=== PATIENT | female | born 1990 | race Caucasian/White ===

== ENCOUNTER 2019-12-06 00:14 | Emergency (ER) | payer OTHER, SELFPAY ==
[2019-12-06 00:20] VITALS: BP 119/71; PULSE 124; RESP 17; TEMP 36.6; O2SAT 98; BMI 22.6
--- NOTE | 2019-12-06 02:54 | PC.NURSE ---
This RN at bedside, chaperoning exam with MD. Large abscess noted to left side of upper buttocks. Pt aware of plan of care to obtain urine sample, medicate and drain abscess. Awaiting UA.
--- NOTE | 2019-12-06 03:08 | PC.NURSE ---
Urine sample obtained and sent.
[2019-12-06 03:32] LABS: UPreg QC Valid YES; Urine Pregnancy NEGATIVE (NEGATIVE)
[2019-12-06] MEDS: Lidocaine HCl 2 % MPF 5 ML VIAL INFILTRATI (04:20)
[2019-12-06] MEDS: oxyCODONE HCl Immed Release 5 MG TABLET PO (04:20)
[2019-12-06] MEDS: LORazepam 2 MG/ML VIAL IM (04:40)
[2019-12-06 04:42] VITALS: BP 110/78; PULSE 113; RESP 24; O2SAT 96
--- NOTE | 2019-12-06 04:43 | PC.NURSE ---
Pt medicated with Ativan preprocedure of I&D to left buttocks. VSS at this time. Awaiting MD.
--- NOTE | 2019-12-06 05:02 | ED.GENADULT ---
HPI - General Adult General Chief complaint: General Medical Stated complaint: ABSCESS Time Seen by Provider: 12/06/19 02:48 Source: patient History of Present Illness HPI narrative: patient states of left buttock abscess for the past several days increased pain tonight could not wait for and came in for evaluation denies fevers or chills Onset (ago): day(s) ( to) Severity scale (1-10): 6 Pain Consistency: constant Related Data Allergies Allergy/AdvReac Type Severity Reaction Status Date / Time Latex, Natural Rubber Allergy Unknown HIVES Unverified 11/13/19 16:43 [LATEX, NATURAL RUBBER] Review of Systems Review of Systems: Constitutional : No Weight loss, No Fever, No Chills, No Night Sweats, No Fatigue, No Malaise ENT/Mouth : No Hearing loss, No Ear Pain, No Nasal Congestion, No Sinus Pain, No Hoarseness, No sore throat, No Rhinorrhea, No Swallowing Difficulty Eyes: No Eye Pain, No Swelling, No Redness, No Foreign Body, No Discharge, No Vision Changes Cardiovascular : No Chest Pain, No SOB, No Dyspnea on Exertion, No Orthopnea, No Edema, No Palpitations Respiratory : No Cough, No Sputum, No Wheezing, No Smoke Exposure, No Dyspnea Gastrointestinal : No Nausea, No Vomiting, No Diarrhea, No Constipation, No abdominal Pain, No Hematochezia, No Melena Genitourinary : no irregular bleeding, No Dysuria, No Urinary Frequency, No Hematuria, No Urinary Incontinence, No Urgency, No Flank Pain, No Urinary Flow Changes, No Hesitancy Musculoskeletal : No joint pain, No Myalgias, No Joint Swelling Skin : left buttock lump with redness No rash Neuro : No Weakness, No Numbness, No Paresthesias, No Loss of Consciousness, No Dizziness, No Headache Psych : No Anxiety/Panic, No Depression, No SI/HI/AH/VH, No Social Issues, Heme/Lymph: No Bruising, No Bleeding,No Lymphadenopathy Endocrine : No Polyuria, No Polydipsia, No Temperature Intolerance FOR[facility]LY [facility], [facility] Past Medical History Medical History Diabetes mellitus type 1 Family History Family History (Updated 12/06/19 @ 05:03 by Jerod Armenta DO) Other Family history non-contributory Social History Social History Alcohol intake: never Smoking Status: Current every day smoker Use of substances other than those prescribed or required for medical reasons: Yes Substance Use Type: Marijuana Advance Directives: No Advance Directives Information Provided: No Physical Exam Vital Signs and I&O and Narrative: Vital Signs and I&O: Vital Signs Temp 97.9 F 12/06/19 00:20 Pulse 113 H 12/06/19 04:42 Resp 24 H 12/06/19 04:42 BP 110/78 12/06/19 04:42 Pulse Ox 96 12/06/19 04:42 Intake & Output 12/05/19 12/05/19 12/06/19 06:59 18:59 06:59 Weight 58.147 kg Body Mass Index 22.6 vital signs reviewed Appearance: Alert. Oriented X3. No acute distress. Eyes: Pupils equal, round and reactive to light. ENT: Pharynx normal. Neck: Normal inspection. Neck supple. No lymph nodes noted. No crepitus CVS: Normal heart rate and rhythm. Pulses normal. Normal S1 and S2 Respiratory: No respiratory distress. Breath sounds normal. No Wheezing. No rales Abdomen: Soft and nontender. No rigidity. No distention. good BS x4 Skin: Skin warm and dry. Normal skin color. Normal skin turgor. left buttock abscess. Positive induration. Mild erythema. Extremities: No lower extremity edema. Neurovascular intact to all extremities. No Lacerations. No Rash Neuro: Oriented X 3. No motor deficit. No sensory deficit. Moving all extermities. No slurred speech. Procedures Abscess I/D Site: other ( Left buttock) Side (if applicable): left Sedation/analgesia: other ( 2 mg Ativan) Local Anesthetic: lidocaine 2% Amount of anesthesia used (mL): 3 Technique: incised with blade Amount of fluid expressed (mL): 4 Sent for culture/gram staining?: Yes Irrigation: No Packing used?: iodoform Medical Decision Making Lab Data Labs: Lab Results 12/06/19 Range/Units 03:07 Urine Test NEGATIVE (NEGATIVE) Discharge Plan Discharge Clinical Impression: Abscess Patient Disposition: Home, Self-Care Instructions: Abscess (ED) Additional Instructions: Thank you for visiting the emergency department today. If your symptoms worsen or do not resolve completely please return to the emergency department immediately or call 911. if he have any questions please call your primary care physician Referrals: Kay Modi MD [Primary Care Provider] - 2 days
--- NOTE | 2019-12-06 05:04 | PC.NURSE ---
MD at bedside for I&D, this RN assisting. Pt tolerating the procedure poorly, reports no relief of pain. Culture obtained, wound packed, bandage applied. Continue to monitor.
[2019-12-06 05:46] VITALS: BP 91/58; PULSE 103; RESP 16
== END 2019-12-06 05:50 | disposition home or self-care (01) ==
PROVIDERS: Emergency Provider Emergency Medicine; PCP Internal Medicine
DX: L02.31 Cutaneous abscess of buttock (principal)
CPT/HCPCS: 10060; 81025; 87071; 87077; 87147; 87186; 87205; 96372; 99284; J2060

== ENCOUNTER 2020-04-19 18:34 | Emergency (ER) | payer OTHER, SELFPAY ==
[2020-04-19 20:16] VITALS: BP 118/78; PULSE 72; RESP 18; TEMP 36.8; O2SAT 98; BMI 22.4
--- NOTE | 2020-04-19 23:41 | ED.SKABFB ---
HPI - Skin/Abscess/Foreign Bdy General Chief complaint: Skin/Abscess/Foreign Body Stated complaint: abscess Time Seen by Provider: 04/19/20 22:06 Source: patient Mode of arrival: ambulatory Limitations: no limitations History of Present Illness HPI narrative: 29-year-old female with diabetes type 1, recurrent abscess presents with 3 days of left buttock pain, swelling, and recurrent abscess. She is unable to sit down, states the pain is 10/10, is crying and anxious. She does not report fevers, chills, abdominal pain, abdominal distention, dysuria, hematuria, rectal pain, abnormal vaginal discharge, pelvic pain or any other concerning symptoms. MD complaint: abscess/boil Onset (ago): day(s) (3) Tetanus up to date: yes Location: buttocks Severity: severe Severity scale (1-10): 10 Quality: burning and aching Pain Consistency: constant Relieving factors: none Exacerbating factors: palpation and movement Associated symptoms: denies other symptoms Treatments prior to arrival: attempted to drain pus at home Related Data Previous Rx's Medication Instructions Recorded tramadol 50 mg PO BID PRN #14 tab 12/06/19 cephalexin 500 mg PO Q8H 7 Days #21 cap 04/20/20 doxycycline monohydrate 100 mg PO BID 10 Days #20 cap 04/20/20 oxycodone 5 mg PO Q8H PRN #4 tab 04/20/20 Allergies Allergy/AdvReac Type Severity Reaction Status Date / Time Latex, Natural Rubber Allergy Unknown HIVES Verified 04/19/20 20:21 [LATEX, NATURAL RUBBER] Review of Systems Review of Systems: Constitutional: No Fever, No Chills ENT/Mouth: No Ear Pain, No Hoarseness, No sore throat Eyes: No Eye Pain, No Swelling, No Redness, No Foreign Body Cardiovascular: No Chest Pain, No SOB Respiratory: No Cough, No Dyspnea Gastrointestinal: No Nausea, No Vomiting, No Diarrhea, No abdominal Pain Genitourinary: No Dysuria, No Hematuria Musculoskeletal: positive left buttock pain, No Myalgias, No Joint Swelling Skin: Large abscess to left buttock, No Skin lacerations, No rash Neuro: No Weakness, No Numbness, No Paresthesias, No Loss of Consciousness, No Dizziness, No Headache Psych: No Anxiety/Panic, No Depression Heme/Lymph: no easy bruising, no Lymphadenopathy Endocrine: No Polyuria, No Polydipsia Yes all other systems are reviewed and are negative FORMERLY [facility], [facility] Past Medical History Attestation statement: The following information was validated with the patient. Source: old records reviewed Medical History Diabetes mellitus type 1 Family History Family History Other Family history non-contributory Social History Social History Alcohol intake: never Smoking Status: Current every day smoker Substance Use Type: Marijuana Advance Directives: No Physical Exam Vital Signs: Vital Signs: Last Vital Signs Temp 98.3 F 04/19/20 20:16 Pulse 72 04/19/20 20:16 Resp 18 04/19/20 20:16 BP 118/78 04/19/20 20:16 Pulse Ox 98 04/19/20 20:16 Body Mass Index 22.4 Appearance: Alert. Oriented X3. No acute distress. Eyes: Pupils equal, round and reactive to light. ENT: Pharynx normal. Neck: Normal inspection. Neck supple. CVS: Normal heart rate and rhythm. Pulses normal. Respiratory: No respiratory distress. Breath sounds normal. Abdomen: Soft and 5 cm in diameter fluctuating indurated nondraining abscess to the left buttock Skin: Skin warm and dry. Normal skin color. Normal skin turgor. Extremities: No lower extremity edema. Neuro: No motor deficit. No sensory deficit. Course Course Course Narrative: 29-year-old female with past medical history of diabetes type 1 and recurrent abscess presents with abscess to the left buttock. Patient is very anxious, will give 2 mg of p.o. Ativan. Patient agrees to I&D, prepped and draped in sterile fashion, please refer to procedure note for full details. Patient tolerated procedure well. Will give patient pain medication as well as p.o. antibiotics as she is a type 1 diabetic and has high risk of infection. Patient verbalized understanding of and agrees to plan of care discharge home. Procedures Abscess I/D Site: other (Left buttock) Side (if applicable): left Sedation/analgesia: other (Ativan 2 mg p.o.) Local Anesthetic: lidocaine 2% Amount of anesthesia used (mL): 4 Technique: incised with blade Amount of fluid expressed (mL): 60 Sent for culture/gram staining?: Yes Irrigation: No Packing used?: iodoform Complications: bleeding MDM - Skin/Abscess/Foreign Bdy Differential Diagnosis Differential diagnosis: Likely abscess of skin or subcutaneous tissue and cellulitis Medical Records Attestation: I reviewed the patient's medical records. Discharge Plan Discharge Clinical Impression: Abscess, Encounter for incision and drainage procedure Cellulitis Qualifiers: Site of cellulitis: buttock Qualified Code(s): L03.317 - Cellulitis of buttock Patient Disposition: Home, Self-Care Instructions: Cellulitis (ED), Abscess (ED), Abscess Follow-up (ED), Abscess Incision and Drainage (DC) Additional Instructions: Your evaluated for abscess and cellulitis to the left buttock. We drained the abscess, and packed it with iodoform dressing. Please return in 3 days to have packing removed. Take doxycycline and Keflex as directed. These medications are antibiotics. Use oxycodone for pain management. This medication is narcotic and has high risk for addiction and abuse. Do not drive or operate machinery while taking these medications. Thank you for choosing this emergency department for evaluation. Please follow-up with primary care physician as needed. Return to the emergency department for any new, concerning, or worsening symptoms. Prescriptions: New oxycodone 5 mg tablet 5 mg PO Q8H PRN (Reason: pain) Qty: 4 RF: 0 doxycycline monohydrate 100 mg capsule 100 mg PO BID 10 Days Qty: 20 RF: 0 cephalexin 500 mg capsule 500 mg PO Q8H 7 Days Qty: 21 RF: 0 No Action tramadol 50 mg tablet 50 mg PO BID PRN (Reason: pain) Qty: 14 RF: 0 Referrals: Akhil Mcbride MD [Physician] - 2 days (Recurrent abscess to the buttock)
[2020-04-19] MEDS: LORazepam 1 MG TABLET 2 MG PO (23:53)
[2020-04-19] MEDS: Lidocaine HCl 2 % MPF 5 ML VIAL SUBCUT (23:53)
[2020-04-20] MEDS: oxyCODONE HCl Immed Release 5 MG TABLET PO ×2 (01:10)
[2020-04-20] MEDS: cephALEXin 500 MG CAPSULE PO (01:10)
== END 2020-04-20 01:19 | disposition home or self-care (01) ==
PROVIDERS: Emergency Provider Internal Medicine; PCP Internal Medicine
DX: L02.31 Cutaneous abscess of buttock (principal); L03.317 Cellulitis of buttock; F41.9 Anxiety disorder, unspecified; E10.9 Type 1 diabetes mellitus without complications; F12.90 Cannabis use, unspecified, uncomplicated
CPT/HCPCS: 10060; 87071; 87205; 99283; 99284

== ENCOUNTER 2020-05-19 09:36 | Outpatient (REF) | payer OTHER, SELFPAY | END 2020-05-19 09:37 | disposition home or self-care (01) | LOC: HO.LAB 09:36 | PROVIDERS: Visit Provider Internal Medicine | DX: Z20.822 Contact with and (suspected) exposure to COVID-19 (principal) | CPT/HCPCS: 36415; C9803; U0003; U0005 ==

== ENCOUNTER 2020-12-01 11:12 | Emergency (ER) | payer OTHER, SELFPAY ==
--- NOTE | ~2020-12-01 | CT_ITS ---
EXAMINATION: CT ABDOMEN AND PELVIS WITHOUT CONTRAST CLINICAL INFORMATION: Diffuse abdominal pain. Vomiting. COMPARISON: Abdominal ultrasound dated 09/24/2017. TECHNIQUE: Multidetector volumetric imaging was performed from the superior aspect of the liver through the pubic symphysis. Sagittal and coronal reformatted images were obtained on the technologist's workstation. This CT examination was performed using dose optimization techniques as appropriate, variously including the following: *Automated exposure control *Adjustment of mA and/or kV according to patient size (this includes techniques or standardized protocols for targeted exams where dose is matched to indication/reason for exam; i.e. extremities or head) *Use of iterative reconstruction technique DLP: 408 mGy-cm FINDINGS: LUNG BASES: The visualized lung bases are unremarkable. LIVER, GALLBLADDER, AND BILIARY TREE: The liver is normal in size and shape. Parenchymal hypoattenuation, consistent with steatosis. No focal hepatic lesion or biliary ductal dilatation is present. The gallbladder is unremarkable with no evidence of radiopaque gallstones, gallbladder wall thickening, or obvious pericholecystic inflammatory changes. PANCREAS: Unremarkable. SPLEEN: Unremarkable. ADRENAL GLANDS: Unremarkable. KIDNEYS AND URETERS: The kidneys are normal in size, shape, and attenuation. No hydronephrosis, hydroureter, or calculi seen. No perinephric stranding. BLADDER: Unremarkable. GASTROINTESTINAL TRACT: No bowel wall thickening or associated inflammatory change. No small or large bowel obstruction. Unremarkable appendix. PERITONEAL CAVITY: No intra-abdominal free air or free fluid. No intra-abdominal mass or organized fluid collection/abscess formation. ABDOMINAL WALL: No significant hernia is appreciated. LYMPH NODES: Normal. VASCULAR: Unremarkable. PELVIC VISCERA: Right adnexal simple-appearing cyst measuring 2.7 cm. This likely represents a dominant ovarian follicle and no follow-up imaging is recommended. The uterus and left adnexa are unremarkable. OSSEOUS STRUCTURES: Unremarkable. CT/CT abdomen pelvis wo con IMPRESSION: 1. No acute intra-abdominal findings to explain the patient's pain. 2. Hepatic steatosis. No hepatic parenchymal lesion or biliary ductal dilatation.
[2020-12-01 11:19] VITALS: BP 140/71; PULSE 88
[2020-12-01 13:37] VITALS: BP 151/90; PULSE 100; RESP 20; TEMP 36.1; O2SAT 97; BMI 22.6
[2020-12-01] MEDS: Ondansetron ODT 4 MG TAB.RAPDIS SUBLINGUAL (13:44)
[2020-12-01 14:15] LABS: Basophils Percent Auto 0.2 % (0-2); Hematocrit 44.3 % (37-47); Hemoglobin 15.6 g/dl (12.0-16.0); Imm Gran Pct Auto 0.5 % (0.0-0.4); Lymphocytes Absolute Auto 0.7 X10*3/uL (1.2-4.9); Lymphocytes Percent Auto 3.5 % (20-40); MANUAL DIFF FLAG SCAN; Mean Corpuscular HGB Conc 35.2 g/dl (31.0-35.0); Mean Corpuscular Hemoglobin 30.5 pg (27.0-33.0); Mean Corpuscular Volume 86.5 fL (80-98); Mean Platelet Volume 11.6 fL (9.4-12.3); Monocytes Absolute Auto 0.4 X10*3/uL (0.1-1.2); Monocytes Percent Auto 2.3 % (2-11); Neutrophils Absolute Auto 17.4 X10*3/uL (2.0-8.3); Neutrophils Percent Auto 93.5 % (45-73); Platelet Count 263 X10*3/uL (160-400); Red Blood Count 5.12 X10*6/uL (4.20-5.50); Red Cell Distribution Width 11.8 % (11.0-16.0); SCAN SMEAR FLAG 1; White Blood Count 18.6 X10*3/uL (4.8-10.8)
[2020-12-01 14:33] LABS: Alanine Aminotransferase 23 U/L (0-31); Albumin Level 5.1 g/dL (3.5-5.0); Alkaline Phosphatase 98 U/L (39-117); Anion Gap 18 (12-20); Aspartate Amino Transferase 17 U/L (5-31); Bilirubin Total 0.8 mg/dL (0.0-1.0); Blood Urea Nitrogen 11 mg/dL (9-16); Calcium 10.6 mg/dL (8.4-10.2); Carbon Dioxide 25 mmol/L (22-29); Chloride 106 mmol/L (96-108); Creatinine Clr Calc Pharmacy 94.9; Estimated Glomerular Filt Rate > 60; Glucose Random 295 mg/dL (60-115); Potassium 4.3 mmol/L (3.3-5.1); Sodium 145 mmol/L (135-145); Total Protein 8.5 g/dL (6.5-8.0)
[2020-12-01 14:34] LABS: SLIDE REVIEW VERIFIED
--- NOTE | 2020-12-01 15:21 | ED.GENADULT ---
HPI - General Adult General Chief complaint: General Medical Stated complaint: DIZZY,FREQ FALLS Time Seen by Provider: 12/01/20 15:19 Source: patient and family (Spouse) Mode of arrival: ambulatory Limitations: no limitations History of Present Illness HPI narrative: A 30-year-old female came in with a complaint of sore throat and having chills for 1 day, patient is known diabetic type 1, came in with intractable vomiting patient vomited several times complaining of upper abdominal pain which is localized to the epigastric area with no radiation, pain is worsening with food, no relieving factor, patient feels very anxious requesting anxiety medication, feels dehydrated requesting IV hydration. Related Data Previous Rx's Medication Instructions Recorded tramadol 50 mg tablet 50 mg PO BID PRN #14 tab 12/06/19 cephalexin 500 mg capsule 500 mg PO Q8H 7 Days #21 cap 04/20/20 doxycycline monohydrate 100 mg 100 mg PO BID 10 Days #20 cap 04/20/20 capsule oxycodone 5 mg tablet 5 mg PO Q8H PRN #4 tab 04/20/20 amoxicillin 500 mg tablet 500 mg PO Q8H #20 tab 12/01/20 Allergies Allergy/AdvReac Type Severity Reaction Status Date / Time Latex, Natural Rubber Allergy Unknown HIVES Verified 04/19/20 20:21 [LATEX, NATURAL RUBBER] Review of Systems Review of Systems: All other systems are reviewed and are negative Constitutional: Reports as per HPI and Reports no additional constitutional complaints Eyes: Reports as per HPI and Reports no additional eye complaints Reports system reviewed and no additional complaints, except as documented Cardiovascular: Reports as per HPI and Reports no additional cardiovascular complaints Respiratory: Reports as per HPI and Reports no additional respiratory complaints Gastrointestinal: Reports as per HPI and Reports no additional gastrointestinal complaints Genitourinary: Reports no additional female genitourinary complaints Musculoskeletal: Reports no additional musculoskeletal complaints Skin/Breast: Reports system reviewed and no additional complaints, except as docu Psychiatric: Reports no additional psychiatric complaints Endocrine: Reports no additional endocrine complaints Hematologic/Lymphatic: Reports no additional hematologic/lymphatic complaints Allergic/Immunologic: Reports no additional allergic/immunologic complaints Reports system reviewed and no additional complaints, except as documented and Reports Abnormal speech present [facility] Past Medical History Medical History Diabetes mellitus type 1 Family History Family History Other Family history non-contributory Social History Social History Alcohol intake: never Use of substances other than those prescribed or required for medical reasons: Yes Substance Use Type: Marijuana Advance Directives: No Advance Directives Information Provided: No Patient : No Physical Exam Vital Signs: Vital Signs: Last Vital Signs Temp 98.8 F 12/01/20 18:00 Pulse 110 H 12/01/20 18:00 Resp 20 12/01/20 18:00 BP 122/78 12/01/20 18:00 Pulse Ox 98 12/01/20 18:00 Body Mass Index 22.6 Vital signs have been reviewed as appeared to be correct. Blood pressure normal. Heart rate normal. Respiration rate normal. Temperature normal. Oxygen saturation normal. Appearance: Alert. Oriented X3. Appear anxious. Head: Normal external exam. Normocephalic. Atraumatic. No Littlejohn signs noted. No raccoon eyes noted Eyes: PERRLA. EOMI. Conjunctiva and sclera normal. Eyelids normal. ENT: TM's Normal. Pharyngeal erythema, tonsillar enlargement with white exudate. Uvula midline. Moist mucous membranes. No trismus noted. No drooling noted. No muffled voice noted. Neck: Normal inspection. Neck supple. FROM. No adenopathy. Thyroid Normal. No meningeal signs. No neck mass noted. CVS: Normal heart rate and rhythm. Heart sound normal. No murmurs noted. Pulses normal throughout. Respiratory: No respiratory distress. Painless inspiration. Breath sounds normal. No wheezes/rales/rhonchi noted. Chest nontender. No accessory muscle usage noted or decreased air movement noted. Abdomen: Soft, epigastric tenderness, no rebound, no guarding. Bowel sounds normal in all 4 quadrants. No distention noted. No organomegaly noted. No visible injury noted. Back: No CVA tenderness. Full range of motion noted. Skin: Skin warm and dry. Normal skin color. Normal skin turgor. No rashes/lesions/lacerations noted. Extremities: No lower extremity edema. Extremities exhibit normal range of motion. Extremities nontender. Neuro: Oriented X 3. Cranial nerve exam: II-XII are grossly intact No motor deficit. No sensory deficit. Reflexes normal. Course Course Course Narrative: Assessment and plan. 30-year-old female has a history of anxiety came in with anxiety, patient tested positive for strep infection to the throat, patient initially was vomiting and complaining of abdominal pain, patient received IV fluid hydration, patient also was given multiple doses of Ativan to calm her anxiety, patient now was able to tolerate p.o. intake, able to swallow Augmentin in the emergency department. Patient is requesting to take another dose of Ativan before she goes home to help her sleep. Medical Decision Making Lab Data Lab results reviewed: Yes I reviewed the patient's lab results. Result diagrams: 12/01/20 13:52 12/01/20 13:52 Labs: Lab Results 12/01/20 12/01/20 12/01/20 Range/Units 13:52 13:52 16:39 WBC 18.6 H (4.8-10.8) X10*3/uL RBC 5.12 (4.20-5.50) X10*6/uL Hgb 15.6 (12.0-16.0) g/dl Hct 44.3 (37-47) % MCV 86.5 (80-98) fL MCH 30.5 (27.0-33.0) pg MCHC 35.2 H (31.0-35.0) g/dl RDW 11.8 (11.0-16.0) % Plt Count 263 (160-400) X10*3/uL MPV 11.6 (9.4-12.3) fL Immature Gran % (Auto) 0.5 H (0.0-0.4) % Neut % (Auto) 93.5 H (45-73) % Lymph % (Auto) 3.5 L (20-40) % Stone % (Auto) 2.3 (2-11) % Eos % (Auto) 0.0 (0-4) % Baso % (Auto) 0.2 (0-2) % Lymph # (Auto) 0.7 L (1.2-4.9) X10*3/uL Stone # (Auto) 0.4 (0.1-1.2) X10*3/uL Eos # (Auto) 0.0 (0.0-0.4) X10*3/uL Baso # (Auto) 0.0 (0.0-0.2) X10*3/uL Abs Immat Gran (auto) 0.10 H (0.00-0.03) X10*3/uL Absolute Neuts (auto) 17.4 H (2.0-8.3) X10*3/uL Absolute Nucleated RBC 0.000 (0.0-0.012) X10*3/uL Nucleated RBC % (auto) 0.0 (0.0-0.2) /100WBC Smear Tech's Comments VERIFIED Sodium 145 (135-145) mmol/L Potassium 4.3 (3.3-5.1) mmol/L Chloride 106 (96-108) mmol/L Carbon Dioxide 25 (22-29) mmol/L Anion Gap 18 (12-20) BUN 11 (9-16) mg/dL Creatinine 0.73 (0.5-1.4) mg/dL Estim Creat Clear Calc 94.9 Estimated GFR > 60 Random Glucose 295 H (60-115) mg/dL Calcium 10.6 H (8.4-10.2) mg/dL Total Bilirubin 0.8 (0.0-1.0) mg/dL AST 17 (5-31) U/L ALT 23 (0-31) U/L Alkaline Phosphatase 98 (39-117) U/L Total Protein 8.5 H (6.5-8.0) g/dL Albumin 5.1 H (3.5-5.0) g/dL COVID-19 (GOPAL) (Negative) COVID-19 Clin Com S. pyogenes GrpA KELLY Positive A (Negative) 12/01/20 Range/Units Unknown WBC (4.8-10.8) X10*3/uL RBC (4.20-5.50) X10*6/uL Hgb (12.0-16.0) g/dl Hct (37-47) % MCV (80-98) fL MCH (27.0-33.0) pg MCHC (31.0-35.0) g/dl RDW (11.0-16.0) % Plt Count (160-400) X10*3/uL MPV (9.4-12.3) fL Immature Gran % (Auto) (0.0-0.4) % Neut % (Auto) (45-73) % Lymph % (Auto) (20-40) % Stone % (Auto) (2-11) % Eos % (Auto) (0-4) % Baso % (Auto) (0-2) % Lymph # (Auto) (1.2-4.9) X10*3/uL Stone # (Auto) (0.1-1.2) X10*3/uL Eos # (Auto) (0.0-0.4) X10*3/uL Baso # (Auto) (0.0-0.2) X10*3/uL Abs Immat Gran (auto) (0.00-0.03) X10*3/uL Absolute Neuts (auto) (2.0-8.3) X10*3/uL Absolute Nucleated RBC (0.0-0.012) X10*3/uL Nucleated RBC % (auto) (0.0-0.2) /100WBC Smear Tech's Comments Sodium (135-145) mmol/L Potassium (3.3-5.1) mmol/L Chloride (96-108) mmol/L Carbon Dioxide (22-29) mmol/L Anion Gap (12-20) BUN (9-16) mg/dL Creatinine (0.5-1.4) mg/dL Estim Creat Clear Calc Estimated GFR Random Glucose (60-115) mg/dL Calcium (8.4-10.2) mg/dL Total Bilirubin (0.0-1.0) mg/dL AST (5-31) U/L ALT (0-31) U/L Alkaline Phosphatase (39-117) U/L Total Protein (6.5-8.0) g/dL Albumin (3.5-5.0) g/dL COVID-19 (GOPAL) Negative (Negative) COVID-19 Clin Com See Note S. pyogenes GrpA KELLY (Negative) Imaging Data CT scan - abdomen: Radiologist's impression: 1. No acute intra-abdominal findings to explain the patient's pain. ?2. Hepatic steatosis. No hepatic parenchymal lesion or biliary ductal dilatation.? Discharge Plan Discharge Clinical Impression: Acute streptococcal pharyngitis, Anxiety Patient Disposition: Home, Self-Care Prescriptions: New amoxicillin 500 mg tablet 500 mg PO Q8H Qty: 20 RF: 0 No Action tramadol 50 mg tablet 50 mg PO BID PRN (Reason: pain) Qty: 14 RF: 0 oxycodone 5 mg tablet 5 mg PO Q8H PRN (Reason: pain) Qty: 4 RF: 0 doxycycline monohydrate 100 mg capsule 100 mg PO BID 10 Days Qty: 20 RF: 0 cephalexin 500 mg capsule 500 mg PO Q8H 7 Days Qty: 21 RF: 0 Referrals: Kay Modi MD [Primary Care Provider] - 2 days
[2020-12-01] MEDS: LORazepam 2 MG/ML VIAL 1 MG IVPUSH (15:28)
[2020-12-01] MEDS: 0.9 % Sodium Chloride 1,000 ML 999 ML IVCONT (15:28)
[2020-12-01] MEDS: Famotidine/PF 20 MG/2 ML VIAL IVPUSH (15:29)
[2020-12-01] MEDS: Magnesium Hydrox/Alum Hydrox 30 ML ORAL.SUSP PO (15:29)
[2020-12-01] MEDS: ondansetron HCL 4 MG/2 ML VIAL IVPUSH (15:43)
[2020-12-01 16:40] VITALS: BP 170/91; PULSE 108; RESP 18; TEMP 37.2; O2SAT 98
[2020-12-01 17:05] LABS: IDNOW Serial# 08D9AD1C; Strep A Nucleic Acid Positive (Negative)
[2020-12-01 17:25] LABS: COVID-19 Test Negative (Negative)
[2020-12-01] MEDS: Amoxicillin/Potassium Clav 875 MG TABLET PO (17:31)
[2020-12-01 18:00] VITALS: BP 122/78; PULSE 110; RESP 20; TEMP 37.1; O2SAT 98
[2020-12-01 19:49] VITALS: BP 137/87; PULSE 110; RESP 20; O2SAT 98
== END 2020-12-01 20:20 | disposition home or self-care (01) ==
PROVIDERS: Emergency Provider Emergency Medicine; PCP Internal Medicine
DX: J02.0 Streptococcal pharyngitis (principal); F41.9 Anxiety disorder, unspecified; R11.10 Vomiting, unspecified; E10.9 Type 1 diabetes mellitus without complications; Z20.822 Contact with and (suspected) exposure to COVID-19
CPT/HCPCS: 0241U; 36415; 74176; 80053; 85025; 87635; 87651; 96361; 96374; 96375; 99284; J2060; J2405

== ENCOUNTER 2021-01-21 13:34 | Emergency (ER) | payer OTHER, SELFPAY ==
--- NOTE | ~2021-01-21 | CT_ITS ---
EXAMINATION: CT ABDOMEN AND PELVIS WITH CONTRAST CLINICAL INFORMATION: Upper quadrant abdominal pain. Cholecystectomy last month. Age 30. COMPARISON: CT abdomen 12/01/2020, ultrasound abdomen 08/28/2017 TECHNIQUE: Multidetector volumetric images were obtained from the superior aspect of the liver through the pubic symphysis following administration 85 mL of Omnipaque 350 intravenous contrast. Sagittal and coronal reformatted images were obtained on the technologist's workstation. Oral contrast: No This CT examination was performed using dose optimization techniques as appropriate, variously including the following: *Automated exposure control *Adjustment of mA and/or kV according to patient size (this includes techniques or standardized protocols for targeted exams where dose is matched to indication/reason for exam; i.e. extremities or head) *Use of iterative reconstruction technique DLP: 402 mGy-cm FINDINGS: LUNG BASES: The visualized lung bases are unremarkable. LIVER, GALLBLADDER, AND BILIARY TREE: The liver is normal in size and smooth in contour. There is decreased hepatic parenchymal echogenicity consistent with hepatic steatosis. There is some minor focal sparing subcapsular left lobe adjacent to ayra hepatis. No focal hepatic parenchymal lesion. Prior cholecystectomy. Common duct unremarkable. PANCREAS: Unremarkable. SPLEEN: Unremarkable. ADRENAL GLANDS: Unremarkable. KIDNEYS AND URETERS: The kidneys are normal in size, shape, and attenuation. No hydronephrosis, hydroureter, or calculi seen. No perinephric stranding. BLADDER: Unremarkable. GASTROINTESTINAL TRACT: There is no bowel obstruction or focal inflammatory changes in bowel or mesentery. The appendix is normal. There is no fluid collection. Trace ascites is present at the lower right paracolic gutter. ABDOMINAL WALL: No significant hernia is appreciated. LYMPH NODES: No lymphadenopathy. VASCULAR: Unremarkable. PELVIC VISCERA: Right adnexal cyst 3.5 cm with thin wall. Trace pelvic ascites. Prior measurement 2.[address] 12/01/2020. OSSEOUS STRUCTURES: Unremarkable. CT/CT abdomen pelvis w con IMPRESSION: 1. Prior cholecystectomy. No biliary ductal dilatation. Common duct unremarkable. No upper abdominal ascites or inflammatory changes. 2. No bowel obstruction. Normal appendix. 3. Small pelvic ascites. Right adnexal cyst 3.5 cm, likely incidental benign follicular.
[2021-01-21 13:42] VITALS: BP 140/90; PULSE 110
[2021-01-21 13:44] VITALS: BP 156/97; PULSE 79; RESP 18; TEMP 36.6; O2SAT 99; BMI 23.6
--- NOTE | 2021-01-21 13:48 | ECG_ITS ---
Test Reason : ABD PAIN Blood Pressure : / mmHG Vent. Rate : 087 BPM Atrial Rate : 087 BPM P-R Int : 146 ms QRS Dur : 084 ms QT Int : 374 ms P-R-T Axes : 064 021 043 degrees QTc Int : 450 ms Normal sinus rhythm with sinus arrhythmia Normal ECG No previous ECGs available Referred By: Jackson Avendano Electronically Signed By:MAKAYLA PARKS MD
[2021-01-21] MEDS: 0.9 % Sodium Chloride 1,000 ML 999 ML IV ×2 (14:00→15:19)
[2021-01-21] MEDS: ondansetron HCL 4 MG/2 ML VIAL IVPUSH (14:01)
[2021-01-21] MEDS: diphenhydrAMINE HCL 50 MG/ML VIAL IVPUSH (14:02)
[2021-01-21] MEDS: Morphine Sulfate 4 MG/ML CARTRIDGE IVPUSH ×2 (14:02→16:55)
[2021-01-21] MEDS: Famotidine/PF 20 MG/2 ML VIAL IVPUSH (14:04)
[2021-01-21 14:17] LABS: Basophils Percent Auto 0.3 % (0-2); Eosinophils Percent Auto 0.1 % (0-4); Hematocrit 41.8 % (37.0-47.0); Hemoglobin 14.7 g/dl (12.0-16.0); Imm Gran Abs Auto 0.05 X10*3/uL (0.00-0.03); Imm Gran Pct Auto 0.4 % (0.0-0.4); Lymphocytes Absolute Auto 1.1 X10*3/uL (1.2-4.9); Lymphocytes Percent Auto 9.2 % (20-40); MANUAL DIFF FLAG NO; Mean Corpuscular HGB Conc 35.2 g/dl (31.0-35.0); Mean Corpuscular Hemoglobin 30.6 pg (27.0-33.0); Mean Corpuscular Volume 87.1 fL (80.0-98.0); Mean Platelet Volume 11.6 fL (9.4-12.3); Monocytes Absolute Auto 0.3 X10*3/uL (0.1-1.2); Monocytes Percent Auto 2.3 % (2-11); Neutrophils Absolute Auto 10.6 x10*3/uL (2.0-8.3); Neutrophils Percent Auto 87.7 % (45-73); Platelet Count 162 X10*3/uL (160-400); Red Cell Distribution Width 11.6 % (11.0-16.0); White Blood Count 12.1 X10*3/uL (4.8-10.8)
[2021-01-21 14:39] LABS: Troponin-I High Sensitivity < 3.5 ng/L (<3.5-17.0)
--- NOTE | 2021-01-21 14:39 | ED_ITS ---
HPI - Nausea/Vomiting/Diarrhea General Chief complaint: Nausea/Vomiting/Diarrhea Stated complaint: VOMITING Time Seen by Provider: 01/21/21 13:46 Source: patient Mode of arrival: ambulatory Limitations: no limitations History of Present Illness HPI Narrative: Patient presents to ED for severe upper abdominal pain with nausea vomiting for several days. Patient states status post gall bladder removal last month at [facility]. Patient states no fever chills. Patient has not been compliant with her insulin. Patient denies any lower abdominal pain, complaints, flank pain, chest pain, shortness of breath, fever, or chills. Associated nausea: Yes Related Data Previous Rx's Medication Instructions Recorded tramadol 50 mg tablet 50 mg PO BID PRN #14 tab 12/06/19 cephalexin 500 mg capsule 500 mg PO Q8H 7 Days #21 cap 04/20/20 doxycycline monohydrate 100 mg 100 mg PO BID 10 Days #20 cap 04/20/20 capsule oxycodone 5 mg tablet 5 mg PO Q8H PRN #4 tab 04/20/20 amoxicillin 500 mg tablet 500 mg PO Q8H #20 tab 12/01/20 Allergies Allergy/AdvReac Type Severity Reaction Status Date / Time Latex, Natural Rubber Allergy Unknown HIVES Verified 04/19/20 20:21 [LATEX, NATURAL RUBBER] Review of Systems Review of Systems: Yes all other systems are reviewed and are negative Constitutional: Constitutional: Reports as per HPI and Reports no additional constitutional complaints Eyes: Eyes: Reports as per HPI and Reports no additional eye complaints ENT: Reports system reviewed and no additional complaints, except as documented and Reports as per HPI Cardiovascular: Cardiovascular: Reports as per HPI and Reports no additional cardiovascular complaints Respiratory: Respiratory: Reports as per HPI and Reports no additional respiratory complaints Gastrointestinal: Gastrointestinal: Reports as per HPI, Reports no additional gastrointestinal complaints, Reports abdominal pain (Upper abdominal pain), Reports nausea and Reports vomiting Musculoskeletal: Musculoskeletal: Reports no additional musculoskeletal complaints and Reports as per HPI Neurologic: Reports system reviewed and no additional complaints, except as documented and Reports as per HPI Psychiatric: Psychiatric: Reports no additional psychiatric complaints and Reports as per HPI PMF Past Medical History Medical History Diabetes mellitus type 1 Family History Family History Other Family history non-contributory Social History Social History Alcohol intake: never Substance Use Type: Marijuana Advance Directives: No Advance Directives Information Provided: Yes Physical Exam Vital Signs: Vital Signs: Last Vital Signs Temp 98 F 01/21/21 13:44 Pulse 79 01/21/21 13:44 Resp 18 01/21/21 13:44 BP 156/97 H 01/21/21 13:44 Pulse Ox 99 01/21/21 13:44 Body Mass Index 23.6 Const: General: cooperative, healthy appearing, comfortable, no acute distress, well developed, alert, awake and Physically active Orientation/consciousness: patient oriented x3 HENMT: Head: Yes normal to inspection, Yes No palpable skull fracture present, Yes normocephalic, Yes atraumatic, No abrasion, No Acrocyanosis present, No Littlejohn's sign, No contusion, No cranial bruits, No hematoma, No laceration, No occipital foramen tenderness, No palpable skull fracture, No raccoon eyes, No scalp lesion, No scalp tenderness, No Temporal artery tenderness present and No periorbital ecchymosis Eyes: General: appearance normal, both eyes and all related structures Neck: Neck: Yes normal visual inspection, Yes full ROM, Yes no lymphadenopathy, Yes no meningeal signs, Yes trachea midline, Yes supple, No anterior neck swelling and No tender Chest: Chest palpation & inspection: normal inspection of the chest and normal palpation of entire chest wall Resp: Effort & Inspection: normal respiratory effort and able to speak in complete sentences Auscultation: clear to auscultation bilaterally Cardio: Jugular venous distension: no JVD Heart sounds: S1 normal heart sound present and S2 normal heart sound present GI: Inspection: Yes normal to inspection and No abdominal wall ecchymosis Palpation (GI): Tenderness to palpation present (GI) in the epigastrum, in the LUQ and in the RUQ; Negative for not in the LLQ, not in the RLQ, not at McBurney's point, not periumbilically, not suprapubicly, Choudhury's sign negative, obturator sign negative, psoas sign negative, with no rebound tenderness and Rovsing's sign negative, no guarding and not rigid : General: No CVA tenderness and Yes no CVA tenderness Back/Spine/Pelvis: Back: no CVA tenderness, No CVA tenderness and No back tenderness Skin: General skin exam: no rashes or lesions noted and elasticity normal Neuro: General: patient oriented x3, gait normal, no meningeal signs and CN's II-XI intact bilaterally Cranial nerves: Yes CN's II-XII intact bilaterally Extrem: General: Yes normal to inspection and Yes full ROM Psych: Appearance: grossly normal, well kempt and not disheveled Course Course Course Narrative: EKG, labs, pain medication ordered. Reevaluation(s) Reevaluation #1: Patient given multiple rounds of narcotic still having pain. EKG negative STEMI. Labs are normal. Troponin negative. Liver and lipase normal. Patient will be sent for CT scan. Time: 14:11 Reevaluation #2: CT scan normal. Want to speak to patient and patient admitted that she smokes marijuana every day. This seem like cyclic vomiting. Patient still having pain nausea. Ativan and Haldol ordered patient now sleeping. SIgned out to PA. Randle Time: 18:33 MDM - Nausea/Vomiting/Diarrhea MDM Narrative Medical decision making narrative: Cyclic vomiting Lab Data Result diagrams: 01/21/21 14:11 01/21/21 14:11 Labs: Lab Results 01/21/21 01/21/21 01/21/21 Range/Units 14:11 14:11 14:11 WBC 12.1 H (4.8-10.8) X10*3/uL RBC 4.80 (4.20-5.50) X10*6/uL Hgb 14.7 (12.0-16.0) g/dl Hct 41.8 (37.0-47.0) % MCV 87.1 (80.0-98.0) fL MCH 30.6 (27.0-33.0) pg MCHC 35.2 H (31.0-35.0) g/dl RDW 11.6 (11.0-16.0) % Plt Count 162 (160-400) X10*3/uL MPV 11.6 (9.4-12.3) fL Immature Gran % (Auto) 0.4 (0.0-0.4) % Neut % (Auto) 87.7 H (45-73) % Lymph % (Auto) 9.2 L (20-40) % [place] % (Auto) 2.3 (2-11) % Eos % (Auto) 0.1 (0-4) % Baso % (Auto) 0.3 (0-2) % Lymph # (Auto) 1.1 L (1.2-4.9) X10*3/uL [place] # (Auto) 0.3 (0.1-1.2) X10*3/uL Eos # (Auto) 0.0 (0.0-0.4) X10*3/uL Baso # (Auto) 0.0 (0.0-0.2) X10*3/uL Abs Immat Gran (auto) 0.05 H (0.00-0.03) X10*3/uL Absolute Neuts (auto) 10.6 H (2.0-8.3) x10*3/uL Absolute Nucleated RBC 0.000 (0.0-0.012) X10*3/uL Nucleated RBC % (auto) 0.0 (0.0-0.2) /100WBC Sodium 138 (135-145) mmol/L Potassium 3.4 D (3.3-5.1) mmol/L Chloride 103 (96-108) mmol/L Carbon Dioxide 23 (22-29) mmol/L Anion Gap 15 (12-20) BUN 12 (9-16) mg/dL Creatinine 0.73 (0.5-1.4) mg/dL Estim Creat Clear Calc 94.9 Estimated GFR > 60 Random Glucose 357 H* (60-115) mg/dL Calcium 9.1 D (8.4-10.2) mg/dL Total Bilirubin 0.6 (0.0-1.0) mg/dL Direct Bilirubin 0.3 (0.0-0.5) mg/dL AST 13 (5-31) U/L ALT 22 (0-31) U/L Alkaline Phosphatase 87 (39-117) U/L Troponin I High Sens < 3.5 (<3.5-17.0) ng/L Total Protein 7.4 (6.5-8.0) g/dL Albumin 4.4 (3.5-5.0) g/dL Lipase 10 (8-78) U/L Beta HCG, Quant < 2 mIU/mL Acetone, Qual Negative (Negative) ECG Data Interpretation: Normal sinus rhythm. Ventricular rate 87. Pr interval 146. QRS 86. QTC negative STEMI Discharge Plan Discharge Clinical Impression: Cyclic vomiting syndrome Prescriptions: No Action tramadol 50 mg tablet 50 mg PO BID PRN (Reason: pain) Qty: 14 RF: 0 oxycodone 5 mg tablet 5 mg PO Q8H PRN (Reason: pain) Qty: 4 RF: 0 doxycycline monohydrate 100 mg capsule 100 mg PO BID 10 Days Qty: 20 RF: 0 cephalexin 500 mg capsule 500 mg PO Q8H 7 Days Qty: 21 RF: 0 amoxicillin 500 mg tablet 500 mg PO Q8H Qty: 20 RF: 0
[2021-01-21 14:40] LABS: Alanine Aminotransferase 22 U/L (0-31); Albumin Level 4.4 g/dL (3.5-5.0); Alkaline Phosphatase 87 U/L (39-117); Anion Gap 15 (12-20); Aspartate Amino Transferase 13 U/L (5-31); Bilirubin Direct 0.3 mg/dL (0.0-0.5); Bilirubin Total 0.6 mg/dL (0.0-1.0); Blood Urea Nitrogen 12 mg/dL (9-16); Calcium 9.1 mg/dL (8.4-10.2); Carbon Dioxide 23 mmol/L (22-29); Chloride 103 mmol/L (96-108); Creatinine Clr Calc Pharmacy 94.9; Estimated Glomerular Filt Rate > 60; Glucose Random 357 mg/dL (60-115); Lipase 10 U/L (8-78); Potassium 3.4 mmol/L (3.3-5.1); Sodium 138 mmol/L (135-145); Total Protein 7.4 g/dL (6.5-8.0)
[2021-01-21 14:44] LABS: HCG Quantitative < 2 mIU/mL
[2021-01-21 15:39] LABS: Acetone, serum QL Negative (Negative)
[2021-01-21] MEDS: iohexoL 350 MG/ML 100 ML INFUS..BTL IV (15:58)
[2021-01-21] MEDS: LORazepam 2 MG/ML VIAL IVPUSH (16:56)
[2021-01-21] MEDS: Haloperidol Lactate 5 MG/ML VIAL IM (16:56)
== END 2021-01-21 23:02 | disposition home or self-care (01) ==
PROVIDERS: Physician Assistant; Emergency Provider Emergency Medicine; PCP Internal Medicine
DX: R11.15 Cyclical vomiting syndrome unrelated to migraine (principal); F12.90 Cannabis use, unspecified, uncomplicated; R10.10 Upper abdominal pain, unspecified; E10.9 Type 1 diabetes mellitus without complications; Z79.4 Long term (current) use of insulin; Z91.14 Patient's other noncompliance with medication regimen
CPT/HCPCS: 36415; 74177; 80053; 82009; 82248; 83690; 84484; 84702; 85025; 93005; 96361; 96372; 96374; 96375; 96376; 99283; 99284; J1200; J2060; J2270; J2405; Q9967

== ENCOUNTER 2021-03-10 07:59 | Outpatient (REF) | payer OTHER, SELFPAY ==
[2021-03-10 08:42] LABS: Binax Internal Control QC Valid; Binax Now Covid-19 Ag Negative (Negative)
== END 2021-03-10 08:00 | disposition home or self-care (01) ==
LOC: HO.LAB 07:59
PROVIDERS: Visit Provider Internal Medicine
DX: Z20.822 Contact with and (suspected) exposure to COVID-19 (principal)
CPT/HCPCS: C9803

== ENCOUNTER 2021-04-18 12:01 | Emergency (ER) | payer OTHER, SELFPAY ==
[2021-04-18 12:05] VITALS: BP 142/87; BP 164/96; PULSE 124; PULSE 130; RESP 18; TEMP 36.8; O2SAT 98; O2SAT 99; BMI 24.7
--- NOTE | 2021-04-18 12:11 | ED.GENADULT ---
HPI - General Adult General Chief complaint: Abdominal Pain Stated complaint: VOMITING, AMS Time Seen by Provider: 04/18/21 12:04 Source: patient and EMS Mode of arrival: EMS Limitations: altered mental status History of Present Illness HPI narrative: Patient comes to the emergency room via EMS. Chief complain is vomiting. However, EMS reports that the patient is also altered. Patient has been vomiting for couple of days. Patient is known to have history of cyclical vomiting. Patient states that she does not remember when was the last time that she smoked marijuana. Patient states that she has not been using her insulin, also known to be type 1 diabetic. Patient complaining of severe anxiety. Patient is crying and screaming, requesting IM Ativan. Patient admits that yesterday she drank a significant amount of alcohol. Related Data Previous Rx's Medication Instructions Recorded tramadol 50 mg tablet 50 mg PO BID PRN #14 tab 12/06/19 cephalexin 500 mg capsule 500 mg PO Q8H 7 Days #21 cap 04/20/20 doxycycline monohydrate 100 mg 100 mg PO BID 10 Days #20 cap 04/20/20 capsule oxycodone 5 mg tablet 5 mg PO Q8H PRN #4 tab 04/20/20 amoxicillin 500 mg tablet 500 mg PO Q8H #20 tab 12/01/20 ondansetron 4 mg disintegrating 4 mg PO Q8H PRN #7 tab 01/21/21 tablet Allergies Allergy/AdvReac Type Severity Reaction Status Date / Time Latex, Natural Rubber Allergy Unknown HIVES Verified 04/19/20 20:21 [LATEX, NATURAL RUBBER] Review of Systems Review of Systems: Constitutional : Complaining of generalized malaise ENT/Mouth : No Hearing loss, No Ear Pain, No Nasal Congestion, No Sinus Pain, No Hoarseness, No sore throat, No Rhinorrhea, No Swallowing Difficulty Eyes: No Eye Pain, No Swelling, No Redness, No Foreign Body, No Discharge, No Vision Changes Cardiovascular : No Chest Pain, No SOB, No Dyspnea on Exertion, No Orthopnea, No Edema, No Palpitations Respiratory : No Cough, No Sputum, No Wheezing, No Smoke Exposure, No Dyspnea Gastrointestinal : Complaining of nausea, vomiting, no diarrhea, complaining of epigastric pain/burning sensation Genitourinary : no irregular bleeding, No Dysuria, No Urinary Frequency, No Hematuria, No Urinary Incontinence, No Urgency, No Flank Pain, No Urinary Flow Changes, No Hesitancy Musculoskeletal : No joint pain, No Myalgias, No Joint Swelling Skin : No Skin Lesions, No rash Neuro : No Weakness, No Numbness, No Paresthesias, No Loss of Consciousness, No Dizziness, No Headache Psych : Complaining of severe anxiety, denies SI or HI Heme/Lymph: No Bruising, No Bleeding,No Lymphadenopathy Endocrine : No Polyuria, No Polydipsia, No Temperature Intolerance [facility] Past Medical History Medical History Diabetes mellitus type 1 Family History Family History Other Family history non-contributory Social History Social History Alcohol intake: never Patient Tobacco Use Status: Current everyday Tobacco user Use of substances other than those prescribed or required for medical reasons: No Substance Use Type: Marijuana Advance Directives: No Advance Directives Information Provided: No Physical Exam ED Vital Signs: Vital Signs - 24 hr 04/18/21 12:05 04/18/21 12:12 04/18/21 14:09 Temperature 98.2 F 98.0 F 99.0 F Pulse Rate 130 H 130 H 132 H Respiratory Rate 18 25 H 20 Blood Pressure 142/87 H 142/78 H 132/98 H Pulse Oximetry 99 99 99 BMI result Body Mass Index 24.7 Const Other: Appearance: Alert. Oriented X3. Very anxious, screaming and crying, trying to be cooperative Eyes: Pupils equal, round and reactive to light. ENT: Pharynx normal. Neck: Normal inspection. Neck supple. No lymph nodes noted. No crepitus CVS: Normal heart rate and rhythm. Pulses normal. Normal S1 and S2 Respiratory: No respiratory distress. Breath sounds normal. No Wheezing. No rales Abdomen: Soft, pain on palpation over epigastric area Skin: Skin warm and dry. Normal skin color. Normal skin turgor. Extremities: No lower extremity edema. No Lacerations. No Rash Neuro: No motor deficit. No sensory deficit. Moving all extermities. No slurred speech. Course Course Course Narrative: Patient is very anxious. At this time, patient does not have access, patient screaming, crying, hyperventilating. IM Ativan offered, patient is agreeable. All of the labs pending. Patient's lactic acid is 5.0. Is likely secondary from vomiting. At this time, sepsis not suspected Patient's lactic acid improved. Patient is complaining of pain all over her body. Patient states that Tylenol and ibuprofen does not work. Patient states that at the very least she wants a tramadol. I discussed with the patient at this time there are no indications for tramadol. Patient's urine tested positive for cannabis Medical Decision Making Lab Data Result diagrams: 04/18/21 13:03 04/18/21 13:03 Labs: Lab Results 04/18/21 04/18/21 04/18/21 Range/Units 12:14 13:03 13:03 WBC 13.7 H (4.8-10.8) X10*3/uL RBC 5.09 (4.20-5.50) X10*6/uL Hgb 15.4 (12.0-16.0) g/dl Hct 43.4 (37.0-47.0) % MCV 85.3 (80.0-98.0) fL MCH 30.3 (27.0-33.0) pg MCHC 35.5 H (31.0-35.0) g/dl RDW 11.7 (11.0-16.0) % Plt Count 247 D (160-400) X10*3/uL MPV 11.2 (9.4-12.3) fL Immature Gran % (Auto) 0.4 (0.0-0.4) % Neut % (Auto) 92.7 H (45-73) % Lymph % (Auto) 4.3 L (20-40) % [place] % (Auto) 2.3 (2-11) % Eos % (Auto) 0.0 (0-4) % Baso % (Auto) 0.3 (0-2) % Lymph # (Auto) 0.6 L (1.2-4.9) X10*3/uL [place] # (Auto) 0.3 (0.1-1.2) X10*3/uL Eos # (Auto) 0.0 (0.0-0.4) X10*3/uL Baso # (Auto) 0.0 (0.0-0.2) X10*3/uL Abs Immat Gran (auto) 0.05 H (0.00-0.03) X10*3/uL Absolute Neuts (auto) 12.7 H (2.0-8.3) x10*3/uL Absolute Nucleated RBC 0.000 (0.0-0.012) X10*3/uL Nucleated RBC % (auto) 0.0 (0.0-0.2) /100WBC Smear Tech's Comments VERIFIED Sodium 146 H (135-145) mmol/L Potassium 4.0 (3.3-5.1) mmol/L Chloride 104 (96-108) mmol/L Carbon Dioxide 25 (22-29) mmol/L Anion Gap 21 H (12-20) BUN 11 (9-16) mg/dL Creatinine 0.79 (0.5-1.4) mg/dL Estim Creat Clear Calc 95.1 Estimated GFR > 60 POC Glucose 321 H (60-115) mg/dL Random Glucose 318 H (60-115) mg/dL Lactic Acid (0.5-2.0) mmol/L Lactic Acid F/U @ 2Hr (0.5-2.0) mmol/L Calcium 10.2 D (8.4-10.2) mg/dL Total Bilirubin 1.1 H (0.0-1.0) mg/dL Direct Bilirubin 0.4 (0.0-0.5) mg/dL AST 20 D (5-31) U/L ALT 27 (0-31) U/L Alkaline Phosphatase 83 (39-117) U/L Total Protein 8.5 H (6.5-8.0) g/dL Albumin 4.8 (3.5-5.0) g/dL Lipase 7 L (8-78) U/L Beta HCG, Quant < 2 mIU/mL Urine Color Urine Appearance Urine pH (5.0-8.0) Ur Specific [place] (1.005-1.025) Urine Protein (NEG-TRACE) MG/DL Urine Glucose (UA) (NEG) MG/DL Urine Ketones (NEG) MG/DL Urine Blood (NEG) Urine Nitrite (NEG) Ur Leukocyte Esterase (NEG) Urine RBC (0) /HPF Urine WBC (0-4) /HPF Ur Squamous Epith Cells /LPF Urine Bacteria /LPF Urine Opiates Screen (Not Detect) Urine Fentanyl Screen (Not Detect) Ur Barbiturates Screen (Not Detect) Ur Phencyclidine Scrn (Not Detect) Ur Amphetamines Screen (Not Detect) U Benzodiazepines Scrn (Not Detect) Urine Cocaine Screen (Not Detect) U Marijuana (THC) Screen (Not Detect) Ethyl Alcohol mg/dL Acetone, Qual (Negative) COVID-19 (GOPAL) (Negative) COVID-19 Clin Com 04/18/21 04/18/21 04/18/21 Range/Units 13:03 13:03 13:03 WBC (4.8-10.8) X10*3/uL RBC (4.20-5.50) X10*6/uL Hgb (12.0-16.0) g/dl Hct (37.0-47.0) % MCV (80.0-98.0) fL MCH (27.0-33.0) pg MCHC (31.0-35.0) g/dl RDW (11.0-16.0) % Plt Count (160-400) X10*3/uL MPV (9.4-12.3) fL Immature Gran % (Auto) (0.0-0.4) % Neut % (Auto) (45-73) % Lymph % (Auto) (20-40) % [place] % (Auto) (2-11) % Eos % (Auto) (0-4) % Baso % (Auto) (0-2) % Lymph # (Auto) (1.2-4.9) X10*3/uL [place] # (Auto) (0.1-1.2) X10*3/uL Eos # (Auto) (0.0-0.4) X10*3/uL Baso # (Auto) (0.0-0.2) X10*3/uL Abs Immat Gran (auto) (0.00-0.03) X10*3/uL Absolute Neuts (auto) (2.0-8.3) x10*3/uL Absolute Nucleated RBC (0.0-0.012) X10*3/uL Nucleated RBC % (auto) (0.0-0.2) /100WBC Smear Tech's Comments Sodium (135-145) mmol/L Potassium (3.3-5.1) mmol/L Chloride (96-108) mmol/L Carbon Dioxide (22-29) mmol/L Anion Gap (12-20) BUN (9-16) mg/dL Creatinine (0.5-1.4) mg/dL Estim Creat Clear Calc Estimated GFR POC Glucose (60-115) mg/dL Random Glucose (60-115) mg/dL Lactic Acid 5.0 H* (0.5-2.0) mmol/L Lactic Acid F/U @ 2Hr (0.5-2.0) mmol/L Calcium (8.4-10.2) mg/dL Total Bilirubin (0.0-1.0) mg/dL Direct Bilirubin (0.0-0.5) mg/dL AST (5-31) U/L ALT (0-31) U/L Alkaline Phosphatase (39-117) U/L Total Protein (6.5-8.0) g/dL Albumin (3.5-5.0) g/dL Lipase (8-78) U/L Beta HCG, Quant mIU/mL Urine Color Urine Appearance Urine pH (5.0-8.0) Ur Specific [place] (1.005-1.025) Urine Protein (NEG-TRACE) MG/DL Urine Glucose (UA) (NEG) MG/DL Urine Ketones (NEG) MG/DL Urine Blood (NEG) Urine Nitrite (NEG) Ur Leukocyte Esterase (NEG) Urine RBC (0) /HPF Urine WBC (0-4) /HPF Ur Squamous Epith Cells /LPF Urine Bacteria /LPF Urine Opiates Screen (Not Detect) Urine Fentanyl Screen (Not Detect) Ur Barbiturates Screen (Not Detect) Ur Phencyclidine Scrn (Not Detect) Ur Amphetamines Screen (Not Detect) U Benzodiazepines Scrn (Not Detect) Urine Cocaine Screen (Not Detect) U Marijuana (THC) Screen (Not Detect) Ethyl Alcohol mg/dL Acetone, Qual Negative (Negative) COVID-19 (GOPAL) Negative (Negative) COVID-19 Clin Com See Note 04/18/21 04/18/21 04/18/21 Range/Units 13:03 14:55 15:59 WBC (4.8-10.8) X10*3/uL RBC (4.20-5.50) X10*6/uL Hgb (12.0-16.0) g/dl Hct (37.0-47.0) % MCV (80.0-98.0) fL MCH (27.0-33.0) pg MCHC (31.0-35.0) g/dl RDW (11.0-16.0) % Plt Count (160-400) X10*3/uL MPV (9.4-12.3) fL Immature Gran % (Auto) (0.0-0.4) % Neut % (Auto) (45-73) % Lymph % (Auto) (20-40) % [place] % (Auto) (2-11) % Eos % (Auto) (0-4) % Baso % (Auto) (0-2) % Lymph # (Auto) (1.2-4.9) X10*3/uL [place] # (Auto) (0.1-1.2) X10*3/uL Eos # (Auto) (0.0-0.4) X10*3/uL Baso # (Auto) (0.0-0.2) X10*3/uL Abs Immat Gran (auto) (0.00-0.03) X10*3/uL Absolute Neuts (auto) (2.0-8.3) x10*3/uL Absolute Nucleated RBC (0.0-0.012) X10*3/uL Nucleated RBC % (auto) (0.0-0.2) /100WBC Smear Tech's Comments Sodium (135-145) mmol/L Potassium (3.3-5.1) mmol/L Chloride (96-108) mmol/L Carbon Dioxide (22-29) mmol/L Anion Gap (12-20) BUN (9-16) mg/dL Creatinine (0.5-1.4) mg/dL Estim Creat Clear Calc Estimated GFR POC Glucose 195 H (60-115) mg/dL Random Glucose (60-115) mg/dL Lactic Acid (0.5-2.0) mmol/L Lactic Acid F/U @ 2Hr 2.0 (0.5-2.0) mmol/L Calcium (8.4-10.2) mg/dL Total Bilirubin (0.0-1.0) mg/dL Direct Bilirubin (0.0-0.5) mg/dL AST (5-31) U/L ALT (0-31) U/L Alkaline Phosphatase (39-117) U/L Total Protein (6.5-8.0) g/dL Albumin (3.5-5.0) g/dL Lipase (8-78) U/L Beta HCG, Quant mIU/mL Urine Color Urine Appearance Urine pH (5.0-8.0) Ur Specific [place] (1.005-1.025) Urine Protein (NEG-TRACE) MG/DL Urine Glucose (UA) (NEG) MG/DL Urine Ketones (NEG) MG/DL Urine Blood (NEG) Urine Nitrite (NEG) Ur Leukocyte Esterase (NEG) Urine RBC (0) /HPF Urine WBC (0-4) /HPF Ur Squamous Epith Cells /LPF Urine Bacteria /LPF Urine Opiates Screen (Not Detect) Urine Fentanyl Screen (Not Detect) Ur Barbiturates Screen (Not Detect) Ur Phencyclidine Scrn (Not Detect) Ur Amphetamines Screen (Not Detect) U Benzodiazepines Scrn (Not Detect) Urine Cocaine Screen (Not Detect) U Marijuana (THC) Screen (Not Detect) Ethyl Alcohol < 10 mg/dL Acetone, Qual (Negative) COVID-19 (GOPAL) (Negative) COVID-19 Clin Com 04/18/21 04/18/21 04/18/21 Range/Units 17:48 17:52 17:52 WBC (4.8-10.8) X10*3/uL RBC (4.20-5.50) X10*6/uL Hgb (12.0-16.0) g/dl Hct (37.0-47.0) % MCV (80.0-98.0) fL MCH (27.0-33.0) pg MCHC (31.0-35.0) g/dl RDW (11.0-16.0) % Plt Count (160-400) X10*3/uL MPV (9.4-12.3) fL Immature Gran % (Auto) (0.0-0.4) % Neut % (Auto) (45-73) % Lymph % (Auto) (20-40) % [place] % (Auto) (2-11) % Eos % (Auto) (0-4) % Baso % (Auto) (0-2) % Lymph # (Auto) (1.2-4.9) X10*3/uL [place] # (Auto) (0.1-1.2) X10*3/uL Eos # (Auto) (0.0-0.4) X10*3/uL Baso # (Auto) (0.0-0.2) X10*3/uL Abs Immat Gran (auto) (0.00-0.03) X10*3/uL Absolute Neuts (auto) (2.0-8.3) x10*3/uL Absolute Nucleated RBC (0.0-0.012) X10*3/uL Nucleated RBC % (auto) (0.0-0.2) /100WBC Smear Tech's Comments Sodium (135-145) mmol/L Potassium (3.3-5.1) mmol/L Chloride (96-108) mmol/L Carbon Dioxide (22-29) mmol/L Anion Gap (12-20) BUN (9-16) mg/dL Creatinine (0.5-1.4) mg/dL Estim Creat Clear Calc Estimated GFR POC Glucose 211 H (60-115) mg/dL Random Glucose (60-115) mg/dL Lactic Acid (0.5-2.0) mmol/L Lactic Acid F/U @ 2Hr (0.5-2.0) mmol/L Calcium (8.4-10.2) mg/dL Total Bilirubin (0.0-1.0) mg/dL Direct Bilirubin (0.0-0.5) mg/dL AST (5-31) U/L ALT (0-31) U/L Alkaline Phosphatase (39-117) U/L Total Protein (6.5-8.0) g/dL Albumin (3.5-5.0) g/dL Lipase (8-78) U/L Beta HCG, Quant mIU/mL Urine Color YELLOW Urine Appearance CLEAR Urine pH 6.0 (5.0-8.0) Ur Specific [place] 1.020 (1.005-1.025) Urine Protein TRACE (NEG-TRACE) MG/DL Urine Glucose (UA) 500 H (NEG) MG/DL Urine Ketones >=80 (NEG) MG/DL Urine Blood 3+ H (NEG) Urine Nitrite NEG (NEG) Ur Leukocyte Esterase NEG (NEG) Urine RBC 10-14 H (0) /HPF Urine WBC 0-2 (0-4) /HPF Ur Squamous Epith Cells 2+ /LPF Urine Bacteria NONE /LPF Urine Opiates Screen Not Detected (Not Detect) Urine Fentanyl Screen Not Detected (Not Detect) Ur Barbiturates Screen Not Detected (Not Detect) Ur Phencyclidine Scrn Not Detected (Not Detect) Ur Amphetamines Screen Not Detected (Not Detect) U Benzodiazepines Scrn Not Detected (Not Detect) Urine Cocaine Screen Not Detected (Not Detect) U Marijuana (THC) Screen POSITIVE H (Not Detect) Ethyl Alcohol mg/dL Acetone, Qual (Negative) COVID-19 (GOPAL) (Negative) COVID-19 Clin Com Discharge Plan Discharge Clinical Impression: Hyperglycemia, Anxiety, Cannabis abuse Patient Disposition: Home, Self-Care Instructions: Diabetic Hyperglycemia (ED), Panic Attack (ED) Additional Instructions: Please follow-up with your primary care physician tomorrow. If you have any worsening or new symptoms, please return to the emergency room or call 911 Prescriptions: No Action tramadol 50 mg tablet 50 mg PO BID PRN (Reason: pain) Qty: 14 0RF oxycodone 5 mg tablet 5 mg PO Q8H PRN (Reason: pain) Qty: 4 0RF doxycycline monohydrate 100 mg capsule 100 mg PO BID 10 Days Qty: 20 0RF cephalexin 500 mg capsule 500 mg PO Q8H 7 Days Qty: 21 0RF amoxicillin 500 mg tablet 500 mg PO Q8H Qty: 20 0RF ondansetron 4 mg tablet,disintegrating 4 mg PO Q8H PRN (Reason: nausea and vomiting) Qty: 7 0RF
[2021-04-18 12:12] VITALS: BP 142/78; PULSE 130; RESP 25; TEMP 36.7; O2SAT 99
[2021-04-18] MEDS: LORazepam 2 MG/ML VIAL IM (12:13)
[2021-04-18 12:17] LABS: Glucose, Whole Blood 321 mg/dL (60-115)
[2021-04-18 13:09] LABS: Basophils Percent Auto 0.3 % (0-2); Hematocrit 43.4 % (37.0-47.0); Hemoglobin 15.4 g/dl (12.0-16.0); Imm Gran Abs Auto 0.05 X10*3/uL (0.00-0.03); Imm Gran Pct Auto 0.4 % (0.0-0.4); Lymphocytes Absolute Auto 0.6 X10*3/uL (1.2-4.9); Lymphocytes Percent Auto 4.3 % (20-40); MANUAL DIFF FLAG SCAN; Mean Corpuscular HGB Conc 35.5 g/dl (31.0-35.0); Mean Corpuscular Hemoglobin 30.3 pg (27.0-33.0); Mean Corpuscular Volume 85.3 fL (80.0-98.0); Mean Platelet Volume 11.2 fL (9.4-12.3); Monocytes Absolute Auto 0.3 X10*3/uL (0.1-1.2); Monocytes Percent Auto 2.3 % (2-11); Neutrophils Absolute Auto 12.7 x10*3/uL (2.0-8.3); Neutrophils Percent Auto 92.7 % (45-73); Platelet Count 247 X10*3/uL (160-400); Red Blood Count 5.09 X10*6/uL (4.20-5.50); Red Cell Distribution Width 11.7 % (11.0-16.0); SCAN SMEAR FLAG 1; White Blood Count 13.7 X10*3/uL (4.8-10.8)
[2021-04-18] MEDS: 0.9 % Sodium Chloride 1,000 ML 999 ML IVCONT ×2 (13:16→15:56)
[2021-04-18] MEDS: Acetaminophen 325 MG TABLET 650 MG PO (13:16)
[2021-04-18 13:22] LABS: Acetone, serum QL Negative (Negative)
[2021-04-18 13:24] LABS: Ethanol < 10 mg/dL
[2021-04-18] MEDS: Insulin Regular, Human 100 UNIT/ML 3 ML VIAL 10 UNIT IVPUSH (13:25)
[2021-04-18 13:28] LABS: SLIDE REVIEW VERIFIED
[2021-04-18 13:33] LABS: Alanine Aminotransferase 27 U/L (0-31); Albumin Level 4.8 g/dL (3.5-5.0); Alkaline Phosphatase 83 U/L (39-117); Anion Gap 21 (12-20); Aspartate Amino Transferase 20 U/L (5-31); Bilirubin Direct 0.4 mg/dL (0.0-0.5); Bilirubin Total 1.1 mg/dL (0.0-1.0); Blood Urea Nitrogen 11 mg/dL (9-16); Calcium 10.2 mg/dL (8.4-10.2); Carbon Dioxide 25 mmol/L (22-29); Chloride 104 mmol/L (96-108); Creatinine Clr Calc Pharmacy 95.1; Estimated Glomerular Filt Rate > 60; Glucose Random 318 mg/dL (60-115); Lipase 7 U/L (8-78); Sodium 146 mmol/L (135-145); Total Protein 8.5 g/dL (6.5-8.0)
[2021-04-18 13:34] LABS: HCG Quantitative < 2 mIU/mL
[2021-04-18 13:46] LABS: COVID-19 Test Negative (Negative)
[2021-04-18 14:09] VITALS: BP 132/98; PULSE 132; RESP 20; TEMP 37.2; O2SAT 99
[2021-04-18 15:00] LABS: Glucose, Whole Blood 195 mg/dL (60-115)
[2021-04-18 15:07] LABS: Reflex Lactate? Lactic Acid Added
[2021-04-18] MEDS: ondansetron HCL 4 MG/2 ML VIAL IVPUSH (15:56)
[2021-04-18 17:58] LABS: Appearance Urine CLEAR; Color Urine YELLOW; Glucose Urine UA 500 MG/DL (NEG); Leukocyte Esterase Urine NEG (NEG); Nitrite Urine NEG (NEG); UACC Culture Trigger NO; Urine Blood 3+ (NEG); Urine Ketones >=80 MG/DL (NEG); Urine Protein TRACE MG/DL (NEG-TRACE)
--- NOTE | 2021-04-18 17:59 | PC.NURSE ---
poc 211
[2021-04-18 18:01] LABS: WBC Urine 0-2 /HPF (0-4)
[2021-04-18 18:02] LABS: Squamous Epithelial Cell Urine 2+ /LPF
[2021-04-18 18:10] LABS: Glucose, Whole Blood 211 mg/dL (60-115)
[2021-04-18 18:11] LABS: Amphetamine Screen Urine Not Detected (Not Detect); Barbiturates, Urine Not Detected (Not Detect); Benzodiazepines Screen Urine Not Detected (Not Detect); Cannabinoid Screen Urine POSITIVE (Not Detect); Cocaine Screen Urine Not Detected (Not Detect); Fentanyl, urine Not Detected (Not Detect); Opiate Screen Urine Not Detected (Not Detect); Phencyclidine Screen Urine Not Detected (Not Detect)
== END 2021-04-18 18:26 | disposition home or self-care (01) ==
PROVIDERS: Emergency Provider Emergency Medicine; PCP Internal Medicine
DX: E11.65 Type 2 diabetes mellitus with hyperglycemia (principal); F41.9 Anxiety disorder, unspecified; F43.0 Acute stress reaction; F12.10 Cannabis abuse, uncomplicated; Z20.822 Contact with and (suspected) exposure to COVID-19; Z79.899 Other long term (current) drug therapy
CPT/HCPCS: 36415; 80048; 80076; 80307; 81001; 82009; 82077; 82947; 83605; 83690; 84702; 85025; 87040; 87635; 96361; 96372; 96374; 96375; 99284; 99285; J2060; J2405

== ENCOUNTER 2021-04-19 23:37 | Emergency (ER) | payer OTHER, SELFPAY ==
[2021-04-19 23:44] VITALS: BP 124/91; PULSE 104; RESP 16; TEMP 36.6; O2SAT 96; BMI 22.0
--- NOTE | 2021-04-19 23:51 | ED_ITS ---
HPI - Abdominal Pain General Chief Complaint: Abdominal Pain Stated Complaint: Abd pain Time Seen by Provider: 04/19/21 23:49 Source: patient Mode of arrival: EMS History of Present Illness HPI narrative: 30-year-old female is brought in by EMS with a history depression, anxiety, cyclical vomiting and states that she has been nauseous and vomiting for 4 days without associated fever, chills and states that she last used marijuana on Sun day when her nausea and vomiting started. She has had subsequent development lightheadedness. Patient states that she is currently menstruating. Related Data Previous Rx's Medication Instructions Recorded tramadol 50 mg tablet 50 mg PO BID PRN #14 tab 12/06/19 cephalexin 500 mg capsule 500 mg PO Q8H 7 Days #21 cap 04/20/20 doxycycline monohydrate 100 mg 100 mg PO BID 10 Days #20 cap 04/20/20 capsule oxycodone 5 mg tablet 5 mg PO Q8H PRN #4 tab 04/20/20 amoxicillin 500 mg tablet 500 mg PO Q8H #20 tab 12/01/20 ondansetron 4 mg disintegrating 4 mg PO Q8H PRN #7 tab 01/21/21 tablet ondansetron 4 mg disintegrating 4 mg PO Q6H PRN #7 tab 04/20/21 tablet sucralfate 100 mg/mL oral 10 ml PO BID #420 ml 04/20/21 suspension (Carafate) Allergies Allergy/AdvReac Type Severity Reaction Status Date / Time Latex, Natural Rubber Allergy Unknown HIVES Verified 04/19/20 20:21 [LATEX, NATURAL RUBBER] Review of Systems Review of Systems Pertinent positives and negatives as stated in HPI 10 point review of systems is otherwise negative. [facility] Past Medical History Source: nursing notes reviewed Medical History Diabetes mellitus type 1 Family History Family History Other Family history non-contributory Social History Social History Alcohol intake: never Patient Tobacco Use Status: Current everyday Tobacco user Substance Use Type: Marijuana Advance Directives: No Advance Directives Information Provided: No Physical Exam ED Vital Signs: Vital Signs - 24 hr 04/19/21 23:44 04/20/21 02:00 04/20/21 03:46 Temperature 98 F Pulse Rate 104 H 102 H 95 Respiratory Rate 16 16 16 Blood Pressure 124/91 H 124/88 156/100 H Pulse Oximetry 96 97 100 BMI result Body Mass Index 22.0 VITAL SIGNS: Reviewed. GENERAL: Well developed, well nourished, in moderate distress. HEAD: Normocephalic/atraumatic, EYES: PERRLA, EOMI OROPHARYNX: no oral lesions noted, posterior pharynx clear LUNGS: Normal breath sounds. No adventitious sounds or accessory muscle use. SpO2<96> CARDIOVASCULAR: Regular rate and rhythm without noted murmurs ABDOMEN: Soft, non-tender, non-distended with bowel sounds. SKIN: Inspection of the skin reveals no rashes NEUROLOGIC: Alert and oriented x 4. Strength and sensation to light touch were grossly intact x 4. Course Course Course Narrative: 30-year-old female with history and clinical presentation consistent with cyclical vomiting, urinary is negative. On review of all investigations there is a mild leukocytosis which is likely stress response with concomitant hypokalemia and elevated bili which are attributable to patient's multiple episodes of nausea and vomiting. Although there is noted hematuria without infection this is felt to be secondary to menstrual blood. After IV fluid hydration, antacids, and antiemetics patient has become calm and is resting comfortably. Repleted patient's potassium. Patient will receive additional Compazine as well as Carafate for suspected nausea/vomiting induced g astritis. She is otherwise stable for discharge to home. MDM - Abdominal Pain Lab Data Result diagrams: 04/19/21 23:59 04/19/21 23:59 Labs: Lab Results 04/19/21 04/19/21 04/20/21 Range/Units 23:59 23:59 03:44 WBC 12.4 H (4.8-10.8) X10*3/uL RBC 4.66 (4.20-5.50) X10*6/uL Hgb 14.1 (12.0-16.0) g/dl Hct 39.7 (37.0-47.0) % MCV 85.2 (80.0-98.0) fL MCH 30.3 (27.0-33.0) pg MCHC 35.5 H (31.0-35.0) g/dl RDW 11.5 (11.0-16.0) % Plt Count 225 (160-400) X10*3/uL MPV 11.3 (9.4-12.3) fL Immature Gran % (Auto) 0.2 (0.0-0.4) % Neut % (Auto) 74.6 H (45-73) % Lymph % (Auto) 19.5 L (20-40) % [place] % (Auto) 4.9 (2-11) % Eos % (Auto) 0.4 (0-4) % Baso % (Auto) 0.4 (0-2) % Lymph # (Auto) 2.4 (1.2-4.9) X10*3/uL [place] # (Auto) 0.6 (0.1-1.2) X10*3/uL Eos # (Auto) 0.1 (0.0-0.4) X10*3/uL Baso # (Auto) 0.1 (0.0-0.2) X10*3/uL Abs Immat Gran (auto) 0.03 (0.00-0.03) X10*3/uL Absolute Neuts (auto) 9.2 H (2.0-8.3) x10*3/uL Absolute Nucleated RBC 0.000 (0.0-0.012) X10*3/uL Nucleated RBC % (auto) 0.0 (0.0-0.2) /100WBC Sodium 141 (135-145) mmol/L Potassium 2.7 L D (3.3-5.1) mmol/L Chloride 102 (96-108) mmol/L Carbon Dioxide 27 (22-29) mmol/L Anion Gap 15 (12-20) BUN 16 (9-16) mg/dL Creatinine 0.63 (0.5-1.4) mg/dL Estim Creat Clear Calc 119.6 Estimated GFR > 60 Random Glucose 233 H (60-115) mg/dL Calcium 9.4 D (8.4-10.2) mg/dL Magnesium 1.8 (1.6-2.6) mg/dL Total Bilirubin 1.8 H (0.0-1.0) mg/dL AST 19 (5-31) U/L ALT 21 (0-31) U/L Alkaline Phosphatase 67 (39-117) U/L Total Protein 7.1 (6.5-8.0) g/dL Albumin 4.2 (3.5-5.0) g/dL Lipase 8 (8-78) U/L Beta HCG, Quant < 2 mIU/mL Urine Color YELLOW Urine Appearance CLEAR Urine pH 6.0 (5.0-8.0) Ur Specific [place] 1.020 (1.005-1.025) Urine Protein NEG (NEG-TRACE) MG/DL Urine Glucose (UA) 500 H (NEG) MG/DL Urine Ketones >=80 (NEG) MG/DL Urine Blood 1+ H (NEG) Urine Nitrite NEG (NEG) Ur Leukocyte Esterase NEG (NEG) Urine RBC 1-4 (0) /HPF Urine WBC 1-4 (0-4) /HPF Ur Squamous Epith Cells 1+ /LPF Urine Bacteria 1+ /LPF Discharge Plan Discharge Clinical Impression: Cyclical vomiting, Dehydration, Hypokalemia, Gastritis Patient Disposition: Home, Self-Care Instructions: Gastritis (ED), Dehydration (ED), Diet for Stomach Ulcers and Gastritis (ED), Hypokalemia (ED), Acute Nausea and Vomiting (ED) Additional Instructions: 1. You need to consistently take the prescribed medication for the inflammation within your stomach. 2. You have also been provided with antinausea medication. 3. Follow-up with your primary care provider for re-evaluation and further o utpatient management. Return to the ER for worsening symptoms. Prescriptions: New sucralfate [Carafate] 100 mg/mL suspension 10 ml PO BID Qty: 420 0RF ondansetron 4 mg tablet,disintegrating 4 mg PO Q6H PRN (Reason: nausea and vomiting) Qty: 7 0RF No Action tramadol 50 mg tablet 50 mg PO BID PRN (Reason: pain) Qty: 14 0RF oxycodone 5 mg tablet 5 mg PO Q8H PRN (Reason: pain) Qty: 4 0RF doxycycline monohydrate 100 mg capsule 100 mg PO BID 10 Days Qty: 20 0RF cephalexin 500 mg capsule 500 mg PO Q8H 7 Days Qty: 21 0RF amoxicillin 500 mg tablet 500 mg PO Q8H Qty: 20 0RF ondansetron 4 mg tablet,disintegrating 4 mg PO Q8H PRN (Reason: nausea and vomiting) Qty: 7 0RF Referrals: Guilherme Miller MD [Primary Care Provider] - 2 days
--- NOTE | 2021-04-19 23:54 | PC.NURSE ---
PT TO ROOM VIA EMS WITH C/O ABD PAIN RATING PAIN 10/10. PT CHG INTO GOWN. PT CRYING AT BEDSIDE D/T PAIN. PT VOMITING X 1. 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 PT ARRIVES ALERT, RESPIRATIONS EASY, N/L. SKIN W/D.
[2021-04-20] MEDS: Metoclopramide HCl 10 MG/2 ML VIAL IVPUSH (00:06)
[2021-04-20] MEDS: diphenhydrAMINE HCL 50 MG/ML VIAL 25 MG IVPUSH (00:06)
[2021-04-20] MEDS: 0.9 % Sodium Chloride 2,000 ML 999 ML IV (00:07)
[2021-04-20 00:08] LABS: MANUAL DIFF FLAG NO
--- NOTE | 2021-04-20 00:11 | PC.NURSE ---
PT MEDICATED PER EMAR FOR NAUSEA.
[2021-04-20 00:14] LABS: Basophils Absolute Auto 0.1 X10*3/uL (0.0-0.2); Basophils Percent Auto 0.4 % (0-2); Eosinophils Absolute Auto 0.1 X10*3/uL (0.0-0.4); Eosinophils Percent Auto 0.4 % (0-4); Hematocrit 39.7 % (37.0-47.0); Hemoglobin 14.1 g/dl (12.0-16.0); Imm Gran Abs Auto 0.03 X10*3/uL (0.00-0.03); Imm Gran Pct Auto 0.2 % (0.0-0.4); Lymphocytes Absolute Auto 2.4 X10*3/uL (1.2-4.9); Lymphocytes Percent Auto 19.5 % (20-40); Mean Corpuscular HGB Conc 35.5 g/dl (31.0-35.0); Mean Corpuscular Hemoglobin 30.3 pg (27.0-33.0); Mean Corpuscular Volume 85.2 fL (80.0-98.0); Mean Platelet Volume 11.3 fL (9.4-12.3); Monocytes Absolute Auto 0.6 X10*3/uL (0.1-1.2); Monocytes Percent Auto 4.9 % (2-11); Neutrophils Absolute Auto 9.2 x10*3/uL (2.0-8.3); Neutrophils Percent Auto 74.6 % (45-73); Platelet Count 225 X10*3/uL (160-400); Red Blood Count 4.66 X10*6/uL (4.20-5.50); Red Cell Distribution Width 11.5 % (11.0-16.0); White Blood Count 12.4 X10*3/uL (4.8-10.8)
[2021-04-20 00:52] LABS: Alanine Aminotransferase 21 U/L (0-31); Albumin Level 4.2 g/dL (3.5-5.0); Alkaline Phosphatase 67 U/L (39-117); Anion Gap 15 (12-20); Aspartate Amino Transferase 19 U/L (5-31); Bilirubin Total 1.8 mg/dL (0.0-1.0); Blood Urea Nitrogen 16 mg/dL (9-16); Calcium 9.4 mg/dL (8.4-10.2); Carbon Dioxide 27 mmol/L (22-29); Chloride 102 mmol/L (96-108); Creatinine Clr Calc Pharmacy 119.6; Estimated Glomerular Filt Rate > 60; Glucose Random 233 mg/dL (60-115); Lipase 8 U/L (8-78); Potassium 2.7 mmol/L (3.3-5.1); Sodium 141 mmol/L (135-145); Total Protein 7.1 g/dL (6.5-8.0)
[2021-04-20 00:56] LABS: HCG Quantitative < 2 mIU/mL
[2021-04-20] MEDS: Potassium Chloride/H20 10 MEQ/100 ML PIGGYBACK 100 MEQ IV ×2 (01:10→02:56)
[2021-04-20 01:20] LABS: Magnesium 1.8 mg/dL (1.6-2.6)
[2021-04-20] MEDS: Famotidine/PF 20 MG/2 ML VIAL IVPUSH (01:42)
[2021-04-20 02:00] VITALS: BP 124/88; PULSE 102; RESP 16; O2SAT 97
--- NOTE | 2021-04-20 02:01 | PC.NURSE ---
pt refusing po meds d/t vomiting. aware. pt on monitor with HR 102. K+ up and running on pump. pt is tolerating well.
[2021-04-20 03:46] VITALS: BP 156/100; PULSE 95; RESP 16; O2SAT 100
[2021-04-20 03:49] LABS: Appearance Urine CLEAR; Color Urine YELLOW; Glucose Urine UA 500 MG/DL (NEG); Leukocyte Esterase Urine NEG (NEG); Nitrite Urine NEG (NEG); UACC Culture Trigger NO; Urine Blood 1+ (NEG); Urine Ketones >=80 MG/DL (NEG); Urine Protein NEG (NEG-TRACE)
[2021-04-20 04:01] LABS: Bacteria Urine 1+ /LPF; Squamous Epithelial Cell Urine 1+ /LPF
--- NOTE | 2021-04-20 04:21 | PC.NURSE ---
PT SLEEPING, WAKES TO VOICE, RESPIRATIONS EASY, N/L.
[2021-04-20] MEDS: Prochlorperazine Edisylate 10 MG/2 ML VIAL IVPUSH (06:05)
[2021-04-20] MEDS: Potassium Chloride ER 20 MEQ TAB.ER.PRT 60 MEQ PO (06:05)
[2021-04-20] MEDS: Sucralfate Oral Suspension 1 GM/10 ML ORAL.SUSP PO (06:05)
[2021-04-20 06:14] LABS: Glucose, Whole Blood 188 mg/dL (60-115)
== END 2021-04-20 06:39 | disposition home or self-care (01) ==
PROVIDERS: Emergency Provider Student in an Organized Health Care Education/Training Program; PCP Internal Medicine
DX: K29.70 Gastritis, unspecified, without bleeding (principal); R11.15 Cyclical vomiting syndrome unrelated to migraine; E86.0 Dehydration; E87.6 Hypokalemia; F12.90 Cannabis use, unspecified, uncomplicated; E10.8 Type 1 diabetes mellitus with unspecified complications; F17.200 Nicotine dependence, unspecified, uncomplicated
CPT/HCPCS: 36415; 80053; 81001; 82947; 83690; 83735; 84702; 85025; 96361; 96365; 96375; 99284; J1200; J2765

== ENCOUNTER 2021-10-16 13:30 | Inpatient (IN) | payer OTHER, SELFPAY ==
[2021-10-16] VITALS (7 sets, daily range): BP systolic 160–170; BP diastolic 84–104; PULSE 67–110; RESP 16–20; TEMP 36.2–37.1; O2SAT 93–100; BMI 21.6
--- NOTE | ~2021-10-16 | CT_ITS ---
EXAMINATION: CT ABDOMEN AND PELVIS WITH CONTRAST CLINICAL INFORMATION: Abdominal pain COMPARISON: Previous CT December 2020 TECHNIQUE: Multidetector volumetric images were obtained from the superior aspect of the liver through the pubic symphysis following administration 85 mL of Omnipaque 350 intravenous contrast. Sagittal and coronal reformatted images were obtained on the technologist's workstation. Oral contrast: Yes This CT examination was performed using dose optimization techniques as appropriate, variously including the following: *Automated exposure control *Adjustment of mA and/or kV according to patient size (this includes techniques or standardized protocols for targeted exams where dose is matched to indication/reason for exam; i.e. extremities or head) *Use of iterative reconstruction technique DLP: 406 mGy-cm FINDINGS: LUNG BASES: The visualized lung bases are unremarkable. LIVER, GALLBLADDER, AND BILIARY TREE: The liver is slightly low in attenuation suggestive of fatty infiltration. The gallbladder has been removed. No focal liver lesion or biliary duct dilatation. PANCREAS: Unremarkable. SPLEEN: Unremarkable. ADRENAL GLANDS: Unremarkable. KIDNEYS AND URETERS: The kidneys are normal in size, shape, and attenuation. No hydronephrosis, hydroureter, or calculi seen. No perinephric stranding. BLADDER: Unremarkable. GASTROINTESTINAL TRACT: There is mild wall thickening of the distal transverse colon and left colon and sigmoid colon suggestive of mild colitis. There is an abnormal loop of small bowel in the left upper quadrant, proximal jejunum is slightly dilated and demonstrates thickened wall for example axial image 25 series 3. Small and large bowel is otherwise unremarkable. The appendix is normal. No ascites. ABDOMINAL WALL: No significant hernia is appreciated. LYMPH NODES: Normal. VASCULAR: Unremarkable. PELVIC VISCERA: Both ovaries are prominent and there are small bilateral ovarian cysts. The uterus is unremarkable. OSSEOUS STRUCTURES: Unremarkable. CT/CT abdomen pelvis w con IMPRESSION: Long segment mild wall thickening of the distal transverse, left and sigmoid colon suggestive of mild colitis. There is also a short segment wall thickening and dilatation of the proximal jejunum. Fleischner guidelines were followed.
--- NOTE | 2021-10-16 13:36 | ED.NAVMDI ---
HPI - Nausea/Vomiting/Diarrhea General Chief complaint: Nausea/Vomiting/Diarrhea Stated complaint: NAUSEA, VOMITING Time Seen by Provider: 10/16/21 13:33 Source: patient and EMS Mode of arrival: EMS Limitations: no limitations History of Present Illness HPI Narrative: This is a 31 years old the female arrives by ambulance with a chief complain of nause and vomiting she states that she was drinking last night,and she has been vomiting this morning.She is been seen in this ED multiple times for vomiting,she carries a dx of cyclic vomiting.She is requesting anxiety meds MD elicited complaint: nausea and vomiting Onset (ago): hour(s) (4) Description of vomiting: watery Description of diarrhea: watery Associated nausea: Yes Associated abdominal pain: No Quality: aching Related Data Previous Rx's Medication Instructions Recorded tramadol 50 mg tablet 50 mg PO BID PRN pain #14 tabs 12/06/19 cephalexin 500 mg capsule 500 mg PO Q8H 7 days #21 caps 04/20/20 doxycycline monohydrate 100 mg 100 mg PO BID 10 days #20 caps 04/20/20 capsule oxycodone 5 mg tablet 5 mg PO Q8H PRN pain #4 tabs 04/20/20 amoxicillin 500 mg tablet 500 mg PO Q8H #20 tabs 12/01/20 ondansetron 4 mg disintegrating 4 mg PO Q8H PRN nausea and 01/21/21 tablet vomiting #7 tabs ondansetron 4 mg disintegrating 4 mg PO Q6H PRN nausea and 04/20/21 tablet vomiting #7 tabs sucralfate 100 mg/mL oral 10 ml PO BID #420 mL 04/20/21 suspension (Carafate) Allergies Allergy/AdvReac Type Severity Reaction Status Date / Time Latex, Natural Rubber Allergy Unknown HIVES Verified 04/19/20 20:21 [LATEX, NATURAL RUBBER] Review of Systems Constitutional: Constitutional: Reports no additional constitutional complaints ENT: Reports system reviewed and no additional complaints, except as documented Cardiovascular: Cardiovascular: Reports no additional cardiovascular complaints Respiratory: Respiratory: Reports no additional respiratory complaints Gastrointestinal: Gastrointestinal: Reports no additional gastrointestinal complaints and Reports nausea Musculoskeletal: Musculoskeletal: Reports no additional musculoskeletal complaints PMFSH Past Medical History PMFSH Narrative: Anxiety Medical History Diabetes mellitus type 1 Family History Family History Other Family history non-contributory Social History Social History Alcohol intake: never Patient Tobacco Use Status: Current everyday Tobacco user Substance Use Type: Marijuana Advance Directives: No Advance Directives Information Provided: Yes Physical Exam Vital Signs: Vital Signs: Last Vital Signs Temp 98.0 F 10/16/21 15:48 Pulse 93 10/16/21 15:48 Resp 20 10/16/21 15:48 BP 169/86 H 10/16/21 15:48 Pulse Ox 100 10/16/21 15:55 O2 Del Method 10/16/21 15:55 BMI result Body Mass Index 21.6 Const: General: cooperative and anxious Nutritional Appearance: average body habitus Orientation/consciousness: patient oriented x3 HEENT: Head: Yes normal to inspection General nose exam: Normal external nose present Face and sinus: Yes normal facial exam Mouth: Normal oral and palatal mucosa present Neck: Neck: Yes normal visual inspection Resp: Effort & Inspection: normal respiratory effort Auscultation: clear to auscultation bilaterally Cardio: Jugular venous distension: no JVD Rate: regular rate Rhythm: regular rhythm GI: Inspection: Yes normal to inspection Palpation (GI): Soft to palpation, not firm and nontender Neuro: General: patient oriented x3 Course Reevaluation(s) Reevaluation #1: WBC noted but patient usually a chronic elevated white count as high as 18.6 in the past Reevaluation #2: Off shift now signed off To Dr Jackson at this time Time: 16:16 MDM - Nausea/Vomiting/Diarrhea MDM Narrative Medical decision making narrative: Patient presented with nausea vomiting after drinking alcohol last night she has been seen in the pastfor the same, will start the patient on IV fluids, will give antiemetic, will give anti anxiety medication, the hospital does not of IV lorazepam nor IV Valium we will give IV Versed. We will reassess after the medication Medical Records Attestation: I reviewed the patient's medical records. Lab Data Attestation: I reviewed the patient's lab results. Result diagrams: 10/16/21 14:01 10/16/21 14:01 Labs: Lab Results 10/16/21 10/16/2110/16/22 Range/Units 14:01 14:01 14:01 WBC 16.4 H (4.8-10.8) X10*3/uL RBC 5.25 (4.20-5.50) X10*6/uL Hgb 16.0 (12.0-16.0) g/dl Hct 45.3 (37.0-47.0) % MCV 86.3 (80.0-98.0) fL MCH 30.5 (27.0-33.0) pg MCHC 35.3 H (31.0-35.0) g/dl RDW 12.4 (11.0-16.0) % Plt Count 236 (160-400) X10*3/uL MPV 11.3 (9.4-12.3) fL Immature Gran % (Auto) 0.5 H (0.0-0.4) % Neut % (Auto) 91.2 H (45-73) % Lymph % (Auto) 5.7 L (20-40) % [place] % (Auto) 2.4 (2-11) % Eos % (Auto) 0.0 (0-4) % Baso % (Auto) 0.2 (0-2) % Lymph # (Auto) 0.9 L (1.2-4.9) X10*3/uL [place] # (Auto) 0.4 (0.1-1.2) X10*3/uL Eos # (Auto) 0.0 (0.0-0.4) X10*3/uL Baso # (Auto) 0.0 (0.0-0.2) X10*3/uL Abs Immat Gran (auto) 0.08 H (0.00-0.03) X10*3/uL Absolute Neuts (auto) 15.0 H (2.0-8.3) x10*3/uL Absolute Nucleated RBC 0.000 (0.0-0.012) X10*3/uL Nucleated RBC % (auto) 0.0 (0.0-0.2) /100WBC Smear Tech's Comments VERIFIED Sodium 145 (135-145) mmol/L Potassium 3.9 D (3.3-5.1) mmol/L Chloride 101 (96-108) mmol/L Carbon Dioxide 23 (22-29) mmol/L Anion Gap 25 H (12-20) BUN 9 (9-16) mg/dL Creatinine 0.81 (0.5-1.4) mg/dL Estim Creat Clear Calc 92.1 Estimated GFR > 60 Random Glucose 336 H (60-115) mg/dL Calcium 10.4 H D (8.4-10.2) mg/dL Total Bilirubin 1.0 (0.0-1.0) mg/dL AST 21 (5-31) U/L ALT 28 (0-31) U/L Alkaline Phosphatase 88 D (39-117) U/L Total Protein 8.8 H D (6.5-8.0) g/dL Albumin 5.2 H D (3.5-5.0) g/dL Beta HCG, Quant < 2 mIU/mL Ethyl Alcohol < 10 mg/dL Discharge Plan Discharge Clinical Impression: Vomiting Patient Disposition: Home, Self-Care Prescriptions: No Action tramadol 50 mg tablet 50 mg PO BID PRN (Reason: pain) Qty: 14 0RF oxycodone 5 mg tablet 5 mg PO Q8H PRN (Reason: pain) Qty: 4 0RF doxycycline monohydrate 100 mg capsule 100 mg PO BID 10 Days Qty: 20 0RF cephalexin 500 mg capsule 500 mg PO Q8H 7 Days Qty: 21 0RF amoxicillin 500 mg tablet 500 mg PO Q8H Qty: 20 0RF ondansetron 4 mg tablet,disintegrating 4 mg PO Q8H PRN (Reason: nausea and vomiting) Qty: 7 0RF sucralfate [Carafate] 100 mg/mL suspension 10 ml PO BID Qty: 420 0RF ondansetron 4 mg tablet,disintegrating 4 mg PO Q6H PRN (Reason: nausea and vomiting) Qty: 7 0RF
[2021-10-16 14:08] LABS: Basophils Percent Auto 0.2 % (0-2); Hematocrit 45.3 % (37.0-47.0); Imm Gran Abs Auto 0.08 X10*3/uL (0.00-0.03); Imm Gran Pct Auto 0.5 % (0.0-0.4); Lymphocytes Absolute Auto 0.9 X10*3/uL (1.2-4.9); Lymphocytes Percent Auto 5.7 % (20-40); Mean Corpuscular HGB Conc 35.3 g/dl (31.0-35.0); Mean Corpuscular Hemoglobin 30.5 pg (27.0-33.0); Mean Corpuscular Volume 86.3 fL (80.0-98.0); Mean Platelet Volume 11.3 fL (9.4-12.3); Monocytes Absolute Auto 0.4 X10*3/uL (0.1-1.2); Monocytes Percent Auto 2.4 % (2-11); Neutrophils Percent Auto 91.2 % (45-73); Platelet Count 236 X10*3/uL (160-400); Red Blood Count 5.25 X10*6/uL (4.20-5.50); Red Cell Distribution Width 12.4 % (11.0-16.0); SCAN SMEAR FLAG 1; White Blood Count 16.4 X10*3/uL (4.8-10.8)
[2021-10-16] MEDS: ondansetron HCL 4 MG/2 ML VIAL IVPUSH (14:15)
[2021-10-16] MEDS: LORazepam 1 MG TABLET PO (14:15)
[2021-10-16] MEDS: 0.9 % Sodium Chloride 1,000 ML 999 ML IVCONT ×2 (14:15→15:55)
[2021-10-16 14:25] LABS: MANUAL DIFF FLAG SCAN; SLIDE REVIEW VERIFIED
[2021-10-16 14:27] LABS: Alanine Aminotransferase 28 U/L (0-31); Albumin Level 5.2 g/dL (3.5-5.0); Alkaline Phosphatase 88 U/L (39-117); Anion Gap 25 (12-20); Aspartate Amino Transferase 21 U/L (5-31); Blood Urea Nitrogen 9 mg/dL (9-16); Calcium 10.4 mg/dL (8.4-10.2); Carbon Dioxide 23 mmol/L (22-29); Chloride 101 mmol/L (96-108); Creatinine Clr Calc Pharmacy 92.1; Estimated Glomerular Filt Rate > 60; Ethanol < 10 mg/dL; Glucose Random 336 mg/dL (60-115); Potassium 3.9 mmol/L (3.3-5.1); Sodium 145 mmol/L (135-145); Total Protein 8.8 g/dL (6.5-8.0)
[2021-10-16 14:32] LABS: HCG Quantitative < 2 mIU/mL
--- NOTE | 2021-10-16 15:50 | PC.NURSE ---
Dr. Davidson aware of patients blood pressure.
[2021-10-16] MEDS: Midazolam HCl/PF 2 MG/2 ML VIAL 1 MG IVPUSH (15:55)
[2021-10-16] MEDS: Famotidine/PF 20 MG/2 ML VIAL IVPUSH (15:56)
[2021-10-16] MEDS: Morphine Sulfate 2 MG/ML CARTRIDGE 1 MG IVPUSH (17:11)
[2021-10-16] MEDS: Ketorolac Tromethamine 15 MG/ML VIAL IVPUSH (17:11)
[2021-10-16] MEDS: Magnesium Hydrox/Alum Hydrox 30 ML ORAL.SUSP PO (17:11)
[2021-10-16] MEDS: Metoclopramide HCl 10 MG/2 ML VIAL IVPUSH (19:31)
[2021-10-16] MEDS: Capsaicin 0.025% Cream 60 GM TUBE 1 APPL TOPICAL (19:53)
[2021-10-16 20:03] LABS: Appearance Urine Clear; Color Urine Yellow; Glucose Urine UA >=1000 mg/dL (Negative); Leukocyte Esterase Urine Negative (Negative); Nitrite Urine Negative (Negative); PH 6.5 (5.0-8.0); Specific Gravity - Urine >= 1.030 (1.005-1.025); Urine Blood Negative (Negative); Urine Ketones 40 mg/dL (Negative); Urine Protein Negative (Neg-Trace)
[2021-10-16 20:07] LABS: UPreg QC Valid YES; Urine Pregnancy NEGATIVE (NEGATIVE)
[2021-10-16 20:08] LABS: Bacteria Urine None Seen (None Seen); Hyaline Casts Urine 0-2 /LPF (0-2); RBC Urine 0-2 /HPF (0-2); Squamous Epithelial Cell Urine 0-2 /HPF (0-2); WBC Urine 0-5 /HPF (0-5)
[2021-10-16 20:18] LABS: Amphetamine Screen Urine Not Detected (Not Detect); Barbiturates, Urine Not Detected (Not Detect); Benzodiazepines Screen Urine POSITIVE (Not Detect); Cannabinoid Screen Urine POSITIVE (Not Detect); Cocaine Screen Urine Not Detected (Not Detect); Fentanyl, urine Not Detected (Not Detect); Opiate Screen Urine POSITIVE (Not Detect); Phencyclidine Screen Urine Not Detected (Not Detect)
--- NOTE | 2021-10-16 21:04 | PC.NURSE ---
MD aware of patients BP and HR
[2021-10-16] MEDS: Dextrose 5 % and 0.45 % NaCl 1,000 ML 100 ML IVCONT (21:08)
--- NOTE | 2021-10-16 21:15 | P.HPHOSP_ITS ---
History of Present Illness Date of Service: 10/16/21 Chief Complaint: Nausea/vomiting 31-year-old female with a past medical history anxiety, depression, history of cyclic vomiting syndrome, type 1 diabetes presented to the hospital today with a chief complaint nausea/ vomiting. Patient is a poor historian, spoke to the RN-mentions patient has not been given any history. patient mentioned that she has been having nausea and vomiting since yesterday. Denies any abdominal pain. Mentions she uses cannabis. Denies alcohol use. Patient denies any chest pain or palpitations. Denies any fever chills cough or sputum production. Review of all other systems is negative except mentioned above ER course: Per ER team patient was having nausea/vomiting. Did not improve with supportive care. Failed p.o. challenge. Admitted to the hospital for further management PMFSH Medical History Diabetes mellitus type 1 Family History Other Family history non-contributory Social History Alcohol intake: never Patient Tobacco Use Status: Current everyday Tobacco user Substance Use Type: Marijuana Advance Directives: No Advance Directives Information Provided: Yes Meds Allergies Allergy/AdvReac Type Severity Reaction Status Date / Time Latex, Natural Rubber Allergy Unknown HIVES Verified 04/19/20 20:21 [LATEX, NATURAL RUBBER] Active Medications: Current Medications Acetaminophen (Acetaminophen 325 Mg Tablet) 650 mg PO Q6H PRN PRN Reason: Pain, Mild (Pain Scale 1-3) Dextrose/Sodium Chloride (D51/2ns) 1,000 mls @ 100 mls/hr IVCONT .Q10H [facility] Last Admin: 10/16/21 21:08 Dose: 100 mls/hr Melatonin (Melatonin 3 Mg Tablet) 6 mg PO BEDTIME PRN PRN Reason: Insomnia Ondansetron HCl (Ondansetron Hcl 4 Mg/2 Ml Vial) 4 mg IVPUSH Q8H PRN PRN Reason: Nausea and Vomiting Sodium Chloride (0.9 % Sodium Chloride Flush 3 Ml Syringe) 3 ml IVFLUSH QSHIFT [facility] Physical Exam Vital Signs and Narrative: Vital Signs: Last Vital Signs Temp 98.6 F 10/16/21 19:53 Pulse 107 H 10/16/21 19:53 Resp 20 10/16/21 19:53 BP 160/97 H 10/16/21 19:53 Pulse Ox 100 10/16/21 19:53 O2 Del Method 10/16/21 19:53 BMI result Body Mass Index 21.6 Gen: Appears be in no acute distress HEENT: NCAT, Moist mucosa. Pulmonary: Vesicular breath sounds, fair air entry CVS: Normal S1-S2 Abdomen: BS+, Soft, Nontender Extremities: Warm well perfused Neuro: Alert and awake. Results Labs CBC and Chem 7: 10/16/21 14:01 10/16/21 14:01 Labs: Laboratory Results - last 24 hr 10/16/21 10/16/21 10/16/21 14:01 14:01 14:01 MCV 86.3 MCH 30.5 MCHC 35.3 H RDW 12.4 Plt Count 236 MPV 11.3 Immature Gran % (Auto) 0.5 H Neut % (Auto) 91.2 H Lymph % (Auto) 5.7 L [place] % (Auto) 2.4 Eos % (Auto) 0.0 Baso % (Auto) 0.2 Lymph # (Auto) 0.9 L [place] # (Auto) 0.4 Eos # (Auto) 0.0 Baso # (Auto) 0.0 Abs Immat Gran (auto) 0.08 H Absolute Neuts (auto) 15.0 H Absolute Nucleated RBC 0.000 Nucleated RBC % (auto) 0.0 Smear Tech's Comments VERIFIED Anion Gap 25 H Estim Creat Clear Calc 92.1 Estimated GFR > 60 Random Glucose 336 H Calcium 10.4 H D Total Bilirubin 1.0 AST 21 ALT 28 Alkaline Phosphatase 88 D Total Protein 8.8 H D Albumin 5.2 H D Beta HCG, Quant < 2 Urine Color Urine Appearance Urine pH Ur Specific [place] Urine Protein Urine Glucose (UA) Urine Ketones Urine Blood Urine Nitrite Ur Leukocyte Esterase Urine RBC Urine WBC Ur Squamous Epith Cells Urine Bacteria Hyaline Casts Urine Test Urine Opiates Screen Urine Fentanyl Screen Ur Barbiturates Screen Ur Phencyclidine Scrn Ur Amphetamines Screen U Benzodiazepines Scrn Urine Cocaine Screen U Marijuana (THC) Screen Ethyl Alcohol < 10 10/16/21 10/16/21 10/16/21 19:49 19:49 19:49 MCV MCH MCHC RDW Plt Count MPV Immature Gran % (Auto) Neut % (Auto) Lymph % (Auto) [place] % (Auto) Eos % (Auto) Baso % (Auto) Lymph # (Auto) [place] # (Auto) Eos # (Auto) Baso # (Auto) Abs Immat Gran (auto) Absolute Neuts (auto) Absolute Nucleated RBC Nucleated RBC % (auto) Smear Tech's Comments Anion Gap Estim Creat Clear Calc Estimated GFR Random Glucose Calcium Total Bilirubin AST ALT Alkaline Phosphatase Total Protein Albumin Beta HCG, Quant Urine Color Yellow Urine Appearance Clear Urine pH 6.5 Ur Specific [place] >= 1.030 H Urine Protein Negative Urine Glucose (UA) >=1000 H Urine Ketones 40 Urine Blood Negative Urine Nitrite Negative Ur Leukocyte Esterase Negative Urine RBC 0-2 Urine WBC 0-5 Ur Squamous Epith Cells 0-2 Urine Bacteria None Seen Hyaline Casts 0-2 Urine Test NEGATIVE Urine Opiates Screen POSITIVE H Urine Fentanyl Screen Not Detected Ur Barbiturates Screen Not Detected Ur Phencyclidine Scrn Not Detected Ur Amphetamines Screen Not Detected U Benzodiazepines Scrn POSITIVE H Urine Cocaine Screen Not Detected U Marijuana (THC) Screen POSITIVE H Ethyl Alcohol Assessment and Plan (1) Cyclic vomiting syndrome: Status: Acute Plan 31-year-old female with a past medical history anxiety, depression, history of cyclic vomiting syndrome, type 1 diabetes presented to the hospital today with a chief complaint nausea/ vomiting. Cyclic vomiting syndrome: IV fluids Zofran p.r.n. Advanced diet as tolerated urine test negative Type 1 diabetes: Patient reports he has diabetes. Will keep her on insulin sliding scale plus Lantus. Hemoglobin A1c. Will defer to day team to confirm with the patient's PCP. patient noted to have elevated anion gap of 25, random glucose of 336, serum bicarb of 23. Does not appear to be in DKA. Likely starvation ketosis. Will repeat basic metabolic panel. Hypercalcemia: Likely in setting of dehydration. Gentle IV fluids. DVT prophylaxis: Subcu heparin Code status: Full code Quality Stroke Does the patient have a stroke diagnosis?: No VTE Prior VTE?: No VTE Risk Level:: Medical - moderate - high VTE Device Contraindication: Treatment Not Indicated VTE Drug Contraindication: N/A - Med Ordered
[2021-10-16 22:09] LABS: Glucose, Whole Blood 213 mg/dL (60-115)
[2021-10-16] MEDS: 0.9 % Sodium Chloride 1,000 ML 100 ML IVCONT (22:14)
[2021-10-16] MEDS: Insulin Glargine,Hum.rec.anlog 100 UNIT/ML 10 ML VIAL 10 UNIT SUBCUT (22:14)
[2021-10-16 23:00] LABS: COVID-19 Test Negative (Negative)
[2021-10-16 23:02] LABS: Anion Gap 17 (12-20); Blood Urea Nitrogen 11 mg/dL (9-16); Calcium 8.9 mg/dL (8.4-10.2); Carbon Dioxide 24 mmol/L (22-29); Chloride 106 mmol/L (96-108); Creatinine Clr Calc Pharmacy 113.1; Estimated Glomerular Filt Rate > 60; Glucose Random 235 mg/dL (60-115); Potassium 3.8 mmol/L (3.3-5.1); Sodium 143 mmol/L (135-145)
[2021-10-17 07:00] LABS: Estimated Average Glucose 183 mg/dL
[2021-10-17 07:35] LABS: MANUAL DIFF FLAG NO
[2021-10-17 07:37] LABS: Basophils Percent Auto 0.3 % (0-2); Eosinophils Percent Auto 0.1 % (0-4); Hematocrit 37.2 % (37.0-47.0); Hemoglobin 12.9 g/dl (12.0-16.0); Imm Gran Abs Auto 0.03 X10*3/uL (0.00-0.03); Imm Gran Pct Auto 0.3 % (0.0-0.4); Lymphocytes Absolute Auto 1.8 X10*3/uL (1.2-4.9); Mean Corpuscular HGB Conc 34.7 g/dl (31.0-35.0); Mean Corpuscular Hemoglobin 30.4 pg (27.0-33.0); Mean Corpuscular Volume 87.7 fL (80.0-98.0); Mean Platelet Volume 11.3 fL (9.4-12.3); Monocytes Absolute Auto 0.7 X10*3/uL (0.1-1.2); Monocytes Percent Auto 6.9 % (2-11); Neutrophils Absolute Auto 8.1 x10*3/uL (2.0-8.3); Neutrophils Percent Auto 75.4 % (45-73); Platelet Count 205 X10*3/uL (160-400); Red Blood Count 4.24 X10*6/uL (4.20-5.50); Red Cell Distribution Width 12.6 % (11.0-16.0); White Blood Count 10.8 X10*3/uL (4.8-10.8)
[2021-10-17 07:42] LABS: Glucose, Whole Blood 162 mg/dL (60-115)
[2021-10-17 08:02] LABS: Anion Gap 12 (12-20); Blood Urea Nitrogen 14 mg/dL (9-16); Calcium 8.7 mg/dL (8.4-10.2); Carbon Dioxide 26 mmol/L (22-29); Chloride 109 mmol/L (96-108); Creatinine Clr Calc Pharmacy 126.6; Estimated Glomerular Filt Rate > 60; Glucose Random 174 mg/dL (60-115); Potassium 3.4 mmol/L (3.3-5.1); Sodium 144 mmol/L (135-145)
[2021-10-17] MEDS: 0.9 % Sodium Chloride 1,000 ML 100 ML IVCONT (08:14)
[2021-10-17] MEDS: Insulin Lispro 100 UNIT/ML 3 ML VIAL SUBCUT ×3 (08:15→20:55)
[2021-10-17] MEDS: Famotidine/PF 20 MG/2 ML VIAL IVPUSH ×2 (08:15→20:32)
[2021-10-17 08:38] VITALS: BP 127/85; PULSE 90; RESP 18; TEMP 36.6; O2SAT 99
--- NOTE | 2021-10-17 11:16 | HO.PM.IMPN ---
Subjective Subjective Date of Service: 10/18/21 Interval History: Cyclic vomiting. Review of Systems Patient still has epigastric pain and also having nausea and vomiting No fever or chills or cough or phlegm. Physical Exam Vital Signs: Vital Signs: Last Vital Signs Temp 97.9 F 10/17/21 08:38 Pulse 90 10/17/21 08:38 Resp 18 10/17/21 08:38 BP 127/85 10/17/21 08:38 Pulse Ox 99 10/17/21 08:38 O2 Del Method 10/17/21 08:38 BMI result Body Mass Index 21.6 Appearance: Alert.? Oriented X3.? not in distress. cvs: rrr, [id number] , no murmur res: clear to auscultation ,no rhonchii or wheezing abd: no rebound or guarding ,epigastric pain, bs present. ext pulses present , no cyanosis . neuro: axo3 , nonfocal. Objective Data Active Medications Acetaminophen (Acetaminophen 325 Mg Tablet) 650 mg PO Q6H PRN PRN Reason: Pain, Mild (Pain Scale 1-3) Dextrose (Dextrose 50 % 25 Gm/50 Ml Syringe) 25 gm IVPUSH Q15M PRN; Protocol PRN Reason: per Hypoglycemia Standing Ord. Famotidine (Famotidine/Pf 20 Mg/2 Ml Vial) 20 mg IVPUSH BID [facility] Last Admin: 10/17/21 08:15 Dose: 20 mg Documented By: ROHANEMA Glucose (Glucose Gel 15 Gm Gel..Gram.) 15 gm PO Q15M PRN; Protocol PRN Reason: per Hypoglycemia Standing Ord. Sodium Chloride (Ns) 1,000 mls @ 100 mls/hr IVCONT .Q10H [facility] Last Admin: 10/17/21 08:14 Dose: 100 mls/hr Documented By: BERNABE Insulin Glargine (Insulin Glargine,Hum.Rec.Anlog 100 Unit/Ml 10 Ml Vial) 10 unit SUBCUT BEDTIME [facility] Last Admin: 10/16/21 22:14 Dose: 10 unit Documented By: CIEBOM Insulin Human Lispro (Insulin Lispro 100 Unit/Ml 3 Ml Vial) 0 unit SUBCUT QIDACHS [facility]; Protocol Last Admin: 10/17/21 08:15 Dose: 2 unit Documented By: ROHANEMA Melatonin (Melatonin 3 Mg Tablet) 6 mg PO BEDTIME PRN PRN Reason: Insomnia Ondansetron HCl (Ondansetron Hcl 4 Mg/2 Ml Vial) 4 mg IVPUSH Q8H PRN PRN Reason: Nausea and Vomiting Sodium Chloride (0.9 % Sodium Chloride Flush 3 Ml Syringe) 3 ml IVFLUSH QSHIFT [facility] Last Admin: 10/17/21 07:32 Dose: Not Given Documented By: BERNABE Non-Admin Reason: IV Running Labs CBC & Chem 7: 10/17/21 07:27 10/17/21 07:27 Labs: Laboratory Results - last 24 hr 10/16/21 10/16/21 10/16/21 14:01 14:01 14:01 MCV 86.3 MCH 30.5 MCHC 35.3 H RDW 12.4 Plt Count 236 MPV 11.3 Immature Gran % (Auto) 0.5 H Neut % (Auto) 91.2 H Lymph % (Auto) 5.7 L [place] % (Auto) 2.4 Eos % (Auto) 0.0 Baso % (Auto) 0.2 Lymph # (Auto) 0.9 L [place] # (Auto) 0.4 Eos # (Auto) 0.0 Baso # (Auto) 0.0 Abs Immat Gran (auto) 0.08 H Absolute Neuts (auto) 15.0 H Absolute Nucleated RBC 0.000 Nucleated RBC % (auto) 0.0 Smear Tech's Comments VERIFIED Anion Gap 25 H Estim Creat Clear Calc 92.1 Estimated GFR > 60 POC Glucose Random Glucose 336 H Estimat Average Glucose Hemoglobin A1c % Calcium 10.4 H D Total Bilirubin 1.0 AST 21 ALT 28 Alkaline Phosphatase 88 D Total Protein 8.8 H D Albumin 5.2 H D Beta HCG, Quant < 2 Urine Color Urine Appearance Urine pH Ur Specific [place] Urine Protein Urine Glucose (UA) Urine Ketones Urine Blood Urine Nitrite Ur Leukocyte Esterase Urine RBC Urine WBC Ur Squamous Epith Cells Urine Bacteria Hyaline Casts Urine Test Urine Opiates Screen Urine Fentanyl Screen Ur Barbiturates Screen Ur Phencyclidine Scrn Ur Amphetamines Screen U Benzodiazepines Scrn Urine Cocaine Screen U Marijuana (THC) Screen Ethyl Alcohol < 10 COVID-19 ([facility]OP[facility]) COVID-19 Clin Com 10/16/21 10/16/21 10/16/21 19:49 19:49 19:49 MCV MCH MCHC RDW Plt Count MPV Immature Gran % (Auto) Neut % (Auto) Lymph % (Auto) [place] % (Auto) Eos % (Auto) Baso % (Auto) Lymph # (Auto) [place] # (Auto) Eos # (Auto) Baso # (Auto) Abs Immat Gran (auto) Absolute Neuts (auto) Absolute Nucleated RBC Nucleated RBC % (auto) Smear Tech's Comments Anion Gap Estim Creat Clear Calc Estimated GFR POC Glucose Random Glucose Estimat Average Glucose Hemoglobin A1c % Calcium Total Bilirubin AST ALT Alkaline Phosphatase Total Protein Albumin Beta HCG, Quant Urine Color Yellow Urine Appearance Clear Urine pH 6.5 Ur Specific [place] >= 1.030 H Urine Protein Negative Urine Glucose (UA) >=1000 H Urine Ketones 40 Urine Blood Negative Urine Nitrite Negative Ur Leukocyte Esterase Negative Urine RBC 0-2 Urine WBC 0-5 Ur Squamous Epith Cells 0-2 Urine Bacteria None Seen Hyaline Casts 0-2 Urine Test NEGATIVE Urine Opiates Screen POSITIVE H Urine Fentanyl Screen Not Detected Ur Barbiturates Screen Not Detected Ur Phencyclidine Scrn Not Detected Ur Amphetamines Screen Not Detected U Benzodiazepines Scrn POSITIVE H Urine Cocaine Screen Not Detected U Marijuana (THC) Screen POSITIVE H Ethyl Alcohol COVID-19 ([facility]OPAL) COVID-19 Clin Com 10/16/21 10/16/21 10/16/21 22:03 22:15 22:15 MCV MCH MCHC RDW Plt Count MPV Immature Gran % (Auto) Neut % (Auto) Lymph % (Auto) [place] % (Auto) Eos % (Auto) Baso % (Auto) Lymph # (Auto) [place] # (Auto) Eos # (Auto) Baso # (Auto) Abs Immat Gran (auto) Absolute Neuts (auto) Absolute Nucleated RBC Nucleated RBC % (auto) Smear Tech's Comments Anion Gap 17 Estim Creat Clear Calc 113.1 Estimated GFR > 60 POC Glucose 213 H Random Glucose 235 H Estimat Average Glucose Hemoglobin A1c % Calcium 8.9 D Total Bilirubin AST ALT Alkaline Phosphatase Total Protein Albumin Beta HCG, Quant Urine Color Urine Appearance Urine pH Ur Specific [place] Urine Protein Urine Glucose (UA) Urine Ketones Urine Blood Urine Nitrite Ur Leukocyte Esterase Urine RBC Urine WBC Ur Squamous Epith Cells Urine Bacteria Hyaline Casts Urine Test Urine Opiates Screen Urine Fentanyl Screen Ur Barbiturates Screen Ur Phencyclidine Scrn Ur Amphetamines Screen U Benzodiazepines Scrn Urine Cocaine Screen U Marijuana (THC) Screen Ethyl Alcohol COVID-19 ([facility]OPAL) Negative COVID-19 Clin Com See Note 10/16/21 10/17/21 10/17/21 22:15 07:27 07:27 MCV 87.7 MCH 30.4 MCHC 34.7 RDW 12.6 Plt Count 205 MPV 11.3 Immature Gran % (Auto) 0.3 Neut % (Auto) 75.4 H Lymph % (Auto) 17.0 L [place] % (Auto) 6.9 Eos % (Auto) 0.1 Baso % (Auto) 0.3 Lymph # (Auto) 1.8 [place] # (Auto) 0.7 Eos # (Auto) 0.0 Baso # (Auto) 0.0 Abs Immat Gran (auto) 0.03 Absolute Neuts (auto) 8.1 Absolute Nucleated RBC 0.000 Nucleated RBC % (auto) 0.0 Smear Tech's Comments Anion Gap 12 Estim Creat Clear Calc 126.6 Estimated GFR > 60 POC Glucose Random Glucose 174 H Estimat Average Glucose 183 Hemoglobin A1c % 8.0 Calcium 8.7 Total Bilirubin AST ALT Alkaline Phosphatase Total Protein Albumin Beta HCG, Quant Urine Color Urine Appearance Urine pH Ur Specific [place] Urine Protein Urine Glucose (UA) Urine Ketones Urine Blood Urine Nitrite Ur Leukocyte Esterase Urine RBC Urine WBC Ur Squamous Epith Cells Urine Bacteria Hyaline Casts Urine Test Urine Opiates Screen Urine Fentanyl Screen Ur Barbiturates Screen Ur Phencyclidine Scrn Ur Amphetamines Screen U Benzodiazepines Scrn Urine Cocaine Screen U Marijuana (THC) Screen Ethyl Alcohol COVID-19 ([facility]OPAL) COVID-19 Clin Com 10/17/21 07:34 MCV MCH MCHC RDW Plt Count MPV Immature Gran % (Auto) Neut % (Auto) Lymph % (Auto) [place] % (Auto) Eos % (Auto) Baso % (Auto) Lymph # (Auto) [place] # (Auto) Eos # (Auto) Baso # (Auto) Abs Immat Gran (auto) Absolute Neuts (auto) Absolute Nucleated RBC Nucleated RBC % (auto) Smear Tech's Comments Anion Gap Estim Creat Clear Calc Estimated GFR POC Glucose 162 H Random Glucose Estimat Average Glucose Hemoglobin A1c % Calcium Total Bilirubin AST ALT Alkaline Phosphatase Total Protein Albumin Beta HCG, Quant Urine Color Urine Appearance Urine pH Ur Specific [place] Urine Protein Urine Glucose (UA) Urine Ketones Urine Blood Urine Nitrite Ur Leukocyte Esterase Urine RBC Urine WBC Ur Squamous Epith Cells Urine Bacteria Hyaline Casts Urine Test Urine Opiates Screen Urine Fentanyl Screen Ur Barbiturates Screen Ur Phencyclidine Scrn Ur Amphetamines Screen U Benzodiazepines Scrn Urine Cocaine Screen U Marijuana (THC) Screen Ethyl Alcohol COVID-19 (GOPAL) COVID-19 Clin Com Assessment and Plan (1) Cyclic vomiting syndrome: Status: Acute Plan 31-year-old female with a past medical history anxiety, depression, history of cyclic vomiting syndrome, type 1 diabetes presented to the hospital today with a chief complaint nausea/ vomiting.? Cyclic vomiting syndrome: IV fluids,Zofran p.r.n. Advanced diet as tolerated ?urine test negative Type 1 diabetes:? Patient reports he has diabetes.? fs with current regimen fs 160-220 Hypercalcemia:thought to be Likely in setting of dehydration.resolved? IV fluids. DVT prophylaxis:? low risk ,ambulate. Code status:? Full code Quality Stroke Does the patient have a stroke diagnosis?: No VTE Prior VTE?: No VTE Risk Level:: Medical - moderate - high VTE Device Contraindication: Treatment Not Indicated VTE Drug Contraindication: N/A - Med Ordered
[2021-10-17 11:18] VITALS: BP 112/70; PULSE 94; RESP 18; TEMP 36.3; O2SAT 100
[2021-10-17 11:53] LABS: Glucose, Whole Blood 173 mg/dL (60-115)
[2021-10-17] MEDS: Morphine Sulfate 2 MG/ML CARTRIDGE 1 MG IVPUSH ×3 (11:57→18:21)
--- NOTE | 2021-10-17 12:33 | MHC.CM.PN ---
Addendum entered by Linda Mccallum 10/17/21 12:36: CORRECTION HCP IS ON FILE AND VERIFIED. PATIENT IS AWARE AND NO CHANGES NEED TO BE MADE Addendum entered by Linda Mccallum 10/17/21 12:34: CURRENT PLAN IS HOME TOMORROW 10/18/21 Original Note: PATIENT IS FULLY INDEPENDENT NO DME OR [facility] SERVICES NO HCP ON FILE BUT CASE MANAGEMENT CAN ASSIST WITH COMPLETION IF SHE CHOOSES AN AGENT PLAN IS CURRENTLY HOME AT DISCHARGE TIME - NO SERVICES
[2021-10-17 16:00] VITALS: BP 112/71; PULSE 93; RESP 18; TEMP 37.1; O2SAT 99
[2021-10-17 16:49] LABS: Glucose, Whole Blood 144 mg/dL (60-115)
[2021-10-17] MEDS: ondansetron HCL 4 MG/2 ML VIAL IVPUSH (19:02)
[2021-10-17] MEDS: HYDROmorphone HCl 0.5 MG/0.5 ML SYRINGE IVPUSH (20:32)
[2021-10-17] MEDS: Prochlorperazine Edisylate 10 MG/2 ML VIAL 5 MG IVPUSH (20:32)
[2021-10-17] MEDS: 0.9 % Sodium Chloride Flush 3 ML SYRINGE IVFLUSH (20:35)
[2021-10-17 20:47] VITALS: BP 153/83; PULSE 95; RESP 20; TEMP 37; O2SAT 100
[2021-10-17 20:52] LABS: Glucose, Whole Blood 174 mg/dL (60-115)
[2021-10-17] MEDS: Insulin Glargine,Hum.rec.anlog 100 UNIT/ML 10 ML VIAL 10 UNIT SUBCUT (20:55)
[2021-10-17] MEDS: iohexoL 350 MG/ML 100 ML INFUS..BTL IV (21:32)
[2021-10-18] VITALS (7 sets, daily range): BP systolic 118–166; BP diastolic 75–92; PULSE 85–100; RESP 17–20; TEMP 36.3–36.9; O2SAT 95–100
[2021-10-18] MEDS: ondansetron HCL 4 MG/2 ML VIAL IVPUSH (02:43)
[2021-10-18] MEDS: 0.9 % Sodium Chloride 1,000 ML 100 ML IVCONT ×3 (02:44→23:11)
[2021-10-18] MEDS: Morphine Sulfate 2 MG/ML CARTRIDGE 1 MG IVPUSH ×2 (04:30→08:38)
[2021-10-18 07:21] LABS: Glucose, Whole Blood 128 mg/dL (60-115)
[2021-10-18] MEDS: Famotidine/PF 20 MG/2 ML VIAL IVPUSH ×2 (08:39→20:13)
[2021-10-18] MEDS: HYDROmorphone HCl 0.5 MG/0.5 ML SYRINGE IVPUSH ×3 (11:10→22:57)
[2021-10-18] MEDS: levoFLOXacin/D5W 500 MG/100 ML PIGGYBACK 100 MG IV (11:11)
[2021-10-18 11:37] LABS: Glucose, Whole Blood 143 mg/dL (60-115)
[2021-10-18] MEDS: metroNIDAZOLE/NS 500 MG/100 ML PIGGYBACK 100 MG IV ×2 (12:05→20:13)
[2021-10-18] MEDS: Lidocaine 4 % Patch ADH..PATCH 1 PATCH TRANSDERMA (12:05)
--- NOTE | 2021-10-18 12:49 | HO.PM.IMPN ---
Subjective Subjective Date of Service: 10/18/21 Interval History: persistent nausea /vomiting ,? possible colitis Review of Systems still has abd pain , persistent vomiting she also has diarrhae when she eats as per patient. Physical Exam Vital Signs: Vital Signs: Last Vital Signs Temp 97.6 F 10/18/21 12:00 Pulse 92 10/18/21 12:00 Resp 18 10/18/21 12:00 BP 142/90 H 10/18/21 12:00 Pulse Ox 100 10/18/21 12:00 O2 Del Method 10/18/21 12:00 BMI result Body Mass Index 21.6 Appearance: Alert.? Oriented X3.? not in distress. cvs: rrr, [id number] , no murmur res: clear to auscultation ,no rhonchii or wheezing abd: no rebound or guarding, diffuse pain, bs present. ext pulses present , no cyanosis . neuro: axo3 , nonfocal. Objective Data Active Medications Acetaminophen (Acetaminophen 325 Mg Tablet) 650 mg PO Q6H PRN PRN Reason: Pain, Mild (Pain Scale 1-3) Capsaicin (Capsaicin 0.025% Cream 60 Gm Tube) 1 appl TOPICAL QID PRN; Protocol PRN Reason: abd pain Dextrose (Dextrose 50 % 25 Gm/50 Ml Syringe) 25 gm IVPUSH Q15M PRN; Protocol PRN Reason: per Hypoglycemia Standing Ord. Famotidine (Famotidine/Pf 20 Mg/2 Ml Vial) 20 mg IVPUSH BID [facility] Last Admin: 10/18/21 08:39 Dose: 20 mg Documented By: ASHA Glucose (Glucose Gel 15 Gm Gel..Gram.) 15 gm PO Q15M PRN; Protocol PRN Reason: per Hypoglycemia Standing Ord. Hydromorphone HCl (Hydromorphone Hcl 0.5 Mg/0.5 Ml Syringe) 0.5 mg IVPUSH Q4H PRN; Protocol PRN Reason: abd pain Last Admin: 10/18/21 11:10 Dose: 0.5 mg Documented By: ASHA Hydroxyzine HCl (Hydroxyzine Hcl 10 Mg Tablet) 10 mg PO Q6H PRN PRN Reason: Anxiety Sodium Chloride (Ns) 1,000 mls @ 100 mls/hr IVCONT .Q10H [facility] Last Admin: 10/18/21 12:09 Dose: 100 mls/hr Documented By: ASHA Levofloxacin (Levaquin) 500 mg in 100 mls @ 100 mls/hr IV Q24H [facility] Last Admin: 10/18/21 11:11 Dose: 100 mls/hr Documented By: ASHA Metronidazole (Flagyl) 500 mg in 100 mls @ 100 mls/hr IV Q8H [facility] Last Admin: 10/18/21 12:05 Dose: 100 mls/hr Documented By: ASHA Insulin Glargine (Insulin Glargine,Hum.Rec.Anlog 100 Unit/Ml 10 Ml Vial) 10 unit SUBCUT BEDTIME [facility] Last Admin: 10/17/21 20:55 Dose: 10 unit Documented By: LAITH Insulin Human Lispro (Insulin Lispro 100 Unit/Ml 3 Ml Vial) 0 unit SUBCUT QIDACHS [facility]; Protocol Last Admin: 10/18/21 11:46 Dose: Not Given Documented By: ASHA Non-Admin Reason: No Insulin Coverage Lidocaine (Lidocaine 4 % Patch Adh..Patch) 1 patch TRANSDERMA DAILY [facility]; Protocol Last Admin: 10/18/21 12:05 Dose: 1 patch Documented By: ASHA Melatonin (Melatonin 3 Mg Tablet) 6 mg PO BEDTIME PRN PRN Reason: Insomnia Metoclopramide HCl (Metoclopramide Hcl 5 Mg Tablet) 5 mg PO Q4H PRN PRN Reason: nausea Ondansetron HCl (Ondansetron Hcl 4 Mg/2 Ml Vial) 4 mg IVPUSH Q8H PRN PRN Reason: Nausea and Vomiting Last Admin: 10/18/21 02:43 Dose: 4 mg Documented By: LAITH Sodium Chloride (0.9 % Sodium Chloride Flush 3 Ml Syringe) 3 ml IVFLUSH QSHIFT [facility] Last Admin: 10/18/21 07:26 Dose: Not Given Documented By: ASHA Non-Admin Reason: IV Running Labs CBC & Chem 7: 10/17/21 07:27 10/17/21 07:27 Labs: Laboratory Results - last 24 hr 10/17/21 10/17/21 10/18/21 16:46 20:47 07:16 POC Glucose 144 H 174 H 128 H 10/18/21 11:33 POC Glucose 143 H Assessment and Plan (1) Vomiting: Status: Acute (2) Cyclic vomiting syndrome: Status: Acute (3) Colitis: Status: Acute Plan 31-year-old female with a past medical history anxiety, depression, history of cyclic vomiting syndrome, type 1 diabetes presented to the hospital today with a chief complaint nausea/ vomiting.? Cyclic vomiting syndrome: abd pain /nausea -seems similar to yesterday ct abd :? colitis IV fluids,Zofran p.r.n., reglan prn ,lidocaine patch ,capsician cream added antibiotics and stool studies: stool for wbc, Gi panel and cdiff. Gi eval Type 1 diabetes:? Patient reports he has diabetes.? fs with current regimen fs 140-160 Hypercalcemia:thought to be? Likely in setting of dehydration.resolved? IV fluids. DVT prophylaxis:? low risk ,ambulate. Code status:? Full code inpatient need : Cyclic vomiting syndrome,colitis: need iv antibiotics and iv pain meds Quality Stroke Does the patient have a stroke diagnosis?: No VTE Prior VTE?: No VTE Risk Level:: Medical - moderate - high VTE Device Contraindication: Treatment Not Indicated VTE Drug Contraindication: N/A - Med Ordered
--- NOTE | 2021-10-18 13:21 | MHC.CM.PN ---
PATIENT STILL NOT TOLERATING DIET CT SCAN SUGGESTIVE OF COLITIS. CASE MANAGEMENT FOLLOWING.
--- NOTE | 2021-10-18 13:49 | PM.GICN ---
History of Present Illness Data of Consult Service Date: 10/18/21 Requesting physician: Thom Britton Primary Care Provider: Guilherme Miller MD HPI Reason for consult: nausea, vomiting 31-year-old female with a past medical history of cholecystectomy, anxiety, depression, type 1 diabetes since age 10 who I am seeing for assessment for epigastric pain and nausea with non bloody emesis. Patient had sudden onset nausea and vomiting with 10/10 epigastric pain without radiation few nights ago. She did eat take away food from restaurant along with an alcohol beverage (fireball) that same evening. Partner has no sx, and no sick contacts. sx can be helped by heat and showers but worse with food. Denies diarrhea, constipation, no rectal bleeding or melena. Denies having this pain before. Does use canabis daily by smoking for last few years. Denies alcohol use.? she has been commenced on levoflox, flagyl, zofran and prochlorperazine, no evidence of DKA Imaging: possible colitis and small bowel inflammation Review of Systems Review of Systems: Constitutional : No Weight loss, No Fever, No Chills ENT/Mouth : No sore throat, No Rhinorrhea Eyes: No Swelling, No Redness Cardiovascular : No Chest Pain, No SOB, No Edema Respiratory : No Cough, No Sputum, No Wheezing Gastrointestinal : see HPI Genitourinary : NO Dysuria, No Urinary Frequency, No Hematuria, No Urgency Musculoskeletal : No joint pain, No Myalgias, No Joint Swelling Skin : No Skin Lesions, No rash Neuro : No Weakness, No Numbness, No Dizziness, No Headache Psych : No Anxiety/Panic, No Depression Heme/Lymph: No Bruising, No Lymphadenopathy Endocrine : No Polyuria, No Polydipsia All other systems reviewed and are negative. [facility] Past Medical History Medical History Diabetes mellitus type 1 Family History Family History Other Family history non-contributory Pertinent family history: No FH of IBD, colitis Social History Social History Household Members: Family Housing: House Do you presently have visiting nurse or other home services: No Alcohol intake: never Patient Tobacco Use Status: Current someday Tobacco user Tobacco use type: Cigarette Cigarettes Per Day: 1 Smoked in Last 30 Days: Yes Use of substances other than those prescribed or required for medical reasons: Yes Substance Use Type: Marijuana Substance Use Frequency: Daily Last Used Substance: Just Prior to Admission Currently Displaying Signs/Symptoms of Drug Intoxication Withdrawal: No Have you been hit, kicked, punched, or otherwise hurt by someone within the past year? If so, by whom?: No Do you feel safe in your current relationship?: Yes Is there a partner from a previous relationship who is making you feel unsafe now?: No Are you made to feel afraid or neglected: No Advance Directives: No Advance Directives Information Provided: Yes Recently lost weight without trying: Yes How much weight loss: 14-23 pounds Eating poorly because of decreased appetite: No Nutrition screen score: 4 Nutrition Risks: No Nutritional Risk Patient : No : No Poor oral hygiene: No service: No Current occupational status: employed Meds Allergies Allergy/AdvReac Type Severity Reaction Status Date / Time Latex, Natural Rubber Allergy Unknown HIVES Verified 04/19/20 20:21 [LATEX, NATURAL RUBBER] Active Medications: Current Medications Acetaminophen (Acetaminophen 325 Mg Tablet) 650 mg PO Q6H PRN PRN Reason: Pain, Mild (Pain Scale 1-3) Capsaicin (Capsaicin 0.025% Cream 60 Gm Tube) 1 appl TOPICAL QID PRN; Protocol PRN Reason: abd pain Dextrose (Dextrose 50 % 25 Gm/50 Ml Syringe) 25 gm IVPUSH Q15M PRN; Protocol PRN Reason: per Hypoglycemia Standing Ord. Famotidine (Famotidine/Pf 20 Mg/2 Ml Vial) 20 mg IVPUSH BID [facility] Last Admin: 10/18/21 08:39 Dose: 20 mg Glucose (Glucose Gel 15 Gm Gel..Gram.) 15 gm PO Q15M PRN; Protocol PRN Reason: per Hypoglycemia Standing Ord. Hydromorphone HCl (Hydromorphone Hcl 0.5 Mg/0.5 Ml Syringe) 0.5 mg IVPUSH Q4H PRN; Protocol PRN Reason: abd pain Last Admin: 10/18/21 11:10 Dose: 0.5 mg Hydroxyzine HCl (Hydroxyzine Hcl 10 Mg Tablet) 10 mg PO Q6H PRN PRN Reason: Anxiety Sodium Chloride (Ns) 1,000 mls @ 100 mls/hr IVCONT .Q10H [facility] Last Admin: 10/18/21 12:09 Dose: 100 mls/hr Levofloxacin (Levaquin) 500 mg in 100 mls @ 100 mls/hr IV Q24H [facility] Last Infusion: 10/18/21 12:51 Dose: Infused Metronidazole (Flagyl) 500 mg in 100 mls @ 100 mls/hr IV Q8H [facility] Last Infusion: 10/18/21 13:19 Dose: Infused Insulin Glargine (Insulin Glargine,Hum.Rec.Anlog 100 Unit/Ml 10 Ml Vial) 10 unit SUBCUT BEDTIME [facility] Last Admin: 10/17/21 20:55 Dose: 10 unit Insulin Human Lispro (Insulin Lispro 100 Unit/Ml 3 Ml Vial) 0 unit SUBCUT QIDACHS [facility]; Protocol Last Admin: 10/18/21 11:46 Dose: Not Given Lidocaine (Lidocaine 4 % Patch Adh..Patch) 1 patch TRANSDERMA DAILY [facility]; Protocol Last Admin: 10/18/21 12:05 Dose: 1 patch Melatonin (Melatonin 3 Mg Tablet) 6 mg PO BEDTIME PRN PRN Reason: Insomnia Metoclopramide HCl (Metoclopramide Hcl 5 Mg Tablet) 5 mg PO Q4H PRN PRN Reason: nausea Ondansetron HCl (Ondansetron Hcl 4 Mg/2 Ml Vial) 4 mg IVPUSH Q8H PRN PRN Reason: Nausea and Vomiting Last Admin: 10/18/21 02:43 Dose: 4 mg Sodium Chloride (0.9 % Sodium Chloride Flush 3 Ml Syringe) 3 ml IVFLUSH QSHIFT [facility] Last Admin: 10/18/21 07:26 Dose: Not Given Home Medications Medication Instructions Recorded Confirmed Last Taken Type No Known Home Meds 10/17/21 10/17/21 Unknown History Physical Exam Vital Signs: Vital Signs: Last Vital Signs Temp 97.6 F 10/18/21 12:00 Pulse 92 10/18/21 12:00 Resp 18 10/18/21 12:00 BP 142/90 H 10/18/21 12:00 Pulse Ox 100 10/18/21 12:00 O2 Del Method 10/18/21 12:00 BMI result Body Mass Index 21.6 EXAM: GENERAL: The patient is uncomfortable, good color VITAL SIGNS:see workflow HEENT: Nonicteric sclerae, PERRLA, EOMI. Oropharynx clear. Moist mucous membranes. Conjunctivae appear well perfused. No thyroid mass. CHEST: Chest wall is nontender. HEART: Regular rate and rhythm without murmurs. LUNGS: Clear to auscultation bilaterally. ABDOMEN: Soft, positive bowel sounds, tender epigastrium, no organomegaly.no flank tenderness SKIN: No rash, no excessive bruising, petechiae, or purpura. NEUROLOGIC: Cranial nerves II-XII intact without motor/sensory deficit. Pscyh--nml affect Skin: General skin exam: no rashes or lesions noted Extrem: General: Yes normal to inspection Results Labs CBC & Chem 7: 10/17/21 07:27 10/17/21 07:[address] scan - abdomen: Attestation: I personally reviewed and interpreted this imaging study as follows: My impression: colonic thickening and small bowel patchy hyperattenuation, prominent ovaries Assessment and Plan (1) Colitis: Status: Acute (2) Vomiting: Status: Acute Plan 1/ Nausea, vomiting, colitis, maybe infectious given her history of eating out, ddx: cyclical vomiting syndrome, cannabis hyperemesis syndrome, gastroparesis given long standign hx of DM, PUD, esophagitis, no evidence to suggest DKA as cause of sx, no UTI PLAN: 1/ Cont wth AB< maybe helping given drop in WCC 2/ if any diarrhea send stool for GI panel 3/ can use PPI, scheduled anti emetic 4/ If sx persist then EGD and sigmoidoscopy tomorrow 5/ can also use capsaicin cream and rub into epigastrium, may help attenuate sx if coming from cannabis use Procedures Date of Service Date of Service: 10/18/21
[2021-10-18 16:21] LABS: Glucose, Whole Blood 114 mg/dL (60-115)
[2021-10-18 19:51] LABS: Glucose, Whole Blood 98 mg/dL (60-115)
[2021-10-19] VITALS (8 sets, daily range): BP systolic 122–152; BP diastolic 78–99; PULSE 78–105; RESP 15–20; TEMP 35.9–36.6; O2SAT 97–100
[2021-10-19] MEDS: metroNIDAZOLE/NS 500 MG/100 ML PIGGYBACK 100 MG IV (03:33)
[2021-10-19] MEDS: HYDROmorphone HCl 0.5 MG/0.5 ML SYRINGE IVPUSH ×2 (03:33→10:09)
[2021-10-19 07:08] LABS: Hematocrit 37.2 % (37.0-47.0); Hemoglobin 13.3 g/dl (12.0-16.0); Mean Corpuscular HGB Conc 35.8 g/dl (31.0-35.0); Mean Corpuscular Hemoglobin 30.6 pg (27.0-33.0); Mean Corpuscular Volume 85.5 fL (80.0-98.0); Mean Platelet Volume 12.1 fL (9.4-12.3); Platelet Count 171 X10*3/uL (160-400); Red Blood Count 4.35 X10*6/uL (4.20-5.50); Red Cell Distribution Width 11.8 % (11.0-16.0); White Blood Count 9.2 X10*3/uL (4.8-10.8)
[2021-10-19 07:22] LABS: Anion Gap 13 (12-20); Blood Urea Nitrogen 13 mg/dL (9-16); Calcium 8.3 mg/dL (8.4-10.2); Carbon Dioxide 25 mmol/L (22-29); Chloride 104 mmol/L (96-108); Creatinine Clr Calc Pharmacy 146.5; Estimated Glomerular Filt Rate > 60; Glucose Random 84 mg/dL (60-115); Sodium 139 mmol/L (135-145)
[2021-10-19 07:25] LABS: Glucose, Whole Blood 88 mg/dL (60-115)
[2021-10-19] MEDS: ondansetron HCL 4 MG/2 ML VIAL IVPUSH (10:09)
[2021-10-19] MEDS: Famotidine/PF 20 MG/2 ML VIAL IVPUSH (10:09)
[2021-10-19] MEDS: 0.9 % Sodium Chloride 1,000 ML 100 ML IVCONT (10:10)
[2021-10-19] MEDS: Lidocaine 4 % Patch ADH..PATCH 1 PATCH TRANSDERMA (10:10)
[2021-10-19 11:18] LABS: Glucose, Whole Blood 95 mg/dL (60-115)
--- NOTE | 2021-10-19 12:59 | P.CONAN_ITS ---
[facility] Active Problems Active Problems: All Active Problems (Updated 10/18/21 @ 12:57 by Ivet Britton MD) Vomiting (Acute) Cyclic vomiting syndrome (Acute) Marijuana abuse (Acute) Colitis (Acute) Past Medical History Medical History Diabetes mellitus type 1 Family History Family History Other Family history non-contributory Family history of problems with anesthesia: No Surgical History Surgical History (Updated 10/19/21 @ 12:27 by Hafsa Echevarria RN) Hx of cholecystectomy History of Problems with Anesthesia: No Social History Social History Household Members: Family Housing: House Do you presently have visiting nurse or other home services: No Alcohol intake: never Patient Tobacco Use Status: Current everyday Tobacco user Tobacco use type: Cigarette Cigarettes Per Day: 2 Smoked in Last 30 Days: Yes Use of substances other than those prescribed or required for medical reasons: Yes Substance Use Type: Marijuana Substance Use Frequency: Occasionally Last Used Substance: Just Prior to Admission Currently Displaying Signs/Symptoms of Drug Intoxication Withdrawal: No Have you been hit, kicked, punched, or otherwise hurt by someone within the past year? If so, by whom?: No Do you feel safe in your current relationship?: Yes Is there a partner from a previous relationship who is making you feel unsafe now?: No Are you made to feel afraid or neglected: No Are you DNR?: No Advance Directives: No Advance Directives Information Provided: Yes Recently lost weight without trying: Yes How much weight loss: 14-23 pounds Eating poorly because of decreased appetite: No Nutrition screen score: 4 Nutrition Risks: No Nutritional Risk Patient : No : No Poor oral hygiene: No service: No Current occupational status: employed Meds Allergies Allergy/AdvReac Type Severity Reaction Status Date / Time Latex, Natural Rubber Allergy Unknown HIVES Verified 04/19/20 20:21 [LATEX, NATURAL RUBBER] Active Medications: Current Medications Acetaminophen (Acetaminophen 325 Mg Tablet) 650 mg PO Q6H PRN PRN Reason: Pain, Mild (Pain Scale 1-3) Capsaicin (Capsaicin 0.025% Cream 60 Gm Tube) 1 appl TOPICAL QID PRN; Protocol PRN Reason: abd pain Dextrose (Dextrose 50 % 25 Gm/50 Ml Syringe) 25 gm IVPUSH Q15M PRN; Protocol PRN Reason: per Hypoglycemia Standing Ord. Famotidine (Famotidine/Pf 20 Mg/2 Ml Vial) 20 mg IVPUSH BID [facility] Last Admin: 10/19/21 10:09 Dose: 20 mg Glucose (Glucose Gel 15 Gm Gel..Gram.) 15 gm PO Q15M PRN; Protocol PRN Reason: per Hypoglycemia Standing Ord. Hydromorphone HCl (Hydromorphone Hcl 0.5 Mg/0.5 Ml Syringe) 0.5 mg IVPUSH Q4H PRN; Protocol PRN Reason: abd pain Last Admin: 10/19/21 10:09 Dose: 0.5 mg Hydroxyzine HCl (Hydroxyzine Hcl 10 Mg Tablet) 10 mg PO Q6H PRN PRN Reason: Anxiety Sodium Chloride (Ns) 1,000 mls @ 100 mls/hr IVCONT .Q10H [facility] Last Admin: 10/19/21 10:10 Dose: 100 mls/hr Levofloxacin (Levaquin) 500 mg in 100 mls @ 100 mls/hr IV Q24H [facility] Last Infusion: 10/18/21 12:51 Dose: Infused Metronidazole (Flagyl) 500 mg in 100 mls @ 100 mls/hr IV Q8H [facility] Last Infusion: 10/19/21 05:16 Dose: Infused Lactated Ringer's (Lr) 1,000 mls @ 50 mls/hr IVCONT .Q20H [facility] Insulin Glargine (Insulin Glargine,Hum.Rec.Anlog 100 Unit/Ml 10 Ml Vial) 10 unit SUBCUT BEDTIME [facility] Last Admin: 10/18/21 20:13 Dose: Not Given Insulin Human Lispro (Insulin Lispro 100 Unit/Ml 3 Ml Vial) 0 unit SUBCUT QIDACHS [facility]; Protocol Last Admin: 10/19/21 11:35 Dose: Not Given Lidocaine (Lidocaine 4 % Patch Adh..Patch) 1 patch TRANSDERMA DAILY [facility]; Protocol Last Admin: 10/19/21 10:10 Dose: 1 patch Melatonin (Melatonin 3 Mg Tablet) 6 mg PO BEDTIME PRN PRN Reason: Insomnia Metoclopramide HCl (Metoclopramide Hcl 5 Mg Tablet) 5 mg PO Q4H PRN PRN Reason: nausea Ondansetron HCl (Ondansetron Hcl 4 Mg/2 Ml Vial) 4 mg IVPUSH Q8H PRN PRN Reason: Nausea and Vomiting Last Admin: 10/19/21 10:09 Dose: 4 mg Sodium Chloride (0.9 % Sodium Chloride Flush 3 Ml Syringe) 3 ml IVFLUSH QSHIFT [facility] Last Admin: 10/19/21 10:10 Dose: Not Given Home Medications Medication Instructions Recorded Confirmed Last Taken Type No Known Home Meds 10/17/21 10/17/21 Unknown History Exam Exam Date and Time: October 19, 2021 1259 Height,Weight and Vital Signs: Height 5 ft 5 in Weight 58.967 kg Last Vital Signs Temp 97.4 F 10/19/21 12:12 Pulse 81 10/19/21 12:12 Resp 15 10/19/21 12:12 BP 152/99 H 10/19/21 12:12 Pulse Ox 100 10/19/21 12:12 O2 Del Method 10/19/21 12:12 Pertinent Lab Results Pertinent Lab Results: Laboratory Tests 10/16/21 10/16/21 10/16/21 14:01 14:01 14:01 WBC 16.4 H RBC 5.25 Hgb 16.0 Hct 45.3 MCV 86.3 MCH 30.5 MCHC 35.3 H RDW 12.4 Plt Count 236 MPV 11.3 Immature Gran % (Auto) 0.5 H Neut % (Auto) 91.2 H Lymph % (Auto) 5.7 L [place] % (Auto) 2.4 Eos % (Auto) 0.0 Baso % (Auto) 0.2 Lymph # (Auto) 0.9 L [place] # (Auto) 0.4 Eos # (Auto) 0.0 Baso # (Auto) 0.0 Abs Immat Gran (auto) 0.08 H Absolute Neuts (auto) 15.0 H Absolute Nucleated RBC 0.000 Nucleated RBC % (auto) 0.0 Smear Tech's Comments VERIFIED Sodium 145 Potassium 3.9 D Chloride 101 Carbon Dioxide 23 Anion Gap 25 H BUN 9 Creatinine 0.81 Estim Creat Clear Calc 92.1 Estimated GFR > 60 POC Glucose Random Glucose 336 H Estimat Average Glucose Hemoglobin A1c % Calcium 10.4 H D Total Bilirubin 1.0 AST 21 ALT 28 Alkaline Phosphatase 88 D Total Protein 8.8 H D Albumin 5.2 H D Beta HCG, Quant < 2 Urine Color Urine Appearance Urine pH Ur Specific [place] Urine Protein Urine Glucose (UA) Urine Ketones Urine Blood Urine Nitrite Ur Leukocyte Esterase Urine RBC Urine WBC Ur Squamous Epith Cells Urine Bacteria Hyaline Casts Urine Test Urine Opiates Screen Urine Fentanyl Screen Ur Barbiturates Screen Ur Phencyclidine Scrn Ur Amphetamines Screen U Benzodiazepines Scrn Urine Cocaine Screen U Marijuana (THC) Screen Ethyl Alcohol < 10 COVID-19 (GPOAL) COVID-19 [facility] EV Conversions 10/16/21 10/16/21 10/16/21 19:49 19:49 19:49 WBC RBC Hgb Hct MCV MCH MCHC RDW Plt Count MPV Immature Gran % (Auto) Neut % (Auto) Lymph % (Auto) [place] % (Auto) Eos % (Auto) Baso % (Auto) Lymph # (Auto) [place] # (Auto) Eos # (Auto) Baso # (Auto) Abs Immat Gran (auto) Absolute Neuts (auto) Absolute Nucleated RBC Nucleated RBC % (auto) Smear Tech's Comments Sodium Potassium Chloride Carbon Dioxide Anion Gap BUN Creatinine Estim Creat Clear Calc Estimated GFR POC Glucose Random Glucose Estimat Average Glucose Hemoglobin A1c % Calcium Total Bilirubin AST ALT Alkaline Phosphatase Total Protein Albumin Beta HCG, Quant Urine Color Yellow Urine Appearance Clear Urine pH 6.5 Ur Specific [place] >= 1.030 H Urine Protein Negative Urine Glucose (UA) >=1000 H Urine Ketones 40 Urine Blood Negative Urine Nitrite Negative Ur Leukocyte Esterase Negative Urine RBC 0-2 Urine WBC 0-5 Ur Squamous Epith Cells 0-2 Urine Bacteria None Seen Hyaline Casts 0-2 Urine Test NEGATIVE Urine Opiates Screen POSITIVE H Urine Fentanyl Screen Not Detected Ur Barbiturates Screen Not Detected Ur Phencyclidine Scrn Not Detected Ur Amphetamines Screen Not Detected U Benzodiazepines Scrn POSITIVE H Urine Cocaine Screen Not Detected U Marijuana (THC) Screen POSITIVE H Ethyl Alcohol COVID-19 (GOPAL) COVID-19 [facility] Conversions 10/16/21 10/16/21 10/16/21 22:03 22:15 22:15 WBC RBC Hgb Hct MCV MCH MCHC RDW Plt Count MPV Immature Gran % (Auto) Neut % (Auto) Lymph % (Auto) [place] % (Auto) Eos % (Auto) Baso % (Auto) Lymph # (Auto) [place] # (Auto) Eos # (Auto) Baso # (Auto) Abs Immat Gran (auto) Absolute Neuts (auto) Absolute Nucleated RBC Nucleated RBC % (auto) Smear Tech's Comments Sodium 143 Potassium 3.8 Chloride 106 Carbon Dioxide 24 Anion Gap 17 BUN 11 Creatinine 0.66 Estim Creat Clear Calc 113.1 Estimated GFR > 60 POC Glucose 213 H Random Glucose 235 H Estimat Average Glucose Hemoglobin A1c % Calcium 8.9 D Total Bilirubin AST ALT Alkaline Phosphatase Total Protein Albumin Beta HCG, Quant Urine Color Urine Appearance Urine pH Ur Specific [place] Urine Protein Urine Glucose (UA) Urine Ketones Urine Blood Urine Nitrite Ur Leukocyte Esterase Urine RBC Urine WBC Ur Squamous Epith Cells Urine Bacteria Hyaline Casts Urine Test Urine Opiates Screen Urine Fentanyl Screen Ur Barbiturates Screen Ur Phencyclidine Scrn Ur Amphetamines Screen U Benzodiazepines Scrn Urine Cocaine Screen U Marijuana (THC) Screen Ethyl Alcohol COVID-19 (GOPAL) Negative COVID-19 Clin Com See Note 10/16/21 10/17/21 10/17/21 22:15 07:27 07:27 WBC 10.8 RBC 4.24 Hgb 12.9 Hct 37.2 MCV 87.7 MCH 30.4 MCHC 34.7 RDW 12.6 Plt Count 205 MPV 11.3 Immature Gran % (Auto) 0.3 Neut % (Auto) 75.4 H Lymph % (Auto) 17.0 L [place] % (Auto) 6.9 Eos % (Auto) 0.1 Baso % (Auto) 0.3 Lymph # (Auto) 1.8 [place] # (Auto) 0.7 Eos # (Auto) 0.0 Baso # (Auto) 0.0 Abs Immat Gran (auto) 0.03 Absolute Neuts (auto) 8.1 Absolute Nucleated RBC 0.000 Nucleated RBC % (auto) 0.0 Smear Tech's Comments Sodium 144 Potassium 3.4 Chloride 109 H Carbon Dioxide 26 Anion Gap 12 BUN 14 Creatinine 0.59 Estim Creat Clear Calc 126.6 Estimated GFR > 60 POC Glucose Random Glucose 174 H Estimat Average Glucose 183 Hemoglobin A1c % 8.0 Calcium 8.7 Total Bilirubin AST ALT Alkaline Phosphatase Total Protein Albumin Beta HCG, Quant Urine Color Urine Appearance Urine pH Ur Specific [place] Urine Protein Urine Glucose (UA) Urine Ketones Urine Blood Urine Nitrite Ur Leukocyte Esterase Urine RBC Urine WBC Ur Squamous Epith Cells Urine Bacteria Hyaline Casts Urine Test Urine Opiates Screen Urine Fentanyl Screen Ur Barbiturates Screen Ur Phencyclidine Scrn Ur Amphetamines Screen U Benzodiazepines Scrn Urine Cocaine Screen U Marijuana (THC) Screen Ethyl Alcohol COVID-19 (GOPAL) COVID-19 [facility] EV Conversions 10/17/21 10/17/21 10/17/21 07:34 11:23 16:46 WBC RBC Hgb Hct MCV MCH MCHC RDW Plt Count MPV Immature Gran % (Auto) Neut % (Auto) Lymph % (Auto) [place] % (Auto) Eos % (Auto) Baso % (Auto) Lymph # (Auto) [place] # (Auto) Eos # (Auto) Baso # (Auto) Abs Immat Gran (auto) Absolute Neuts (auto) Absolute Nucleated RBC Nucleated RBC % (auto) Smear Tech's Comments Sodium Potassium Chloride Carbon Dioxide Anion Gap BUN Creatinine Estim Creat Clear Calc Estimated GFR POC Glucose 162 H 173 H 144 H Random Glucose Estimat Average Glucose Hemoglobin A1c % Calcium Total Bilirubin AST ALT Alkaline Phosphatase Total Protein Albumin Beta HCG, Quant Urine Color Urine Appearance Urine pH Ur Specific [place] Urine Protein Urine Glucose (UA) Urine Ketones Urine Blood Urine Nitrite Ur Leukocyte Esterase Urine RBC Urine WBC Ur Squamous Epith Cells Urine Bacteria Hyaline Casts Urine Test Urine Opiates Screen Urine Fentanyl Screen Ur Barbiturates Screen Ur Phencyclidine Scrn Ur Amphetamines Screen U Benzodiazepines Scrn Urine Cocaine Screen U Marijuana (THC) Screen Ethyl Alcohol COVID-19 (GOPAL) COVID-19 [facility] EV Conversions 10/17/21 10/18/21 10/18/21 20:47 07:16 11:33 WBC RBC Hgb Hct MCV MCH MCHC RDW Plt Count MPV Immature Gran % (Auto) Neut % (Auto) Lymph % (Auto) [place] % (Auto) Eos % (Auto) Baso % (Auto) Lymph # (Auto) [place] # (Auto) Eos # (Auto) Baso # (Auto) Abs Immat Gran (auto) Absolute Neuts (auto) Absolute Nucleated RBC Nucleated RBC % (auto) Smear Tech's Comments Sodium Potassium Chloride Carbon Dioxide Anion Gap BUN Creatinine Estim Creat Clear Calc Estimated GFR POC Glucose 174 H 128 H 143 H Random Glucose Estimat Average Glucose Hemoglobin A1c % Calcium Total Bilirubin AST ALT Alkaline Phosphatase Total Protein Albumin Beta HCG, Quant Urine Color Urine Appearance Urine pH Ur Specific [place] Urine Protein Urine Glucose (UA) Urine Ketones Urine Blood Urine Nitrite Ur Leukocyte Esterase Urine RBC Urine WBC Ur Squamous Epith Cells Urine Bacteria Hyaline Casts Urine Test Urine Opiates Screen Urine Fentanyl Screen Ur Barbiturates Screen Ur Phencyclidine Scrn Ur Amphetamines Screen U Benzodiazepines Scrn Urine Cocaine Screen U Marijuana (THC) Screen Ethyl Alcohol COVID-19 (GOPAL) COVID-19 [employer] Com 10/18/21 10/18/21 10/19/21 16:17 19:42 05:40 WBC 9.2 RBC 4.35 Hgb 13.3 Hct 37.2 MCV 85.5 MCH 30.6 MCHC 35.8 H RDW 11.8 Plt Count 171 MPV 12.1 Immature Gran % (Auto) Neut % (Auto) Lymph % (Auto) [place] % (Auto) Eos % (Auto) Baso % (Auto) Lymph # (Auto) [place] # (Auto) Eos # (Auto) Baso # (Auto) Abs Immat Gran (auto) Absolute Neuts (auto) Absolute Nucleated RBC 0.000 Nucleated RBC % (auto) 0.0 Smear Tech's Comments Sodium Potassium Chloride Carbon Dioxide Anion Gap BUN Creatinine Estim Creat Clear Calc Estimated GFR POC Glucose 114 98 Random Glucose Estimat Average Glucose Hemoglobin A1c % Calcium Total Bilirubin AST ALT Alkaline Phosphatase Total Protein Albumin Beta HCG, Quant Urine Color Urine Appearance Urine pH Ur Specific [place] Urine Protein Urine Glucose (UA) Urine Ketones Urine Blood Urine Nitrite Ur Leukocyte Esterase Urine RBC Urine WBC Ur Squamous Epith Cells Urine Bacteria Hyaline Casts Urine Test Urine Opiates Screen Urine Fentanyl Screen Ur Barbiturates Screen Ur Phencyclidine Scrn Ur Amphetamines Screen U Benzodiazepines Scrn Urine Cocaine Screen U Marijuana (THC) Screen Ethyl Alcohol COVID-19 (GOPAL) COVID-19 Clin Com 10/19/21 10/19/21 10/19/21 05:40 07:19 11:09 WBC RBC Hgb Hct MCV MCH MCHC RDW Plt Count MPV Immature Gran % (Auto) Neut % (Auto) Lymph % (Auto) [place] % (Auto) Eos % (Auto) Baso % (Auto) Lymph # (Auto) [place] # (Auto) Eos # (Auto) Baso # (Auto) Abs Immat Gran (auto) Absolute Neuts (auto) Absolute Nucleated RBC Nucleated RBC % (auto) Smear Tech's Comments Sodium 139 Potassium 3.0 L Chloride 104 Carbon Dioxide 25 Anion Gap 13 BUN 13 Creatinine 0.51 Estim Creat Clear Calc 146.5 Estimated GFR > 60 POC Glucose 88 95 Random Glucose 84 Estimat Average Glucose Hemoglobin A1c % Calcium 8.3 L Total Bilirubin AST ALT Alkaline Phosphatase Total Protein Albumin Beta HCG, Quant Urine Color Urine Appearance Urine pH Ur Specific [place] Urine Protein Urine Glucose (UA) Urine Ketones Urine Blood Urine Nitrite Ur Leukocyte Esterase Urine RBC Urine WBC Ur Squamous Epith Cells Urine Bacteria Hyaline Casts Urine Test Urine Opiates Screen Urine Fentanyl Screen Ur Barbiturates Screen Ur Phencyclidine Scrn Ur Amphetamines Screen U Benzodiazepines Scrn Urine Cocaine Screen U Marijuana (THC) Screen Ethyl Alcohol COVID-19 (GOPAL) COVID-19 Clin Com Airway Mallampati Class: II TM Dist: >3cm (Missing teeth nothing loose) Neck ROM: Full Heart: rrr Lungs: cta Assessment and Plan Assessment Anesthesia Assessment: Anesthesia Plan Discussed and Chart Reviewed Final Anesthetic Review Family History of Problems with Anesthesia: No History of Problems with Anesthesia: No NPO: Yes ASA Class: II Final Preanesthetic Review: No Changes in Pt Med Stat, Meds/Allgs Chart Reviewed and Consent Obtained/Reviewed Patient Risk: Intermediate Procedure Risk: Intermediate Anesthetic Plan Anesthetic Plan: MAC: Disposition: Standard PACU
[2021-10-19] MEDS: Sodium Phosphate,Mono-Dibasic 133 ML ENEMA PR (13:08)
--- NOTE | 2021-10-19 13:15 | PC.NURSE ---
fleets enema x1 given at 1308 per md with moderate amount clear liquid with small brown residueresults at 1312.
--- NOTE | 2021-10-19 13:24 | MHC.SHP ---
Pre-Procedural Eval Section A Date of Service: 10/19/21 The patient is an INPATIENT: Yes The History & Physical has been completed within 30 days and I have reviewed it.: Yes Section B Chief Complaint: Cyclic vomiting syndrome Allergies: Allergies Allergy/AdvReac Type Severity Reaction Status Date / Time Latex, Natural Rubber Allergy Unknown HIVES Verified 04/19/20 20:21 [LATEX, NATURAL RUBBER] Plan I have reviewed the history and physical and performed a pertinent physical examination on my patient. No changes have occurred unless specified.
--- NOTE | 2021-10-19 13:26 | W.PM.OPN ---
Operative Note Operative Note Date of Service: 10/19/21 Narrative: Operative Information Procedure Description: EGD, Colonoscopy Indication: nausea, vomiting, abdominal pain Anesthesia: MAC FLEXIBLE TRANSORAL UPPER GASTROINTESTINAL ENDOSCOPY AND COLONOSCOPY PROCEDURE NOTE UPPER ENDOSCOPY Consent: Indications for the procedure and potential complications of bleeding, perforation, reaction to medications and missed diagnosis were discussed with the patient and informed consent was obtained. Instrument: Olympus GIF H 190 J mid size upper endoscope Monitoring: Vital signs and clinical assessment, continuous EKG monitoring, Pulse oximetry, Carbon Dioxide monitoring and blood pressure monitoring were done throughout the procedure. Procedure: The patient was placed in the left lateral decubitis position and pre-procedure medications were administered and a bite block was placed. The endoscope was inserted into the mouth and advanced under direct vision to the third part of duodenum. A careful inspection was made as the upper endoscope was withdrawn including a retroflexed examination of the proximal stomach; Findings and interventions are described below. Findings: Larynx:normal Esophagus: GE junction at 38 cm, diaphragm hiatus at 38 cm, severe erosive esophagitis noted extending for 5-6 cm, bx taken to r/o infection Stomach: PAtchy erythema melody in the fundus. Biopsies were obtained. Grade 2 flap valve on retroflexed examination of the cardia. Duodenum: Normal bulb and descending duodenum, bx taken Intervention: Biopsies as noted above Sigmoidoscopy Instrument: As above Procedure: The patient was placed in the left lateral decubitis position and pre-procedure medications were administered. After a digital rectal examination of the ano-rectum, the video colonoscope was inserted into the rectum and advanced through the colon to the transverse colon Findings and interventions are described below. Procedure Difficulty:easy Findings: Erythema and boggy mucosa consistent with mild colitis up to the distal sigmoid, bx taken Rectum: Retroflexion with small internal hemorrhoids, grade I Anorectum - normal Stool samples also collected and sent for c.diff and GI panel Impression and Post Procedure Diagnosis: Endoscopy Findings: erosive esophagitis, LA grade D gastritis sigmoidoscopy Findings: colitis internal hemorrhoids Plan: Await Pathology results and stool results high dose PPI e.g pantoprazole 40 mg BID carafate 1 gm BID scheduled anti emetic for 1-2 weeks, e.g zofran 4 mg TID repeat EGD in 3-4 months if stool samples neg and having ongoing colitis symptoms then trial of mesalamine avoid nsaid Above findings were reviewed with the patient and relevant handouts were provided if indicated.
--- NOTE | 2021-10-19 13:54 | P.PNIM_ITS ---
Subjective Subjective Date of Service: 10/19/21 Interval History: results of endoscopies noted. Still nauseous but wishes to eat Review of Systems denies chest pain Denies shortness of breath Admits to nausea vomiting no diarrhea Denies fever chills Physical Exam Vital Signs: Vital Signs: Last Vital Signs Temp 97.4 F 10/19/21 12:12 Pulse 81 10/19/21 12:12 Resp 15 10/19/21 12:12 BP 152/99 H 10/19/21 12:12 Pulse Ox 100 10/19/21 12:12 O2 Del Method 10/19/21 12:12 BMI result Body Mass Index 21.6 Const: Other: no acute distress Resp: Other: clear to auscultation bilaterally no rales rhonchi or wheezes Cardio: Other: no S4; positive S1-S2; no S3 murmurs rubs gallops GI: Other: soft nontender nondistended normoact Extrem: Other: no edema bilaterally Objective Data Active Medications Acetaminophen (Acetaminophen 325 Mg Tablet) 650 mg PO Q6H PRN PRN Reason: Pain, Mild (Pain Scale 1-3) Capsaicin (Capsaicin 0.025% Cream 60 Gm Tube) 1 appl TOPICAL QID PRN; Protocol PRN Reason: abd pain Dextrose (Dextrose 50 % 25 Gm/50 Ml Syringe) 25 gm IVPUSH Q15M PRN; Protocol PRN Reason: per Hypoglycemia Standing Ord. Famotidine (Famotidine/Pf 20 Mg/2 Ml Vial) 20 mg IVPUSH BID [facility] Last Admin: 10/19/21 10:09 Dose: 20 mg Documented By: MARIA E Glucose (Glucose Gel 15 Gm Gel..Gram.) 15 gm PO Q15M PRN; Protocol PRN Reason: per Hypoglycemia Standing Ord. Hydromorphone HCl (Hydromorphone Hcl 0.5 Mg/0.5 Ml Syringe) 0.5 mg IVPUSH Q4H PRN; Protocol PRN Reason: abd pain Last Admin: 10/19/21 10:09 Dose: 0.5 mg Documented By: MARIA E Hydroxyzine HCl (Hydroxyzine Hcl 10 Mg Tablet) 10 mg PO Q6H PRN PRN Reason: Anxiety Sodium Chloride (Ns) 1,000 mls @ 100 mls/hr IVCONT .Q10H [facility] Last Admin: 10/19/21 10:10 Dose: 100 mls/hr Documented By: MARIA E Levofloxacin (Levaquin) 500 mg in 100 mls @ 100 mls/hr IV Q24H [facility] Last Infusion: 10/18/21 12:51 Dose: 0 mls/hr Documented By: ASHA Metronidazole (Flagyl) 500 mg in 100 mls @ 100 mls/hr IV Q8H [facility] Last Infusion: 10/19/21 05:16 Dose: 0 mls/hr Documented By: LAITH Lactated Ringer's (Lr) 1,000 mls @ 50 mls/hr IVCONT .Q20H [facility] Insulin Glargine (Insulin Glargine,Hum.Rec.Anlog 100 Unit/Ml 10 Ml Vial) 10 unit SUBCUT BEDTIME [facility] Last Admin: 10/18/21 20:13 Dose: Not Given Documented By: LAITH Non-Admin Reason: Patient Condition Contraindication Comments: pt is not eating, cant tolerate Insulin Human Lispro (Insulin Lispro 100 Unit/Ml 3 Ml Vial) 0 unit SUBCUT QIDACHS [facility]; Protocol Last Admin: 10/19/21 11:35 Dose: Not Given Documented By: MARIA E Non-Admin Reason: No Insulin Coverage Lidocaine (Lidocaine 4 % Patch Adh..Patch) 1 patch TRANSDERMA DAILY [facility]; Protocol Last Admin: 10/19/21 10:10 Dose: 1 patch Documented By: MARIA E Melatonin (Melatonin 3 Mg Tablet) 6 mg PO BEDTIME PRN PRN Reason: Insomnia Metoclopramide HCl (Metoclopramide Hcl 5 Mg Tablet) 5 mg PO Q4H PRN PRN Reason: nausea Ondansetron HCl (Ondansetron Hcl 4 Mg/2 Ml Vial) 4 mg IVPUSH Q8H PRN PRN Reason: Nausea and Vomiting Last Admin: 10/19/21 10:09 Dose: 4 mg Documented By: MARIA E Sodium Biphosphate/Sodium Phosphate (Sodium Phosphate,Brazos-Dibasic 133 Ml Enema) 133 ml DE ONCE PRN PRN Reason: Consult order Last Admin: 10/19/21 13:08 Dose: 133 ml Documented By: KIERRA Sodium Chloride (0.9 % Sodium Chloride Flush 3 Ml Syringe) 3 ml IVFLUSH QSHIFT [facility] Last Admin: 10/19/21 10:10 Dose: Not Given Documented By: MARIA E Non-Admin Reason: IV Running Labs CBC & Chem 7: 10/19/21 05:40 10/19/21 05:40 Labs: Laboratory Results - last 24 hr 10/18/21 10/18/21 10/19/21 16:17 19:42 05:40 MCV 85.5 MCH 30.6 MCHC 35.8 H RDW 11.8 Plt Count 171 MPV 12.1 Absolute Nucleated RBC 0.000 Nucleated RBC % (auto) 0.0 Anion Gap Estim Creat Clear Calc Estimated GFR POC Glucose 114 98 Random Glucose Calcium 10/19/21 10/19/21 10/19/21 05:40 07:19 11:09 MCV MCH MCHC RDW Plt Count MPV Absolute Nucleated RBC Nucleated RBC % (auto) Anion Gap 13 Estim Creat Clear Calc 146.5 Estimated GFR > 60 POC Glucose 88 95 Random Glucose 84 Calcium 8.3 L Assessment and Plan (1) Cyclic vomiting syndrome: Status: Acute (2) Colitis: Status: Acute (3) Diabetes mellitus type 1: Status: Acute Plan 31-year-old female with a past medical history anxiety, depression, history of cyclic vomiting syndrome, type 1 diabetes presented to the hospital today with a chief complaint nausea/ vomiting.? 1.Cyclic vomiting syndrome( likely secondary to chronic cannabis use) - EGD/ colon unremarkable per GI note - capsaicin p.r.n. 2,Type 1 DM - acceptable control on current therapies - continue home dosing/lispro sliding scale DVT prophylaxis:? low risk ,ambulate. Code status:? Full code requires ongoing hospitalization for volume repletion IV secondary to cyclic vomiting Quality Stroke Does the patient have a stroke diagnosis?: No VTE Prior VTE?: No VTE Risk Level:: Medical - moderate - high VTE Device Contraindication: Treatment Not Indicated VTE Drug Contraindication: N/A - Med Ordered
[2021-10-19 14:16] LABS: Glucose, Whole Blood 97 mg/dL (60-115)
[2021-10-19 16:00] LABS: Glucose, Whole Blood 106 mg/dL (60-115)
--- NOTE | 2021-10-19 16:28 | P.DS_ITS ---
DS: Providers Provider Date of Service: 10/19/21 Date of admission: 10/16/21 20:23 Date of discharge: 10/19/21 Primary care physician: Guilherme Miller MD Consults: 10/18/21 10:12 Consult to Gastroenterology Routine Consulting Provider: [facility] [place] G[facility]ology [facility] Reason for consultation: cyclic vomiting syndome Has provider been notified: No 10/18/21 10:17 Consult to Care Team Routine Comment: Reason for consultation: anxiety DS: Diagnosis Discharge Diagnosis (1) Cyclic vomiting syndrome: Status: Acute (2) Colitis: Status: Acute (3) Diabetes mellitus type 1: Status: Acute DS: Summary Hospital Course Hospital Course: 31-year-old female with a past medical history anxiety, depression, history of cyclic vomiting syndrome, type 1 diabetes presented to the hospital today with a chief complaint nausea/ vomiting.? Patient is a poor historian, spoke to the RN-mentions patient has not been given any history. ?patient mentioned that she has been having nausea and vomiting since yesterday.? Denies any abdominal pain.? Mentions she uses cannabis.? Denies alcohol use.? Patient denies any chest pain or palpitations.? Denies any fever chills cough or sputum production.? Hospital Course admitted to general medical floor. Started on Levaquin and Flagyl for mild colitis by CT. Seen in consultation by GI; on 10/19/2021 underwent EGD in colon. Findings consistent with erosive esophagitis and mild colitis. Patient is now feeling markedly improved and is medically stable to be discharged to complete course of oral Levaquin and Flagyl. She can follow-up with GI in 4-6 weeks Time Spent with Patient Time attestation: Total time spent providing and/or coordinating discharge services: Discharge coordination time: Greater than 30 minutes Quality: Safe Use of Opioids Does Pt have an Active Cancer Diagnosis on the Problem List?: No Quality: Stroke Does the patient have a stroke diagnosis?: No Physical Exam Vital Signs: Vital Signs: Last Vital Signs Temp 96.7 F L 10/19/21 15:41 Pulse 105 H 10/19/21 15:41 Resp 18 10/19/21 15:41 BP 122/84 10/19/21 15:41 Pulse Ox 100 10/19/21 15:41 O2 Del Method 10/19/21 15:41 BMI result Body Mass Index 21.6 Const: Other: awake alert oriented x3 n Resp: Other: clear to auscultation bilaterally no rales rhonchi or wheezes Cardio: Other: no S4; positive S1-S2; no S3 murmurs rubs or gallop GI: Other: soft nontender nondistended norm Extrem: Other: no edema bilaterally DS: Data Data Completed and Pending Pending studies at discharge: Pending at discharge 10/19/21 13:55 Surgical [PTH] Routine Labs on day of discharge: Laboratory Results - last 24 hr 10/18/21 10/19/21 10/19/21 19:42 05:40 05:40 WBC 9.2 RBC 4.35 Hgb 13.3 Hct 37.2 MCV 85.5 MCH 30.6 MCHC 35.8 H RDW 11.8 Plt Count 171 MPV 12.1 Absolute Nucleated RBC 0.000 Nucleated RBC % (auto) 0.0 Sodium 139 Potassium 3.0 L Chloride 104 Carbon Dioxide 25 Anion Gap 13 BUN 13 Creatinine 0.51 Estim Creat Clear Calc 146.5 Estimated GFR > 60 POC Glucose 98 Random Glucose 84 Calcium 8.3 L 10/19/21 10/19/21 10/19/21 07:19 11:09 14:12 WBC RBC Hgb Hct MCV MCH MCHC RDW Plt Count MPV Absolute Nucleated RBC Nucleated RBC % (auto) Sodium Potassium Chloride Carbon Dioxide Anion Gap BUN Creatinine Estim Creat Clear Calc Estimated GFR POC Glucose 88 95 97 Random Glucose Calcium 10/19/21 15:42 WBC RBC Hgb Hct MCV MCH MCHC RDW Plt Count MPV Absolute Nucleated RBC Nucleated RBC % (auto) Sodium Potassium Chloride Carbon Dioxide Anion Gap BUN Creatinine Estim Creat Clear Calc Estimated GFR POC Glucose 106 Random Glucose Calcium Discharge Plan Discharge Patient Disposition: Home, Self-Care Discharge Diagnosis: Colitis Referrals: Guilherme Miller MD [Primary Care Provider] - 1 Week Discharge Medications: New levofloxacin 500 mg tablet 500 mg PO DAILY Qty: 7 0RF pantoprazole [Protonix] 40 mg tablet,delayed release (DR/EC) 40 mg PO BID Qty: 60 0RF sucralfate [Carafate] 1 gram tablet 1 g PO BID Qty: 60 0RF metronidazole 500 mg tablet 500 mg PO BID 7 Days Qty: 14 0RF Discharge Orders: Discharge Order (Routine); Ordered 10/19/21 Ordered By: Chato Odonnell Diet: Advance to usual diet Activity on Discharge: As tolerated Stand Alone Forms: Patient Portal Discharge page Care Plan Goals: take Protonix twice a day along with Carafate twice a day until seen again by GI Health Concerns: Yuly and Flagyl for 1 week. No alcohol with antibiotics Plan of Treatment: follow-up with PCP 2 weeks Assessment: see discharge summary
[2021-10-19 17:07] LABS: CDiff Gene PCR POSITIVE (Negative)
[2021-10-19 19:36] LABS: CDIFF Internal ctrl Dots and bkg OK (V); CDiff Toxin Negative (Negative)
[2021-10-20 11:02] LABS: Campylobacter Not Detected (Not Detect.); Cryptosporidium Not Detected (Not Detect.); E. coli EAEC Not Detected (Not Detect.); E. coli EPEC Not Detected (Not Detect.); E. coli ETEC Not Detected (Not Detect.); E. coli STEC Not Detected (Not Detect.); Plesiomonas shigelloides Not Detected (Not Detect.); Salmonella Not Detected (Not Detect.); Shigella sp./EIEC Not Detected (Not Detect.); Vibrio Not Detected (Not Detect.); Vibrio Cholerae Not Detected (Not Detect.); Yersinia enterocolitica Not Detected (Not Detect.)
[2021-10-20 11:03] LABS: Adenovirus F 40/41 Not Detected (Not Detect.); Astrovirus Not Detected (Not Detect.); Cyclospora cayetanensis Not Detected (Not Detect.); Entamoeba histolytica Not Detected (Not Detect.); Giardia lamblia Not Detected (Not Detect.); Rotavirus A Not Detected (Not Detect.); Sapovirus Not Detected (Not Detect.)
[2021-10-20 11:22] LABS: Norovirus GI/GII Detected (Not Detect.)
== END 2021-10-19 17:27 | disposition home or self-care (01) | DRG 249 ==
LOC: HO.ED 20:36 → HO.EDOVER 20:41 → HO.S3 10-17 07:28
PROVIDERS: Emergency Medicine; Internal Medicine; Internal Medicine Gastroenterology; Admitting Provider Hospitalist; Emergency Provider Emergency Medicine; PCP Internal Medicine; Visit Provider Hospitalist
PROC: 0DJD8ZZ Inspection of Lower Intestinal Tract, Via Natural or Artificial Opening Endoscopic (ICD-10-PCS; CPT 45330; principal; 2021-10-19 13:40)
DX: R11.2 Nausea with vomiting, unspecified (principal); K22.10 Ulcer of esophagus without bleeding; E10.9 Type 1 diabetes mellitus without complications; F17.210 Nicotine dependence, cigarettes, uncomplicated; F41.9 Anxiety disorder, unspecified; K29.70 Gastritis, unspecified, without bleeding; K64.8 Other hemorrhoids; F12.988 Cannabis use, unspecified with other cannabis-induced disorder; F32.A Depression, unspecified; E86.0 Dehydration; E83.52 Hypercalcemia; Z20.822 Contact with and (suspected) exposure to COVID-19; Z71.6 Tobacco abuse counseling; Z91.040 Latex allergy status; Z79.899 Other long term (current) drug therapy
CPT/HCPCS: 43239; 45331; 36415; 74177; 80048; 80053; 80307; 81001; 81025; 82077; 82947; 83036; 84702; 85025; 85027; 87324; 87493; 87507; 87635; 88305; 88342; 96374; 96375; 99218; 99285; J1170; J1885; J1956; J2250; J2270; J2405; J2765; Q9967

== ENCOUNTER 2022-05-18 08:24 | Emergency (ER) | payer MEDICAID, SELFPAY ==
[2022-05-18 08:25] VITALS: BP 154/91; PULSE 110; RESP 20; TEMP 36.4; O2SAT 98; BMI 23.0
--- NOTE | 2022-05-18 08:41 | ED_ITS ---
HPI - Abdominal Pain General Chief Complaint: Abdominal Pain Stated Complaint: Abd pain Time Seen by Provider: 05/18/22 08:38 Source: patient, family and old records reviewed Mode of arrival: ambulatory Limitations: no limitations History of Present Illness HPI narrative: 31 yo female with history of cyclical vomiting syndrome due to marijuana use, DM1, hx colitis who presents to the ER for evaluation of severe upper abdominal pain, vomiting and diarrhea that started this morning after a night of drinking alcohol last night. Patient arrives to the ER crying and curled up in a ball in the stretcher. History is obtained from her partner. He states that she woke up at 06:00 with abdominal pain, vomiting and couple episodes of diarrhea. She points to the upper abdominal area as where the pain is the worst. She has been resting and has had blood-streaked emesis the last few episodes. She reports a history of similar symptoms in the past for she needed to be admitted. She continues to smoke marijuana. MD elicited complaint: abdominal pain Pertinent past history: other (ETOH abuse, cyclival vomiting) Onset (ago): hour(s) Pain Consistency: constant Location: diffuse Severity: severe Quality: stabbing Radiation: none Migration to: no migration Exacerbating factors: nothing Relieving factors: nothing Context: history of similar episodes Associated symptoms: nausea, vomiting and diarrhea Related Data Previous Rx's Medication Instructions Recorded levofloxacin 500 mg tablet 500 mg PO DAILY #7 tabs 10/19/21 metronidazole 500 mg tablet 500 mg PO BID 7 days #14 tabs 10/19/21 pantoprazole 40 mg tablet,delayed 40 mg PO BID #60 tabs 10/19/21 release (Protonix) sucralfate 1 gram tablet (Carafate) 1 g PO BID #60 tabs 10/19/21 vancomycin 125 mg capsule 125 mg PO QID 10 days #40 caps 10/21/21 ondansetron 4 mg disintegrating 4 mg PO Q8H PRN nausea and 05/18/22 tablet vomiting #6 tabs Allergies Allergy/AdvReac Type Severity Reaction Status Date / Time Latex, Natural Rubber Allergy Unknown HIVES Verified 05/18/22 08:30 [LATEX, NATURAL RUBBER] Review of Systems Review of Systems Yes all other systems are reviewed and are negative [facility] Past Medical History Medical History (Updated 05/18/22 @ 13:55 by GLENDA Avilez) Diabetes mellitus type 1 Surgical History (Updated 10/19/21 @ 12:27 by aHfsa Echevarria RN) Hx of cholecystectomy Family History Family History Other Family history non-contributory Social History Social History Household Members: Family Housing: House Do you presently have visiting nurse or other home services: No Alcohol intake: current Patient Tobacco Use Status: Current everyday Tobacco user Tobacco use type: Cigarette Cigarettes Per Day: 2 Smoked in Last 30 Days: Yes Use of substances other than those prescribed or required for medical reasons: Yes Substance Use Type: Marijuana Advance Directives: No Advance Directives Information Provided: No service: No Current occupational status: employed Physical Exam ED Vital Signs: Vital Signs - 24 hr 05/18/22 08:25 05/18/22 11:31 Temperature 97.5 F 98.0 F Pulse Rate 110 H 80 Respiratory Rate 20 12 Blood Pressure 154/91 H 159/99 H Pulse Oximetry 98 Oxygen Delivery Method Room Air Room Air BMI result Body Mass Index 23.0 Appearance: Alert. Oriented X3. Crying in tearful in the stretcher, rocking back and forth Eyes: Pupils equal, round and reactive to light. ENT: Pharynx normal. Neck: Normal inspection. Neck supple. CVS: Normal heart rate and rhythm. Pulses normal. Respiratory: No respiratory distress. Breath sounds normal. Abdomen: Soft with epigastric tenderness +BS x4 Skin: Skin warm and dry. Normal skin color. Normal skin turgor. No rashes. Extremities: No lower extremity edema. Neuro: Oriented X 3. Grossly normal, Course Reevaluation(s) Reevaluation #1: Patient is sleeping comfortably. Pain and vomiting resolved. Will plan for discharge when she wakes up. Refusing to give urine toxicology test. Reevaluation #2: Patient tolerating PO and is feeling better. Stable for discharge. Time: 15:20 Medical Decision Making Medical Decision Making MDM Narrative: 31 yo female with history of cyclical vomiting 2/2 marijuana, hx mild colitis, hx DM1 who presents to the ER for evaluation of nausea, vomiting, abdominal pain that started this morning after a night of drinking. No Kussmaul breathing, hypoventilation on arrival. Doubt DKA. Glucose 330 on arrival. IV established, IV fluids, antiemetics and pain control provided. Her lab workup today shows hyperglycemia without any evidence of DKA. Her LFTs and lipase were normal. She is refusing to provide a urine sample. She does have a history of marijuana use and cyclical vomiting. She has been admitted for this in the past. After medications she was sleeping comfortably. Able to tolerate PO. Plan to discharge home with oral antiemetics p.r.n.. Differential Diagnosis Differential Diagnoses: The differential diagnosis associated with the presentation includes Cyclical vomiting, DKA, gastroenteritis, polysubstance abuse, colitis, appendicitis, cholecystitis, pancreatitis, alcohol abuse/hangover Admission/Observation Consideration of admission/observation: Escalation of care including admission/observation considered Patient has been admitted for similar presentation the past, fortunately she responded well to medications and was able to be discharged home. Lab Data MDM Lab Attestation statement: I reviewed the patient's lab results. Mild leukocytosis, likely reactive due to vomiting. No anion gap metabolic acidosis, hyperglycemia 373 without evidence of DKA. LFTs and lipase are normal 05/18/22 08:49 05/18/22 08:49 Labs: Lab Results 05/18/22 05/18/22 05/18/22 Range/Units 08:44 08:49 08:49 WBC 12.1 H (4.8-10.8) X10*3/uL RBC 4.98 (4.20-5.50) X10*6/uL Hgb 14.9 (12.0-16.0) g/dl Hct 43.1 (37.0-47.0) % MCV 86.5 (80.0-98.0) fL MCH 29.9 (27.0-33.0) pg MCHC 34.6 (31.0-35.0) g/dl RDW 12.0 (11.0-16.0) % Plt Count 229 D (160-400) X10*3/uL MPV 10.8 (9.4-12.3) fL Immature Gran % (Auto) 0.5 H (0.0-0.4) % Neut % (Auto) 72.9 (45-73) % Lymph % (Auto) 20.1 (20-40) % [place] % (Auto) 4.5 (2-11) % Eos % (Auto) 1.5 (0-4) % Baso % (Auto) 0.5 (0-2) % Lymph # (Auto) 2.4 (1.2-4.9) X10*3/uL [place] # (Auto) 0.6 (0.1-1.2) X10*3/uL Eos # (Auto) 0.2 (0.0-0.4) X10*3/uL Baso # (Auto) 0.1 (0.0-0.2) X10*3/uL Abs Immat Gran (auto) 0.06 H (0.00-0.03) X10*3/uL Absolute Neuts (auto) 8.8 H (2.0-8.3) x10*3/uL Absolute Nucleated RBC 0.000 (0.0-0.012) X10*3/uL Nucleated RBC % (auto) 0.0 (0.0-0.2) /100WBC Sodium 141 (135-145) mmol/L Potassium 3.9 D (3.3-5.1) mmol/L Chloride 106 (96-108) mmol/L Carbon Dioxide 20 L (22-29) mmol/L Anion Gap 19 (12-20) BUN 11 (9-16) mg/dL Creatinine 0.73 (0.5-1.4) mg/dL Estim Creat Clear Calc 94.0 Estimated GFR > 60 POC Glucose 330 H (60-115) mg/dL Random Glucose 373 H* (60-115) mg/dL Calcium 9.5 D (8.4-10.2) mg/dL Magnesium 2.0 (1.6-2.6) mg/dL Total Bilirubin 0.9 (0.0-1.0) mg/dL Direct Bilirubin 0.3 (0.0-0.5) mg/dL AST 20 (5-31) U/L ALT 23 (0-31) U/L Alkaline Phosphatase 86 (39-117) U/L Total Protein 7.1 (6.5-8.0) g/dL Albumin 4.4 (3.5-5.0) g/dL Lipase 15 (8-78) U/L Ethyl Alcohol mg/dL 05/18/22 05/18/22 Range/Units 09:35 11:49 WBC (4.8-10.8) X10*3/uL RBC (4.20-5.50) X10*6/uL Hgb (12.0-16.0) g/dl Hct (37.0-47.0) % MCV (80.0-98.0) fL MCH (27.0-33.0) pg MCHC (31.0-35.0) g/dl RDW (11.0-16.0) % Plt Count (160-400) X10*3/uL MPV (9.4-12.3) fL Immature Gran % (Auto) (0.0-0.4) % Neut % (Auto) (45-73) % Lymph % (Auto) (20-40) % [place] % (Auto) (2-11) % Eos % (Auto) (0-4) % Baso % (Auto) (0-2) % Lymph # (Auto) (1.2-4.9) X10*3/uL [place] # (Auto) (0.1-1.2) X10*3/uL Eos # (Auto) (0.0-0.4) X10*3/uL Baso # (Auto) (0.0-0.2) X10*3/uL Abs Immat Gran (auto) (0.00-0.03) X10*3/uL Absolute Neuts (auto) (2.0-8.3) x10*3/uL Absolute Nucleated RBC (0.0-0.012) X10*3/uL Nucleated RBC % (auto) (0.0-0.2) /100WBC Sodium (135-145) mmol/L Potassium (3.3-5.1) mmol/L Chloride (96-108) mmol/L Carbon Dioxide (22-29) mmol/L Anion Gap (12-20) BUN (9-16) mg/dL Creatinine (0.5-1.4) mg/dL Estim Creat Clear Calc Estimated GFR POC Glucose 198 H (60-115) mg/dL Random Glucose (60-115) mg/dL Calcium (8.4-10.2) mg/dL Magnesium (1.6-2.6) mg/dL Total Bilirubin (0.0-1.0) mg/dL Direct Bilirubin (0.0-0.5) mg/dL AST (5-31) U/L ALT (0-31) U/L Alkaline Phosphatase (39-117) U/L Total Protein (6.5-8.0) g/dL Albumin (3.5-5.0) g/dL Lipase (8-78) U/L Ethyl Alcohol < 10 mg/dL Independent Historian Clinical information obtained from an independent historian. History obtained from or confirmed by: Friend External Record Review External record reviewed: Inpatient record, Outpatient record and Prior outp atient labs Tests considered The following testing was considered but not selected: CT scan of the abdomen considered, however given her improvement with medications and benign lab workup this was deferred. Prescription Management I considered prescription management with: Other (Antiemetics) Chronic Conditions Patient?s care impacted by: Diabetes and Other (Marijuana use) Medications Administered Discontinued Medications Generic Name Dose Route Start Last Admin Trade Name Freq PRN Reason Stop Dose Admin Diphenhydramine HCl 50 mg 05/18/22 08:39 05/18/22 08:54 Diphenhydramine Hcl 50 Mg/Ml Vial IVPUSH 05/18/22 08:40 50 mg ONCE ONE Administration Sodium Chloride 1,000 mls @ 999 mls/hr 05/18/22 08:45 05/18/22 11:42 Ns IVCONT 05/18/22 09:45 Infused .Q1H1M SHEILA Infusion Sodium Chloride 1,000 mls @ 999 mls/hr 05/18/22 09:30 05/18/22 11:48 Ns IVCONT 05/18/22 10:30 Infused .Q1H1M SHEILA Infusion Insulin Human Lispro 10 unit 05/18/22 09:21 05/18/22 09:37 Insulin Lispro 100 Unit/Ml 3 Ml Vial SUBCUT 05/18/22 09:22 10 unit ONCE ONE Administration Metoclopramide HCl 10 mg 05/18/22 08:39 05/18/22 08:54 Metoclopramide Hcl 10 Mg/2 Ml Vial IVPUSH 05/18/22 08:40 10 mg ONCE ONE Administration Morphine Sulfate 4 mg 05/18/22 09:40 05/18/22 11:41 Morphine Sulfate 4 Mg/Ml Cartridge IVPUSH 05/18/22 09:41 4 mg ONCE ONE Administration Protocol Critical Care Time Critical Care Time Critical Care Time: No Discharge Plan Discharge Clinical Impression: Cyclical vomiting Patient Disposition: Home, Self-Care Instructions: Cyclic Vomiting Syndrome (ED) Additional Instructions: Your lab workup today was unremarkable. Your glucose was 373. This improved with fluids and insulin. DO NOT SMOKE MARIJUANA OR DRINK ALCOHOL. THEY CAN CAUSE SEVERE VOMITING AND ABDOMINAL PAINS. Take all of your medications as prescribed, monitor your glucose everyday. Follow up with your doctor. If you develop new or worsening symptoms call 911 or come back to the ER for further evaluation. Prescriptions: New ondansetron 4 mg tablet,disintegrating 4 mg PO Q8H PRN (Reason: nausea and vomiting) Qty: 6 0RF No Action vancomycin 125 mg capsule 125 mg PO QID 10 Days Qty: 40 0RF levofloxacin 500 mg tablet 500 mg PO DAILY Qty: 7 0RF pantoprazole [Protonix] 40 mg tablet,delayed release (DR/EC) 40 mg PO BID Qty: 60 0RF sucralfate [Carafate] 1 gram tablet 1 g PO BID Qty: 60 0RF metronidazole 500 mg tablet 500 mg PO BID 7 Days Qty: 14 0RF Referrals: Guilherme Miller MD [Primary Care Provider] - (cyclical vomiting, poorly controlled DM1) Stand Alone Forms: Work/School Release
[2022-05-18] MEDS: 0.9 % Sodium Chloride 1,000 ML 999 ML IVCONT ×2 (08:50→09:37)
[2022-05-18 08:53] LABS: MANUAL DIFF FLAG NO
[2022-05-18 08:53] LABS: Glucose, Whole Blood 330 mg/dL (60-115)
[2022-05-18 08:54] LABS: Basophils Absolute Auto 0.1 X10*3/uL (0.0-0.2); Basophils Percent Auto 0.5 % (0-2); Eosinophils Absolute Auto 0.2 X10*3/uL (0.0-0.4); Eosinophils Percent Auto 1.5 % (0-4); Hematocrit 43.1 % (37.0-47.0); Hemoglobin 14.9 g/dl (12.0-16.0); Imm Gran Abs Auto 0.06 X10*3/uL (0.00-0.03); Imm Gran Pct Auto 0.5 % (0.0-0.4); Lymphocytes Absolute Auto 2.4 X10*3/uL (1.2-4.9); Lymphocytes Percent Auto 20.1 % (20-40); Mean Corpuscular HGB Conc 34.6 g/dl (31.0-35.0); Mean Corpuscular Hemoglobin 29.9 pg (27.0-33.0); Mean Corpuscular Volume 86.5 fL (80.0-98.0); Mean Platelet Volume 10.8 fL (9.4-12.3); Monocytes Absolute Auto 0.6 X10*3/uL (0.1-1.2); Monocytes Percent Auto 4.5 % (2-11); Neutrophils Absolute Auto 8.8 x10*3/uL (2.0-8.3); Neutrophils Percent Auto 72.9 % (45-73); Platelet Count 229 X10*3/uL (160-400); Red Blood Count 4.98 X10*6/uL (4.20-5.50); White Blood Count 12.1 X10*3/uL (4.8-10.8)
[2022-05-18] MEDS: diphenhydrAMINE HCL 50 MG/ML VIAL IVPUSH (08:54)
[2022-05-18] MEDS: Metoclopramide HCl 10 MG/2 ML VIAL IVPUSH (08:54)
[2022-05-18 09:21] LABS: Alanine Aminotransferase 23 U/L (0-31); Albumin Level 4.4 g/dL (3.5-5.0); Alkaline Phosphatase 86 U/L (39-117); Anion Gap 19 (12-20); Aspartate Amino Transferase 20 U/L (5-31); Bilirubin Direct 0.3 mg/dL (0.0-0.5); Bilirubin Total 0.9 mg/dL (0.0-1.0); Blood Urea Nitrogen 11 mg/dL (9-16); Calcium 9.5 mg/dL (8.4-10.2); Carbon Dioxide 20 mmol/L (22-29); Chloride 106 mmol/L (96-108); Estimated Glomerular Filt Rate > 60; Glucose Random 373 mg/dL (60-115); Lipase 15 U/L (8-78); Potassium 3.9 mmol/L (3.3-5.1); Sodium 141 mmol/L (135-145); Total Protein 7.1 g/dL (6.5-8.0)
[2022-05-18] MEDS: Insulin Lispro 100 UNIT/ML 3 ML VIAL 10 UNIT SUBCUT (09:37)
[2022-05-18 10:12] LABS: Ethanol < 10 mg/dL
--- NOTE | 2022-05-18 10:28 | PC.NURSE ---
pt vomited on the floor. now appears to be sleeping. informed Razia DOSHI that this RN will hold morphine at this time
[2022-05-18 11:31] VITALS: BP 159/99; PULSE 80; RESP 12; TEMP 36.7
--- NOTE | 2022-05-18 11:35 | PC.NURSE ---
pt refusing to give a urine
[2022-05-18] MEDS: Morphine Sulfate 4 MG/ML CARTRIDGE IVPUSH (11:41)
[2022-05-18 11:53] LABS: Glucose, Whole Blood 198 mg/dL (60-115)
== END 2022-05-18 15:49 | disposition home or self-care (01) ==
PROVIDERS: Physician Assistant; Emergency Provider Student in an Organized Health Care Education/Training Program; PCP Internal Medicine
DX: R11.15 Cyclical vomiting syndrome unrelated to migraine (principal); F12.10 Cannabis abuse, uncomplicated; E10.9 Type 1 diabetes mellitus without complications; F17.210 Nicotine dependence, cigarettes, uncomplicated
CPT/HCPCS: 36415; 80048; 80076; 82077; 82947; 83690; 83735; 85025; 96361; 96374; 96375; 99284; J1200; J2270; J2765

== ENCOUNTER 2022-06-07 22:09 | Emergency (ER) | payer MEDICAID, SELFPAY ==
[2022-06-07 22:19] VITALS: BP 124/83; PULSE 105; RESP 18; TEMP 36; O2SAT 98; BMI 21.7
[2022-06-07] MEDS: Lidocaine HCl 1 % MPF 30 ML VIAL SUBCUT (22:43)
[2022-06-07] MEDS: Ketorolac Tromethamine 15 MG/ML VIAL 30 MG IM (22:57)
--- NOTE | 2022-06-07 23:01 | PC.NURSE ---
pt medicated per APR- analgesia to affected area admin by provider, toradol 30mg given IM for 10 pionidial cyst pain
--- NOTE | 2022-06-07 23:02 | ED_ITS ---
HPI - Skin/Abscess/Foreign Bdy General Chief complaint: Skin/Abscess/Foreign Body Stated complaint: tailbone inj Time Seen by Provider: 06/07/22 22:31 Source: patient Mode of arrival: ambulatory Limitations: no limitations History of Present Illness HPI narrative: This is a 31-year-old female presenting today with pain to right buttocks that has been going on for the past 2 days. Patient tells me she has a history of recurrent abscesses to her bottom, she reports the pain is severe, has caused her to not be able to sleep over the past few days. Patient tells me she feels feverish and has had chills however has not taken her temperature. She tells me this pain is causing her anxiety because last time she had 1 of these drained it was very painful. She tells me the area feels hard and warm. Denies numbness and tingling. Has not yet seen General surgery for this Related Data Previous Rx's Medication Instructions Recorded levofloxacin 500 mg tablet 500 mg PO DAILY #7 tabs 10/19/21 metronidazole 500 mg tablet 500 mg PO BID 7 days #14 tabs 10/19/21 pantoprazole 40 mg tablet,delayed 40 mg PO BID #60 tabs 10/19/21 release (Protonix) sucralfate 1 gram tablet (Carafate) 1 g PO BID #60 tabs 10/19/21 vancomycin 125 mg capsule 125 mg PO QID 10 days #40 caps 10/21/21 ondansetron 4 mg disintegrating 4 mg PO Q8H PRN nausea and 05/18/22 tablet vomiting #6 tabs cephalexin 500 mg tablet 500 mg PO Q6H 10 days #40 tabs 06/07/22 ketorolac 10 mg tablet 10 mg PO TID PRN pain 5 days #15 06/07/22 tabs Allergies Allergy/AdvReac Type Severity Reaction Status Date / Time Latex, Natural Rubber Allergy Unknown HIVES Verified 06/07/22 22:18 [LATEX, NATURAL RUBBER] Review of Systems Review of Systems: Constitutional : No Fever, No Chills, Cardiovascular : No Chest Pain, No SOB Respiratory : No Dyspnea Gastrointestinal : No abdominal pain Musculoskeletal : No Joint Swelling Skin : No rash, positive skin abscess Neuro : No Weakness, No Numbness Psych : No SI/HI Yes all other systems are reviewed and are negative PMFSH Past Medical History Attestation statement: The following information was validated with the patient. Source: old records reviewed and nursing notes reviewed Medical History Diabetes mellitus type 1 Surgical History Hx of cholecystectomy Family History Family History Other Family history non-contributory Social History Social History Household Members: Family Housing: House Do you presently have visiting nurse or other home services: No Alcohol intake: current Patient Tobacco Use Status: Current everyday Tobacco user Tobacco use type: Cigarette Cigarettes Per Day: 2 Substance Use Type: Marijuana Advance Directives: No Advance Directives Information Provided: Yes service: No Current occupational status: employed Physical Exam Vital Signs: Vital Signs: Last Vital Signs Temp 96.8 F 06/07/22 22:19 Pulse 105 H 06/07/22 22:19 Resp 18 06/07/22 22:19 BP 124/83 06/07/22 22:19 Pulse Ox 98 06/07/22 22:19 O2 Del Method Room Air 06/07/22 22:19 BMI result Body Mass Index 21.7 Vital signs stable Appearance: Alert.? Oriented X3.? No acute distress.? Patient appears extremely anxious. Head: Normocephalic, atraumatic, no step-offs or deformities Eyes: Pupils equal, round and reactive to light.? CVS: Normal heart rate and rhythm.? Pulses normal.? Respiratory: No respiratory distress.? Breath sounds normal.? Abdomen: Soft and nontender.? Skin: Skin warm and dry.? Normal skin color.? Normal skin turgor.?+ small indurated area to right buttocks measuring approximately 2 cm x 2 cm with overlying erythema, warmth. Unable to appreciate fluctuance. Extremities: No lower extremity edema.? No calf ttp. 5/5 strength to bilateral upper and lower extremities Back: No midline tenderness, no C-spine tenderness, full range of motion, no CVA tenderness bilaterally Neuro: Oriented X 3.? No motor deficit.? No sensory deficit. CN 2-12 intact Course Reevaluation(s) Reevaluation #1: Patient doing well given Toradol for pain will be discharged home on Toradol. Explained to her that since this appears to be recurrent she should follow up with General surgery. Patient is diabetic will discharge home with Keflex. Educated patient on diagnosis and treatment plan, answered all question, patient verbalizes understanding. At this time patient will be discharged home, advised to return with new or worsening symptoms. Educated on worrisome signs and sym ptoms and when to return. At this time I feel comfortable discharge home. Time: 23:08 Medications Administered Discontinued Medications Generic Name Dose Route Start Last Admin Trade Name Patrickq PRN Reason Stop Dose Admin Ketorolac Tromethamine 30 mg 06/07/22 22:36 06/07/22 22:57 Ketorolac Tromethamine 15 Mg/Ml Vial IM 06/07/22 22:37 30 mg ONCE ONE Administration Lidocaine HCl 30 ml 06/07/22 22:34 06/07/22 22:43 Lidocaine Hcl 1 % Mpf 30 Ml Vial SUBCUT 06/07/22 22:35 30 ml ONCE ONE Administration Protocol Medical Decision Making Medical Decision Making [facility] Narrative: 2300 31-year-old female presents with pain to right buttocks. Physical exam significant for small indurated area to right buttocks measuring approximately 2 cm x 2 cm with overlying erythema, warmth. Unable to appreciate fluctuance. This is likely a forming abscess with overlying cellulitis. No signs of Mansoor gangrene, fluctuance, necrotizing infection Patient is insistent on getting this drained I explained to her at still very indurated and can likely be treated with warm soaks and antibiotics however she insisted on incision and drainage I explained to her we may get a small amount of purulence out however not a lot. Went over risks and benefits, patient would like it done. I did do a fine-needle aspiration at the bedside and got 5 cc of serosanguineous fluid as well as some purulence. Patient tolerated procedure well. Reports some relief afterwards. Differential Diagnosis Differential Diagnoses: The differential diagnosis associated with the presentation includes This is likely a forming abscess with overlying cellulitis. No signs of Mansoor gangrene, fluctuance, necrotizing infection Admission/Observation Consideration of admission/observation: Escalation of care including admission/observation considered Unlikely Chronic Conditions Patient?s care impacted by: Diabetes Core Measures AMI core measures followed: Yes Measure exclusions: not indicated Critical Care Time Critical Care Time Critical Care Time: No Discharge Plan Discharge Clinical Impression: Abscess of skin or subcutaneous tissue, Cellulitis Patient Disposition: Home, Self-Care Instructions: Abscess (ED), Abscess Follow-up (ED), Abscess Incision and Drainage (DC), Warm Compress or Soak (ED) Additional Instructions: Take your medications as prescribed. If you were prescribed antibiotics today, it is important that you take your medication to their entirety, do not skip any doses, do not finish them early. Follow-up with your primary care provider this week. Return to the emergency department with new or worsening symptoms. Such as fevers, chills, chest pain, shortness of breath, nausea, vomiting, dizziness, headache, vision changes, lethargy In case of emergency call 911 Call general surgery as soon as possible Toradol has been sent to your pharmacy, you tolerated this well in the department. Please take this as prescribed do not take this with ibuprofen, or other NSAIDs, do not mix this with alcohol. Side effects of this medication including increased risk for bleeding and possible kidney injury. Prescriptions: New cephalexin 500 mg tablet 500 mg PO Q6H 10 Days Qty: 40 0RF ketorolac 10 mg tablet 10 mg PO TID PRN (Reason: pain) 5 Days Qty: 15 0RF No Action vancomycin 125 mg capsule 125 mg PO QID 10 Days Qty: 40 0RF ondansetron 4 mg tablet,disintegrating 4 mg PO Q8H PRN (Reason: nausea and vomiting) Qty: 6 0RF levofloxacin 500 mg tablet 500 mg PO DAILY Qty: 7 0RF pantoprazole [Protonix] 40 mg tablet,delayed release (DR/EC) 40 mg PO BID Qty: 60 0RF sucralfate [Carafate] 1 gram tablet 1 g PO BID Qty: 60 0RF metronidazole 500 mg tablet 500 mg PO BID 7 Days Qty: 14 0RF Referrals: [facility] [place] General Surgeons [Provider Group] - 2 days Physician,None [Physician] - 2 days Stand Alone Forms: Work/School Release
== END 2022-06-07 23:34 | disposition home or self-care (01) ==
PROVIDERS: Emergency Provider Internal Medicine
DX: L02.31 Cutaneous abscess of buttock (principal); L03.317 Cellulitis of buttock; E11.9 Type 2 diabetes mellitus without complications
CPT/HCPCS: 41800; 99283; 99284; J1885

== ENCOUNTER 2022-11-06 09:34 | Emergency (ER) | payer MEDICAID, SELFPAY ==
--- NOTE | ~2022-11-06 | CT_ITS ---
EXAMINATION: CT ABDOMEN AND PELVIS WITH CONTRAST CLINICAL INFORMATION: Abdominal pain. Vomiting. COMPARISON: 10/17/2021 TECHNIQUE: Multidetector volumetric images were obtained from the superior aspect of the liver through the pubic symphysis following administration 85 mL of Omnipaque 350 intravenous contrast. Sagittal and coronal reformatted images were obtained on the technologist's workstation. Oral contrast: No This CT examination was performed using dose optimization techniques as appropriate, variously including the following: *Automated exposure control *Adjustment of mA and/or kV according to patient size (this includes techniques or standardized protocols for targeted exams where dose is matched to indication/reason for exam; i.e. extremities or head) *Use of iterative reconstruction technique DLP: 439 mGy-cm FINDINGS: LUNG BASES: The visualized lung bases are unremarkable. LIVER, GALLBLADDER, AND BILIARY TREE: The liver is normal in size and contour. No focal hepatic lesion or biliary ductal dilatation is present. The gallbladder is surgically absent. PANCREAS: No ductal dilatation. SPLEEN: Not enlarged. ADRENAL GLANDS: No adrenal mass. KIDNEYS AND URETERS: The kidneys are symmetric in size and enhancement. No hydronephrosis or perinephric stranding. BLADDER: Mild circumferential wall thickening. GASTROINTESTINAL TRACT: Diffuse wall thickening of the colon with prominence of the vasa recta and mild pericolonic inflammatory change. No small bowel obstruction. Appendix is within normal limits. ABDOMINAL WALL: No significant hernia is appreciated. LYMPH NODES: No bulky abdominal or pelvic lymphadenopathy. VASCULAR: Normal caliber abdominal aorta PELVIC VISCERA: Fullness of the right adnexa. The right ovary is enlarged. Possible right paraovarian cyst. OSSEOUS STRUCTURES: No destructive bone lesions. CT/CT abdomen pelvis w IV con IMPRESSION: Diffuse wall thickening of the colon with prominence of the vasa recta and mild pericolonic inflammatory change. This most likely represents colitis. Infectious and inflammatory etiologies should be considered. Fullness of the right adnexa. The right ovary is enlarged. Possible right paraovarian cyst. Consider further characterization with pelvic ultrasound.
[2022-11-06 09:42] VITALS: BP 150/107; PULSE 110; RESP 16; TEMP 37; O2SAT 99; BMI 23.0
[2022-11-06 10:28] LABS: MANUAL DIFF FLAG NO
[2022-11-06 10:29] LABS: Basophils Absolute Auto 0.1 X10*3/uL (0.0-0.2); Basophils Percent Auto 0.5 % (0-2); Eosinophils Absolute Auto 0.2 X10*3/uL (0.0-0.4); Eosinophils Percent Auto 1.2 % (0-4); Hematocrit 42.7 % (37.0-47.0); Imm Gran Abs Auto 0.06 X10*3/uL (0.00-0.03); Imm Gran Pct Auto 0.5 % (0.0-0.4); Lymphocytes Absolute Auto 1.6 X10*3/uL (1.2-4.9); Lymphocytes Percent Auto 12.3 % (20-40); Mean Corpuscular HGB Conc 35.1 g/dl (31.0-35.0); Mean Corpuscular Hemoglobin 30.7 pg (27.0-33.0); Mean Corpuscular Volume 87.5 fL (80.0-98.0); Mean Platelet Volume 10.8 fL (9.4-12.3); Monocytes Absolute Auto 0.5 X10*3/uL (0.1-1.2); Monocytes Percent Auto 3.8 % (2-11); Neutrophils Absolute Auto 10.8 x10*3/uL (2.0-8.3); Neutrophils Percent Auto 81.7 % (45-73); Platelet Count 215 X10*3/uL (160-400); Red Blood Count 4.88 X10*6/uL (4.20-5.50); Red Cell Distribution Width 11.9 % (11.0-16.0); White Blood Count 13.2 X10*3/uL (4.8-10.8)
[2022-11-06 10:42] LABS: Alanine Aminotransferase 24 U/L (0-31); Albumin Level 4.6 g/dL (3.5-5.0); Alkaline Phosphatase 92 U/L (39-117); Anion Gap 13 (12-20); Aspartate Amino Transferase 20 U/L (5-31); Bilirubin Total 0.9 mg/dL (0.0-1.0); Blood Urea Nitrogen 13 mg/dL (9-16); Calcium 9.5 mg/dL (8.4-10.2); Carbon Dioxide 27 mmol/L (22-29); Chloride 105 mmol/L (96-108); Estimated Glomerular Filt Rate > 60; Glucose Random 315 mg/dL (60-115); Potassium 3.8 mmol/L (3.3-5.1); Sodium 141 mmol/L (135-145); Total Protein 7.8 g/dL (6.5-8.0)
[2022-11-06 12:21] VITALS: BP 156/89; PULSE 104; RESP 18; TEMP 36.8; O2SAT 100
--- NOTE | 2022-11-06 12:29 | PC.NURSE ---
pt a&ox3, vss aside from tinus tachy on the residential monitor,. pt verbalizing 10/10 abdominal pain that does not radiate anywhere else. pt currently agitated and tearful d/t the pain. pt currently also vomiting in emesis bag. pt verbalizes pain, n/v/d started this morning but is unaware of the cause. hyperactive bs noted upon auscultation. call box placed within reach.
--- NOTE | 2022-11-06 13:38 | ED.ABDPAIN ---
HPI - Abdominal Pain General Chief Complaint: Abdominal Pain Stated Complaint: Acid Reflux Time Seen by Provider: 11/06/22 12:59 Source: patient Mode of arrival: ambulatory Limitations: no limitations History of Present Illness HPI narrative: 32-year-old female with known cannabis hyperemesis with recurrent marijuana use diabetes colitis presents emergency department complaining of upper abdominal pain. Patient is a very poor historian moaning loudly and screaming crying on the stretcher. Patient denies any falls or injuries she denies chest pain shortness of breath she states she knows this is related to marijuana but can not smoke. Related Data Previous Rx's Medication Instructions Recorded levofloxacin 500 mg tablet 500 mg PO DAILY #7 tabs 10/19/21 metronidazole 500 mg tablet 500 mg PO BID 7 days #14 tabs 10/19/21 pantoprazole 40 mg tablet,delayed 40 mg PO BID #60 tabs 10/19/21 release (Protonix) sucralfate 1 gram tablet (Carafate) 1 g PO BID #60 tabs 10/19/21 vancomycin 125 mg capsule 125 mg PO QID 10 days #40 caps 10/21/21 ondansetron 4 mg disintegrating 4 mg PO Q8H PRN nausea and 05/18/22 tablet vomiting #6 tabs cephalexin 500 mg tablet 500 mg PO Q6H 10 days #40 tabs 06/07/22 ketorolac 10 mg tablet 10 mg PO TID PRN pain 5 days #15 06/07/22 tabs Allergies Allergy/AdvReac Type Severity Reaction Status Date / Time Latex, Natural Rubber Allergy Unknown HIVES Verified 06/07/22 22:18 [LATEX, NATURAL RUBBER] Review of Systems Review of Systems Review of systems: General: Patient denies any fever chills recent illness or falls Musculoskeletal: Denies back pain or body aches or other injuries HEENT: denies headache, runny nose, ear pain Respiratory: denies shortness of breath, cough Cardiovascular: no chest pain or palpitations : denies dysuria, frequency Abdomen: no nausea vomiting abdominal pain Extremities: no swelling, no pain Skin: no diaphoresis Yes all other systems are reviewed and are negative PMFSH Past Medical History Medical History Diabetes mellitus type 1 Surgical History Hx of cholecystectomy Family History Family History Other Family history non-contributory Social History Social History Household Members: Family Housing: House Do you presently have visiting nurse or other home services: No Alcohol intake: never Patient Tobacco Use Status: Current everyday Tobacco user Tobacco use type: Cigarette Cigarettes Per Day: 2 Smoked in Last 30 Days: Yes Use of substances other than those prescribed or required for medical reasons: Yes Substance Use Type: Marijuana Advance Directives: No Advance Directives Information Provided: Yes Patient : Yes service: No Current occupational status: employed Physical Exam ED Vital Signs: Vital Signs - 24 hr 11/06/22 09:42 11/06/22 12:21 Temperature 98.6 F 98.3 F Pulse Rate 110 H 104 H Respiratory Rate 16 18 Blood Pressure 150/107 H 156/89 H Pulse Oximetry 99 100 Oxygen Delivery Method Room Air Room Air BMI result Body Mass Index 23.0 General: Anxious Well-appearing well-nourished in no signs of distress HEENT: Normocephalic atraumatic? Neck: No signs of JVD, no masses no tenderness or lymphadenopathy Cardiovascular: Regular rate and rhythm Respiratory: Clear to auscultation bilaterally Abdomen: Soft nontender hypervigilant about her pain out of proportion to exam and vitals Extremities: Normal pedal pulses no signs of edema Skin: Dry warm no rashes Back: No tenderness full ROM Medical Decision Making Medical Decision Making [facility] Narrative: Belly pain on exam likely related to her recurrent marijuana use of the patient Ativan haloperidol Benadryl fluids and sent patient over for CT labs are unremarkable. Differential Diagnosis Differential Diagnoses: The differential diagnosis associated with the presentation includes Hyperemesis sickle vomiting dehydration acute abdomen Admission/Observation Consideration of admission/observation: Escalation of care including admission/observation considered Lab Data [facility] Lab Attestation statement: I reviewed the patient's lab results. 11/06/22 10:22 11/06/22 10:22 Labs: Lab Results 11/06/22 Range/Units 10:22 WBC 13.2 H (4.8-10.8) X10*3/uL RBC 4.88 (4.20-5.50) X10*6/uL Hgb 15.0 (12.0-16.0) g/dl Hct 42.7 (37.0-47.0) % MCV 87.5 (80.0-98.0) fL MCH 30.7 (27.0-33.0) pg MCHC 35.1 H (31.0-35.0) g/dl RDW 11.9 (11.0-16.0) % Plt Count 215 (160-400) X10*3/uL MPV 10.8 (9.4-12.3) fL Immature Gran % (Auto) 0.5 H (0.0-0.4) % Neut % (Auto) 81.7 H (45-73) % Lymph % (Auto) 12.3 L (20-40) % Smyth % (Auto) 3.8 (2-11) % Eos % (Auto) 1.2 (0-4) % Baso % (Auto) 0.5 (0-2) % Lymph # (Auto) 1.6 (1.2-4.9) X10*3/uL Smyth # (Auto) 0.5 (0.1-1.2) X10*3/uL Eos # (Auto) 0.2 (0.0-0.4) X10*3/uL Baso # (Auto) 0.1 (0.0-0.2) X10*3/uL Abs Immat Gran (auto) 0.06 H (0.00-0.03) X10*3/uL Absolute Neuts (auto) 10.8 H (2.0-8.3) x10*3/uL Absolute Nucleated RBC 0.000 (0.0-0.012) X10*3/uL Nucleated RBC % (auto) 0.0 (0.0-0.2) /100WBC Sodium 141 (135-145) mmol/L Potassium 3.8 (3.3-5.1) mmol/L Chloride 105 (96-108) mmol/L Carbon Dioxide 27 (22-29) mmol/L Anion Gap 13 (12-20) BUN 13 (9-16) mg/dL Creatinine 0.66 (0.5-1.4) mg/dL Estim Creat Clear Calc 103.0 Estimated GFR > 60 Random Glucose 315 H (60-115) mg/dL Calcium 9.5 (8.4-10.2) mg/dL Total Bilirubin 0.9 (0.0-1.0) mg/dL AST 20 (5-31) U/L ALT 24 (0-31) U/L Alkaline Phosphatase 92 (39-117) U/L Total Protein 7.8 (6.5-8.0) g/dL Albumin 4.6 (3.5-5.0) g/dL Radiology Impression Discussion of test interpretation with radiology: I have reviewed the radiologist's reading. Discharge Plan Discharge Clinical Impression: Marijuana abuse Patient Disposition: Home, Self-Care Instructions: Cannabis Abuse (ED) Additional Instructions: Seen today for for recurrent vomiting and abdominal pain. This is all related to your concurrent marijuana use. He stop smoking marijuana this is becoming debilitating for you you had multiple visits multiple CT scans for this in the past. There is no health benefits to smoking marijuana and some people are affected adversely I did talk to at length about this. You need to quit. You had CT and labs which were all normal If you have worsening pain vomiting or any other concerns please return to the ED. Prescriptions: No Action vancomycin 125 mg capsule 125 mg PO QID 10 Days Qty: 40 0RF ondansetron 4 mg tablet,disintegrating 4 mg PO Q8H PRN (Reason: nausea and vomiting) Qty: 6 0RF levofloxacin 500 mg tablet 500 mg PO DAILY Qty: 7 0RF pantoprazole [Protonix] 40 mg tablet,delayed release (DR/EC) 40 mg PO BID Qty: 60 0RF sucralfate [Carafate] 1 gram tablet 1 g PO BID Qty: 60 0RF metronidazole 500 mg tablet 500 mg PO BID 7 Days Qty: 14 0RF cephalexin 500 mg tablet 500 mg PO Q6H 10 Days Qty: 40 0RF ketorolac 10 mg tablet 10 mg PO TID PRN (Reason: pain) 5 Days Qty: 15 0RF
[2022-11-06] MEDS: Haloperidol Lactate 5 MG/ML VIAL IVPUSH (14:26)
[2022-11-06] MEDS: diphenhydrAMINE HCL 50 MG/ML VIAL IVPUSH (14:26)
[2022-11-06] MEDS: LORazepam 2 MG/ML VIAL 1 MG IVPUSH (14:26)
[2022-11-06] MEDS: 0.9 % Sodium Chloride 1,000 ML 999 ML IV (14:32)
[2022-11-06 14:57] LABS: HCG Quantitative < 2 mIU/mL
[2022-11-06] MEDS: iohexoL 350 MG/ML 100 ML INFUS..BTL IV (15:17)
[2022-11-06] MEDS: Ketorolac Tromethamine 15 MG/ML VIAL IVPUSH (16:15)
[2022-11-06 16:17] VITALS: BP 135/85; PULSE 93; RESP 16; O2SAT 98
== END 2022-11-06 16:28 | disposition home or self-care (01) ==
PROVIDERS: Emergency Provider Student in an Organized Health Care Education/Training Program
DX: F12.10 Cannabis abuse, uncomplicated (principal); K21.9 Gastro-esophageal reflux disease without esophagitis; R11.2 Nausea with vomiting, unspecified; F17.210 Nicotine dependence, cigarettes, uncomplicated; Z79.899 Other long term (current) drug therapy; Z71.6 Tobacco abuse counseling
CPT/HCPCS: 36415; 74177; 80053; 84702; 85025; 96361; 96374; 96375; 99284; 99285; J1200; J1885; J2060; Q9967

== ENCOUNTER 2023-02-15 16:21 | Emergency (ER) | payer MEDICAID, SELFPAY ==
--- NOTE | ~2023-02-15 | XR_ITS ---
EXAMINATION: XR CHEST CLINICAL INFORMATION: Chest pain COMPARISON: None available. TECHNIQUE: 2 views of the chest were obtained. FINDINGS: No significant abnormality is noted involving the heart, lungs, mediastinum, bony thorax or soft tissues. XR/XR chest 2V IMPRESSION: Unremarkable chest examination.
[2023-02-15 17:33] VITALS: BP 102/58; PULSE 113; RESP 18; TEMP 37.4; O2SAT 99; BMI 22.8
[2023-02-15 18:11] LABS: MANUAL DIFF FLAG NO
[2023-02-15 18:14] LABS: Basophils Percent Auto 0.1 % (0-2); Eosinophils Absolute Auto 0.1 X10*3/uL (0.0-0.4); Eosinophils Percent Auto 1.3 % (0-4); Hematocrit 40.3 % (37.0-47.0); Imm Gran Abs Auto 0.03 X10*3/uL (0.00-0.03); Imm Gran Pct Auto 0.3 % (0.0-0.4); Lymphocytes Absolute Auto 0.5 X10*3/uL (1.2-4.9); Lymphocytes Percent Auto 5.6 % (20-40); Mean Corpuscular HGB Conc 34.7 g/dl (31.0-35.0); Mean Corpuscular Hemoglobin 30.5 pg (27.0-33.0); Mean Corpuscular Volume 87.8 fL (80.0-98.0); Mean Platelet Volume 11.3 fL (9.4-12.3); Monocytes Absolute Auto 0.4 X10*3/uL (0.1-1.2); Monocytes Percent Auto 4.4 % (2-11); Neutrophils Absolute Auto 8.5 x10*3/uL (2.0-8.3); Neutrophils Percent Auto 88.3 % (45-73); Platelet Count 172 X10*3/uL (160-400); Red Blood Count 4.59 X10*6/uL (4.20-5.50); White Blood Count 9.6 X10*3/uL (4.8-10.8)
[2023-02-15 18:29] LABS: Alanine Aminotransferase 18 U/L (0-31); Albumin Level 3.9 g/dL (3.5-5.0); Alkaline Phosphatase 79 U/L (39-117); Anion Gap 12 (12-20); Aspartate Amino Transferase 15 U/L (5-31); Bilirubin Total 1.1 mg/dL (0.0-1.0); Blood Urea Nitrogen 13 mg/dL (9-16); Calcium 8.4 mg/dL (8.4-10.2); Carbon Dioxide 20 mmol/L (22-29); Chloride 106 mmol/L (96-108); Creatinine Clr Calc Pharmacy 94.4; Estimated Glomerular Filt Rate > 60; Glucose Random 299 mg/dL (60-115); Potassium 3.8 mmol/L (3.3-5.1); Sodium 134 mmol/L (135-145); Total Protein 6.8 g/dL (6.5-8.0)
[2023-02-15 18:53] LABS: Influenza A PCR NEGATIVE (Negative); Influenza B PCR NEGATIVE (Negative); Resp Syncy Virus RNA Qual PCR NEGATIVE (Negative); SARS COV2 PCR INHOUSE NEGATIVE (Negative)
--- NOTE | 2023-02-15 19:55 | ED.GENADULT ---
HPI - General Adult General Chief complaint: Nausea/Vomiting/Diarrhea Stated complaint: Headache, chills,vomiting, stomach pain Time Seen by Provider: 02/15/23 19:27 Source: patient, RN notes reviewed and old records reviewed Mode of arrival: ambulatory Limitations: no limitations History of Present Illness HPI narrative: 32-year-old female with past medical history significant for type 1 diabetes presents for evaluation of multiple complaints. She reports the last night she started was headache, body aches, weakness, cough, vomiting, diarrhea She states that she was unable to sleep last night due to her discomfort Denies any sick contact Denies any chest pain. Patient reports that she is ?too weak to even walk. ? Reports that she is status post cholecystectomy about a year ago Denies any other abdominal surgery Related Data Previous Rx's Medication Instructions Recorded levofloxacin 500 mg tablet 500 mg PO DAILY #7 tabs 10/19/21 metronidazole 500 mg tablet 500 mg PO BID 7 days #14 tabs 10/19/21 pantoprazole 40 mg tablet,delayed 40 mg PO BID #60 tabs 10/19/21 release (Protonix) sucralfate 1 gram tablet (Carafate) 1 g PO BID #60 tabs 10/19/21 vancomycin 125 mg capsule 125 mg PO QID 10 days #40 caps 10/21/21 ondansetron 4 mg disintegrating 4 mg PO Q8H PRN nausea and 05/18/22 tablet vomiting #6 tabs cephalexin 500 mg tablet 500 mg PO Q6H 10 days #40 tabs 06/07/22 ketorolac 10 mg tablet 10 mg PO TID PRN pain 5 days #15 06/07/22 tabs ondansetron 4 mg disintegrating 4 mg PO Q6H #14 tabs 11/06/22 tablet ondansetron 4 mg disintegrating 4 mg PO Q8H PRN nausea and 02/15/23 tablet vomiting #20 tabs Allergies Allergy/AdvReac Type Severity Reaction Status Date / Time Latex, Natural Rubber Allergy Unknown HIVES Verified 02/15/23 17:33 [LATEX, NATURAL RUBBER] Review of Systems Constitutional: Constitutional: Reports body ache(s), Reports chills and Reports fever(s) Eyes: Eyes: Denies blurry vision ENT: Denies sore throat Cardiovascular: Cardiovascular: Denies chest pain and Reports dyspnea Respiratory: Respiratory: Reports cough and Reports dyspnea Gastrointestinal: Gastrointestinal: Reports abdominal pain, Denies hematochezia, Reports diarrhea, Reports nausea and Reports vomiting Genitourinary: Genitourinary: Denies dysuria Musculoskeletal: Musculoskeletal: Reports back pain Integumentary/Breasts: Skin/Breast: Denies rash Psychiatric: Psychiatric: Denies panic attacks [facility] Past Medical History Medical History Diabetes mellitus type 1 Surgical History Hx of cholecystectomy Family History Family History Other Family history non-contributory Social History Social History Household Members: Family Housing: House Do you presently have visiting nurse or other home services: No Alcohol intake: never Patient Tobacco Use Status: Current everyday Tobacco user Tobacco use type: Cigarette Cigarettes Per Day: 2 Substance Use Type: Marijuana Advance Directives: No Advance Directives Information Provided: No service: No Current occupational status: employed Physical Exam ED Vital Signs: Vital Signs - 24 hr 02/15/23 17:33 02/15/23 22:15 Temperature 99.4 F 98.2 F Pulse Rate 113 H 94 Respiratory Rate 18 17 Blood Pressure 102/58 L 92/47 L Pulse Oximetry 99 97 Oxygen Delivery Method Room Air Room Air BMI result Body Mass Index 22.8 Const General: healthy appearing, comfortable, no acute distress, alert and awake Nutritional Appearance: well nourished Orientation/consciousness: patient oriented x3 HENMT Head: Yes normocephalic and Yes atraumatic Throat: Yes posterior oropharynx normal Eyes Eyelids: Yes eyelids normal Conjunctivae: conjunctivae normal Sclerae: sclerae normal Corneas: corneas normal Pupils: Equal, round and reactive pupils present EOM: EOMs intact bilaterally Neck Neck: Yes full ROM, No positive Brudzinski's sign and No positive Kernig's sign Resp Effort & Inspection: normal respiratory effort, able to speak in complete sentences, no audible wheezes and not labored Auscultation: clear to auscultation bilaterally Cardio Rate: regular rate Rhythm: regular rhythm GI Inspection: No distended Palpation (GI): Soft to palpation, not firm, nontender, no guarding and not rigid Auscultation: normoactive bowel sounds Skin General skin exam: no rashes or lesions noted and elasticity normal Neuro General: patient oriented x3 Cranial nerves: Yes Equal, round and reactive pupils present and Yes Bilaterally intact EOM present Cognition (Neuro): normal cognition Extrem Other: Moving all extremities well without any obvious deformities Course Reevaluation(s) Reevaluation #1: Patient's workup largely unremarkable, her symptoms likely viral in origin. The patient is stable for discharge. We will repeat vital signs prior to discharge Time: 21:12 Reevaluation #2: Patient was complaining of increased pain, she was given dose of morphine which likely caused a slight drop in her blood pressure. Her heart rate improved to within the 90s. Time: 22:34 Medications Administered Discontinued Medications Generic Name Dose Route Start Last Admin Trade Name Freq PRN Reason Stop Dose Admin Al Hydroxide/Mg Hydroxide 30 ml 02/15/23 22:02 02/15/23 22:24 Magnesium Hydrox/Alum Hydrox 30 Ml Oral.Susp PO 02/15/23 22:03 30 ml ONCE ONE Administration Sodium Chloride 1,000 mls @ 999 mls/hr 02/15/23 20:00 02/15/23 21:28 Ns IV 02/15/23 21:00 Infused .Q1H1M SHEILA Infusion Ketorolac Tromethamine 30 mg 02/15/23 19:47 02/15/23 20:11 Ketorolac Tromethamine 30 Mg/Ml Vial IVPUSH 02/15/23 19:48 30 mg ONCE ONE Administration Lidocaine HCl 15 ml 02/15/23 22:02 02/15/23 22:24 Lidocaine Hcl Viscous 2 % 15 Ml Solution MUCOUS MEM 02/15/23 22:03 15 ml ONCE ONE Administration Morphine Sulfate 4 mg 02/15/23 21:19 02/15/23 21:29 Morphine Sulfate 4 Mg/Ml Cartridge IVPUSH 02/15/23 21:20 4 mg ONCE ONE Administration Protocol Ondansetron HCl 4 mg 02/15/23 19:47 02/15/23 20:11 Ondansetron Hcl 4 Mg/2 Ml Vial IVPUSH 02/15/23 19:48 4 mg ONCE ONE Administration Medical Decision Making Medical Decision Making MDM Narrative: Is a 32-year-old healthy female presents for evaluation of flu-like symptoms. She endorses cough vomiting, diarrhea, body aches, headache that started last night. She was swabbed for influenza, COVID, RSV which was negative. She is on we tachycardic, she has a temperature of 99.4?. Will get chest x-ray to rule out pneumonia as most her symptoms are upper respiratory. Her symptoms are likely still if not related to pneumonia. Will treat her symptoms with IV fluids, Toradol, Zofran. She is already status post cholecystectomy, she has no right lower quadrant tenderness. GI cause for symptoms is favored to be less likely at this time Differential Diagnosis Differential Diagnoses: The differential diagnosis associated with the presentation includes Influenza Viral syndrome Pneumonia COVID-19 RSV Acute headache Lab Data MDM Lab Attestation statement: I reviewed the patient's lab results. No leukocytosis or significant anemia. Patient's sodium is just below normal at 134. Potassium chloride are within normal limits. The patient's CO2 is slightly low at 20. This may be related to hyperventilation rather than DKA as the patient has no anion gap. However we will geta VBG. Renal function within normal limits. She is a diabetic and her glucose is 299. 02/15/23 18:05 02/15/23 18:05 Labs: Lab Results 02/15/23 02/15/23 Range/Units 18:05 20:08 WBC 9.6 (4.8-10.8) X10*3/uL RBC 4.59 (4.20-5.50) X10*6/uL Hgb 14.0 (12.0-16.0) g/dl Hct 40.3 (37.0-47.0) % MCV 87.8 (80.0-98.0) fL MCH 30.5 (27.0-33.0) pg MCHC 34.7 (31.0-35.0) g/dl RDW 12.0 (11.0-16.0) % Plt Count 172 (160-400) X10*3/uL MPV 11.3 (9.4-12.3) fL Immature Gran % (Auto) 0.3 (0.0-0.4) % Neut % (Auto) 88.3 H (45-73) % Lymph % (Auto) 5.6 L (20-40) % [place] % (Auto) 4.4 (2-11) % Eos % (Auto) 1.3 (0-4) % Baso % (Auto) 0.1 (0-2) % Lymph # (Auto) 0.5 L (1.2-4.9) X10*3/uL [place] # (Auto) 0.4 (0.1-1.2) X10*3/uL Eos # (Auto) 0.1 (0.0-0.4) X10*3/uL Baso # (Auto) 0.0 (0.0-0.2) X10*3/uL Abs Immat Gran (auto) 0.03 (0.00-0.03) X10*3/uL Absolute Neuts (auto) 8.5 H (2.0-8.3) x10*3/uL Absolute Nucleated RBC 0.000 (0.0-0.012) X10*3/uL Nucleated RBC % (auto) 0.0 (0.0-0.2) /100WBC VBG pH 7.37 (7.32-7.43) VBG pCO2 32 mmHg VBG pO2 74 mmHg VBG HCO3 19 L (22-26) mmol/L VBG O2 Saturation 97.0 % VBG Base Excess -5.0 mmol/L Sodium 134 L (135-145) mmol/L Potassium 3.8 (3.3-5.1) mmol/L Chloride 106 (96-108) mmol/L Carbon Dioxide 20 L (22-29) mmol/L Anion Gap 12 (12-20) BUN 13 (9-16) mg/dL Creatinine 0.72 (0.5-1.4) mg/dL Estim Creat Clear Calc 94.4 Estimated GFR > 60 Random Glucose 299 H (60-115) mg/dL Calcium 8.4 D (8.4-10.2) mg/dL Total Bilirubin 1.1 H (0.0-1.0) mg/dL AST 15 (5-31) U/L ALT 18 (0-31) U/L Alkaline Phosphatase 79 (39-117) U/L Total Protein 6.8 (6.5-8.0) g/dL Albumin 3.9 (3.5-5.0) g/dL Influenza Type A (PCR) NEGATIVE (Negative) Influenza Type B (PCR) NEGATIVE (Negative) RSV RNA Qual (PCR) NEGATIVE (Negative) SARS-CoV-2 RNA (RT-PCR) NEGATIVE (Negative) Tests considered The following testing was considered but not selected: Consider CT abdomen pelvis, however the patient has no right lower quadrant tenderness in is already status post cholecystectomy. Discharge Plan Discharge Clinical Impression: Acute viral syndrome, Abdominal pain, Acute headache Patient Disposition: Home, Self-Care Instructions: Viral Syndrome (ED) Additional Instructions: Your workup in the emergency department today was reassuring. Use ibuprofen/Tylenol for discomfort. You may use Zofran for nausea/vomiting Drink lots of fluids, small sips at a time Your symptoms are most likely related to a viral Prescriptions: New ondansetron 4 mg tablet,disintegrating 4 mg PO Q8H PRN (Reason: nausea and vomiting) Qty: 20 0RF No Action vancomycin 125 mg capsule 125 mg PO QID 10 Days Qty: 40 0RF ondansetron 4 mg tablet,disintegrating 4 mg PO Q8H PRN (Reason: nausea and vomiting) Qty: 6 0RF levofloxacin 500 mg tablet 500 mg PO DAILY Qty: 7 0RF pantoprazole [Protonix] 40 mg tablet,delayed release (DR/EC) 40 mg PO BID Qty: 60 0RF sucralfate [Carafate] 1 gram tablet 1 g PO BID Qty: 60 0RF metronidazole 500 mg tablet 500 mg PO BID 7 Days Qty: 14 0RF cephalexin 500 mg tablet 500 mg PO Q6H 10 Days Qty: 40 0RF ketorolac 10 mg tablet 10 mg PO TID PRN (Reason: pain) 5 Days Qty: 15 0RF ondansetron 4 mg tablet,disintegrating 4 mg PO Q6H Qty: 14 0RF
[2023-02-15] MEDS: Ketorolac Tromethamine 30 MG/ML VIAL IVPUSH (20:11)
[2023-02-15] MEDS: ondansetron HCL 4 MG/2 ML VIAL IVPUSH (20:11)
[2023-02-15] MEDS: 0.9 % Sodium Chloride 1,000 ML 999 ML IV (20:12)
[2023-02-15 20:16] LABS: VBG HCO3 19 mmol/L (22-26); VBG pCO2 32 mmHg; VBG pH 7.37 (7.32-7.43); VBG pO2 74 mmHg
[2023-02-15 20:17] LABS: Venous Blood Gas Refer to POC result
[2023-02-15] MEDS: Morphine Sulfate 4 MG/ML CARTRIDGE IVPUSH (21:29)
[2023-02-15 22:15] VITALS: BP 92/47; PULSE 94; RESP 17; TEMP 36.8; O2SAT 97
[2023-02-15] MEDS: Lidocaine HCl Viscous 2 % 15 ML SOLUTION MUCOUS MEM (22:24)
[2023-02-15] MEDS: Magnesium Hydrox/Alum Hydrox 30 ML ORAL.SUSP PO (22:24)
== END 2023-02-15 22:48 | disposition home or self-care (01) ==
PROVIDERS: Physician Assistant; Emergency Provider Internal Medicine
DX: B34.9 Viral infection, unspecified (principal); R11.2 Nausea with vomiting, unspecified; E10.9 Type 1 diabetes mellitus without complications; R51.9 Headache, unspecified; R07.89 Other chest pain; M79.10 Myalgia, unspecified site; R05.9 Cough, unspecified; Z20.822 Contact with and (suspected) exposure to COVID-19; Z20.828 Contact with and (suspected) exposure to other viral communicable diseases; Z79.899 Other long term (current) drug therapy
CPT/HCPCS: 0241U; 36415; 71046; 80053; 82803; 85025; 96361; 96374; 96375; 99284; J1885; J2270; J2405

== ENCOUNTER 2023-05-15 15:07 | Inpatient (IN) | payer MEDICAID, SELFPAY ==
--- NOTE | ~2023-05-15 | CT_ITS ---
EXAMINATION: CT PELVIS WITH CONTRAST CLINICAL INFORMATION: Large abscess left buttocks COMPARISON: CT abdomen pelvis 11/06/2022 TECHNIQUE: Helical scanning was performed with submillimeter collimation through the pelvis with the use of oral contrast and during bolus intravenous injection of 85 mL of Omnipaque 350 intravenous contrast. Sagittal and coronal multiplanar 2-D reconstructions were obtained. This CT examination was performed using dose optimization techniques as appropriate, variously including the following: *Automated exposure control *Adjustment of mA and/or kV according to patient size (this includes techniques or standardized protocols for targeted exams where dose is matched to indication/reason for exam; i.e. extremities or head) *Use of iterative reconstruction technique DLP: 215 mGy-cm FINDINGS: In the left upper thigh/inferior buttock, there is a enhancing masslike area containing some air bubbles consistent with an abscess. There is marked soft tissue swelling and edema in the surrounding fat. The collection measures 3.7 x 2.4 x 5.0 cm. No other abdominal wall abnormalities are seen. No hernias are present. The visualized bowel appears normal. An anteverted uterus is seen. An abnormal adnexal mass is not seen. No free intraperitoneal fluid is present. Osseous structures appear unremarkable. CT/CT pelvis w IV con IMPRESSION: Left upper thigh/inferior buttock abscess.
[2023-05-15 15:45] VITALS: BP 114/78; PULSE 126; RESP 20; TEMP 37; O2SAT 100; BMI 25.7
--- NOTE | 2023-05-15 16:07 | ED.GENADULT ---
HPI - General Adult General Chief complaint: Wound/Laceration Stated complaint: boil on butt cheek/painful Time Seen by Provider: 05/15/23 16:43 Source: patient Mode of arrival: ambulatory Limitations: no limitations History of Present Illness HPI narrative: Patient is a 32-year-old female with history of T1 dm, prior abscesses presenting to the emergency department with complaint of painful abscess to left buttock. Patient reports she noted the area 3 days ago and it has increased in size since. Reports history of same in the past. She denies any treatment at home prior to arrival. Denies any spontaneous drainage. Reports subjective fever last night. States area is extremely painful. MD complaint: abscess of buttock Onset (ago): day(s) Location: buttocks and left Severity: severe Severity scale (1-10): >10 Quality: aching Pain Consistency: constant Relieving factors: none Exacerbating factors: movement Associated symptoms: fever/chills Treatments prior to arrival: none Related Data Previous Rx's Medication Instructions Recorded levofloxacin 500 mg tablet 500 mg PO DAILY #7 tabs 10/19/21 metronidazole 500 mg tablet 500 mg PO BID 7 days #14 tabs 10/19/21 pantoprazole 40 mg tablet,delayed 40 mg PO BID #60 tabs 10/19/21 release (Protonix) sucralfate 1 gram tablet (Carafate) 1 g PO BID #60 tabs 10/19/21 vancomycin 125 mg capsule 125 mg PO QID 10 days #40 caps 10/21/21 ondansetron 4 mg disintegrating 4 mg PO Q8H PRN nausea and 05/18/22 tablet vomiting #6 tabs cephalexin 500 mg tablet 500 mg PO Q6H 10 days #40 tabs 06/07/22 ketorolac 10 mg tablet 10 mg PO TID PRN pain 5 days #15 06/07/22 tabs ondansetron 4 mg disintegrating 4 mg PO Q6H #14 tabs 11/06/22 tablet ondansetron 4 mg disintegrating 4 mg PO Q8H PRN nausea and 02/15/23 tablet vomiting #20 tabs Allergies Allergy/AdvReac Type Severity Reaction Status Date / Time Latex, Natural Rubber Allergy Unknown HIVES Verified 05/15/23 15:50 [LATEX, NATURAL RUBBER] Review of Systems Review of Systems: As per HPI. Yes all other systems are reviewed and are negative Constitutional: Constitutional: Reports as per [facility] Past Medical History Medical History Diabetes mellitus type 1 Surgical History Hx of cholecystectomy Family History Family History Other Family history non-contributory Social History Social History Household Members: Family Housing: House Do you presently have visiting nurse or other home services: No Alcohol intake: never Patient Tobacco Use Status: Current everyday Tobacco user Tobacco use type: Cigarette Cigarettes Per Day: 2 Smoked in Last 30 Days: Yes Use of substances other than those prescribed or required for medical reasons: Yes Substance Use Type: Marijuana Advance Directives: No Advance Directives Information Provided: No Patient : No service: No Current occupational status: employed Physical Exam ED Vital Signs: Vital Signs - 24 hr 05/15/23 15:45 05/15/23 21:50 Temperature 98.6 F 98.2 F Pulse Rate 126 H 105 H Respiratory Rate 20 18 Blood Pressure 114/78 125/95 H Pulse Oximetry 100 100 Oxygen Delivery Method Room Air Room Air BMI result Body Mass Index 25.7 Vital signs have been reviewed and appear to be correct. Blood pressure normal. Heart rate normal. Respiratory rate normal. Temperature normal. Oxygen saturation normal. Const General: cooperative, healthy appearing and no acute distress Orientation/consciousness: oriented to person, oriented to place, oriented to time and patient oriented x3 Limitations: no limitations [facility] Head: Yes normocephalic and Yes atraumatic Ears: external ears normal General nose exam: Normal external nose present Face and sinus: Yes face symmetric Mouth: oropharynx normal and moist mucous membranes Throat: Yes uvula midline Eyes Pupils: Equal, round and reactive pupils present Neck Neck: Yes normal visual inspection and Yes supple Resp Effort & Inspection: normal respiratory effort and able to speak in complete sentences Auscultation: clear to auscultation bilaterally Cardio Rate: regular rate Rhythm: regular rhythm Heart sounds: S1 normal heart sound present and S2 normal heart sound present GI Palpation (GI): Soft to palpation and nontender Auscultation: normoactive bowel sounds General: Yes no CVA tenderness Back/Spine/Pelvis Back: no CVA tenderness Skin Other: 5cm x 7cm fluctuant abscess with surrounding erythema and warmth to left buttock General skin exam: elasticity normal and turgor normal Neuro General: oriented to person, oriented to place, oriented to time, patient oriented x3, moves all extremities, no focal motor deficits and CN's II-XI intact bilaterally Cranial nerves: Yes Equal, round and reactive pupils present Cognition (Neuro): normal cognition Extrem General: Yes full ROM, Yes no pedal edema and Yes no calf tenderness Psych Mental Status: mental status grossly normal Affect: normal affect Thought process: Normal thought process present Course Course Course Narrative: This is an RME: Additional HPI, ROS, PE not included below will be deferred to primary provider. This is a 32-year-old female, history of diabetes, and recurrent abscesses, presenting to the emergency department with complaints of boil on left side of buttocks x 3 days. Patient states that initially it small but has increased in size and now is approximating it is the size of a softball. States that it is extremely painful. Unable to visualize in triage due to limited privacy. Reporting subjective fevers and chills last night. She states that she has had these in the past and has required to be excised and drained in the operating room. I offered Tylenol in triage however patient declines. Plan: Labs, further ER evaluation needed Reevaluation(s) Reevaluation #1: Patient received in sign-out at change of shift pending CT imaging. CT scan still shows up to 5 cm abscess despite I&D being performed bedside. I added vancomycin for additional coverage and IV fluids. The patient did meet criteria for sepsis but not severe sepsis. Time: 22:04 Reevaluation #2: Discussed with general surgery, Dr. Connell who evaluated the patient bedside and performed additional incision and drainage. She will admit the patient to her service Time: 22:46 Medications Administered Discontinued Medications Generic Name Dose Route Start Last Admin Trade Name Freq PRN Reason Stop Dose Admin Ceftriaxone Sodium 1 gm/ 50 mls @ 100 mls/hr 05/15/23 18:23 05/15/23 20:19 Sodium Chloride IV 05/15/23 18:52 Infused ONCE ONE Infusion Sodium Chloride 1,000 mls @ 999 mls/hr 05/15/23 20:00 05/15/23 22:03 Ns IV 05/15/23 21:00 Infused .Q1H1M SHEILA Infusion Iohexol 100 ml 05/15/23 20:01 05/15/23 20:07 Iohexol 350 Mg/Ml 100 Ml Infus..Btl IV 05/15/23 20:02 85 ml ONCE ONE Administration Ketorolac Tromethamine 30 mg 05/15/23 17:23 05/15/23 17:32 Ketorolac Tromethamine 30 Mg/Ml Vial IM 05/15/23 17:24 30 mg ONCE ONE Administration Lidocaine HCl 5 ml 05/15/23 17:39 05/15/23 18:14 Lidocaine Hcl 1 % Mpf 5 Ml Vial INFILTRATI 05/15/23 17:40 5 ml ONCE ONE Administration Lidocaine/Epinephrine 10 ml 05/15/23 22:21 05/15/23 22:29 Lidocaine Hcl 1%/Epi 1:100,000 10 Ml Vial INFILTRATI 05/15/23 22:22 10 ml ONCE ONE Administration Lorazepam 1 mg 05/15/23 18:14 05/15/23 18:27 Lorazepam 2 Mg/Ml Vial IVPUSH 05/15/23 18:15 1 mg ONCE ONE Administration Lorazepam 1 mg 05/15/23 22:20 05/15/23 22:26 Lorazepam 2 Mg/Ml Vial IVPUSH 05/15/23 22:21 1 mg STAT STA Administration Morphine Sulfate 4 mg 05/15/23 21:45 05/15/23 21:52 Morphine Sulfate 4 Mg/Ml Cartridge IVPUSH 05/15/23 21:46 4 mg ONCE ONE Administration Protocol Oxycodone HCl 5 mg 05/15/23 17:23 05/15/23 17:32 Oxycodone Hcl Immed Release 5 Mg Tablet PO 05/15/23 17:24 5 mg ONCE ONE Administration Procedures Abscess I/D Site: other (left buttock) Side (if applicable): left Sedation/analgesia: other (ativan) Local Anesthetic: lidocaine 1% Amount of anesthesia used (mL): 5 Technique: incised with blade Amount of fluid expressed (mL): 20 Sent for culture/gram staining?: Yes Irrigation: No Packing used?: none Medical Decision Making Medical Decision Making MDM Narrative: 17:30 Patient is a 32-year-old female with history of T1 dm, prior abscesses presenting to the emergency department with complaint of painful abscess to left buttock. On exam patient is awake, A+Ox3, tachycardic, VS WNL, afebrile, normal neurological exam without focal deficits, physical exam findings as above. Given reported symptoms and physical exam findings, initial differential includes abscess, cellulitis, deep space infeciton. Do not suspect sepsis at this time. 18:14 Labs notable for leukocytosis with left shift. Now meeting sepsis criteria. Blood cultures and lactic ordered. Will obtain wound culture during I&D. Ceftriaxone ordered, RN will give after wound culture obtained. Abscess incised and drained as per procedure note, drainage was initially brown, then purulent/bloody. Patient tolerated procedure well. Patient signed out to GLENDA Bauman pending CT scan. Differential Diagnosis Differential Diagnoses: The differential diagnosis associated with the presentation includes As per [facility] Admission/Observation Consideration of admission/observation: Escalation of care including admission/observation considered Lab Data [facility] Lab Attestation statement: I reviewed the patient's lab results. As per [facility] 05/15/23 17:38 05/15/23 17:38 Labs: Lab Results 05/15/23 05/15/23 Range/Units 17:38 18:19 WBC 19.4 H (4.8-10.8) X10*3/uL RBC 4.81 (4.20-5.50) X10*6/uL Hgb 14.9 (12.0-16.0) g/dl Hct 42.0 (37.0-47.0) % MCV 87.3 (80.0-98.0) fL MCH 31.0 (27.0-33.0) pg MCHC 35.5 H (31.0-35.0) g/dl RDW 11.7 (11.0-16.0) % Plt Count 227 D (160-400) X10*3/uL MPV 11.1 (9.4-12.3) fL Immature Gran % (Auto) 0.7 H (0.0-0.4) % Neut % (Auto) 85.7 H (45-73) % Lymph % (Auto) 7.8 L (20-40) % [place] % (Auto) 5.3 (2-11) % Eos % (Auto) 0.2 (0-4) % Baso % (Auto) 0.3 (0-2) % Lymph # (Auto) 1.5 (1.2-4.9) X10*3/uL [place] # (Auto) 1.0 (0.1-1.2) X10*3/uL Eos # (Auto) 0.0 (0.0-0.4) X10*3/uL Baso # (Auto) 0.1 (0.0-0.2) X10*3/uL Abs Immat Gran (auto) 0.13 H (0.00-0.03) X10*3/uL Absolute Neuts (auto) 16.6 H (2.0-8.3) x10*3/uL Absolute Nucleated RBC 0.000 (0.0-0.012) X10*3/uL Nucleated RBC % (auto) 0.0 (0.0-0.2) /100WBC Sodium 138 (135-145) mmol/L Potassium 3.6 (3.3-5.1) mmol/L Chloride 102 (96-108) mmol/L Carbon Dioxide 26 (22-29) mmol/L Anion Gap 14 (12-20) BUN 11 (9-16) mg/dL Creatinine 0.63 (0.5-1.4) mg/dL Estim Creat Clear Calc 119.0 Estimated GFR > 60 Random Glucose 247 H (60-115) mg/dL Lactic Acid 1.1 (0.5-2.0) mmol/L Calcium 9.6 D (8.4-10.2) mg/dL Total Bilirubin 1.3 H (0.0-1.0) mg/dL Direct Bilirubin 0.4 (0.0-0.5) mg/dL AST 14 (5-31) U/L ALT 13 (0-31) U/L Alkaline Phosphatase 107 (39-117) U/L Total Creatine Kinase 38 (26-140) U/L Total Protein 7.8 (6.5-8.0) g/dL Albumin 4.0 (3.5-5.0) g/dL Beta HCG, Quant < 2 mIU/mL External Record Review External record reviewed: Inpatient record, Office record and Outpatient record Prescription Management I considered prescription management with: Antibiotic Discharge Plan Discharge Clinical Impression: Abscess of buttock, left Patient Disposition: Admitted As Inpatient Instructions: Abscess (ED), Abscess Incision and Drainage (DC), Incision and Drainage (ED) Prescriptions: No Action vancomycin 125 mg capsule 125 mg PO QID 10 Days Qty: 40 0RF ondansetron 4 mg tablet,disintegrating 4 mg PO Q8H PRN (Reason: nausea and vomiting) Qty: 6 0RF levofloxacin 500 mg tablet 500 mg PO DAILY Qty: 7 0RF pantoprazole [Protonix] 40 mg tablet,delayed release (DR/EC) 40 mg PO BID Qty: 60 0RF sucralfate [Carafate] 1 gram tablet 1 g PO BID Qty: 60 0RF metronidazole 500 mg tablet 500 mg PO BID 7 Days Qty: 14 0RF cephalexin 500 mg tablet 500 mg PO Q6H 10 Days Qty: 40 0RF ketorolac 10 mg tablet 10 mg PO TID PRN (Reason: pain) 5 Days Qty: 15 0RF ondansetron 4 mg tablet,disintegrating 4 mg PO Q6H Qty: 14 0RF ondansetron 4 mg tablet,disintegrating 4 mg PO Q8H PRN (Reason: nausea and vomiting) Qty: 20 0RF
[2023-05-15] MEDS: Ketorolac Tromethamine 30 MG/ML VIAL IM (17:32)
[2023-05-15] MEDS: oxyCODONE HCl Immed Release 5 MG TABLET PO ×2 (17:32→23:07)
--- NOTE | 2023-05-15 17:39 | PC.NURSE ---
20gIV placed in the left AC - labs obtained/sent to lab. medication administered per provider order. pt waiting to go to CT at this time.
[2023-05-15 17:44] LABS: MANUAL DIFF FLAG NO
[2023-05-15 17:47] LABS: Basophils Absolute Auto 0.1 X10*3/uL (0.0-0.2); Basophils Percent Auto 0.3 % (0-2); Eosinophils Percent Auto 0.2 % (0-4); Hemoglobin 14.9 g/dl (12.0-16.0); Imm Gran Abs Auto 0.13 X10*3/uL (0.00-0.03); Imm Gran Pct Auto 0.7 % (0.0-0.4); Lymphocytes Absolute Auto 1.5 X10*3/uL (1.2-4.9); Lymphocytes Percent Auto 7.8 % (20-40); Mean Corpuscular HGB Conc 35.5 g/dl (31.0-35.0); Mean Corpuscular Volume 87.3 fL (80.0-98.0); Mean Platelet Volume 11.1 fL (9.4-12.3); Monocytes Percent Auto 5.3 % (2-11); Neutrophils Absolute Auto 16.6 x10*3/uL (2.0-8.3); Neutrophils Percent Auto 85.7 % (45-73); Platelet Count 227 X10*3/uL (160-400); Red Blood Count 4.81 X10*6/uL (4.20-5.50); Red Cell Distribution Width 11.7 % (11.0-16.0); White Blood Count 19.4 X10*3/uL (4.8-10.8)
[2023-05-15 18:01] LABS: Alanine Aminotransferase 13 U/L (0-31); Alkaline Phosphatase 107 U/L (39-117); Anion Gap 14 (12-20); Aspartate Amino Transferase 14 U/L (5-31); Bilirubin Direct 0.4 mg/dL (0.0-0.5); Bilirubin Total 1.3 mg/dL (0.0-1.0); Blood Urea Nitrogen 11 mg/dL (9-16); Calcium 9.6 mg/dL (8.4-10.2); Carbon Dioxide 26 mmol/L (22-29); Chloride 102 mmol/L (96-108); Estimated Glomerular Filt Rate > 60; Glucose Random 247 mg/dL (60-115); Potassium 3.6 mmol/L (3.3-5.1); Sodium 138 mmol/L (135-145); Total Protein 7.8 g/dL (6.5-8.0)
[2023-05-15] MEDS: Lidocaine HCl 1 % MPF 5 ML VIAL INFILTRATI (18:14)
[2023-05-15] MEDS: LORazepam 2 MG/ML VIAL 1 MG IVPUSH ×2 (18:27→22:26)
[2023-05-15 18:38] LABS: Lactic Acid 1.1 mmol/L (0.5-2.0)
[2023-05-15] MEDS: cefTRIAXone sodium 1 GM in 0.9 % Sodium Chloride 50 ML IV (18:57)
[2023-05-15 19:40] LABS: HCG Quantitative < 2 mIU/mL
[2023-05-15] MEDS: iohexoL 350 MG/ML 100 ML INFUS..BTL IV (20:07)
[2023-05-15] MEDS: 0.9 % Sodium Chloride 1,000 ML 999 ML IV (20:19)
[2023-05-15 21:50] VITALS: BP 125/95; PULSE 105; RESP 18; TEMP 36.8; O2SAT 100
[2023-05-15] MEDS: Morphine Sulfate 4 MG/ML CARTRIDGE IVPUSH (21:52)
[2023-05-15] MEDS: Lidocaine HCl 1%/Epi 1:100,000 10 ML VIAL INFILTRATI (22:29)
--- NOTE | 2023-05-15 23:05 | MHC.EDTECH ---
Patient total bed changed and pad changed
[2023-05-15] MEDS: vancomycin HCL 1,500 MG in 0.9 % Sodium Chloride 500 ML 333.33 MG IV (23:06)
[2023-05-15] MEDS: Acetaminophen 325 MG TABLET PO (23:07)
--- NOTE | 2023-05-15 23:08 | P.HPGS_ITS ---
History of Present Illness History of Present Illness Date of Service: 05/15/23 Chief complaint: Left buttock abscess Narrative: Serena Culver is a 32 year old female TYPE 1 DIABETES WHO HAS NOT REALLY BEEN ON MEDICATION RECENTLY who comes in with a 3 day history of a bump in her left buttock area which is expanded to almost a softball size which is extremely tender. She admits to subjective fever symptoms last night. Came into the emergency room today because it is causing so much pain. She has never had any abscess like this although she has had smaller ones in the past. She does not know what MRSA is and says she does not believe that she ever had a MRSA infection in the past. Denies injecting any substance abuse materials in this area. She does smoke weed little bit she admits. Here in the emergency room the nurse practitioner opened up the area and then sent off cultures of purulent material that was obtained. Patient then went for CT scan which showed abscess area with some gas and phlegmon material-CT scan was done after the area was opened up and drained. Review of Systems Review of Systems: Yes all other systems are reviewed and are negative PMFSH Past Medical History Medical History Diabetes mellitus type 1 Family History Family History Other Family history non-contributory Surgical History Surgical History Hx of cholecystectomy Social History Social History Household Members: Family Housing: House Do you presently have visiting nurse or other home services: No Alcohol intake: never Patient Tobacco Use Status: Current everyday Tobacco user Tobacco use type: Cigarette Cigarettes Per Day: 2 Smoked in Last 30 Days: Yes Use of substances other than those prescribed or required for medical reasons: Yes Substance Use Type: Marijuana Advance Directives: No Advance Directives Information Provided: No Patient : No service: No Current occupational status: employed Meds Allergies Allergy/AdvReac Type Severity Reaction Status Date / Time Latex, Natural Rubber Allergy Unknown HIVES Verified 05/15/23 15:50 [LATEX, NATURAL RUBBER] Active Medications: Current Medications Vancomycin HCl 1,500 mg/ (Sodium Chloride) 500 mls @ 333.333 mls/hr IV ONCE ONE Stop: 05/15/23 23:26 Last Admin: 05/15/23 23:06 Dose: 333.33 mls/hr Ketorolac Tromethamine (Ketorolac Tromethamine 15 Mg/Ml Vial) 15 mg IVPUSH Q6H [facility] Lorazepam (Lorazepam 2 Mg/Ml Vial) 1 mg IVPUSH DAILY PRN PRN Reason: anxiety/restlessness Morphine Sulfate (Morphine Sulfate 4 Mg/Ml Cartridge) 4 mg IVPUSH DAILY [facility]; Protocol Oxycodone HCl (Oxycodone Hcl Immed Release 5 Mg Tablet) 10 mg PO Q4H PRN PRN Reason: Pain, Severe (Pain Scale 7-10) Pharmacy Consult (Consult Rx Vancomycin Dosing) 1 each MISCELLANE DAILY PRN PRN Reason: Consult order Sodium Chloride (0.9 % Sodium Chloride Flush 3 Ml Syringe) 3 ml IVFLUSH QSHIFT SHEILA Physical Exam Vital Signs: Vital Signs: Last Vital Signs Temp 98.2 F 05/15/23 21:50 Pulse 105 H 05/15/23 21:50 Resp 18 05/15/23 21:50 BP 125/95 H 05/15/23 21:50 Pulse Ox 100 05/15/23 21:50 O2 Del Method Room Air 05/15/23 21:50 BMI result Body Mass Index 25.7 Const: General: cooperative, healthy appearing and acute distress moderate Orientation/consciousness: patient oriented x3 Resp: Effort & Inspection: normal respiratory effort Auscultation: clear to auscultation bilaterally Cardio: Rate: tachycardic Rhythm: regular rhythm Skin: Other: Left lower buttock area close to the thigh with a large area of induration skin changes consistent with an abscess. There is a small incision present without any significant drainage coming out. The area is very tender to palpation. Area of induration is about 10 by 8 cm. Neuro: General: patient oriented x3 Psych: Appearance: grossly normal Mental Status: mental status grossly norm al Speech and movement: Normal speech and movement present Affect: normal affect Results Results Labs: Short CBC 05/15/23 Range/Units 17:38 WBC 19.4 H (4.8-10.8) X10*3/uL Hgb 14.9 (12.0-16.0) g/dl Hct 42.0 (37.0-47.0) % Plt Count 227 D (160-400) X10*3/uL BMP 05/15/23 17:38 Sodium 138 Potassium 3.6 Chloride 102 Carbon Dioxide 26 BUN 11 Creatinine 0.63 Calcium 9.6 D Cardiac Enzymes 05/15/23 Range/Units 17:38 Total Creatine Kinase 38 (26-140) U/L Liver Function 05/15/23 Range/Units 17:38 Total Bilirubin 1.3 H (0.0-1.0) mg/dL Direct Bilirubin 0.4 (0.0-0.5) mg/dL AST 14 (5-31) U/L ALT 13 (0-31) U/L Alkaline Phosphatase 107 (39-117) U/L Albumin 4.0 (3.5-5.0) g/dL CT scan - pelvis: report reviewed and image reviewed Additional studies: [place] [id number] CT Scan Report Signed Patient: Serena Perez MR#: [id number] : 1990 Acct:[id number] Age/Sex: 32 / F ADM Date: 05/15/23 Loc: HO.ED Attending Dr: Ordering Physician: Triny Chavez NP Date of Service: 05/15/23 Procedure(s): CT pelvis w IV con Accession Number(s): [id number] cc: [facility]; Triny Chavez NP~ EXAMINATION: CT PELVIS WITH CONTRAST CLINICAL INFORMATION: Large abscess left buttocks COMPARISON: CT abdomen pelvis 11/06/2022 TECHNIQUE: Helical scanning was performed with submillimeter collimation through the pelvis with the use of oral contrast and during bolus intravenous injection of 85 mL of Omnipaque 350 intravenous contrast. Sagittal and coronal multiplanar 2-D reconstructions were obtained. This CT examination was performed using dose optimization techniques as appropriate, variously including the following: *Automated exposure control *Adjustment of mA and/or kV according to patient size (this includes techniques or standardized protocols for targeted exams where dose is matched to indication/reason for exam; i.e. extremities or head) *Use of iterative reconstruction technique DLP: 215 mGy-cm FINDINGS: In the left upper thigh/inferior buttock, there is a enhancing masslike area containing some air bubbles consistent with an abscess. There is marked soft tissue swelling and edema in the surrounding fat. The collection measures 3.7 x 2.4 x 5.0 cm. No other abdominal wall abnormalities are seen. No hernias are present. The visualized bowel appears normal. An anteverted uterus is seen. An abnormal adnexal mass is not seen. No free intraperitoneal fluid is present. Osseous structures appear unremarkable. CT/CT pelvis w IV con IMPRESSION: Left upper thigh/inferior buttock abscess. Assessment and Plan (1) Abscess of buttock, left: Status: Acute Plan 32-year-old female with significant left buttock abscess that was initially incised and drained and culture sent a purulent material and I did a revision I and D and break up of some loculations digitally. Plan to continue with IV vanco ceftriaxone follow-up on cultures potential infectious Disease consultation hospitalist consultation for management of her diabetes dressing changes with packing to be done once a day pain control. Patient understands and agrees with the above plan Total time managing care of this patient today: 75 minutes. Quality Stroke Does the patient have a stroke diagnosis?: No VTE Prior VTE?: No VTE Risk Level:: Surgical - low VTE Device Contraindication: Treatment Not Indicated VTE Drug Contraindication: Treatment Not Indicated Procedures Date of Service Date of Service: 05/15/23 Abscess I/D Consent for Procedure: Elective - informed consent obtained Site: other Side (if applicable): left Sedation/analgesia: other (Ativan and morphine) Anesthetic used: lidocaine 1% Technique: incised with #11 blade Amount of fluid (mL): 10 Irrigation: Yes Packing used?: iodoform Additional comments: The area was prepped and draped with Betadine after getting informed consent and time-out and the previous open area was infiltrated with 10 cc of 1% lidocaine with epinephrine 11 blade was then used to make the opening of the skin incision significantly larger to about 2 cm and then digital probing into the wound broke up some loculations and got little bit of some fluid out. The patient was pretty uncomfortable despite receiving 4 mg of morphine and 1 mg of Ativan. The area was irrigated with saline and then packed with quarter-inch iodoform packing.
[2023-05-15] MEDS: Ketorolac Tromethamine 15 MG/ML VIAL IVPUSH (23:36)
[2023-05-15] MEDS: 0.9 % Sodium Chloride Flush 3 ML SYRINGE IVFLUSH (23:37)
--- NOTE | 2023-05-15 23:45 | PC.NURSE ---
Med rec done, Pt able to verbalize she only takes 30 Units of lantus at bedtime.
[2023-05-16] VITALS (8 sets, daily range): BP systolic 89–151; BP diastolic 51–89; PULSE 64–95; RESP 16–20; TEMP 36.1–37.5; O2SAT 96–100; BMI 23.0
--- NOTE | 2023-05-16 06:02 | PC.NURSE ---
pt woke up reporting pain to buttocks at abscess area - patient unable to fully lay flat on her back. vitals checked - initial BP low due to patient laying on her side. This RN went in to recheck, pt repositioned onto back as best as she could, and smaller cuff used on right arm. BP 107/75. will check mar for prn pain medication orders.
[2023-05-16] MEDS: Ketorolac Tromethamine 15 MG/ML VIAL IVPUSH ×4 (06:14→23:43)
[2023-05-16] MEDS: oxyCODONE HCl Immed Release 5 MG TABLET 10 MG PO ×3 (06:14→20:01)
[2023-05-16 07:09] LABS: Hematocrit 34.6 % (37.0-47.0); Mean Corpuscular HGB Conc 34.7 g/dl (31.0-35.0); Mean Corpuscular Hemoglobin 30.6 pg (27.0-33.0); Mean Corpuscular Volume 88.3 fL (80.0-98.0); Mean Platelet Volume 12.2 fL (9.4-12.3); Platelet Count 164 X10*3/uL (160-400); Red Blood Count 3.92 X10*6/uL (4.20-5.50); Red Cell Distribution Width 11.8 % (11.0-16.0); White Blood Count 11.4 X10*3/uL (4.8-10.8)
--- NOTE | 2023-05-16 07:33 | PC.NURSE ---
Resumed care of patient, she is currently resting. All needs met at this time call box within reach Awaiting bed placement
--- NOTE | 2023-05-16 08:15 | P.CONHOSP_ITS ---
History of Present Illness Data of Consult Service Date: 05/16/23 Primary Care Provider: [facility] HPI Reason for consult: Diabetes Mgmt This is a 32 yo F who is admitted under the surgical services for L left thigh abscess. Medical consult requested for management of DM. Pt seen and examined in [facility]. She reports feeling tired and sleeping. Reports leg pain is controlled at this time. In regards to her DM, she states she was taken off short-acting(meal time) insulin by her doctors several years ago and has been only on lantus once a day. States she checks her POC at home, which are in the 170-200 range. Reports new PCP. Does not follow with an inspector health care facilities at this time. Patient underwent I&D in the ED followed by CT scan which showed persisent abscess, which was repeat I&D by Gen Surg. Review of Systems 2 Review of Systems: Negative except HPI/interval history. [facility] Medical History Diabetes mellitus type 1 Family History Other Family history non-contributory Surgical History Hx of cholecystectomy Social History Household Members: Family Housing: House Do you presently have visiting nurse or other home services: No Alcohol intake: never Patient Tobacco Use Status: Never used Tobacco Tobacco use type: Cigarette Cigarettes Per Day: 2 Smoked in Last 30 Days: Yes Use of substances other than those prescribed or required for medical reasons: Yes Substance Use Type: Marijuana Advance Directives: No Advance Directives Information Provided: No Nutrition Risks: No Nutritional Risk Patient : No service: No Current occupational status: employed Meds Allergies Allergy/AdvReac Type Severity Reaction Status Date / Time Latex, Natural Rubber Allergy Unknown HIVES Verified 05/15/23 15:50 [LATEX, NATURAL RUBBER] Active Medications: Current Medications Ketorolac Tromethamine (Ketorolac Tromethamine 15 Mg/Ml Vial) 15 mg IVPUSH Q6H SHEILA Last Admin: 05/16/23 06:14 Dose: 15 mg Lorazepam (Lorazepam 2 Mg/Ml Vial) 1 mg IVPUSH DAILY PRN PRN Reason: anxiety/restlessness Morphine Sulfate (Morphine Sulfate 4 Mg/Ml Cartridge) 4 mg IVPUSH DAILY [facility]; Protocol Oxycodone HCl (Oxycodone Hcl Immed Release 5 Mg Tablet) 10 mg PO Q4H PRN PRN Reason: Pain, Severe (Pain Scale 7-10) Last Admin: 05/16/23 06:14 Dose: 10 mg Pharmacy Consult (Consult Rx Vancomycin Dosing) 1 each MISCELLANE DAILY PRN PRN Reason: Consult order Sodium Chloride (0.9 % Sodium Chloride Flush 3 Ml Syringe) 3 ml IVFLUSH QSHIFT [facility] Last Admin: 05/15/23 23:37 Dose: 3 ml Home Medications Medication Instructions Recorded Confirmed Last Taken Type insulin glargine 100 unit/mL (3 30 unit subcut BEDTIME 05/15/23 05/15/23 05/14/23 History mL) subcutaneous pen (Lantus 30 units Solostar U-100 Insulin) Physical Exam 2 Vital Signs and Narrative: Vital Signs: Last Vital Signs Temp 99.5 F 05/16/23 00:19 Pulse 68 05/16/23 07:21 Resp 20 05/16/23 07:21 BP 114/72 05/16/23 07:21 Pulse Ox 99 05/16/23 05:52 O2 Del Method Room Air 05/16/23 05:52 BMI result Body Mass Index 25.7 Const: Other: General - no acute distress, appears comfortable Cardiovascular - regular rate and rhythm, S1-S2 Lungs - normal respiratory effort, clear to auscultation bilaterally, no wheezing Abdomen - soft, nontender, no rebound or guarding Extremities - no edema bilaterally Neuro - awake and alert, no focal deficits Results Labs 05/16/23 06:09 05/15/23 17:38 Labs: Laboratory Results - last 24 hr 05/15/23 05/15/23 05/16/23 17:38 18:19 06:09 MCV 87.3 88.3 MCH 31.0 30.6 MCHC 35.5 H 34.7 RDW 11.7 11.8 Plt Count 227 D 164 D MPV 11.1 12.2 Immature Gran % (Auto) 0.7 H Neut % (Auto) 85.7 H Lymph % (Auto) 7.8 L [place] % (Auto) 5.3 Eos % (Auto) 0.2 Baso % (Auto) 0.3 Lymph # (Auto) 1.5 [place] # (Auto) 1.0 Eos # (Auto) 0.0 Baso # (Auto) 0.1 Abs Immat Gran (auto) 0.13 H Absolute Neuts (auto) 16.6 H Absolute Nucleated RBC 0.000 0.000 Nucleated RBC % (auto) 0.0 0.0 Anion Gap 14 Estim Creat Clear Calc 119.0 Estimated GFR > 60 Random Glucose 247 H Lactic Acid 1.1 Calcium 9.6 D Total Bilirubin 1.3 H Direct Bilirubin 0.4 AST 14 ALT 13 Alkaline Phosphatase 107 Total Creatine Kinase 38 Total Protein 7.8 Albumin 4.0 Beta HCG, Quant < 2 Imaging Radiologist's Impressions: Impressions Pelvis CT 05/15/23 20:12 IMPRESSION: Left upper thigh/inferior buttock abscess. Assessment and Plan (1) Diabetes mellitus type 1: Status: Acute Plan 32 yo F with a self reported history of type 1 DM who is admitted under the surgical services for large L thigh abscess. S/P I&D x 2. Medical consult requested for mgmt of her DM. 1. DM, reportedly type 1 check a1c (last one in 2021 was around 8) patient reports currently on lantus, but do not see any on lantus on claim history; hence, will start with POC and sliding scale diabetic diet pt educated on importance of compliance with her meds will need close outpatient f/u 2. L thigh abscess s/p I&D; cultures sent iv zosyn remainder of mgmt per gen surg Will follow.
[2023-05-16 08:26] LABS: Estimated Average Glucose 206 mg/dL; Hemoglobin A1c % 8.8 % (<6.0)
--- NOTE | 2023-05-16 08:31 | PHA.PROG ---
Addendum entered by Makenzie Ziegler RPh 05/16/23 11:43: creatinine improved; increased dose to 1250mg Q12H with predicted AUC of 479mg/L, trough of 13.1 mg/L. trough to be drawn 05/16 @1000 Original Note: Admission Date/Time: May 15, 2023 22:50 Indication: skin Weight in k.771 kg Adjusted body weight in Kg: [place] body weight in Kg: Obesity Dosing Indication % IBW: Serum Creatinine - Last 168 Hours 05/15/23 17:38 Creatinine 0.63 Estimated CrCl and GFR - Last 168 Hours 05/15/23 17:38 Estim Creat Clear Calc 119.0 Estimated GFR > 60 Vancomycin Loading Dose: 1500mg x 1 Current Vancomycin Dosing Regimen: 1000mg Q12H Vancomycin Monitoring using AUC goal of 400 - 600 range with trough as surrogate marker: 404 mg/L Date and Time for next Vancomycin Level to be drawn: 05/16 @0900 Pharmacist Comments on Vancomycin Plan: predicted trough of 11.2 mg/L; will continue to monitor and adjust accordingly Vancomycin dosing will take advantage of [employer] as a clinical decision support tool that uses Bayesian modeling to calculate individual patient's pharmacokinetic parameters and forecast the patient's drug concentration time course with the target goal AUC 24 range of 400 - 600 mg/L/hr.
[2023-05-16 08:46] LABS: Glucose, Whole Blood 141 mg/dL (60-115)
[2023-05-16 09:18] LABS: Creatinine Clr Calc Pharmacy 127.1; Estimated Glomerular Filt Rate > 60
--- NOTE | 2023-05-16 09:18 | P.PNGS_ITS ---
Subjective Subjective Date of Service: 05/16/23 Interval history: I&D of left buttock abscess done last night Complaints of pain on the area No other events reported Physical Exam 2 Vital Signs: Vital Signs: Last Vital Signs Temp 99.5 F 05/16/23 00:19 Pulse 68 05/16/23 07:21 Resp 20 05/16/23 07:21 BP 114/72 05/16/23 07:21 Pulse Ox 99 05/16/23 05:52 O2 Del Method Room Air 05/16/23 05:52 BMI result Body Mass Index 25.7 Const: General: no acute distress Resp: Effort & Inspection: normal respiratory effort Cardio: Rate: regular rate Back/Spine/Pelvis: Other: Left buttock I&D site with packing Objective Data Active Medications Piperacillin Sod/Tazobactam (Sod 3.375 gm/ Sodium Chloride) 50 mls @ 100 mls/hr IV Q6H [facility] Vancomycin HCl 1,000 mg/ (Sodium Chloride) 270 mls @ 270 mls/hr IV Q12H [facility] Insulin Human Lispro (Insulin Lispro 100 Unit/Ml 3 Ml Vial) 0 unit SUBCUT QIDACHS [facility]; Protocol Ketorolac Tromethamine (Ketorolac Tromethamine 15 Mg/Ml Vial) 15 mg IVPUSH Q6H [facility] Last Admin: 05/16/23 06:14 Dose: 15 mg Documented By: BRENT Lorazepam (Lorazepam 2 Mg/Ml Vial) 1 mg IVPUSH DAILY PRN PRN Reason: anxiety/restlessness Morphine Sulfate (Morphine Sulfate 4 Mg/Ml Cartridge) 4 mg IVPUSH DAILY [facility]; Protocol Oxycodone HCl (Oxycodone Hcl Immed Release 5 Mg Tablet) 10 mg PO Q4H PRN PRN Reason: Pain, Severe (Pain Scale 7-10) Last Admin: 05/16/23 06:14 Dose: 10 mg Documented By: BRENT Pharmacy Consult (Consult Rx Vancomycin Dosing) 1 each MISCELLANE DAILY PRN PRN Reason: Consult order Sodium Chloride (0.9 % Sodium Chloride Flush 3 Ml Syringe) [facility] Last Admin: 05/15/23 23:37 Dose: 3 ml Documented By: MCKAYLAANX Labs 05/16/23 06:09 05/15/23 17:38 Labs: Laboratory Results - last 24 hr 03/19/24 03/19/24 03/20/24 17:38 18:19 06:09 MCV 87.3 88.3 MCH 31.0 30.6 MCHC 35.5 H 34.7 RDW 11.7 11.8 Plt Count 227 D 164 D MPV 11.1 12.2 Immature Gran % (Auto) 0.7 H Neut % (Auto) 85.7 H Lymph % (Auto) 7.8 L [place] % (Auto) 5.3 Eos % (Auto) 0.2 Baso % (Auto) 0.3 Lymph # (Auto) 1.5 [place] # (Auto) 1.0 Eos # (Auto) 0.0 Baso # (Auto) 0.1 Abs Immat Gran (auto) 0.13 H Absolute Neuts (auto) 16.6 H Absolute Nucleated RBC 0.000 0.000 Nucleated RBC % (auto) 0.0 0.0 Hold Purple Top Anion Gap 14 Estim Creat Clear Calc 119.0 Estimated GFR > 60 POC Glucose Random Glucose 247 H Estimat Average Glucose 206 Hemoglobin A1c % 8.8 H Lactic Acid 1.1 Calcium 9.6 D Total Bilirubin 1.3 H Direct Bilirubin 0.4 AST 14 ALT 13 Alkaline Phosphatase 107 Total Creatine Kinase 38 Total Protein 7.8 Albumin 4.0 Beta HCG, Quant < 2 05/16/23 05/16/23 08:42 08:47 MCV MCH MCHC RDW Plt Count MPV Immature Gran % (Auto) Neut % (Auto) Lymph % (Auto) [place] % (Auto) Eos % (Auto) Baso % (Auto) Lymph # (Auto) [place] # (Auto) Eos # (Auto) Baso # (Auto) Abs Immat Gran (auto) Absolute Neuts (auto) Absolute Nucleated RBC Nucleated RBC % (auto) Hold Purple Top SEE NOTE Anion Gap Estim Creat Clear Calc Estimated GFR POC Glucose 141 H Random Glucose Estimat Average Glucose Hemoglobin A1c % Lactic Acid Calcium Total Bilirubin Direct Bilirubin AST ALT Alkaline Phosphatase Total Creatine Kinase Total Protein Albumin Beta HCG, Quant Microbiology Microbiology Results: Microbiology 05/15/23 18:36 Gram Stain - Final Buttock Routine Culture - Preliminary No growth to date. Procedures Date of Service Date of Service: 05/16/23 Progress Note: A&P Assessment and plan (1) Abscess of buttock, left: Status: Acute Assessment and Plan: I&D done last night Packing in place IV antibiotics Pain control Plan to remove packing tomorrow and re-evaluate wound Time Spent With Patient Time: Total time managing care of this patient today ____ minutes. Quality Stroke Does the patient have a stroke diagnosis?: No VTE Prior VTE?: No VTE Risk Level:: Surgical - low VTE Device Contraindication: Treatment Not Indicated VTE Drug Contraindication: Treatment Not Indicated
--- NOTE | 2023-05-16 09:49 | PHA.MEDREC ---
Pharmacy Consult ? Medication Reconciliation Pharmacy has completed the medication reconciliation.
[2023-05-16] MEDS: Morphine Sulfate 4 MG/ML CARTRIDGE IVPUSH (09:50)
[2023-05-16] MEDS: 0.9 % Sodium Chloride Flush 3 ML SYRINGE IVFLUSH ×2 (09:51→12:54)
[2023-05-16] MEDS: Piperacillin Sodium/Tazobactam 3.375 GM in 0.9 % Sodium Chloride 50 ML IV ×3 (09:51→22:14)
--- NOTE | 2023-05-16 11:45 | MHC.CM.PN ---
PT REPORTS SHE LIVES WITH HER MOTHER AND IS INDEPENDENT WITH CARE SHE HAS DM SUPPLIES FOR DME AND NO HOME SERVICES SHE DOES NOT HAVE A PCP, SHE SAYS SHE WAS AT [facility], BUT HER MH CHANGED AND SHE IS NOW ON THE WAIT LIST HCP ON FILE DCP: HOME NO SERVICES VIA PRIVATE TRANSPORT
[2023-05-16] MEDS: vancomycin HCL 1,250 MG in 0.9 % Sodium Chloride 250 ML 166.67 MG IV ×2 (12:55→23:47)
[2023-05-16 13:06] LABS: Glucose, Whole Blood 149 mg/dL (60-115)
--- NOTE | 2023-05-16 13:11 | PC.NURSE ---
pt a&ox3, c/o pain to buttocks, pt was medicated for pain and iv abx hung per order, poc obtained 149- no coverage needed, call box within reach, will continue to monitor
[2023-05-16] MEDS: LORazepam 2 MG/ML VIAL 1 MG IVPUSH (15:35)
--- NOTE | 2023-05-16 15:43 | PC.NURSE ---
pt c/o 11/05 pain to buttocks as well as anxiety, pt medicated for pain and anxiety, dressing to buttock was also saturated, Dr. Mcbride was notified- per verbal order outer dressing was changed-dry sterile dressing intact- pt tolerated the change well, family at bedside, call box within reach, will continue to monitor
[2023-05-16 17:38] LABS: Glucose, Whole Blood 150 mg/dL (60-115)
--- NOTE | 2023-05-16 18:42 | PC.NURSE ---
pt c/o nausea, hospitalist was notified
[2023-05-16] MEDS: ondansetron HCL 4 MG/2 ML VIAL IVPUSH (19:11)
--- NOTE | 2023-05-16 19:13 | PC.NURSE ---
pt medicated for nausea and pain per order
[2023-05-16 21:21] LABS: Glucose, Whole Blood 181 mg/dL (60-115)
[2023-05-16] MEDS: Insulin Lispro 100 UNIT/ML 3 ML VIAL SUBCUT (22:16)
[2023-05-16] MEDS: Prochlorperazine Edisylate 10 MG/2 ML VIAL 5 MG IVPUSH (23:33)
[2023-05-17] MEDS: oxyCODONE HCl Immed Release 5 MG TABLET 10 MG PO (01:11)
[2023-05-17 03:10] VITALS: BP 101/63; PULSE 88; RESP 16; TEMP 36.3; O2SAT 96
[2023-05-17] MEDS: Piperacillin Sodium/Tazobactam 3.375 GM in 0.9 % Sodium Chloride 50 ML IV ×2 (03:34→08:35)
[2023-05-17] MEDS: Ketorolac Tromethamine 15 MG/ML VIAL IVPUSH (06:38)
[2023-05-17 06:44] LABS: Creatinine Clr Calc Pharmacy 79.1; Estimated Glomerular Filt Rate > 60
[2023-05-17 07:15] VITALS: BP 112/68; PULSE 83; RESP 12; TEMP 36.7; O2SAT 97
[2023-05-17 07:22] LABS: Glucose, Whole Blood 179 mg/dL (60-115)
--- NOTE | 2023-05-17 07:37 | PM.PNGS ---
Subjective Subjective Date of Service: 05/17/23 <Nancy Meier PA-C - Last Filed: 05/17/23 07:40> 05/17/23 <Akhil Mcbride MD - Last Filed: 05/17/23 08:06> Interval history: Feels much better this morning, still having some pain but much improved. <Nancy Meier PA-C - Last Filed: 05/17/23 07:40> Physical Exam Vital Signs: Vital Signs: Last Vital Signs Temp 98.1 F 05/17/23 07:15 Pulse 83 05/17/23 07:15 Resp 12 05/17/23 07:15 BP 112/68 05/17/23 07:15 Pulse Ox 97 05/17/23 07:15 O2 Del Method Room Air 05/17/23 07:15 BMI result Body Mass Index 23.0 <Nancy Meier PA-C - Last Filed: 05/17/23 07:40> Const: General: comfortable, no acute distress and alert <Nancy Meier PA-C - Last Filed: 05/17/23 07:40> Resp: Effort & Inspection: normal respiratory effort <Nancy Meier PA-C - Last Filed: 05/17/23 07:40> Skin: Other: left buttock I&D site- packing removed, very mild erythema and surrounding induration, no significant drainage noted, mildly tender <Nancy Meier PA-C - Last Filed: 05/17/23 07:40> General skin exam: no rashes or lesions noted <Nancy Meier PA-C - Last Filed: 05/17/23 07:40> Objective Data Active Medications Docusate Sodium (Docusate Sodium 100 Mg Capsule) 100 mg PO BID [facility] Last Admin: 05/16/23 22:05 Dose: Not Given Documented By: AGUEDA Non-Admin Reason: pt refused Piperacillin Sod/Tazobactam (Sod 3.375 gm/ Sodium Chloride) 50 mls @ 100 mls/hr IV Q6H [facility] Last Infusion: 05/17/23 04:19 Dose: Infused Documented By: AGUEDA Vancomycin HCl 1,250 mg/ (Sodium Chloride) 250 mls @ 166.667 mls/hr IV Q12H [facility] Last Infusion: 05/17/23 01:41 Dose: Infused Documented By: AGUEDA Insulin Human Lispro (Insulin Lispro 100 Unit/Ml 3 Ml Vial) 0 unit SUBCUT QIDACHS [facility]; Protocol Last Admin: 05/16/23 22:16 Dose: 2 unit Documented By: AGUEDA Ketorolac Tromethamine (Ketorolac Tromethamine 15 Mg/Ml Vial) 15 mg IVPUSH Q6H [facility] Last Admin: 05/17/23 06:38 Dose: 15 mg Documented By: AGUEDA Lorazepam (Lorazepam 2 Mg/Ml Vial) 1 mg IVPUSH DAILY PRN PRN Reason: anxiety/restlessness Last Admin: 05/16/23 15:35 Dose: 1 mg Documented By: PARTH Morphine Sulfate (Morphine Sulfate 4 Mg/Ml Cartridge) 4 mg IVPUSH DAILY [facility]; Protocol Last Admin: 05/16/23 09:50 Dose: 4 mg Documented By: KENYA Ondansetron HCl (Ondansetron Hcl 4 Mg/2 Ml Vial) 4 mg IVPUSH Q6H PRN PRN Reason: Nausea and Vomiting Last Admin: 05/16/23 19:11 Dose: 4 mg Documented By: PARTH Oxycodone HCl (Oxycodone Hcl Immed Release 5 Mg Tablet) 10 mg PO Q4H PRN PRN Reason: Pain, Severe (Pain Scale 7-10) Last Admin: 05/17/23 01:11 Dose: 10 mg Documented By: AGUEDA Pharmacy Consult (Consult Rx Vancomycin Dosing) 1 each MISCELLANE DAILY PRN PRN Reason: Consult order Prochlorperazine Edisylate (Prochlorperazine Edisylate 10 Mg/2 Ml Vial) 5 mg IVPUSH Q6H PRN PRN Reason: Nausea and Vomiting Last Admin: 05/16/23 23:33 Dose: 5 mg Documented By: AGUEDA Sodium Chloride (0.9 % Sodium Chloride Flush 3 Ml Syringe) 3 ml IVFLUSH QSHIFT [facility] Last Admin: 05/17/23 00:21 Dose: Not Given Documented By: AGUEDA Non-Admin Reason: IV Running <Nancy Meier PA-C - Last Filed: 05/17/23 07:40> Labs CBC & Chem 7: 05/16/23 06:09 05/17/23 05:53 <Nancy Meier PA-C - Last Filed: 05/17/23 07:40> Labs: Laboratory Results - last 24 hr 05/15/23 05/16/23 05/16/23 17:38 08:42 08:47 Hold Purple Top SEE NOTE Estim Creat Clear Calc 127.1 Estimated GFR > 60 POC Glucose 141 H Estimat Average Glucose 206 Hemoglobin A1c % 8.8 H 05/16/23 05/16/23 05/16/23 12:58 17:34 21:17 Hold Purple Top Estim Creat Clear Calc Estimated GFR POC Glucose 149 H 150 H 181 H Estimat Average Glucose Hemoglobin A1c % 05/17/23 05/17/23 05:53 07:18 Hold Purple Top Estim Creat Clear Calc 79.1 Estimated GFR > 60 POC Glucose 179 H Estimat Average Glucose Hemoglobin A1c % <Nancy Meier PA-C - Last Filed: 05/17/23 07:40> Microbiology Microbiology Results: Microbiology 05/15/23 18:24 Blood Culture - Preliminary Blood - Venous No growth after 24 hours. 05/15/23 18:19 Blood Culture - Preliminary Blood - Venous No growth after 24 hours. 05/15/23 18:36 Gram Stain - Final Buttock Routine Culture - Preliminary No growth to date. <Nancy Meier PA-C - Last Filed: 05/17/23 07:40> Procedures Date of Service Date of Service: 05/17/23 <Nancy Meier PA-C - Last Filed: 05/17/23 07:40> 05/17/23 <Akhil Mcbride MD - Last Filed: 05/17/23 08:06> Progress Note: A&P Assessment and plan (1) Abscess of buttock, left: Status: Acute <Nancy Meier PA-C - Last Filed: 05/17/23 07:40> Assessment and Plan: S/P I and D some residual induration but much improved pain better ok to dc home on PO abx wound care seen and examined independently <Akhil Mcbride MD - Last Filed: 05/17/23 08:06> Assessment and Plan: Abscess site packing removed, surrounding cellulitis significantly improved. No growth from cultures. Stable for dc to home today on PO Augmentin with VNA services. Patient comfortable with plan. Mother will help with dressing changes. <Nancy Meier PA-C - Last Filed: 05/17/23 07:40> Time Spent With Patient Time: Total time managing care of this patient today ____ minutes. <Nancy Meier PA-C - Last Filed: 05/17/23 07:40> Quality Stroke Does the patient have a stroke diagnosis?: No <Nancy Meier PA-C - Last Filed: 05/17/23 07:40> VTE Prior VTE?: No <Nancy Meier PA-C - Last Filed: 05/17/23 07:40> VTE Risk Level:: Surgical - low <Nancy Meier PA-C - Last Filed: 05/17/23 07:40> VTE Device Contraindication: Treatment Not Indicated <Nancy Meier PA-C - Last Filed: 05/17/23 07:40> VTE Drug Contraindication: Treatment Not Indicated <Nancy Meier PA-C - Last Filed: 05/17/23 07:40>
[2023-05-17] MEDS: Morphine Sulfate 4 MG/ML CARTRIDGE IVPUSH (08:34)
[2023-05-17] MEDS: 0.9 % Sodium Chloride Flush 3 ML SYRINGE IVFLUSH (08:35)
[2023-05-17] MEDS: Insulin Lispro 100 UNIT/ML 3 ML VIAL SUBCUT (08:47)
[2023-05-17 10:43] LABS: Vancomycin Trough 16.1 mcg/mL (10.0-20.0)
--- NOTE | 2023-05-17 10:55 | MHC.CM.PN ---
PT CLEARED TO DC HOME TODAY SHE IS AWARE VNA WAS ORDERED, HOWEVER SHE WILL NOT BE ABLE TO GET SERVICES DUE TO LACK OF PCP SHE SAYS HER MOTHER WILL MANAGE HER DRESSING CHANGES SHE IS AWARE SHE WILL BE SENT HOME WITH DRESSING SUPPLIES FAMILY TO TRANSPORT
--- NOTE | 2023-05-17 11:07 | HE.PHANOTE ---
Re: Vanco Trough returned at 16.1. Based on current renal function (SCr 0.86) and predicted auc of 717 at current dose, dose has been reduced to 750mg q12h with a predicted auc 436. Next trough to be drawn on 05/17 at 2100.
--- NOTE | 2023-05-17 13:24 | P.PNIM_ITS ---
Subjective Subjective Date of Service: 05/17/23 Interval History: Good pain control left buttock, denies fever, no chills, tolerating diet no nausea, no vomiting, no abdominal pain, blood sugars average around 200, as per patient she is compliant with Lantus insulin 30 units at bedtime does not follow insulin sliding scale or use pre meal insulin, hemoglobin A1c 8.8. Review of Systems All other system reviewed and negative. Physical Exam 2 Vital Signs: Vital Signs: Last Vital Signs Temp 98.1 F 05/17/23 07:15 Pulse 83 05/17/23 07:15 Resp 12 05/17/23 07:15 BP 112/68 05/17/23 07:15 Pulse Ox 97 05/17/23 07:15 O2 Del Method Room Air 05/17/23 07:15 BMI result Body Mass Index 23.0 Const: Other: General -awake alert x3, no acute distress, appears comfortable Neck no JVD Cardiovascular - regular rate and rhythm, S1-S2 Lungs - normal respiratory effort, clear to auscultation bilaterally, no wheezing Abdomen - soft, non tender, bowel sounds audible Extremities - left buttock I&D site- packing removed, very mild erythema and surrounding induration, no drainage Neuro - awake and alert, no focal deficits Objective Data Labs 05/16/23 06:09 05/17/23 05:53 Labs: Laboratory Results - last 24 hr 05/16/23 05/16/23 05/17/23 17:34 21:17 05:53 Estim Creat Clear Calc 79.1 Estimated GFR > 60 POC Glucose 150 H 181 H Vancomycin Trough 05/17/23 05/17/23 07:18 10:12 Estim Creat Clear Calc Estimated GFR POC Glucose 179 H Vancomycin Trough 16.1 Microbiology Microbiology Results: Microbiology 05/15/23 18:36 Gram Stain - Final Buttock Routine Culture - Preliminary No growth to date. 05/15/23 18:24 Blood Culture - Preliminary Blood - Venous No growth after 24 hours. 05/15/23 18:19 Blood Culture - Preliminary Blood - Venous No growth after 24 hours. Assessment and Plan (1) Abscess of buttock, left: Status: Acute (2) Diabetes mellitus type 1: Status: Acute Plan 32 yo F with a self reported history of type 1 DM who is admitted under the surgical services for large L thigh abscess. S/P I&D x 2. Medical consult requested for mgmt of her DM. 1. Type 1 diabetes mellitus Blood sugars around 200, hemoglobin A1c 8.8 Recommend to continue Lantus and add pre meal insulin. Recommend outpatient follow-up with primary care physician to adjust medications. Continue diabetic diet. 2. L thigh abscess No fevers, WBC trending down blood cultures and wound cultures negative times 24 hours remainder of mgmt per gen surg Will sign off. Quality Stroke Does the patient have a stroke diagnosis?: No VTE Prior VTE?: No VTE Risk Level:: Surgical - low VTE Device Contraindication: Treatment Not Indicated VTE Drug Contraindication: Treatment Not Indicated
--- NOTE | 2023-05-21 14:24 | P.DS_ITS ---
DS: Providers Provider Date of Service: 05/17/23 Date of admission: 05/15/23 22:50 Primary care physician: [facility] Attending physician on admission: Halie Howell Consults: 05/16/23 09:00 Consult to Hospitalist Routine Comment: Consulting Provider: Hospitalist Reason For Exam: diabetic management meds Attending physician on discharge: Akhil Mcbride DS: Diagnosis Discharge Diagnosis (1) Abscess of buttock, left: Status: Acute (2) Diabetes mellitus type 1: Status: Acute DS: Summary Hospital Course Hospital Course: HPI AT ADMISSION: Serena Culver is a 32 year old female TYPE 1 DIABETES WHO HAS NOT REALLY BEEN ON MEDICATION RECENTLY who comes in with a 3 day history of a bump in her left buttock area which is expanded to almost a softball size which is extremely tender. She admits to subjective fever symptoms last night. Came into the emergency room today because it is causing so much pain. She has never had any abscess like this although she has had smaller ones in the past. She does not know what MRSA is and says she does not believe that she ever had a MRSA infection in the past. Denies injecting any substance abuse materials in this area. She does smoke weed little bit she admits. Here in the emergency room the nurse practitioner opened up the area and then sent off cultures of purulent material that was obtained. Patient then went for CT scan which showed abscess area with some gas and phlegmon material-CT scan was done after the area was opened up and drained. HOSPITAL COURSE: The patient was admitted to the surgical service for further treatment of the left buttock abscess. IV vanco, ceftriaxone were continued. She was initially incised and drained in the ED however I & D was also performed at bedside to break up of some loculations digitally. Hospitalist consultation was obtained for management of her diabetes. She remained inpatient for IV abx and pain control while awaiting cultures. Her pain improved and she had minimal surrounding erythema and induration without any further fluctuance or purulent drainage noted on exam after packing was removed. Cultures had no growth. She felt ready for discharge to home. She was discharged on 05/17/23 with [facility] services for wound care. She is to have dressing changes every other day with fluffs and abd dressing and tape. Status at Discharge Functional status at discharge: independent ambulation Time Attestation Discharge Coordination Time (in mins): 25 Quality: Safe Use of Opioids Does Pt have an Active Cancer Diagnosis on the Problem List?: No Quality: Stroke Does the patient have a stroke diagnosis?: No Physical Exam Vital Signs: Vital Signs: Last Vital Signs Temp 98.1 F 05/17/23 07:15 Pulse 83 05/17/23 07:15 Resp 12 05/17/23 07:15 BP 112/68 05/17/23 07:15 Pulse Ox 97 05/17/23 07:15 O2 Del Method Room Air 05/17/23 07:15 BMI result Body Mass Index 23.0 DS: Data Data Completed and Pending Completed studies during hospitalization [Text1]: Procedures Excision of Duodenum, Via Natural or Artificial Opening Endoscopic, Diagnostic (10/16/21) Excision of Esophagus, Via Natural or Artificial Opening Endoscopic, Diagnostic (10/16/21) Excision of Sigmoid Colon, Via Natural or Artificial Opening Endoscopic, Diagnostic (10/16/21) Excision of Stomach, Via Natural or Artificial Opening Endoscopic, Diagnostic (10/16/21) Discharge Plan Discharge Anticipated Discharge Date/Time: 05/17/23 09:41 Patient Disposition: Home Health Service Discharge Diagnosis: left buttock abscess Referrals: [facility] [Primary Care Provider] - 1 Week Akhil Mcbride MD [Physician] - 1 Week Discharge Medications: New amoxicillin-pot clavulanate 875-125 mg tablet 1 tab PO BID Qty: 14 0RF Rx Instructions: END DATE: 05/24/23 oxycodone 5 mg tablet 5 mg PO Q4H PRN (Reason: pain (scale score 7-10)) Qty: 20 0RF Rx Instructions: Partial Fill upon patient request. Continued insulin glargine [Lantus Solostar U-100 Insulin] 100 unit/mL (3 mL) Insulin Pen 30 unit SUBCUT BEDTIME Discharge Orders: Discharge Order (Routine); Ordered 05/17/23 Ordered By: Nancy Meier Diet: Diabetic diet Activity on Discharge: As tolerated Stand Alone Forms: Patient Portal Discharge page Print Language: Yoruba Activity Restrictions/Additional Instructions: Hot sitz baths daily and after bowel movements. Dressing change daily with fluffs and tape. Follow up in office in a week. ([phone]) Call Your Doctor Or Return to ED If: ? ? -Your temperature exceeds 101.5? F? ? ? -You experience excessive pain or swelling ? ? -You have an unexpected reaction to medication ? ? -You experience continued vomiting/nausea Care Plan Goals: Return to baseline health and resume normal activities following recovery period. Health Concerns: diabetes mellitus left buttock abscess Plan of Treatment: IV abx transitioned to PO abx wound care Assessment: Resolving abscess and cellulitis Patient Instructions: Abscess (ED), Abscess Incision and Drainage (DC), Incision and Drainage (ED) Discharge Date/Time: 05/17/23 11:23
== END 2023-05-17 11:23 | disposition home health service (06) | DRG 383 ==
LOC: HO.ED 22:46 → HO.EDOVER 22:56 → HO.S3 05-16 19:42
PROVIDERS: Family Medicine; Physician Assistant Medical; Registered Nurse Emergency; Admitting Provider Surgery; Emergency Provider Internal Medicine; Visit Provider Surgery
DX: L02.31 Cutaneous abscess of buttock (principal); E10.9 Type 1 diabetes mellitus without complications; F17.210 Nicotine dependence, cigarettes, uncomplicated; Z71.6 Tobacco abuse counseling
CPT/HCPCS: 36415; 72193; 80048; 80076; 80202; 82550; 82565; 82947; 83036; 83605; 84702; 85025; 85027; 87040; 87070; 87205; 99221; 99285; J0696; J0737; J1885; J2060; J2270; J2405; J2543; J3371; Q9967

== ENCOUNTER → 2023-05-15 22:50 | Outpatient (BNV) | payer MEDICAID, SELFPAY | PROVIDERS: Admitting Provider Surgery; Emergency Provider Internal Medicine; Visit Provider Family Medicine | DX: E10.9 Type 1 diabetes mellitus without complications (principal); L02.31 Cutaneous abscess of buttock | CPT/HCPCS: 99222; 99232 ==

== ENCOUNTER → 2023-05-15 22:50 | Outpatient (BNV) | payer MEDICAID, SELFPAY | PROVIDERS: Admitting Provider Surgery; Emergency Provider Internal Medicine; Visit Provider Surgery | DX: L02.31 Cutaneous abscess of buttock (principal); E10.9 Type 1 diabetes mellitus without complications | CPT/HCPCS: 10060; 99024; 99222; 99232 ==

== ENCOUNTER 2023-05-19 11:18 | Inpatient (IN) | payer MEDICAID, SELFPAY ==
--- NOTE | ~2023-05-19 | CT_ITS ---
EXAMINATION: CT ABDOMEN AND PELVIS WITHOUT CONTRAST CLINICAL INFORMATION: Abdominal pain. COMPARISON: CT abdomen and pelvis dated 11/06/2022. TECHNIQUE: Multidetector volumetric imaging was performed from the superior aspect of the liver through the pubic symphysis. Sagittal and coronal reformatted images were obtained on the technologist's workstation. This CT examination was performed using dose optimization techniques as appropriate, variously including the following: *Automated exposure control *Adjustment of mA and/or kV according to patient size (this includes techniques or standardized protocols for targeted exams where dose is matched to indication/reason for exam; i.e. extremities or head) *Use of iterative reconstruction technique DLP: 399 mGy-cm FINDINGS: LUNG BASES: The visualized lung bases are unremarkable. LIVER, GALLBLADDER, AND BILIARY TREE: The liver is normal in size, shape, and attenuation. No focal hepatic lesion or biliary ductal dilatation is present. The gallbladder is surgically absent. PANCREAS: Unremarkable. SPLEEN: Unremarkable. ADRENAL GLANDS: Unremarkable. KIDNEYS AND URETERS: The kidneys are normal in size, shape, and attenuation. No hydronephrosis, hydroureter, or calculi seen. No perinephric stranding. BLADDER: Unremarkable. GASTROINTESTINAL TRACT: There is a mild to moderate stool burden. No obstruction, free intraperitoneal air or abscess is seen. There is no focal bowel wall thickening. No diverticulosis or diverticulitis is seen. The vermiform appendix is unremarkable. ABDOMINAL WALL: No significant hernia is appreciated. LYMPH NODES: There are shotty bilateral inguinal lymph nodes. No sizable abdominopelvic lymphadenopathy is seen. VASCULAR: Unremarkable. PELVIC VISCERA: The uterus and adnexa are unremarkable. There is a small amount nonspecific free fluid in the cul-de-sac. OSSEOUS STRUCTURES: Unremarkable. CT/CT abdomen pelvis wo IV con IMPRESSION: There is a small amount of nonspecific free fluid in the cul-de-sac. The gallbladder is surgically absent. The examination is otherwise unremarkable. Fleischner guidelines were followed.
--- NOTE | ~2023-05-19 | NM_ITS ---
EXAMINATION: MT RADIONUCLIDE SOLID FOOD GASTRIC EMPTYING 4-HOUR STUDY CLINICAL INFORMATION: Suspect gastroparesis, nausea and vomiting, diabetes. COMPARISON: No previous gastric emptying study is available for comparison. TECHNIQUE: A meal consisting of 8 ounces of Ensure-plus Brand tagged with 900 microcuries Tc-99m Sulfur Colloid, was administered orally to the patient. This fatty supplement was used because the patient could not tolerate eggs, and has been shown to closely mimic gastric emptying of labeled eggs. Images were obtained using a dual head gamma camera in the anterior and posterior projections over of the stomach immediately post ingestion and at hourly intervals up to 3 hours post ingestion. Images were not obtained at 4 hours due to the minimal retention at 3 hours. The anterior and posterior counts at each time interval were averaged using the geometric mean and expressed as percentage of the immediate post ingestion counts. FINDINGS: There is good visualization of activity in the stomach immediately post ingestion. As the study progresses, there is good clearance of activity from the stomach and visualization of progressively increasing small bowel activity. By the end of the study, there is almost no retention noted in the stomach. Retention in the stomach at each time interval was: 1 hour 66% (normal 37%-90%) 2 hours 37% (normal 30%-60%) 3 hours 8% 4 hours (not obtained) (normal 0%-10%) MT/MT gastric emptying study IMPRESSION: Normal modified 4-hour gastric emptying study. Ensure-plus Brand supplement was used instead of radio-labeled eggs because of the patient's intolerance to eggs. This supplement has been shown to closely mimic gastric emptying of labeled eggs.
--- NOTE | 2023-05-19 11:21 | ED.GENADULT ---
HPI - General Adult General Chief complaint: Abdominal Pain Stated complaint: Acid Reflux Time Seen by Provider: 05/19/23 11:47 Source: patient Mode of arrival: ambulatory Limitations: no limitations History of Present Illness HPI narrative: Patient is a 32 year old assigned female at with a history of DM, marijuana abuse, and recent cellulitis of the left lower extremity / buttock, presenting to the emergency department today with epigastric pain, nausea, and vomiting. Patient states that over the last day she has had epigastric pain and non stop vomiting. Patient states that she has been unable to tolerate anything by mouth for over 24 hours. Patient denies any dizziness, lightheadedness, fever, chills, blurry vision, double vision, loss of vision, chest pain, difficulty breathing, shortness of breath, back pain, night sweats, pain with urination, increased urinary frequency, increased urinary urgency, blood in her urine or stool, syncope or a near syncopal episode, recent trauma or falls, bowel incontinence, bladder incontinence, bowel retention, bladder retention, or any other complaints at this time. Onset (ago): day(s) Location: abdomen Radiation: non-radiation Severity: mild Severity scale (1-10): 4 Quality: aching Pain Consistency: constant Relieving factors: none Exacerbating factors: none Associated symptoms: nausea/vomiting Treatments prior to arrival: none Related Data Home Medications Medication Instructions Recorded Confirmed insulin glargine 100 unit/mL (3 30 unit subcut BEDTIME 05/15/23 05/15/23 mL) subcutaneous pen (Lantus Solostar U-100 Insulin) Previous Rx's Medication Instructions Recorded amoxicillin 875 mg-potassium 1 tab PO BID #14 tabs 05/17/23 clavulanate 125 mg tablet oxycodone 5 mg tablet 5 mg PO Q4H PRN pain (scale score 05/17/23 7-10) #20 tabs Allergies Allergy/AdvReac Type Severity Reaction Status Date / Time Latex, Natural Rubber Allergy Unknown Verified 05/19/23 13:21 Review of Systems Constitutional: Constitutional: Reports no additional constitutional complaints, Denies chills, Denies fever(s) and Denies night sweats Eyes: Eyes: Reports no additional eye complaints, Denies blurry vision, Denies change in vision, Denies diplopia, Denies eye discharge, Denies loss of vision and Denies eye pain ENT: Denies dizziness Cardiovascular: Cardiovascular: Reports no additional cardiovascular complaints, Denies chest pain, Denies lightheadedness, Denies Loss of Consciousness and Denies dyspnea Respiratory: Respiratory: Reports no additional respiratory complaints and Denies dyspnea Gastrointestinal: Gastrointestinal: Reports no additional gastrointestinal complaints, Reports abdominal pain, Denies melena, Denies hematochezia, Denies change in bowel habits, Denies change in stool character, Reports nausea and Reports vomiting Genitourinary: Genitourinary: Denies hematuria, Denies urinary frequency, Denies dysuria, Denies urinary incontinence, Denies urinary hesitancy and Denies urinary urgency Musculoskeletal: Musculoskeletal: Reports no additional musculoskeletal complaints, Denies numbness and Denies tingling Neurologic: Denies dizziness, Denies loss of vision, Denies numbness and Denies tingling Psychiatric: Psychiatric: Reports no additional psychiatric complaints Endocrine: Endocrine: Reports no additional endocrine complaints Hematologic/Lymphatic: Hematologic/Lymphatic: Reports no additional hematologic/lymphatic complaints Allergic/Immunologic: Allergic/Immunologic: Reports no additional allergic/immunologic complaints PMFSH Past Medical History Attestation statement: The following information was validated with the patient. Source: old records reviewed and nursing notes reviewed Medical History Diabetes mellitus type 1 Surgical History Hx of cholecystectomy Family History Family History Other Family history non-contributory Social History Social History Household Members: Family Housing: House Do you presently have visiting nurse or other home services: No Alcohol intake: former Patient Tobacco Use Status: Current everyday Tobacco user Tobacco use type: Cigarette Cigarettes Per Day: 2 Smoked in Last 30 Days: Yes Second Hand Smoke Exposure: Yes Use of substances other than those prescribed or required for medical reasons: Yes Substance Use Type: Marijuana Substance Use Frequency: Chronic Longstanding Advance Directives: Yes Advance Directives on File: Yes Advance Directives Date on File: 05/16/23 service: No Current occupational status: employed Physical Exam ED Vital Signs: Vital Signs - 24 hr 05/19/23 11:22 05/19/23 12:13 Temperature 98.0 F Pulse Rate 113 H 93 Respiratory Rate 18 18 Blood Pressure 200/111 H 179/91 H Pulse Oximetry 100 Oxygen Delivery Method Room Air BMI result Body Mass Index 22.0 Const General: cooperative, no acute distress, alert and awake Nutritional Appearance: well nourished Orientation/consciousness: patient oriented x3 Limitations: no limitations HENMT Head: Yes normal to inspection and Yes atraumatic Ears: hearing grossly normal bilaterally and external ears normal General nose exam: Normal external nose present, no nasal discharge noted and no epistaxis Face and sinus: Yes normal facial exam, No abrasion and No laceration Mouth: Normal oral and palatal mucosa present, no drooling and no muffled voice Eyes General: appearance normal, both eyes and all related structures Periorbital: periorbital findings normal Eyelids: Yes eyelids normal Conjunctivae: conjunctivae normal Pupils: Equal, round and reactive pupils present EOM: EOMs intact bilaterally Neck Neck: Yes normal visual inspection, Yes full ROM and Yes no lymphadenopathy Chest Chest palpation & inspection: normal inspection of the chest Resp Effort & Inspection: normal respiratory effort and able to speak in complete sentences GI Inspection: Yes normal to inspection Neuro General: patient oriented x3 and moves all extremities Cranial nerves: Yes Equal, round and reactive pupils present Cognition (Neuro): normal cognition Motor exam (neuro): 5/5 motor strength present throughout Sensory Exam: Normal double simultaneous stimulation for sensation Coordination: [id number] test normal Extrem General: Yes full ROM and Yes capillary refill normal Psych Appearance: grossly normal Mental Status: mental status grossly normal Affect: normal affect Attitude: cooperative Thought process: Normal thought process present Thought content: Normal thought content present Insight: Good insight present (Psych) Course Course Course Narrative: RME: 32 yo female w/ hx of cyclical vomiting syndrome d/t marijuana use, T1DM, GERD, colitis here for eval of epigastric burning pain and vomiting x this morning. endorses regular marijuana use, last smoked last night. denies etoh consumption. unable to say if this happened after eating. denies taking anything for this at home. difficult to obtain history as patient is hysterically crying. Admitted here for abscess to buttock, placed IV zosyn, and abscess packed. general surgery discharged her 2 days ago w/ PO augmentin & VNA services. no growth from cultures. Full HPI, ROS and PE to be performed by the primary ED provider. Medications Administered Generic Name Dose Route Start Last Admin Trade Name Freq PRN Reason Stop Dose Admin Enoxaparin Sodium 40 mg 05/19/23 12:45 05/19/23 12:57 Enoxaparin Sodium 40 Mg/0.4 Ml Syringe SUBCUT Not Given Q24H SHEILA Discontinued Medications Generic Name Dose Route Start Last Admin Trade Name Freq PRN Reason Stop Dose Admin Droperidol 1.25 mg 05/19/23 11:47 05/19/23 11:50 Droperidol 5 Mg/2 Ml Vial IVPUSH 05/19/23 11:48 1.25 mg ONCE ONE Administration Sodium Chloride 1,000 mls @ 999 mls/hr 05/19/23 12:00 05/19/23 11:51 Ns IV 05/19/23 13:00 999 mls/hr .Q1H1M SHEILA Administration Metoclopramide HCl 10 mg 05/19/23 12:43 05/19/23 12:59 Metoclopramide Hcl 10 Mg/2 Ml Vial IVPUSH 05/19/23 12:44 10 mg ONCE ONE Administration Morphine Sulfate 4 mg 05/19/23 11:53 05/19/23 12:06 Morphine Sulfate 4 Mg/Ml Cartridge IVPUSH 05/19/23 11:54 4 mg ONCE ONE Administration Protocol Pantoprazole Sodium 40 mg 05/19/23 11:53 05/19/23 12:06 Pantoprazole Sodium 40 Mg/10 Ml Vial IVPUSH 05/19/23 11:54 40 mg ONCE ONE Administration Medical Decision Making Medical Decision Making [facility] Narrative: Patient is a 32 year old assigned female at with a history of DM, marijuana abuse, and left lower extremity cellulitis presenting to the emergency department today with nausea and vomiting. Patient's physical exam was as noted in the physical exam portion of this note. Patient's blood work showed an elevated CR of 1.68 but was otherwise unremarkable. I spoke to the hospitalist team who agreed to admission. I explained my physical exam findings as well as all test results to the patient. I answered all questions asked by the patient. Patient received IV fluids, droperidol, morphine, and protonix which she stated helped her symptoms. Patient verbalized agreement and understanding with this treatment plan and admission. Differential Diagnosis Differential Diagnoses: The differential diagnosis associated with the presentation includes ROSALINA Nausea Vomiting Cyclical vomiting [facility] Admission/Observation Consideration of admission/observation: Escalation of care including admission/observation considered Patient admitted. Consult Healthcare Provider Management of the patient was discussed with: Hospitalist (agreed to admission as noted in the MDM Rationale portion of this note.) Lab Data [facility] Lab Attestation statement: I reviewed the patient's lab results. My interpretation of these results are in the MDM Rationale portion of this note. 05/19/23 11:45 05/19/23 11:45 Labs: Lab Results 05/19/23 Range/Units 11:45 WBC 9.7 (4.8-10.8) X10*3/uL RBC 4.67 (4.20-5.50) X10*6/uL Hgb 13.9 (12.0-16.0) g/dl Hct 40.1 (37.0-47.0) % MCV 85.9 (80.0-98.0) fL MCH 29.8 (27.0-33.0) pg MCHC 34.7 (31.0-35.0) g/dl RDW 11.5 (11.0-16.0) % Plt Count 226 D (160-400) X10*3/uL MPV 11.0 (9.4-12.3) fL Immature Gran % (Auto) 0.4 (0.0-0.4) % Neut % (Auto) 71.2 (45-73) % Lymph % (Auto) 18.7 L (20-40) % [place] % (Auto) 6.7 (2-11) % Eos % (Auto) 2.6 (0-4) % Baso % (Auto) 0.4 (0-2) % Lymph # (Auto) 1.8 (1.2-4.9) X10*3/uL [place] # (Auto) 0.7 (0.1-1.2) X10*3/uL Eos # (Auto) 0.3 (0.0-0.4) X10*3/uL Baso # (Auto) 0.0 (0.0-0.2) X10*3/uL Abs Immat Gran (auto) 0.04 H (0.00-0.03) X10*3/uL Absolute Neuts (auto) 6.9 (2.0-8.3) x10*3/uL Absolute Nucleated RBC 0.000 (0.0-0.012) X10*3/uL Nucleated RBC % (auto) 0.0 (0.0-0.2) /100WBC Sodium 142 (135-145) mmol/L Potassium 4.1 (3.3-5.1) mmol/L Chloride 105 (96-108) mmol/L Carbon Dioxide 26 (22-29) mmol/L Anion Gap 15 (12-20) BUN 14 (9-16) mg/dL Creatinine 1.68 H (0.5-1.4) mg/dL Estim Creat Clear Calc 40.5 Estimated GFR 36 Random Glucose 253 H (60-115) mg/dL Calcium 10.0 (8.4-10.2) mg/dL Magnesium 2.0 (1.6-2.6) mg/dL Total Bilirubin 0.3 (0.0-1.0) mg/dL AST 22 (5-31) U/L ALT 27 (0-31) U/L Alkaline Phosphatase 133 H (39-117) U/L Total Protein 8.0 (6.5-8.0) g/dL Albumin 3.9 (3.5-5.0) g/dL Lipase 23 (8-78) U/L Chronic Conditions Patient?s care impacted by: Diabetes Critical Care Time Critical Care Time Critical Care Time: Yes Total Critical Care Time: 55 Attestation: I spent 55 minutes of Critical Care Time with this patient. This does not include time spent on separately reported billable procedures. Discharge Plan Discharge Clinical Impression: Nausea & vomiting, ROSALINA (acute kidney injury) Patient Disposition: Admitted As Inpatient
[2023-05-19 11:22] VITALS: BP 200/111; PULSE 113; RESP 18; TEMP 36.7; O2SAT 100; BMI 22.0
[2023-05-19 11:49] LABS: MANUAL DIFF FLAG NO
[2023-05-19] MEDS: droPERidol 5 MG/2 ML VIAL 1.25 MG IVPUSH (11:50)
[2023-05-19 11:51] LABS: Basophils Percent Auto 0.4 % (0-2); Eosinophils Absolute Auto 0.3 X10*3/uL (0.0-0.4); Eosinophils Percent Auto 2.6 % (0-4); Hematocrit 40.1 % (37.0-47.0); Hemoglobin 13.9 g/dl (12.0-16.0); Imm Gran Abs Auto 0.04 X10*3/uL (0.00-0.03); Imm Gran Pct Auto 0.4 % (0.0-0.4); Lymphocytes Absolute Auto 1.8 X10*3/uL (1.2-4.9); Lymphocytes Percent Auto 18.7 % (20-40); Mean Corpuscular HGB Conc 34.7 g/dl (31.0-35.0); Mean Corpuscular Hemoglobin 29.8 pg (27.0-33.0); Mean Corpuscular Volume 85.9 fL (80.0-98.0); Monocytes Absolute Auto 0.7 X10*3/uL (0.1-1.2); Monocytes Percent Auto 6.7 % (2-11); Neutrophils Absolute Auto 6.9 x10*3/uL (2.0-8.3); Neutrophils Percent Auto 71.2 % (45-73); Platelet Count 226 X10*3/uL (160-400); Red Blood Count 4.67 X10*6/uL (4.20-5.50); Red Cell Distribution Width 11.5 % (11.0-16.0); White Blood Count 9.7 X10*3/uL (4.8-10.8)
[2023-05-19] MEDS: 0.9 % Sodium Chloride 1,000 ML 999 ML IV (11:51)
--- NOTE | 2023-05-19 11:53 | PC.NURSE ---
Patient crying, restless in bed stating that she is in 10/10 abdominal pain. Labs obtained per order, medicated per mar
[2023-05-19 12:05] LABS: Alanine Aminotransferase 27 U/L (0-31); Albumin Level 3.9 g/dL (3.5-5.0); Alkaline Phosphatase 133 U/L (39-117); Anion Gap 15 (12-20); Aspartate Amino Transferase 22 U/L (5-31); Bilirubin Total 0.3 mg/dL (0.0-1.0); Blood Urea Nitrogen 14 mg/dL (9-16); Carbon Dioxide 26 mmol/L (22-29); Chloride 105 mmol/L (96-108); Creatinine Clr Calc Pharmacy 40.5; Estimated Glomerular Filt Rate 36; Glucose Random 253 mg/dL (60-115); Lipase 23 U/L (8-78); Potassium 4.1 mmol/L (3.3-5.1); Sodium 142 mmol/L (135-145)
[2023-05-19] MEDS: Pantoprazole Sodium 40 MG/10 ML VIAL IVPUSH (12:06)
[2023-05-19] MEDS: Morphine Sulfate 4 MG/ML CARTRIDGE IVPUSH (12:06)
[2023-05-19 12:13] VITALS: BP 179/91; PULSE 93; RESP 18
--- NOTE | 2023-05-19 12:43 | P.HPHOSP_ITS ---
History of Present Illness Date of Service: 05/19/23 Chief Complaint: Abd pain, nausea/vomiting This is a 32-year-old female with pertinent history of type 1 insulin-dependent diabetes mellitus, recent admission for left thigh abscess s/p I&D, marijuana use disorder who presents to the emergency department for evaluation of nausea and vomiting. Patient states she smoked marijuana 1 day prior to presentation. On the day of presentation, she started having multiple episodes of nausea and vomiting. Is having epigastric pain, constant, non progressive, nonradiating and without any relieving factors. Has been having symptoms of gastroesophageal reflux disease. Unable to tolerate p.o. intake. No fever, chills, chest discomfort, palpitations, shortness of breath, changes in urinary bowel habits. Of note, patient was recently admitted for left buttock abscess and discharged on 05/16 by General surgery on p.o. Augmentin. In the emergency department, serum creatinine found to be elevated Review of Systems 2 Constitutional: Constitutional: Reports poor appetite Cardiovascular: Cardiovascular: Reports no additional cardiovascular complaints Respiratory: Respiratory: Reports no additional respiratory complaints Gastrointestinal: Gastrointestinal: Reports abdominal pain, Reports nausea and Reports vomiting Genitourinary: Genitourinary: Reports no additional female genitourinary complaints [facility] Medical History Diabetes mellitus type 1 Family History Other Family history non-contributory Surgical History Hx of cholecystectomy Social History Household Members: Family Housing: House Do you presently have visiting nurse or other home services: No Alcohol intake: former Patient Tobacco Use Status: Current everyday Tobacco user Tobacco use type: Cigarette Cigarettes Per Day: 2 Smoked in Last 30 Days: Yes Second Hand Smoke Exposure: Yes Use of substances other than those prescribed or required for medical reasons: Yes Substance Use Type: Marijuana Substance Use Frequency: Chronic Longstanding Advance Directives: Yes Advance Directives on File: Yes Advance Directives Date on File: 05/16/23 service: No Current occupational status: employed Meds Allergies Allergy/AdvReac Type Severity Reaction Status Date / Time Latex, Natural Rubber Allergy Unknown Verified 05/19/23 13:21 Active Medications: Current Medications Sodium Chloride (Ns) 1,000 mls @ 999 mls/hr IV .Q1H1M SHEILA Stop: 05/19/23 13:00 Last Admin: 05/19/23 11:51 Dose: 999 mls/hr Metoclopramide HCl (Metoclopramide Hcl 10 Mg/2 Ml Vial) 10 mg IVPUSH ONCE ONE Stop: 05/19/23 12:44 Home Medications Medication Instructions Recorded Confirmed Last Taken Type insulin glargine 100 unit/mL (3 30 unit subcut BEDTIME 05/15/23 05/19/23 05/14/23 History mL) subcutaneous pen (Lantus 30 units Solostar U-100 Insulin) Physical Exam 2 Vital Signs and Narrative: Vital Signs: Last Vital Signs Temp 98.0 F 05/19/23 11:22 Pulse 93 05/19/23 12:13 Resp 18 05/19/23 12:13 BP 179/91 H 05/19/23 12:13 Pulse Ox 100 05/19/23 11:22 O2 Del Method Room Air 05/19/23 11:22 BMI result Body Mass Index 22.0 Middle-aged male lying in bed in no distress Neck supple, no JVD Regular rate and rhythm, S1-S2 heard Regular breath sounds bilaterally, no wheezing or crackles appreciated Abdomen with diffuse abdominal tenderness with mild guarding, no rigidity, no rebound tenderness Patient is awake, alert and oriented to self, place, time and person ; no focal motor deficit Psych: Normal mood No pedal edema Results Labs 05/19/23 11:45 05/19/23 11:45 Labs: Laboratory Results - last 24 hr 05/19/23 11:45 MCV 85.9 MCH 29.8 MCHC 34.7 RDW 11.5 Plt Count 226 D MPV 11.0 Immature Gran % (Auto) 0.4 Neut % (Auto) 71.2 Lymph % (Auto) 18.7 L [place] % (Auto) 6.7 Eos % (Auto) 2.6 Baso % (Auto) 0.4 Lymph # (Auto) 1.8 [place] # (Auto) 0.7 Eos # (Auto) 0.3 Baso # (Auto) 0.0 Abs Immat Gran (auto) 0.04 H Absolute Neuts (auto) 6.9 Absolute Nucleated RBC 0.000 Nucleated RBC % (auto) 0.0 Anion Gap 15 Estim Creat Clear Calc 40.5 Estimated GFR 36 Random Glucose 253 H Calcium 10.0 Magnesium 2.0 Total Bilirubin 0.3 AST 22 ALT 27 Alkaline Phosphatase 133 H Total Protein 8.0 Albumin 3.9 Lipase 23 Assessment and Plan (1) ROSALINA (acute kidney injury): Status: Acute (2) Nausea & vomiting: Status: Acute Plan This is a 32-year-old female with pertinent history of type 1 insulin-dependent diabetes mellitus, recent admission for left thigh abscess s/p I&D, marijuana use disorder who presents to the emergency department for evaluation of nausea and vomiting. #. Intractable nausea and vomiting, likely CHS: IV fluids, supportive care. Clear liquid diet and advance as tolerated. GI consult if symptoms continue. Counseled regarding marijuana cessation #. Acute kidney injury, stage I: Likely prerenal. Monitor creatinine urine output with crystalloid resuscitation. Avoid nephrotoxins #. Left thigh abscess status post I&D: Continue p.o. Augmentin #. Insulin-dependent diabetes mellitus with hyperglycemia: Initiating basal plus insulin regimen DVT prophylaxis: Lovenox Full code Admit as inpatient and will require two night minimum hospital stay for monitoring of kidney function, tolerance of p.o. intake (as above), which is not possible in a lesser acute setting. Quality Stroke Does the patient have a stroke diagnosis?: No VTE Prior VTE?: No VTE Risk Level:: Medical - moderate - high VTE Device Contraindication: Treatment Not Indicated VTE Drug Contraindication: N/A - Med Ordered
[2023-05-19] MEDS: Metoclopramide HCl 10 MG/2 ML VIAL IVPUSH ×2 (12:59→19:40)
[2023-05-19 13:46] LABS: HCG Quantitative < 2 mIU/mL
--- NOTE | 2023-05-19 14:08 | PHA.MEDREC ---
Pharmacy Consult ? Medication Reconciliation Pharmacy has completed the medication reconciliation. Patient recently discharged 05/17/23. Used discharge packet to confirm meds.
[2023-05-19 14:28] VITALS: BP 178/92; PULSE 91; RESP 16; O2SAT 95
[2023-05-19] MEDS: ondansetron HCL 4 MG/2 ML VIAL IVPUSH (14:58)
--- NOTE | 2023-05-19 14:58 | PC.NURSE ---
Patient reports still feels nauseous, medicated per mar
[2023-05-19 15:18] VITALS: BP 162/98; PULSE 100; RESP 16; TEMP 36.7; O2SAT 98
--- NOTE | 2023-05-19 15:55 | PC.NURSE ---
Report given to Audrey CORBETT in overflow
--- NOTE | 2023-05-19 16:56 | PC.NURSE ---
assumed care at this time. Patient brought from ED via stretcher. Patient vomiting and reports 10/10 abdominal pain. oxycodone administered. report sent via ED RN handoff at this time.
[2023-05-19] MEDS: oxyCODONE HCl Immed Release 5 MG TABLET PO ×2 (17:02→21:53)
[2023-05-19] MEDS: Lactated Ringers 1,000 ML 80 ML IVCONT (17:02)
[2023-05-19] MEDS: 0.9 % Sodium Chloride Flush 3 ML SYRINGE IVFLUSH (17:03)
--- NOTE | 2023-05-19 17:13 | PC.NURSE ---
Pt reported 10/10 abd pain, prn po pain med given as ordered and documented. Effectiveness pending. Pt resting quietly at this time, no apparent distress.
[2023-05-19 18:05] VITALS: BP 185/93; PULSE 75; RESP 18; TEMP 36.5; O2SAT 98
[2023-05-19 18:06] LABS: Glucose, Whole Blood 333 mg/dL (60-115)
[2023-05-19] MEDS: Insulin Lispro 100 UNIT/ML 3 ML VIAL SUBCUT ×2 (18:17→20:48)
--- NOTE | 2023-05-19 18:27 | PC.NURSE ---
Addendum entered by Alicia Cook RN 05/19/23 18:43: POC recheck at 18:43 was 314. Original Note: Pt arrived to unit from ED overflow A&Ox3. Pt vomiting clear/orange, endorsing severe abd pain, oxy was given in ED at approximately 1700 and Reglan given at 1243. Pts blood pressure continues to be elevated, last BP 185/93, POC 333. MD Mcdonald made aware of BP and pain no new orders at this time. Pt given 8 units of sliding scale per order. Pt reports she had a pimple that was lanced here at [facility] a few days ago dressing in place, stained with blood, wound care order entered, Pt refuses dressing change at this time d/t pain and nausea. All safety measures in place.
[2023-05-19 18:46] LABS: Glucose, Whole Blood 314 mg/dL (60-115)
[2023-05-19 19:22] VITALS: BP 168/74; PULSE 74; RESP 18; TEMP 36.2; O2SAT 99
[2023-05-19 20:24] LABS: Glucose, Whole Blood 251 mg/dL (60-115)
[2023-05-19] MEDS: Insulin Glargine,Hum.rec.anlog 100 UNIT/ML 10 ML VIAL 24 UNIT SUBCUT (20:48)
[2023-05-20 03:20] VITALS: BP 160/78; PULSE 86; RESP 18; TEMP 36.4; O2SAT 98
[2023-05-20 05:49] LABS: MANUAL DIFF FLAG NO
--- NOTE | 2023-05-20 05:53 | PC.NURSE ---
Patient requested to be disconnected from IVF in early hours of the day. She has been repeatedly in the shower as it relieves her pain and nausea. Patient has been ambulating in room and educated on importance of IVF for hydration. Serena is drinking apple juice this morning without issue as of yet. She asked for more after drinking (4) four ounce apple juice containers.
[2023-05-20 06:08] LABS: Basophils Absolute Auto 0.1 X10*3/uL (0.0-0.2); Basophils Percent Auto 0.3 % (0-2); Hematocrit 39.5 % (37.0-47.0); Imm Gran Abs Auto 0.07 X10*3/uL (0.00-0.03); Imm Gran Pct Auto 0.5 % (0.0-0.4); Lymphocytes Absolute Auto 1.5 X10*3/uL (1.2-4.9); Lymphocytes Percent Auto 10.7 % (20-40); Mean Corpuscular HGB Conc 32.9 g/dl (31.0-35.0); Mean Platelet Volume 11.4 fL (9.4-12.3); Monocytes Absolute Auto 0.9 X10*3/uL (0.1-1.2); Monocytes Percent Auto 6.2 % (2-11); Neutrophils Absolute Auto 11.9 x10*3/uL (2.0-8.3); Neutrophils Percent Auto 82.3 % (45-73); Platelet Count 251 X10*3/uL (160-400); Red Blood Count 4.34 X10*6/uL (4.20-5.50); Red Cell Distribution Width 11.8 % (11.0-16.0); White Blood Count 14.5 X10*3/uL (4.8-10.8)
[2023-05-20 06:09] LABS: Anion Gap 18 (12-20); Blood Urea Nitrogen 12 mg/dL (9-16); Calcium 10.4 mg/dL (8.4-10.2); Carbon Dioxide 27 mmol/L (22-29); Chloride 106 mmol/L (96-108); Creatinine Clr Calc Pharmacy 45.6; Estimated Glomerular Filt Rate 41; Glucose Random 77 mg/dL (60-115); Potassium 3.4 mmol/L (3.3-5.1); Sodium 148 mmol/L (135-145)
[2023-05-20] MEDS: Pantoprazole Sodium 40 MG/10 ML VIAL IVPUSH (06:42)
[2023-05-20 07:01] VITALS: BP 168/82; PULSE 93; RESP 18; TEMP 36.3; O2SAT 100
[2023-05-20 07:16] LABS: Glucose, Whole Blood 152 mg/dL (60-115)
[2023-05-20] MEDS: 0.9 % Sodium Chloride Flush 3 ML SYRINGE IVFLUSH ×2 (08:26→17:05)
[2023-05-20] MEDS: Insulin Lispro 100 UNIT/ML 3 ML VIAL SUBCUT ×2 (08:26→17:03)
[2023-05-20] MEDS: ondansetron HCL 4 MG/2 ML VIAL IVPUSH ×2 (09:54→17:44)
--- NOTE | 2023-05-20 10:22 | HO.PM.IMPN ---
Subjective Subjective Date of Service: 05/20/23 Interval History: This morning feeling better tolerated breakfast had no abdominal pain, but later developed lower abdominal discomfort recurrent nausea and vomiting, no fevers, no chills, no headache, no dizziness, no diarrhea. Denies left buttock discomfort or drainage. Review of Systems All other system reviewed and negative. Physical Exam Vital Signs: Vital Signs: Last Vital Signs Temp 97.4 F 05/20/23 07:01 Pulse 93 05/20/23 07:01 Resp 18 05/20/23 07:01 BP 168/82 H 05/20/23 07:01 Pulse Ox 100 05/20/23 07:01 O2 Del Method Room Air 05/20/23 07:01 BMI result Body Mass Index 22.0 Const: Other: General -awake alert x3, no acute distress, appears comfortable Neck no JVD Cardiovascular - regular rate and rhythm, S1-S2 Lungs - normal respiratory effort, clear to auscultation bilaterally, no wheezing Abdomen - soft, no epigastric tenderness, mild lower abdominal discomfort with palpation, bowel sounds audible, no guarding, no rigidity left buttock small open wound at site of previous I and D, no surrounding erythema, no tenderness, no drainage. Neuro - awake and alert, no focal deficits No lower extremity edema. Objective Data Active Medications Acetaminophen (Acetaminophen 325 Mg Tablet) 650 mg PO Q6H PRN PRN Reason: Pain, Mild (Pain Scale 1-3) Dextrose (Dextrose 50 % 25 Gm/50 Ml Syringe) 25 gm IVPUSH Q15M PRN; Protocol PRN Reason: per Hypoglycemia Standing Ord. Doxycycline Monohydrate (Doxycycline Monohydrate 100 Mg Capsule) 100 mg PO Q12H [facility] Enoxaparin Sodium (Enoxaparin Sodium 40 Mg/0.4 Ml Syringe) 40 mg SUBCUT Q24H [facility] Last Admin: 05/19/23 12:57 Dose: Not Given Documented By: JAIDEN Non-Admin Reason: Patient Refused Glucose (Glucose Gel 15 Gm Gel..Gram.) 15 gm PO Q15M PRN; Protocol PRN Reason: per Hypoglycemia Standing Ord. Lactated Ringer's (Lr) 1,000 mls @ 80 mls/hr IVCONT .[id number] [facility] Last Admin: 05/20/23 07:09 Dose: Not Given Documented By: EDI Non-Admin Reason: IV Running Insulin Glargine (Insulin Glargine,Hum.Rec.Anlog 100 Unit/Ml 10 Ml Vial) 24 unit SUBCUT BEDTIME [facility] Last Admin: 05/19/23 20:48 Dose: 24 unit Documented By: ANNEL Insulin Human Lispro (Insulin Lispro 100 Unit/Ml 3 Ml Vial) 0 unit SUBCUT QIDACHS [facility]; Protocol Last Admin: 05/20/23 08:26 Dose: 2 unit Documented By: ALANA Melatonin (Melatonin 3 Mg Tablet) 6 mg PO BEDTIME PRN PRN Reason: Insomnia Metoclopramide HCl (Metoclopramide Hcl 10 Mg/2 Ml Vial) 10 mg IVPUSH Q6H PRN PRN Reason: Nausea and Vomiting Last Admin: 05/19/23 19:40 Dose: 10 mg Documented By: ANNEL Morphine Sulfate (Morphine Sulfate 4 Mg/Ml Cartridge) 3 mg IVPUSH Q4H PRN; Protocol PRN Reason: Pain, Severe (Pain Scale 7-10) Ondansetron HCl (Ondansetron Hcl 4 Mg/2 Ml Vial) 4 mg IVPUSH Q8H PRN PRN Reason: Nausea and Vomiting Last Admin: 05/20/23 09:54 Dose: 4 mg Documented By: ALANA Oxycodone HCl (Oxycodone Hcl Immed Release 5 Mg Tablet) 5 mg PO Q4H PRN PRN Reason: pain (scale score 7-10) Last Admin: 05/19/23 21:53 Dose: 5 mg Documented By: ANNEL Pantoprazole Sodium (Pantoprazole Sodium 40 Mg/10 Ml Vial) 40 mg IVPUSH DAILY@0630 [facility] Last Admin: 05/20/23 06:42 Dose: 40 mg Documented By: EDI Sodium Chloride (0.9 % Sodium Chloride Flush 3 Ml Syringe) [facility] Last Admin: 05/20/23 08:26 Dose: 3 ml Documented By: ALANA Labs 05/20/23 05:39 05/20/23 05:39 Labs: Laboratory Results - last 24 hr 05/19/23 05/19/23 05/19/23 11:45 13:21 18:02 MCV 85.9 MCH 29.8 MCHC 34.7 RDW 11.5 Plt Count 226 D MPV 11.0 Immature Gran % (Auto) 0.4 Neut % (Auto) 71.2 Lymph % (Auto) 18.7 L [place] % (Auto) 6.7 Eos % (Auto) 2.6 Baso % (Auto) 0.4 Lymph # (Auto) 1.8 [place] # (Auto) 0.7 Eos # (Auto) 0.3 Baso # (Auto) 0.0 Abs Immat Gran (auto) 0.04 H Absolute Neuts (auto) 6.9 Absolute Nucleated RBC 0.000 Nucleated RBC % (auto) 0.0 Anion Gap 15 Estim Creat Clear Calc 40.5 Estimated GFR 36 POC Glucose 333 H Random Glucose 253 H Calcium 10.0 Magnesium 2.0 Total Bilirubin 0.3 AST 22 ALT 27 Alkaline Phosphatase 133 H Total Protein 8.0 Albumin 3.9 Lipase 23 Beta HCG, Quant < 2 05/19/23 05/19/23 05/20/23 18:42 20:15 05:39 MCV 91.0 D MCH 30.0 MCHC 32.9 RDW 11.8 Plt Count 251 MPV 11.4 Immature Gran % (Auto) 0.5 H Neut % (Auto) 82.3 H Lymph % (Auto) 10.7 L [place] % (Auto) 6.2 Eos % (Auto) 0.0 Baso % (Auto) 0.3 Lymph # (Auto) 1.5 [place] # (Auto) 0.9 Eos # (Auto) 0.0 Baso # (Auto) 0.1 Abs Immat Gran (auto) 0.07 H Absolute Neuts (auto) 11.9 H Absolute Nucleated RBC 0.000 Nucleated RBC % (auto) 0.0 Anion Gap 18 Estim Creat Clear Calc 45.6 Estimated GFR 41 POC Glucose 314 H 251 H Random Glucose 77 Calcium 10.4 H Magnesium Total Bilirubin AST ALT Alkaline Phosphatase Total Protein Albumin Lipase Beta HCG, Quant 05/20/23 07:06 MCV MCH MCHC RDW Plt Count MPV Immature Gran % (Auto) Neut % (Auto) Lymph % (Auto) [place] % (Auto) Eos % (Auto) Baso % (Auto) Lymph # (Auto) [place] # (Auto) Eos # (Auto) Baso # (Auto) Abs Immat Gran (auto) Absolute Neuts (auto) Absolute Nucleated RBC Nucleated RBC % (auto) Anion Gap Estim Creat Clear Calc Estimated GFR POC Glucose 152 H Random Glucose Calcium Magnesium Total Bilirubin AST ALT Alkaline Phosphatase Total Protein Albumin Lipase Beta HCG, Quant Assessment and Plan (1) ROSALINA (acute kidney injury): Status: Acute (2) Nausea & vomiting: Status: Acute (3) Marijuana abuse: Status: Acute (4) Diabetes mellitus type 1: Status: Acute Plan 32-year-old female with pertinent history of type 1 insulin-dependent diabetes mellitus, recent admission for left thigh abscess s/p I&D, marijuana use disorder who presents to the emergency department for evaluation of nausea and vomiting. #. Intractable nausea and vomiting, likely cannabis hyperemesis syndrome ddx uti/antibiotic related Continue IV fluids, antiemetics and analgesics. Continue clear liquid diet Discussed marijuana cessation Patient refusing Augmentin likely contributing to abdominal discomfort will DC Augmentin, #. Acute kidney injury, stage I: Creatinine trending down from 1.68-1.49, Likely prerenal due to GI loss, continue IV fluids, follow BMP, avoid nephrotoxins. # acute hypernatremia recommend by mouth fluids as tolerated, monitor BMP #. Left thigh abscess status post I&D: Continue dressing change as per surgery, DC by mouth Augmentin and placed on doxycycline end date May 23 , # acute leukocytosis likely reactive, no evidence of cellulitis around area of I and D, check UA #. Insulin-dependent diabetes mellitus with hyperglycemia: Stable blood sugars, continue insulin sliding scale and Lantus DVT prophylaxis: Lovenox Full code Patient require continued inpatient hospitalization for treatment of acute kidney injury requiring IV fluid, unable to tolerate by mouth therefore requiring inpatient treatment Quality Stroke Does the patient have a stroke diagnosis?: No VTE Prior VTE?: No VTE Risk Level:: Medical - moderate - high VTE Device Contraindication: Treatment Not Indicated VTE Drug Contraindication: N/A - Med Ordered
[2023-05-20] MEDS: Lactated Ringers 1,000 ML 125 ML IVCONT ×2 (10:49→15:35)
[2023-05-20 11:11] LABS: Glucose, Whole Blood 85 mg/dL (60-115)
[2023-05-20] MEDS: Enoxaparin Sodium 40 MG/0.4 ML SYRINGE SUBCUT (12:29)
--- NOTE | 2023-05-20 13:15 | PC.NURSE ---
Addendum entered by Alicia Cook RN 05/20/23 13:47: Pt refusing PO meds d/t nausea, PRN zofran given at 0954 with good effect. Original Note: MD Chen made aware pt refusing all PO medications including scheduled abx, MD switch to IV abx.
--- NOTE | 2023-05-20 13:19 | MHC.CM.PN ---
EMR REVIEWED, PT ADMITTED W/INTRACTABLE NV AND LEFT THIGH ABSCESS S/P I&D, CM MET W/PT WHO DECLINED NEED FOR COMPUTER GRAPHICS ILLUSTRATOR, PT REPORTS SHE LIVES W/HER MOTHER, DENIES USE OF DME/SERVICES AND REPORTS SHE DOES NOT HAVE A HCP, PT EDUCATED ON AND DECLINES TO COMPLETE, PT'S GOAL FOR DC IS HOME NO SERVICES HOWEVER CM UNSURE IF SHE WILL NEED WOUND CARE. PT VERIFIES PCP IS AT [facility] HOWEVER DOES NOT KNOW THE NAME, PT COVID EVA HOWEVER UNSURE IF SHE IS UP TO DATE ON VACCINE.
[2023-05-20] MEDS: Doxycycline Hyclate 100 MG in 0.9 % Sodium Chloride 250 ML 166.67 MG IV (13:21)
[2023-05-20 15:21] VITALS: BP 127/90; PULSE 91; RESP 16; TEMP 37; O2SAT 98
--- NOTE | 2023-05-20 15:48 | HO.SKINPHOTO ---
Location: left buttock Category: s/p I&D 05/17/23 Site cleansed with NaCl, pat dried, gauze dressing applied, MD Chen aware, wound care consult ordered.
[2023-05-20 16:32] LABS: Glucose, Whole Blood 151 mg/dL (60-115)
--- NOTE | 2023-05-20 17:50 | PC.NURSE ---
Pt has been tolerating clear sips of apple juice through out the afternoon without nausea. At 1751 pt attempted to have clear liquid dinner tray, patient began to vomit and endorse abd pain. Pt refused pain medication at this time as she wants to go into the shower. Pt accepted PRN zofan. Blood sugars stable throughout shift. MD Chen aware.
[2023-05-20 18:02] LABS: Appearance Urine Clear; Color Urine Yellow; Glucose Urine UA Negative (Negative); Leukocyte Esterase Urine Trace (Negative); Nitrite Urine Negative (Negative); PH 5.5 (5.0-9.0); Specific Gravity - Urine 1.015 (1.005-1.025); UMIC TRIGGER UACC YES; Urine Blood Negative (Negative); Urine Ketones Trace mg/dL (Negative); Urine Protein Trace mg/dL (Neg-Trace)
[2023-05-20 18:08] LABS: Bacteria Urine None Seen (None Seen); Hyaline Casts Urine 0-2 /LPF (0-2); RBC Urine 0-2 /HPF (0-2); UACC Culture Trigger YES
[2023-05-20 22:04] LABS: Glucose, Whole Blood 101 mg/dL (60-115)
[2023-05-20] MEDS: Metoclopramide HCl 10 MG/2 ML VIAL IVPUSH (22:08)
[2023-05-20] MEDS: Morphine Sulfate 4 MG/ML CARTRIDGE 3 MG IVPUSH (22:08)
[2023-05-21] MEDS: 0.9 % Sodium Chloride Flush 3 ML SYRINGE IVFLUSH ×2 (01:05→22:30)
--- NOTE | 2023-05-21 02:34 | PC.NURSE ---
05/20/232199 poc-101 lantus insulin held not taking po unable to tolerate.
[2023-05-21] MEDS: Doxycycline Hyclate 100 MG in 0.9 % Sodium Chloride 250 ML 166.67 MG IV (04:20)
[2023-05-21] MEDS: ondansetron HCL 4 MG/2 ML VIAL IVPUSH (04:27)
--- NOTE | 2023-05-21 04:39 | PC.NURSE ---
0100 IV doxycycline hung at 0420 because pt was in the shower most of the shift states it makes her feel better.
[2023-05-21] MEDS: Morphine Sulfate 4 MG/ML CARTRIDGE 3 MG IVPUSH ×4 (04:53→23:14)
[2023-05-21] MEDS: Pantoprazole Sodium 40 MG/10 ML VIAL IVPUSH (04:54)
[2023-05-21 07:47] VITALS: BP 142/74; PULSE 92; RESP 16; TEMP 36.1; O2SAT 96
[2023-05-21 07:50] LABS: Glucose, Whole Blood 159 mg/dL (60-115)
[2023-05-21] MEDS: Lactated Ringers 1,000 ML 125 ML IVCONT (08:10)
[2023-05-21] MEDS: Metoclopramide HCl 10 MG/2 ML VIAL IVPUSH (09:40)
[2023-05-21] MEDS: Capsaicin 0.025% Cream 60 GM TUBE 1 APPL TOPICAL (10:32)
--- NOTE | 2023-05-21 10:59 | MHC.CM.PN ---
emr reviewed, per multidisciplinary rounds pt not yest ready for dc, pt remains on iv abx and iv fluids, cm will cont to follow dc needs.
[2023-05-21 11:05] LABS: Glucose, Whole Blood 158 mg/dL (60-115)
[2023-05-21] MEDS: Haloperidol Lactate 5 MG/ML VIAL IM (11:05)
[2023-05-21] MEDS: Enoxaparin Sodium 40 MG/0.4 ML SYRINGE SUBCUT (11:06)
--- NOTE | 2023-05-21 12:03 | HO.PM.IMPN ---
Subjective Subjective Date of Service: 05/21/23 Interval History: Continues to have nausea and vomiting; taken protracted hot showers Review of Systems Denies chest pain Denies shortness of breath Admits nausea vomiting; denies diarrhea Denies fever chills Physical Exam Vital Signs: Vital Signs: Last Vital Signs Temp 97 F 05/21/23 07:47 Pulse 92 05/21/23 07:47 Resp 16 05/21/23 07:47 BP 142/74 H 05/21/23 07:47 Pulse Ox 96 05/21/23 07:47 O2 Del Method Room Air 05/21/23 07:47 BMI result Body Mass Index 22.0 Objective Data Active Medications Acetaminophen (Acetaminophen 325 Mg Tablet) 650 mg PO Q6H PRN PRN Reason: Pain, Mild (Pain Scale 1-3) Capsaicin (Capsaicin 0.025% Cream 60 Gm Tube) 1 appl TOPICAL QID PRN; Protocol PRN Reason: Nausea and Vomiting Last Admin: 05/21/23 10:32 Dose: 1 appl Documented By: MICHELET Dextrose (Dextrose 50 % 25 Gm/50 Ml Syringe) 25 gm IVPUSH Q15M PRN; Protocol PRN Reason: per Hypoglycemia Standing Ord. Enoxaparin Sodium (Enoxaparin Sodium 40 Mg/0.4 Ml Syringe) 40 mg SUBCUT Q24H [facility] Last Admin: 05/21/23 11:06 Dose: 40 mg Documented By: MICHELET Glucose (Glucose Gel 15 Gm Gel..Gram.) 15 gm PO Q15M PRN; Protocol PRN Reason: per Hypoglycemia Standing Ord. Haloperidol Lactate (Haloperidol Lactate 5 Mg/Ml Vial) 0.25 mg IM Q4H PRN PRN Reason: nausea Last Admin: 05/21/23 11:05 Dose: 0.25 mg Documented By: MICHELET Lactated Ringer's (Lr) 1,000 mls @ 125 mls/hr IVCONT .Q8H [facility] Last Infusion: 05/21/23 09:12 Dose: 0 mls/hr Documented By: MICHELET Doxycycline Hyclate 100 mg/ (Sodium Chloride) 250 mls @ 166.67 mls/hr IV Q12H [facility] Last Infusion: 05/21/23 06:31 Dose: Infused Documented By: FAISAL Insulin Glargine (Insulin Glargine,Hum.Rec.Anlog 100 Unit/Ml 10 Ml Vial) 24 unit SUBCUT BEDTIME [facility] Last Admin: 05/20/23 22:13 Dose: Not Given Documented By: FAISAL Non-Admin Reason: poc-101 not eating Insulin Human Lispro (Insulin Lispro 100 Unit/Ml 3 Ml Vial) 0 unit SUBCUT QIDACHS [facility]; Protocol Last Admin: 05/21/23 11:08 Dose: Not Given Documented By: MICHELET Non-Admin Reason: pt refusing PO intake Melatonin (Melatonin 3 Mg Tablet) 6 mg PO BEDTIME PRN PRN Reason: Insomnia Metoclopramide HCl (Metoclopramide Hcl 10 Mg/2 Ml Vial) 10 mg IVPUSH Q6H PRN PRN Reason: Nausea and Vomiting Last Admin: 05/21/23 09:40 Dose: 10 mg Documented By: MICHELET Morphine Sulfate (Morphine Sulfate 4 Mg/Ml Cartridge) 3 mg IVPUSH Q4H PRN; Protocol PRN Reason: Pain, Severe (Pain Scale 7-10) Last Admin: 05/21/23 11:27 Dose: 3 mg Documented By: MICHELET Ondansetron HCl (Ondansetron Hcl 4 Mg/2 Ml Vial) 4 mg IVPUSH Q8H PRN PRN Reason: Nausea and Vomiting Last Admin: 05/21/23 04:27 Dose: 4 mg Documented By: ERIC Oxycodone HCl (Oxycodone Hcl Immed Release 5 Mg Tablet) 5 mg PO Q4H PRN PRN Reason: pain (scale score 7-10) Last Admin: 05/19/23 21:53 Dose: 5 mg Documented By: ANNEL Pantoprazole Sodium (Pantoprazole Sodium 40 Mg/10 Ml Vial) 40 mg IVPUSH DAILY@0630 [facility] Last Admin: 05/21/23 04:54 Dose: 40 mg Documented By: FAISAL Sodium Chloride (0.9 % Sodium Chloride Flush 3 Ml Syringe) 3 ml IVFLUSH [facility] Last Admin: 05/21/23 06:59 Dose: Not Given Documented By: MICHELET Non-Admin Reason: IV Running Labs 05/20/23 05:39 05/20/23 05:39 Labs: Laboratory Results - last 24 hr 05/20/23 05/20/23 05/20/23 16:15 17:46 22:01 POC Glucose 151 H 101 Urine Color Yellow Urine Appearance Clear Urine pH 5.5 Ur Specific [place] 1.015 Urine Protein Trace Urine Glucose (UA) Negative Urine Ketones Trace Urine Blood Negative Urine Nitrite Negative Ur Leukocyte Esterase Trace H Urine RBC 0-2 Urine WBC 6-10 H Ur Squamous Epith Cells 3-5 Urine Bacteria None Seen Hyaline Casts 0-2 05/21/23 05/21/23 07:46 11:01 POC Glucose 159 H 158 H Urine Color Urine Appearance Urine pH Ur Specific [place] Urine Protein Urine Glucose (UA) Urine Ketones Urine Blood Urine Nitrite Ur Leukocyte Esterase Urine RBC Urine WBC Ur Squamous Epith Cells Urine Bacteria Hyaline Casts Assessment and Plan (1) Cannabis hyperemesis syndrome concurrent with and due to cannabis abuse: Status: Acute (2) ROSALINA (acute kidney injury): Status: Acute Plan 32-year-old female with pertinent history of type 1 insulin-dependent diabetes mellitus, recent admission for left thigh abscess s/p I&D, marijuana use disorder who presents to the emergency department for evaluation of nausea and vomiting. Similar admissions in past for same 1.Cannabis hyperemesis syndrome -continue IV fluids -continue clear liquid diet.. Advance as tolerated -Haldol IM. .. Capsaicin topically, 2.Acute kidney injury -improving with volume -follow renaLs/divalents 3.Acute hypernatremia -normalizing -follow renals/divalents 4.Insulin-dependent diabetes mellitus -acceptable control on current therapies -lispro correctional scale -adjust as indicated Lovenox Full code Patient require continued inpatient hospitalization for treatment of acute kidney injury requiring IV fluid, unable to tolerate by mouth therefore requiring inpatient treatment Quality Stroke Does the patient have a stroke diagnosis?: No VTE Prior VTE?: No VTE Risk Level:: Medical - moderate - high VTE Device Contraindication: Treatment Not Indicated VTE Drug Contraindication: N/A - Med Ordered
--- NOTE | 2023-05-21 13:48 | HO.WOUND ---
Wound Consult: Initial 32yr old?F admitted to [facility] on 05/19/23 - See progress notes and H&P for detailed history.? Wound consult placed for Left Buttock I&D site from previous admission.? Patient agreeable to assessment and photo documentation however she refused dressing at this time as she was going to shower. She reports she will be agreeable to dressing application after shower - direct care nurse reports understanding and will address after patients shower. Left Buttock Etiology: ??I&D site pervious admission Measurements: see charting for detailed measurement Wound Bed: moist red tissue with adherent yellow king slough Drainage / Odor: None noted Edges: ? irregular - pt refused assessment of undermining but suspect undermining exists Theodora wound: Intact hyperpigmented tissue - resolving epidermal peeling noted - ? No Induration, Fluctuance or Warmth noted Pain: Patient reports tenderness Goals of Treatment: ? Durafiber AG for moisture management Recommendations: 1. Turn and Reposition every 2 hours and as needed for patient comfort.? Use pillows or wedges to support off loading positions. 2. Off Load all bony prominences with use of pillows and heel boots if needed.? Apply Preventative foams where needed. ? 3. Monitor for incontinence and moisture control, use barrier creams when needed for prevention and treatment. 4. Provide adequate and supplemental nutrition.? 5. Order or Continue low air loss mattress. 6. When applicable maintain blood glucose levels per Providers order. 7. Left Buttock - Cleanse and irrigate with NS, Pat dry.? Apply barrier to periwound, lightly pack with Durafiber AG, be sure to leave a wick to easy removal.? Cover with Foam dressing.? Change every other day. Re-consult wound care Nurse for wound deterioration or wound changes.
[2023-05-21 15:27] VITALS: BP 175/102; PULSE 94; RESP 20; TEMP 36.5; O2SAT 97
[2023-05-21 17:45] LABS: Glucose, Whole Blood 190 mg/dL (60-115)
[2023-05-21 19:08] VITALS: BP 185/104; PULSE 88; RESP 20; TEMP 36.8; O2SAT 98
[2023-05-21 20:20] LABS: Glucose, Whole Blood 202 mg/dL (60-115)
[2023-05-21] MEDS: Insulin Glargine,Hum.rec.anlog 100 UNIT/ML 10 ML VIAL 24 UNIT SUBCUT (22:26)
[2023-05-21] MEDS: Insulin Lispro 100 UNIT/ML 3 ML VIAL SUBCUT (22:28)
[2023-05-21 22:30] VITALS: BP 180/115
[2023-05-21] MEDS: hydrALAZINE HCl 20 MG/ML VIAL 10 MG IVPUSH (23:09)
[2023-05-21 23:15] LABS: Glucose, Whole Blood 161 mg/dL (60-115)
[2023-05-21 23:36] VITALS: BP 160/80
--- NOTE | 2023-05-22 03:44 | PC.NURSE ---
Pt had high BP 180/105 and previous one 185/104. MD Diaz made aware of the pt's high BP. One time dose of hydralazine IVpush was given to pt with good effect. Pt's rechecked BP after the medication 160/80. MD Diaz notified of the new BP after medication was given per APR. Will continue to monitor pt's BP.
--- NOTE | 2023-05-22 06:25 | PC.NURSE ---
Pt refused SHEILA IV Doxyxyxline and IV Protonix, per pt stated the medications makes her feel sick . Throughout shift pt took multiple long showers. Approximately around 05:30, pt was crying in the shower stating no one is helping her, that she wants to be drained out, and wants to eat and drink but unable to hold anything down. This RN tried educating the pt the importance of taking her medications to help with her symptoms and to talk to her morning MD. Will continue to monitor the pt's behaviors.
[2023-05-22 08:00] VITALS: BP 150/90; PULSE 92; RESP 18; TEMP 36.6; O2SAT 96
[2023-05-22] MEDS: 0.9 % Sodium Chloride Flush 3 ML SYRINGE IVFLUSH (08:46)
[2023-05-22] MEDS: Dextrose 5 % and Lactated Ring 1,000 ML 100 ML IVCONT (09:41)
[2023-05-22] MEDS: Morphine Sulfate 4 MG/ML CARTRIDGE 3 MG IVPUSH ×3 (09:48→20:28)
[2023-05-22] MEDS: Haloperidol Lactate 5 MG/ML VIAL IM (09:48)
[2023-05-22 11:41] LABS: Glucose, Whole Blood 140 mg/dL (60-115)
[2023-05-22] MEDS: Prochlorperazine Edisylate 10 MG/2 ML VIAL IVPUSH (12:20)
[2023-05-22] MEDS: LORazepam 2 MG/ML VIAL 0.5 MG IVPUSH (12:20)
[2023-05-22] MEDS: Enoxaparin Sodium 40 MG/0.4 ML SYRINGE SUBCUT (12:21)
[2023-05-22 13:01] LABS: MANUAL DIFF FLAG NO
[2023-05-22 13:04] LABS: Basophils Percent Auto 0.3 % (0-2); Eosinophils Percent Auto 0.2 % (0-4); Hematocrit 40.9 % (37.0-47.0); Imm Gran Abs Auto 0.07 X10*3/uL (0.00-0.03); Imm Gran Pct Auto 0.6 % (0.0-0.4); Lymphocytes Absolute Auto 1.2 X10*3/uL (1.2-4.9); Lymphocytes Percent Auto 10.9 % (20-40); Mean Corpuscular HGB Conc 34.2 g/dl (31.0-35.0); Mean Corpuscular Hemoglobin 29.9 pg (27.0-33.0); Mean Corpuscular Volume 87.2 fL (80.0-98.0); Mean Platelet Volume 10.9 fL (9.4-12.3); Monocytes Absolute Auto 0.7 X10*3/uL (0.1-1.2); Neutrophils Absolute Auto 9.1 x10*3/uL (2.0-8.3); Platelet Count 285 X10*3/uL (160-400); Red Blood Count 4.69 X10*6/uL (4.20-5.50); Red Cell Distribution Width 11.7 % (11.0-16.0); White Blood Count 11.1 X10*3/uL (4.8-10.8)
[2023-05-22 13:18] LABS: Alanine Aminotransferase 22 U/L (0-31); Albumin Level 4.1 g/dL (3.5-5.0); Alkaline Phosphatase 110 U/L (39-117); Anion Gap 16 (12-20); Aspartate Amino Transferase 17 U/L (5-31); Bilirubin Total 0.6 mg/dL (0.0-1.0); Blood Urea Nitrogen 21 mg/dL (9-16); Calcium 9.6 mg/dL (8.4-10.2); Carbon Dioxide 28 mmol/L (22-29); Chloride 106 mmol/L (96-108); Creatinine Clr Calc Pharmacy 61.3; Estimated Glomerular Filt Rate 58; Glucose Fasting 157 mg/dL (60-99); Potassium 3.3 mmol/L (3.3-5.1); Sodium 147 mmol/L (135-145); Total Protein 7.9 g/dL (6.5-8.0)
--- NOTE | 2023-05-22 15:21 | HO.PM.IMPN ---
Subjective Subjective Date of Service: 05/22/23 Interval History: Continues to complain of nausea and abdominal pain; taking 2-3 hours showers for same. Utilizes capsaicin only occasionally; Haldol effective when accepted Review of Systems Denies chest pain Admits to nausea vomiting denies diarrhea Denies shortness of breath Denies fever chills Physical Exam Vital Signs: Vital Signs: Last Vital Signs Temp 97.8 F 05/22/23 08:00 Pulse 92 05/22/23 08:00 Resp 18 05/22/23 08:00 BP 150/90 H 05/22/23 08:00 Pulse Ox 96 05/22/23 08:00 O2 Del Method Room Air 05/22/23 08:00 BMI result Body Mass Index 22.0 Objective Data Active Medications Acetaminophen (Acetaminophen 325 Mg Tablet) 650 mg PO Q6H PRN PRN Reason: Pain, Mild (Pain Scale 1-3) Capsaicin (Capsaicin 0.025% Cream 60 Gm Tube) 1 appl TOPICAL QID PRN; Protocol PRN Reason: Nausea and Vomiting Last Admin: 05/21/23 10:32 Dose: 1 appl Documented By: MICHELET Dextrose (Dextrose 50 % 25 Gm/50 Ml Syringe) 25 gm IVPUSH Q15M PRN; Protocol PRN Reason: per Hypoglycemia Standing Ord. Enoxaparin Sodium (Enoxaparin Sodium 40 Mg/0.4 Ml Syringe) 40 mg SUBCUT Q24H [facility] Last Admin: 05/22/23 12:21 Dose: 40 mg Documented By: MICHELET Glucose (Glucose Gel 15 Gm Gel..Gram.) 15 gm PO Q15M PRN; Protocol PRN Reason: per Hypoglycemia Standing Ord. Haloperidol Lactate (Haloperidol Lactate 5 Mg/Ml Vial) 0.25 mg IM Q4H PRN PRN Reason: nausea Last Admin: 05/22/23 09:48 Dose: 0.25 mg Documented By: MICHELET Doxycycline Hyclate 100 mg/ (Sodium Chloride) 250 mls @ 166.67 mls/hr IV Q12H [facility] Last Admin: 05/22/23 13:12 Dose: Not Given Documented By: MICHELET Non-Admin Reason: Patient Refused Dextrose/Lactated Ringer's (D5lr) 1,000 mls @ 100 mls/hr IVCONT .Q10H [facility] Last Admin: 05/22/23 09:41 Dose: 100 mls/hr Documented By: MICHELET Insulin Glargine (Insulin Glargine,Hum.Rec.Anlog 100 Unit/Ml 10 Ml Vial) 24 unit SUBCUT BEDTIME [facility] Last Admin: 05/21/23 22:26 Dose: 12 unit Documented By: AGUEDA Comments: per MD Diaz to give the pt half the Lantus. Pt nauseous and poor fluid intake, on clear liquid diet Insulin Human Lispro (Insulin Lispro 100 Unit/Ml 3 Ml Vial) 0 unit SUBCUT QIDACHS [facility]; Protocol Last Admin: 05/22/23 10:12 Dose: Not Given Documented By: MICHELET Non-Admin Reason: No Insulin Coverage Lorazepam (Lorazepam 0.5 Mg Tablet) 0.5 mg PO Q4H PRN PRN Reason: Anxiety Melatonin (Melatonin 3 Mg Tablet) 6 mg PO BEDTIME PRN PRN Reason: Insomnia Metoclopramide HCl (Metoclopramide Hcl 10 Mg/2 Ml Vial) 10 mg IVPUSH Q6H PRN PRN Reason: Nausea and Vomiting Last Admin: 05/21/23 09:40 Dose: 10 mg Documented By: MICHELET Morphine Sulfate (Morphine Sulfate 4 Mg/Ml Cartridge) 3 mg IVPUSH Q4H PRN; Protocol PRN Reason: Pain, Severe (Pain Scale 7-10) Last Admin: 05/22/23 09:48 Dose: 3 mg Documented By: MICHELET Ondansetron HCl (Ondansetron Hcl 4 Mg/2 Ml Vial) 4 mg IVPUSH Q8H PRN PRN Reason: Nausea and Vomiting Last Admin: 05/21/23 04:27 Dose: 4 mg Documented By: ERIC Pantoprazole Sodium (Pantoprazole Sodium 40 Mg/10 Ml Vial) 40 mg IVPUSH DAILY@0630 [facility] Last Admin: 05/22/23 05:54 Dose: Not Given Documented By: AGUEDA Non-Admin Reason: pt refused Sodium Chloride (0.9 % Sodium Chloride Flush 3 Ml Syringe) 3 ml IVFLUSH QSHIFT [facility] Last Admin: 05/22/23 08:46 Dose: 3 ml Documented By: MICHELET Labs 05/22/23 12:42 05/22/23 12:42 Labs: Laboratory Results - last 24 hr 05/21/23 05/21/23 05/21/23 17:41 20:04 23:11 MCV MCH MCHC RDW Plt Count MPV Immature Gran % (Auto) Neut % (Auto) Lymph % (Auto) [place] % (Auto) Eos % (Auto) Baso % (Auto) Lymph # (Auto) [place] # (Auto) Eos # (Auto) Baso # (Auto) Abs Immat Gran (auto) Absolute Neuts (auto) Absolute Nucleated RBC Nucleated RBC % (auto) Hold Purple Top Anion Gap Estim Creat Clear Calc Estimated GFR POC Glucose 190 H 202 H 161 H Fasting Glucose Calcium Total Bilirubin AST ALT Alkaline Phosphatase Total Protein Albumin Hold Yellow Top 05/22/23 05/22/23 09:53 12:42 MCV 87.2 MCH 29.9 MCHC 34.2 RDW 11.7 Plt Count 285 MPV 10.9 Immature Gran % (Auto) 0.6 H Neut % (Auto) 82.0 H Lymph % (Auto) 10.9 L [place] % (Auto) 6.0 Eos % (Auto) 0.2 Baso % (Auto) 0.3 Lymph # (Auto) 1.2 [place] # (Auto) 0.7 Eos # (Auto) 0.0 Baso # (Auto) 0.0 Abs Immat Gran (auto) 0.07 H Absolute Neuts (auto) 9.1 H Absolute Nucleated RBC 0.000 Nucleated RBC % (auto) 0.0 Hold Purple Top SEE NOTE Anion Gap 16 Estim Creat Clear Calc 61.3 Estimated GFR 58 POC Glucose 140 H Fasting Glucose 157 H Calcium 9.6 D Total Bilirubin 0.6 AST 17 ALT 22 Alkaline Phosphatase 110 Total Protein 7.9 Albumin 4.1 Hold Yellow Top See Note Microbiology Microbiology Results: Microbiology 05/20/23 17:46 Urine Culture - Final Urine clean catch - Urine raygoza top No growth. Assessment and Plan (1) Cannabis hyperemesis syndrome concurrent with and due to cannabis abuse: Status: Acute (2) ROSALINA (acute kidney injury): Status: Acute (3) Diabetes mellitus type 1: Status: Acute Plan 32-year-old female with pertinent history of type 1 insulin-dependent diabetes mellitus, recent admission for left thigh abscess s/p I&D, marijuana use disorder who presents to the emergency department for evaluation of nausea and vomiting. Similar admissions in past for same; multiple modalities have been unsuccessful. Does have response to capsaicin and IM Haldol. Anxiety appears to be playing a large role and everything 1.Cannabis hyperemesis syndrome -continue IV fluids -advance diet to full liquids -Haldol IM/Capsaicin topically; encouraged compliance with same. Did respond to Ativan and Compazine combination -follow clinical response to advance diet; no gastric emptying study on file 2.Acute kidney injury -improving with volume -follow renaLs/divalents 3.Acute hypernatremia -normalizing -follow renals/divalents 4.Insulin-dependent diabetes mellitus -acceptable control on current therapies -lispro correctional scale -adjust as indicated Lovenox Full code Patient require continued inpatient hospitalization for treatment of acute kidney injury requiring IV fluid, unable to tolerate by mouth therefore requiring inpatient treatment Quality Stroke Does the patient have a stroke diagnosis?: No VTE Prior VTE?: No VTE Risk Level:: Medical - moderate - high VTE Device Contraindication: Treatment Not Indicated VTE Drug Contraindication: N/A - Med Ordered
[2023-05-22 16:00] VITALS: BP 160/92; PULSE 82; RESP 17; TEMP 36.8; O2SAT 98
[2023-05-22 16:14] LABS: Glucose, Whole Blood 132 mg/dL (60-115)
[2023-05-22] MEDS: Sucralfate Oral Suspension 1 GM/10 ML ORAL.SUSP PO ×2 (16:43→20:25)
[2023-05-22] MEDS: Pantoprazole Sodium 40 MG/10 ML VIAL IVPUSH (16:43)
[2023-05-22 19:22] VITALS: BP 130/67; PULSE 91; RESP 17; TEMP 35.8; O2SAT 100
[2023-05-22 20:15] LABS: Glucose, Whole Blood 148 mg/dL (60-115)
[2023-05-22] MEDS: Insulin Glargine,Hum.rec.anlog 100 UNIT/ML 10 ML VIAL 24 UNIT SUBCUT (20:25)
[2023-05-23] MEDS: Dextrose 5 % and Lactated Ring 1,000 ML 100 ML IVCONT ×2 (03:21→19:35)
[2023-05-23] MEDS: Morphine Sulfate 4 MG/ML CARTRIDGE 3 MG IVPUSH ×3 (03:28→19:24)
[2023-05-23 03:47] VITALS: BP 146/96; PULSE 82; RESP 17; TEMP 36.2; O2SAT 99
[2023-05-23] MEDS: Pantoprazole Sodium 40 MG/10 ML VIAL IVPUSH ×2 (06:39→16:51)
[2023-05-23 06:48] LABS: MANUAL DIFF FLAG NO
[2023-05-23 07:01] VITALS: BP 118/74; PULSE 70; RESP 16; TEMP 36.9; O2SAT 98
[2023-05-23 07:04] LABS: Basophils Percent Auto 0.4 % (0-2); Eosinophils Absolute Auto 0.2 X10*3/uL (0.0-0.4); Eosinophils Percent Auto 2.7 % (0-4); Hematocrit 33.9 % (37.0-47.0); Hemoglobin 11.7 g/dl (12.0-16.0); Imm Gran Abs Auto 0.04 X10*3/uL (0.00-0.03); Imm Gran Pct Auto 0.4 % (0.0-0.4); Lymphocytes Absolute Auto 1.8 X10*3/uL (1.2-4.9); Lymphocytes Percent Auto 20.2 % (20-40); Mean Corpuscular HGB Conc 34.5 g/dl (31.0-35.0); Mean Corpuscular Hemoglobin 29.6 pg (27.0-33.0); Mean Corpuscular Volume 85.8 fL (80.0-98.0); Mean Platelet Volume 11.8 fL (9.4-12.3); Monocytes Absolute Auto 0.8 X10*3/uL (0.1-1.2); Monocytes Percent Auto 8.4 % (2-11); Neutrophils Absolute Auto 6.1 x10*3/uL (2.0-8.3); Neutrophils Percent Auto 67.9 % (45-73); Platelet Count 230 X10*3/uL (160-400); Red Blood Count 3.95 X10*6/uL (4.20-5.50); Red Cell Distribution Width 11.2 % (11.0-16.0); White Blood Count 8.9 X10*3/uL (4.8-10.8)
[2023-05-23] MEDS: 0.9 % Sodium Chloride Flush 3 ML SYRINGE IVFLUSH (07:18)
[2023-05-23 07:28] LABS: Glucose, Whole Blood 163 mg/dL (60-115)
[2023-05-23 07:32] LABS: Alanine Aminotransferase 14 U/L (0-31); Albumin Level 3.2 g/dL (3.5-5.0); Alkaline Phosphatase 81 U/L (39-117); Aspartate Amino Transferase 11 U/L (5-31); Bilirubin Total 0.7 mg/dL (0.0-1.0); Blood Urea Nitrogen 16 mg/dL (9-16); Calcium 8.7 mg/dL (8.4-10.2); Estimated Glomerular Filt Rate > 60; Glucose Fasting 180 mg/dL (60-99)
[2023-05-23] MEDS: Sucralfate Oral Suspension 1 GM/10 ML ORAL.SUSP PO ×4 (07:43→19:25)
[2023-05-23 07:49] LABS: Anion Gap 11 (12-20); Carbon Dioxide 29 mmol/L (22-29); Chloride 103 mmol/L (96-108); Sodium 140 mmol/L (135-145)
[2023-05-23 08:24] LABS: Estimated Average Glucose 194 mg/dL; Hemoglobin A1c % 8.4 % (<6.0)
[2023-05-23 09:20] LABS: Magnesium 1.9 mg/dL (1.6-2.6)
--- NOTE | 2023-05-23 10:17 | MHC.CM.PN ---
PER MD ROUNDS PATIENT IS NOT MEDICALLY CLEARED FOR DC. ONGOING N/V, AWAITING GI INPUT AND ? GASTRIC EMPTYING STUDY. CM WILL CONTINUE TO FOLLOW FOR DC NEEDS.
--- NOTE | 2023-05-23 12:51 | HO.WOUND ---
Wound Consult: Attempted Follow up 32yr old?F admitted to [facility] on 05/19/23 - See progress notes and H&P for detailed history.? Wound consult follow up for Left Buttock I&D site from previous admission.? Arrival to unit patient was off unit in [facility] per direct care team and will not return for sometime. Direct care nurse reports patient is still refusing dressing as she still requesting frequent long showers. encouraged staff to advise patient to allow for topical dressing to be applied. will attempt re- assessment at future date and or time. No new topical recommendations at this time. Recommendations: Left Buttock - Cleanse and irrigate with NS, Pat dry.? Apply barrier to periwound, lightly pack with Durafiber AG, be sure to leave a wick to easy removal.? Cover with Foam dressing.? Change every other day. Re-consult wound care Nurse for wound deterioration or wound changes.
--- NOTE | 2023-05-23 12:58 | HO.PM.IMPN ---
Subjective Subjective Date of Service: 05/23/23 Interval History: c/o N/V tolerating liquids Review of Systems Review of Systems: Yes all other systems are reviewed and are negative Physical Exam Vital Signs: Vital Signs: Last Vital Signs Temp 98.5 F 05/23/23 07:01 Pulse 70 05/23/23 07:01 Resp 16 05/23/23 07:01 BP 118/74 05/23/23 07:01 Pulse Ox 98 05/23/23 07:01 O2 Del Method Room Air 05/23/23 07:01 BMI result Body Mass Index 22.0 Gen: in no acute distress HEENT: sclera anicteric, moist mucus membranes Neck: supple Lungs: clear to auscultation bilaterally Heart: regular rate and rhythm, no murmurs Abd: soft, non-tender, non-distended Ext: no edema Skin: warm/well-perfused Neuro: alert and oriented x3, no focal findings Psych: appropriate affect Objective Data Active Medications Acetaminophen (Acetaminophen 325 Mg Tablet) 650 mg PO Q6H PRN PRN Reason: Pain, Mild (Pain Scale 1-3) Capsaicin (Capsaicin 0.025% Cream 60 Gm Tube) 1 appl TOPICAL QID PRN; Protocol PRN Reason: Nausea and Vomiting Last Admin: 05/21/23 10:32 Dose: 1 appl Documented By: MICHELET Dextrose (Dextrose 50 % 25 Gm/50 Ml Syringe) 25 gm IVPUSH Q15M PRN; Protocol PRN Reason: per Hypoglycemia Standing Ord. Enoxaparin Sodium (Enoxaparin Sodium 40 Mg/0.4 Ml Syringe) 40 mg SUBCUT Q24H [facility] Last Admin: 05/22/23 12:21 Dose: 40 mg Documented By: MICHELET Glucose (Glucose Gel 15 Gm Gel..Gram.) 15 gm PO Q15M PRN; Protocol PRN Reason: per Hypoglycemia Standing Ord. Haloperidol Lactate (Haloperidol Lactate 5 Mg/Ml Vial) 0.25 mg IM Q4H PRN PRN Reason: nausea Last Admin: 05/22/23 09:48 Dose: 0.25 mg Documented By: MICHELET Doxycycline Hyclate 100 mg/ (Sodium Chloride) 250 mls @ 166.67 mls/hr IV Q12H [facility] Last Admin: 05/23/23 00:41 Dose: Not Given Documented By: AGUEDA Non-Admin Reason: Patient Refused Dextrose/Lactated Ringer's (D5lr) 1,000 mls @ 100 mls/hr IVCONT .Q10H [facility] Last Infusion: 05/23/23 07:17 Dose: 0 mls/hr Documented By: AISHA Insulin Glargine (Insulin Glargine,Hum.Rec.Anlog 100 Unit/Ml 10 Ml Vial) 24 unit SUBCUT BEDTIME [facility] Last Admin: 05/22/23 20:25 Dose: 24 unit Documented By: AGUEDA Insulin Human Lispro (Insulin Lispro 100 Unit/Ml 3 Ml Vial) 0 unit SUBCUT QIDACHS [facility]; Protocol Last Admin: 05/23/23 08:21 Dose: Not Given Documented By: AISHA Non-Admin Reason: NPO Lorazepam (Lorazepam 0.5 Mg Tablet) 0.5 mg PO Q4H PRN PRN Reason: Anxiety Melatonin (Melatonin 3 Mg Tablet) 6 mg PO BEDTIME PRN PRN Reason: Insomnia Metoclopramide HCl (Metoclopramide Hcl 10 Mg/2 Ml Vial) 10 mg IVPUSH Q6H PRN PRN Reason: Nausea and Vomiting Last Admin: 05/21/23 09:40 Dose: 10 mg Documented By: MICHELET Morphine Sulfate (Morphine Sulfate 4 Mg/Ml Cartridge) 3 mg IVPUSH Q4H PRN; Protocol PRN Reason: Pain, Severe (Pain Scale 7-10) Last Admin: 05/23/23 03:28 Dose: 3 mg Documented By: AGUEDA Ondansetron HCl (Ondansetron Hcl 4 Mg/2 Ml Vial) 4 mg IVPUSH Q8H PRN PRN Reason: Nausea and Vomiting Last Admin: 05/21/23 04:27 Dose: 4 mg Documented By: ERIC Pantoprazole Sodium (Pantoprazole Sodium 40 Mg/10 Ml Vial) 40 mg IVPUSH BID@0630,1630 [facility] Last Admin: 05/23/23 06:39 Dose: 40 mg Documented By: AGUEDA Sodium Chloride (0.9 % Sodium Chloride Flush 3 Ml Syringe) 3 ml IVFLUSH QSHIFT [facility] Last Admin: 05/23/23 07:18 Dose: 3 ml Documented By: AISHA Sucralfate (Sucralfate Oral Suspension 1 Gm/10 Ml Oral.Susp) 1 gm PO QIDACHS [facility] Last Admin: 05/23/23 07:43 Dose: 1 gm Documented By: AISHA Labs 05/23/23 06:00 05/23/23 06:00 Labs: Laboratory Results - last 24 hr 05/22/23 05/22/23 05/22/23 12:42 16:10 20:02 MCV 87.2 MCH 29.9 MCHC 34.2 RDW 11.7 Plt Count 285 MPV 10.9 Immature Gran % (Auto) 0.6 H Neut % (Auto) 82.0 H Lymph % (Auto) 10.9 L [place] % (Auto) 6.0 Eos % (Auto) 0.2 Baso % (Auto) 0.3 Lymph # (Auto) 1.2 [place] # (Auto) 0.7 Eos # (Auto) 0.0 Baso # (Auto) 0.0 Abs Immat Gran (auto) 0.07 H Absolute Neuts (auto) 9.1 H Absolute Nucleated RBC 0.000 Nucleated RBC % (auto) 0.0 Hold Purple Top SEE NOTE Anion Gap 16 Estim Creat Clear Calc 61.3 Estimated GFR 58 POC Glucose 132 H 148 H Fasting Glucose 157 H Estimat Average Glucose Hemoglobin A1c % Calcium 9.6 D Magnesium Total Bilirubin 0.6 AST 17 ALT 22 Alkaline Phosphatase 110 Total Protein 7.9 Albumin 4.1 Hold Yellow Top See Note 05/23/23 05/23/23 06:00 07:22 MCV 85.8 MCH 29.6 MCHC 34.5 RDW 11.2 Plt Count 230 MPV 11.8 Immature Gran % (Auto) 0.4 Neut % (Auto) 67.9 Lymph % (Auto) 20.2 [place] % (Auto) 8.4 Eos % (Auto) 2.7 Baso % (Auto) 0.4 Lymph # (Auto) 1.8 [place] # (Auto) 0.8 Eos # (Auto) 0.2 Baso # (Auto) 0.0 Abs Immat Gran (auto) 0.04 H Absolute Neuts (auto) 6.1 Absolute Nucleated RBC 0.000 Nucleated RBC % (auto) 0.0 Hold Purple Top Anion Gap 11 L Estim Creat Clear Calc 80.0 Estimated GFR > 60 POC Glucose 163 H Fasting Glucose 180 H Estimat Average Glucose 194 Hemoglobin A1c % 8.4 H Calcium 8.7 D Magnesium 1.9 Total Bilirubin 0.7 AST 11 ALT 14 Alkaline Phosphatase 81 Total Protein 6.0 L Albumin 3.2 L Hold Yellow Top Microbiology Microbiology Results: Microbiology 05/20/23 17:46 Urine Culture - Final Urine clean catch - Urine raygoza top No growth. Assessment and Plan (1) Cannabis hyperemesis syndrome concurrent with and due to cannabis abuse: Status: Acute (2) ROSALINA (acute kidney injury): Status: Acute (3) Diabetes mellitus type 1: Status: Acute Plan d5 32yo F with DM1 [A1c 8.4], recent admission for L thigh abscess s/p I+D, cannabis use disorder admitted for N/V cannabinoid hyperemesis syndrome - IV fluids, trial of advancing diet - seems to respond best to topical capsaicin + IM haloperidol - will perform GES to rule out gastroparesis given longstanding DM1 since the age of 10yo - advised to avoid THC - sucralfate, PPI ROSALINA, prerenal - resolved with volume repletion hypoK - replete PO, recheck level in AM hyperNa - resolved DM1 - basal-bolus insulin buttock abscess s/p I+D - complete doxycycline 05/24/23 VTE ppx - LMWH dispo - eventual home In my clinical judgment, the patient requires continued inpatient hospitalization for the following reasons: IV fluids Total time managing care of this patient today: 35 minutes. Quality Stroke Does the patient have a stroke diagnosis?: No VTE Prior VTE?: No VTE Risk Level:: Medical - moderate - high VTE Device Contraindication: Treatment Not Indicated VTE Drug Contraindication: N/A - Med Ordered
[2023-05-23 13:14] LABS: Glucose, Whole Blood 155 mg/dL (60-115)
[2023-05-23] MEDS: Potassium Chloride Packet 20 MEQ PACKET 40 MEQ PO (13:23)
[2023-05-23] MEDS: Enoxaparin Sodium 40 MG/0.4 ML SYRINGE SUBCUT (13:24)
[2023-05-23 14:10] VITALS: RESP 18
[2023-05-23 15:00] VITALS: BP 142/71; PULSE 84; RESP 18; TEMP 37; O2SAT 99
[2023-05-23 16:09] LABS: Glucose, Whole Blood 213 mg/dL (60-115)
[2023-05-23] MEDS: Insulin Lispro 100 UNIT/ML 3 ML VIAL SUBCUT ×2 (16:50→20:46)
--- NOTE | 2023-05-23 18:18 | PC.NURSE ---
Pt. refused dressing application to left buttock, stated she will let this Nurse know when she's ready and continues to state that probably after she took a shower.
[2023-05-23 19:29] VITALS: BP 144/74; PULSE 91; RESP 18; TEMP 36.2; O2SAT 100
[2023-05-23 20:02] LABS: Glucose, Whole Blood 161 mg/dL (60-115)
[2023-05-23] MEDS: Insulin Glargine,Hum.rec.anlog 100 UNIT/ML 10 ML VIAL 24 UNIT SUBCUT (20:46)
[2023-05-24] MEDS: Morphine Sulfate 4 MG/ML CARTRIDGE 3 MG IVPUSH ×2 (00:08→06:04)
[2023-05-24 04:00] VITALS: BP 140/68; PULSE 94; RESP 18; TEMP 36.3; O2SAT 95
[2023-05-24] MEDS: Dextrose 5 % and Lactated Ring 1,000 ML 100 ML IVCONT (05:57)
[2023-05-24] MEDS: Pantoprazole Sodium 40 MG/10 ML VIAL IVPUSH (05:58)
[2023-05-24 07:01] LABS: MANUAL DIFF FLAG NO
[2023-05-24 07:16] LABS: Glucose, Whole Blood 188 mg/dL (60-115)
[2023-05-24 07:17] LABS: Basophils Absolute Auto 0.1 X10*3/uL (0.0-0.2); Basophils Percent Auto 0.6 % (0-2); Eosinophils Absolute Auto 0.2 X10*3/uL (0.0-0.4); Eosinophils Percent Auto 2.7 % (0-4); Hemoglobin 12.6 g/dl (12.0-16.0); Imm Gran Abs Auto 0.04 X10*3/uL (0.00-0.03); Imm Gran Pct Auto 0.5 % (0.0-0.4); Lymphocytes Absolute Auto 1.6 X10*3/uL (1.2-4.9); Mean Corpuscular Hemoglobin 29.4 pg (27.0-33.0); Mean Corpuscular Volume 83.9 fL (80.0-98.0); Mean Platelet Volume 12.6 fL (9.4-12.3); Monocytes Absolute Auto 0.6 X10*3/uL (0.1-1.2); Monocytes Percent Auto 7.8 % (2-11); Neutrophils Absolute Auto 5.5 x10*3/uL (2.0-8.3); Neutrophils Percent Auto 68.4 % (45-73); Platelet Count 164 X10*3/uL (160-400); Red Blood Count 4.29 X10*6/uL (4.20-5.50); Red Cell Distribution Width 11.2 % (11.0-16.0); White Blood Count 8.1 X10*3/uL (4.8-10.8)
[2023-05-24 07:29] LABS: Alanine Aminotransferase 13 U/L (0-31); Albumin Level 3.1 g/dL (3.5-5.0); Alkaline Phosphatase 75 U/L (39-117); Anion Gap 12 (12-20); Aspartate Amino Transferase 12 U/L (5-31); Bilirubin Total 0.5 mg/dL (0.0-1.0); Blood Urea Nitrogen 8 mg/dL (9-16); Calcium 8.6 mg/dL (8.4-10.2); Carbon Dioxide 29 mmol/L (22-29); Chloride 101 mmol/L (96-108); Creatinine Clr Calc Pharmacy 77.3; Estimated Glomerular Filt Rate > 60; Glucose Fasting 215 mg/dL (60-99); Sodium 139 mmol/L (135-145); Total Protein 5.8 g/dL (6.5-8.0)
[2023-05-24 07:31] LABS: Potassium 2.9 mmol/L (3.3-5.1)
[2023-05-24 07:46] VITALS: BP 166/90; PULSE 88; RESP 18; TEMP 36.1; O2SAT 99
[2023-05-24 07:55] LABS: Magnesium 1.6 mg/dL (1.6-2.6)
[2023-05-24] MEDS: Potassium Chloride Packet 20 MEQ PACKET 40 MEQ PO (07:59)
[2023-05-24] MEDS: Potassium Chloride/H20 10 MEQ/100 ML PIGGYBACK 100 MEQ IV ×2 (07:59→09:28)
[2023-05-24] MEDS: Sucralfate Oral Suspension 1 GM/10 ML ORAL.SUSP PO (08:00)
[2023-05-24] MEDS: Insulin Lispro 100 UNIT/ML 3 ML VIAL SUBCUT (08:01)
[2023-05-24] MEDS: ondansetron HCL 4 MG/2 ML VIAL IVPUSH (08:13)
[2023-05-24 09:24] LABS: Glucose, Whole Blood 54 mg/dL (60-115)
[2023-05-24 09:51] LABS: Glucose, Whole Blood 113 mg/dL (60-115)
--- NOTE | 2023-05-24 11:11 | P.DS_ITS ---
DS: Providers Provider Date of Service: 05/24/23 Date of admission: 05/19/23 12:42 Date of discharge: 05/24/23 Primary care physician: [facility] Consults: 05/19/23 18:46 Consult to Wound Care Routine Reason for consultation: s/p I&D of left buttock DS: Diagnosis Discharge Diagnosis (1) Cannabis hyperemesis syndrome concurrent with and due to cannabis abuse: Status: Acute (2) ROSALINA (acute kidney injury): Status: Acute (3) Diabetes mellitus type 1: Status: Acute (4) Hypokalemia: Status: Acute (5) Left against medical advice: Status: Acute DS: Summary Hospital Course Hospital Course: from H+P by hospitalist Asha Diaz, 05/19/23: This is a 32-year-old female with pertinent history of type 1 insulin-dependent diabetes mellitus, recent admission for left thigh abscess s/p I&D, marijuana u se disorder who presents to the emergency department for evaluation of nausea and vomiting. Patient states she smoked marijuana 1 day prior to presentation. On the day of presentation, she started having multiple episodes of nausea and vomiting. Is having epigastric pain, constant, non progressive, nonradiating and without any relieving factors. Has been having symptoms of gastroesophageal reflux disease. Unable to tolerate p.o. intake. No fever, chills, chest discomfort, palpitations, shortness of breath, changes in urinary bowel habits. Of note, patient was recently admitted for left buttock abscess and discharged on 05/16 by General surgery on p.o. Augmentin. In the emergency department, serum creatinine found to be elevated 32yo F with DM1 [A1c 8.4], recent admission for L thigh abscess s/p I+D, and cannabis use disorder who presented with nausea and vomiting and found to have ROSALINA. This was suspected to be from volume depletion from the cannabinoid hyperemesis syndrome. She was treated with IV fluids. Potassium was repleted. Gastric emptying study was completely normal, ruling out diabetic gastroparesis. Her diet was advanced. Potassium was still low at 2.9 on 05/24/23; however, she elected to sign out of the hospital against medical advice. She was prescribed potassium, ondansetron, omeprazole, and sucralfate and instructed to repeat BMP on 05/25/23. She was counseled to avoid cannabis. Time Attestation Total time managing care of this patient today: 35 mintues. Discharge Coordination Time (in mins): 35 Quality: Safe Use of Opioids Does Pt have an Active Cancer Diagnosis on the Problem List?: No Quality: Stroke Does the patient have a stroke diagnosis?: No Physical Exam Vital Signs: Vital Signs: Last Vital Signs Temp 97.0 F 05/24/23 07:46 Pulse 88 05/24/23 07:46 Resp 18 05/24/23 07:46 BP 166/90 H 05/24/23 07:46 Pulse Ox 99 05/24/23 07:46 O2 Del Method Room Air 05/24/23 07:46 BMI result Body Mass Index 22.0 Gen: in no acute distress HEENT: sclera anicteric, moist mucus membranes Neck: supple Lungs: clear to auscultation bilaterally Heart: regular rate and rhythm, no murmurs Abd: soft, non-tender, non-distended Ext: no edema Skin: warm/well-perfused Neuro: alert and oriented x3, no focal findings Psych: appropriate affect DS: Data Data Completed and Pending Completed studies during hospitalization [Text1]: Laboratory Results WBC 8.1 X10*3/uL (4.8-10.8) 05/24/23 06:15 RBC 4.29 X10*6/uL (4.20-5.50) 05/24/23 06:15 Hgb 12.6 g/dl (12.0-16.0) 05/24/23 06:15 Hct 36.0 % (37.0-47.0) L 05/24/23 06:15 MCV 83.9 fL (80.0-98.0) 05/24/23 06:15 MCH 29.4 pg (27.0-33.0) 05/24/23 06:15 MCHC 35.0 g/dl (31.0-35.0) 05/24/23 06:15 RDW 11.2 % (11.0-16.0) 05/24/23 06:15 Plt Count 164 X10*3/uL (160-400) D 05/24/23 06:15 MPV 12.6 fL (9.4-12.3) H 05/24/23 06:15 Immature Gran % (Auto) 0.5 % (0.0-0.4) H 05/24/23 06:15 Neut % (Auto) 68.4 % (45-73) 05/24/23 06:15 Lymph % (Auto) 20.0 % (20-40) 05/24/23 06:15 [place] % (Auto) 7.8 % (2-11) 05/24/23 06:15 Eos % (Auto) 2.7 % (0-4) 05/24/23 06:15 Baso % (Auto) 0.6 % (0-2) 05/24/23 06:15 Lymph # (Auto) 1.6 X10*3/uL (1.2-4.9) 05/24/23 06:15 [place] # (Auto) 0.6 X10*3/uL (0.1-1.2) 05/24/23 06:15 Eos # (Auto) 0.2 X10*3/uL (0.0-0.4) 05/24/23 06:15 Baso # (Auto) 0.1 X10*3/uL (0.0-0.2) 05/24/23 06:15 Abs Immat Gran (auto) 0.04 X10*3/uL (0.00-0.03) H 05/24/23 06:15 Absolute Neuts (auto) 5.5 x10*3/uL (2.0-8.3) 05/24/23 06:15 Absolute Nucleated RBC 0.000 X10*3/uL (0.0-0.012) 05/24/23 06:15 Nucleated RBC % (auto) 0.0 /100WBC (0.0-0.2) 05/24/23 06:15 Hold Purple Top SEE NOTE 05/22/23 12:42 Sodium 139 mmol/L (135-145) 05/24/23 06:15 Potassium 2.9 mmol/L (3.3-5.1) L* 05/24/23 06:15 Chloride 101 mmol/L (96-108) 05/24/23 06:15 Carbon Dioxide 29 mmol/L (22-29) 05/24/23 06:15 Anion Gap 12 (12-20) 05/24/23 06:15 BUN 8 mg/dL (9-16) L 05/24/23 06:15 Creatinine 0.88 mg/dL (0.5-1.4) 05/24/23 06:15 Estim Creat Clear Calc 77.3 05/24/23 06:15 Estimated GFR > 60 05/24/23 06:15 POC Glucose 113 mg/dL (60-115) 05/24/23 09:48 Random Glucose 77 mg/dL (60-115) 05/20/23 05:39 Fasting Glucose 215 mg/dL (60-99) H 05/24/23 06:15 Estimat Average Glucose 194 mg/dL 05/23/23 06:00 Hemoglobin A1c % 8.4 % (<6.0) H 05/23/23 06:00 Calcium 8.6 mg/dL (8.4-10.2) 05/24/23 06:15 Magnesium 1.6 mg/dL (1.6-2.6) 05/24/23 06:15 Total Bilirubin 0.5 mg/dL (0.0-1.0) 05/24/23 06:15 AST 12 U/L (5-31) 05/24/23 06:15 ALT 13 U/L (0-31) 05/24/23 06:15 Alkaline Phosphatase 75 U/L (39-117) 05/24/23 06:15 Total Protein 5.8 g/dL (6.5-8.0) L 05/24/23 06:15 Albumin 3.1 g/dL (3.5-5.0) L 05/24/23 06:15 Lipase 23 U/L (8-78) 05/19/23 11:45 Beta HCG, Quant < 2 mIU/mL 05/19/23 13:21 Hold Yellow Top See Note 05/22/23 12:42 Urine Color Yellow 05/20/23 17:46 Urine Appearance Clear 05/20/23 17:46 Urine pH 5.5 (5.0-9.0) 05/20/23 17:46 Ur Specific [place] 1.015 (1.005-1.025) 05/20/23 17:46 Urine Protein Trace mg/dL (Neg-Trace) 05/20/23 17:46 Urine Glucose (UA) Negative mg/dL (Negative) 05/20/23 17:46 Urine Ketones Trace mg/dL (Negative) 05/20/23 17:46 Urine Blood Negative (Negative) 05/20/23 17:46 Urine Nitrite Negative (Negative) 05/20/23 17:46 Ur Leukocyte Esterase Trace (Negative) H 05/20/23 17:46 Urine RBC 0-2 /HPF (0-2) 05/20/23 17:46 Urine WBC 6-10 /HPF (0-5) H 05/20/23 17:46 Ur Squamous Epith Cells 3-5 /HPF (0-2) 05/20/23 17:46 Urine Bacteria None Seen (None Seen) 05/20/23 17:46 Hyaline Casts 0-2 /LPF (0-2) 05/20/23 17:46 Impressions Abdomen/Pelvis CT 05/19/23 14:04 IMPRESSION: There is a small amount of nonspecific free fluid in the cul-de-sac. The gallbladder is surgically absent. The examination is otherwise unremarkable. Fleischner guidelines were followed. Gastric Emptying Nuclear Medicine 05/23/23 13:00 IMPRESSION: Normal modified 4-hour gastric emptying study. Ensure-plus Brand supplement was used instead of radio-labeled eggs because of the patient's intolerance to eggs. This supplement has been shown to closely mimic gastric emptying of labeled eggs. Discharge Plan Discharge Anticipated Discharge Date/Time: 05/24/23 10:48 Patient Disposition: Left Against Medical Advice Discharge Diagnosis: cannabis hyperemesis syndrome hypokalemia [facility]: [facility]] - 1 Week [place],[facility] [Primary Care Provider] - 1 Week Discharge Medications: New sucralfate 1 gram tablet 1 g PO BID Qty: 60 0RF omeprazole 20 mg capsule,delayed release(DR/EC) 20 mg PO BID Qty: 60 0RF ondansetron 4 mg tablet,disintegrating 4 mg PO Q8H PRN (Reason: nausea and vomiting) Qty: 30 0RF potassium chloride 20 mEq tablet,ER particles/crystals 20 meq PO DAILY Qty: 30 0RF Continued insulin glargine [Lantus Solostar U-100 Insulin] 100 unit/mL (3 mL) Insulin Pen 30 unit SUBCUT BEDTIME oxycodone 5 mg tablet 5 mg PO Q4H PRN (Reason: pain (scale score 7-10)) Qty: 20 0RF Rx Instructions: Partial Fill upon patient request. Discontinued amoxicillin-pot clavulanate 875-125 mg tablet 1 tab PO BID Qty: 14 0RF Rx Instructions: END DATE: 05/24/23 Discharge Orders: Discharge Order (Routine); Ordered 05/24/23 Ordered By: Adam Rivera Diet: Advance to usual diet Activity on Discharge: avoid cannabis Stand Alone Forms: Patient Portal Discharge page Other Ambulatory Orders: Basic Metabolic Panel (Routine) Timeframe: 1 Day Facility: [facility] - Location: Laboratory Ordered By: Adam Rivera Care Plan Goals: GI health normal potassium Health Concerns: cannabis hyperemesis syndrome hypokalemia signed out of the hospital against medical advice Plan of Treatment: avoid cannabis completely take ondansetron as needed for nausea/vomiting take sucralfate and omeprazole as prescribed take potassium chloride 20 mEq daily and recheck labs [BMP] on 05/25/23 Please follow up with your primary care doctor within 1 week. Return to the hospital if you experience recurrent or worsening symptoms. Assessment: See Discharge Summary. Discharge Date/Time: 05/24/23 11:01
--- NOTE | 2023-05-24 11:29 | MHC.CM.PN ---
PATIENT LEFT AMA. CM UNABLE TO SEE PATIENT PRIOR TO DEPARTURE.
== END 2023-05-24 11:01 | disposition left against medical advice (07) | DRG 249 ==
LOC: HO.ED 12:38 → HO.EDOVER 12:46 → HO.S3 16:33
PROVIDERS: Hospitalist; Physician Assistant Medical; Admitting Provider Student in an Organized Health Care Education/Training Program; Emergency Provider Emergency Medicine; Visit Provider Family Medicine
DX: R11.2 Nausea with vomiting, unspecified (principal); N17.9 Acute kidney failure, unspecified; E87.0 Hyperosmolality and hypernatremia; E10.65 Type 1 diabetes mellitus with hyperglycemia; L02.31 Cutaneous abscess of buttock; E87.6 Hypokalemia; F13.10 Sedative, hypnotic or anxiolytic abuse, uncomplicated; F17.210 Nicotine dependence, cigarettes, uncomplicated; Z71.6 Tobacco abuse counseling; Z79.899 Other long term (current) drug therapy
CPT/HCPCS: 36415; 74176; 78264; 80048; 80053; 81001; 82947; 83036; 83690; 83735; 84702; 85025; 87086; 99285; A9541; C9113; J0360; J0737; J1630; J1650; J1790; J2060; J2270; J2405; J2765; J3480; J7120

== ENCOUNTER → 2023-05-19 12:42 | Outpatient (BNV) | payer MEDICAID, SELFPAY | PROVIDERS: Admitting Provider Student in an Organized Health Care Education/Training Program; Emergency Provider Emergency Medicine; Visit Provider Student in an Organized Health Care Education/Training Program | DX: N17.9 Acute kidney failure, unspecified (principal); F12.188 Cannabis abuse with other cannabis-induced disorder; E10.9 Type 1 diabetes mellitus without complications; Z53.29 Procedure and treatment not carried out because of patient's decision for other reasons; E87.6 Hypokalemia | CPT/HCPCS: 99222; 99232; 99233; 99239 ==

== ENCOUNTER 2023-09-25 15:46 | Inpatient (IN) | payer MEDICAID, SELFPAY ==
--- NOTE | ~2023-09-25 | CT_ITS ---
EXAMINATION: CT ABDOMEN AND PELVIS WITH CONTRAST CLINICAL INFORMATION: Bilateral flank pain COMPARISON: CT abdomen and pelvis 05/19/2023 TECHNIQUE: Multidetector volumetric images were obtained from the superior aspect of the liver through the pubic symphysis following administration 85 mL of Omnipaque 350 intravenous contrast. Sagittal and coronal reformatted images were obtained on the technologist's workstation. Oral contrast: No This CT examination was performed using dose optimization techniques as appropriate, variously including the following: *Automated exposure control *Adjustment of mA and/or kV according to patient size (this includes techniques or standardized protocols for targeted exams where dose is matched to indication/reason for exam; i.e. extremities or head) *Use of iterative reconstruction technique DLP: 407 mGy-cm FINDINGS: LUNG BASES: The visualized lung bases are unremarkable. LIVER, GALLBLADDER, AND BILIARY TREE: The liver is normal in size, shape, and attenuation. No focal hepatic lesion or biliary ductal dilatation is present. The gallbladder is surgically absent. PANCREAS: Unremarkable. SPLEEN: Unremarkable. ADRENAL GLANDS: Unremarkable. KIDNEYS AND URETERS: Peripheral wedge-shaped areas of heterogeneous enhancement in the upper right kidney anteriorly and posteriorly. The left kidney is normal in appearance. BLADDER: Bladder is diffusely thick-walled GASTROINTESTINAL TRACT: The small and large bowel are unremarkable. The appendix is unremarkable. ABDOMINAL WALL: No significant hernia is appreciated. LYMPH NODES: Normal. VASCULAR: Unremarkable. PELVIC VISCERA: Unremarkable. OSSEOUS STRUCTURES: Unremarkable. CT/CT abdomen pelvis w IV con IMPRESSION: 1. Peripheral wedge-shaped areas of heterogeneous enhancement in the upper right kidney anteriorly and posteriorly. Findings are most consistent with pyelonephritis. 2. Diffusely thick-walled bladder. Correlate with urinalysis for possible cystitis. Fleischner guidelines were followed.
--- NOTE | ~2023-09-25 | CT_ITS ---
EXAMINATION: CT ABDOMEN AND PELVIS WITHOUT CONTRAST CLINICAL INFORMATION: Abdominal pain. COMPARISON: CT abdomen pelvis dated 09/25/2023. TECHNIQUE: Multidetector volumetric imaging was performed from the superior aspect of the liver through the pubic symphysis. Sagittal and coronal reformatted images were obtained on the technologist's workstation. This CT examination was performed using dose optimization techniques as appropriate, variously including the following: *Automated exposure control *Adjustment of mA and/or kV according to patient size (this includes techniques or standardized protocols for targeted exams where dose is matched to indication/reason for exam; i.e. extremities or head) *Use of iterative reconstruction technique DLP: 358 mGy-cm FINDINGS: LUNG BASES: The visualized lung bases are unremarkable. LIVER, GALLBLADDER, AND BILIARY TREE: The liver is normal in size, shape, and attenuation. No focal hepatic lesion or biliary ductal dilatation is present. The gallbladder is surgically absent. PANCREAS: Unremarkable. SPLEEN: Unremarkable. ADRENAL GLANDS: Unremarkable. KIDNEYS AND URETERS: The kidneys are normal in size, shape, and attenuation. No hydronephrosis, hydroureter, or calculi seen. No perinephric stranding. Right renal findings consistent with pyelonephritis seen on the contrast-enhanced examination dated 09/25/2023 cannot be evaluated on the current examination secondary to the lack of intravenous contrast. BLADDER: The urinary bladder wall remains moderately thickened. GASTROINTESTINAL TRACT: The small and large bowel are normal in caliber. There is no pericolonic inflammatory stranding. The appendix is unremarkable. ABDOMINAL WALL: No significant hernia is appreciated. LYMPH NODES: No lymphadenopathy.. VASCULAR: The abdominal aorta is normal in caliber. PELVIC VISCERA: Unremarkable. There is mild free fluid within the cul-de-sac. This is unchanged compared with the prior examination. OSSEOUS STRUCTURES: Unremarkable. CT/CT abdomen pelvis wo IV con IMPRESSION: Right renal findings consistent with acute pyelonephritis seen on the contrast-enhanced examination performed 09/25/2023 cannot be evaluated on the current examination secondary to the lack of intravenous contrast. The urinary bladder wall remains moderately thickened. Infection is suspected. Fleischner guidelines were followed.
[2023-09-25 15:53] VITALS: BP 135/82; PULSE 110; O2SAT 99
[2023-09-25 16:03] VITALS: BP 144/85; PULSE 115; RESP 14; TEMP 37.4; O2SAT 100; BMI 21.4
[2023-09-25 16:27] LABS: MANUAL DIFF FLAG NO
[2023-09-25 16:28] VITALS: BP 144/85; PULSE 115; RESP 14; TEMP 37.4; O2SAT 100
[2023-09-25 16:28] LABS: Basophils Absolute Auto 0.1 X10*3/uL (0.0-0.2); Basophils Percent Auto 0.4 % (0-2); Eosinophils Percent Auto 0.2 % (0-4); Hematocrit 35.3 % (37.0-47.0); Hemoglobin 12.4 g/dl (12.0-16.0); Imm Gran Abs Auto 0.11 X10*3/uL (0.00-0.03); Imm Gran Pct Auto 0.7 % (0.0-0.4); Lymphocytes Absolute Auto 1.6 X10*3/uL (1.2-4.9); Lymphocytes Percent Auto 9.8 % (20-40); Mean Corpuscular HGB Conc 35.1 g/dl (31.0-35.0); Mean Corpuscular Hemoglobin 30.2 pg (27.0-33.0); Mean Corpuscular Volume 86.1 fL (80.0-98.0); Mean Platelet Volume 11.4 fL (9.4-12.3); Monocytes Absolute Auto 1.1 X10*3/uL (0.1-1.2); Monocytes Percent Auto 6.8 % (2-11); Neutrophils Absolute Auto 13.4 x10*3/uL (2.0-8.3); Neutrophils Percent Auto 82.1 % (45-73); Platelet Count 191 X10*3/uL (160-400); Red Cell Distribution Width 12.4 % (11.0-16.0); White Blood Count 16.3 X10*3/uL (4.8-10.8)
--- NOTE | 2023-09-25 16:28 | PC.NURSE ---
patient arrives from home via EMS complaining of kidney pain since last night, patient states last night she started experiencing 10/10 mid back pain, and frequency with urination, patient with hx of pancreatitis and recently had her gallbladder removed last year, when asking patient where her pain is, patient points to mid back and abdominal pain that wraps around to my gallbladder . patient very tearful on arrival, ambulated to bathroom with assistance from this RN and provided urine sample, PIV placed in left forearm and blood work drawn and sent to lab. patient placed on equipment monitor phototypesetting. patient afebrile, heartrate slightly elevated at 101 currently, O2 99% on room air, SBP in the 140s. lab work sent, awaiting provider stefanie
[2023-09-25 16:29] LABS: Appearance Urine Turbid; Color Urine Yellow; Glucose Urine UA 250 mg/dL (Negative); Leukocyte Esterase Urine Moderate (2+) (Negative); Nitrite Urine Negative (Negative); UMIC TRIGGER UACC YES; Urine Blood Moderate (2+) (Negative); Urine Ketones 15 mg/dL (Negative); Urine Protein 30 (1+) mg/dL (Neg-Trace)
[2023-09-25 16:31] LABS: UPreg QC Valid YES; Urine Pregnancy NEGATIVE (NEGATIVE)
--- NOTE | 2023-09-25 16:33 | ED_ITS ---
HPI - General Adult General Chief complaint: General Medical Stated complaint: Bilateral kidney pain, hx of gall bladder removal Time Seen by Provider: 09/25/23 16:03 Source: patient Mode of arrival: ambulatory Limitations: no limitations History of Present Illness ED Provider: Pamela YORK HPI narrative: This is 33 year old female with a medical hx of diabetes mellitus type 1 presenting to the ED with 1 day history of severe bilateral flank pain with epigastric abdominal pain. She reports noticed some color changes to her urine which she describes as Brownish . She report foul smelling urine with increase in frequency. She also endorses headaches, chills and fevers last night. Hydration has been inadequate. She also reports having Bowel movements after every meal. She denies chest pain, and shortness of breath. Related Data Home Medications ?Medication ?Instructions ?Recorded ?Confirmed insulin glargine 100 unit/mL (3 30 unit subcut BEDTIME 05/15/23 05/19/23 mL) subcutaneous pen (Lantus Solostar U-100 Insulin) Previous Rx's ?Medication ?Instructions ?Recorded amoxicillin 875 mg-potassium 1 tab PO BID #14 tabs 05/17/23 clavulanate 125 mg tablet oxycodone 5 mg tablet 5 mg PO Q4H PRN pain (scale score 05/17/23 7-10) #20 tabs omeprazole 20 mg capsule,delayed 20 mg PO BID #60 caps 05/24/23 release ondansetron 4 mg disintegrating 4 mg PO Q8H PRN nausea and 05/24/23 tablet vomiting #30 tabs potassium chloride 20 mEq 20 meq PO DAILY #30 tabs 05/24/23 tablet,extended release(part/cryst) sucralfate 1 gram tablet 1 g PO BID #60 tabs 05/24/23 Allergies Allergy/AdvReac Type Severity Reaction Status Date / Time Latex, Natural Rubber Allergy Unknown Verified 09/25/23 16:06 Review of Systems 2 Review of Systems: Yes all other systems are reviewed and are negative PMFSH Past Medical History Attestation statement: The following information was validated with the patient. Source: old records reviewed and nursing notes reviewed Medical History Diabetes mellitus type 1 Surgical History Hx of cholecystectomy Family History Family History Other Family history non-contributory Social History Social History Household Members: Family Household Members Other:: 4 Housing: House Do you presently have visiting nurse or other home services: No Alcohol intake: former Patient Tobacco Use Status: Current someday Tobacco user Tobacco use type: Cigarette Cigarettes Per Day: 2 Smoked in Last 30 Days: No Second Hand Smoke Exposure: Yes Use of substances other than those prescribed or required for medical reasons: No Substance Use Type: Marijuana Advance Directives: Yes Advance Directives on File: Yes Advance Directives Date on File: 05/16/23 Do you have a plan to hurt others: No Plan Patient : No service: No Current occupational status: employed Physical Exam ED Vital Signs: Vital Signs - 24 hr 09/25/23 16:03 09/25/23 16:28 09/25/23 18:15 Temperature 99.3 F 99.3 F 98.7 F Pulse Rate 115 H 115 H 101 H Respiratory Rate 14 14 17 Blood Pressure 144/85 H 144/85 H 132/92 H Pulse Oximetry 100 100 98 Oxygen Delivery Method Room Air Room Air Room Air BMI result Body Mass Index 21.4 vss Appearance: Alert.? Oriented X3.? No acute distress.? Head: Normocephalic, atraumatic, no step-offs or deformities Eyes: Pupils equal, round and reactive to light.? CVS: Normal heart rate and rhythm.? Pulses normal.? Respiratory: No respiratory distress.? Breath sounds normal.? Abdomen: Soft and nontender.? Skin: Skin warm and dry.? Normal skin color.? Normal skin turgor.? Extremities: No lower extremity edema.? No calf ttp. 5/5 strength to bilateral upper and lower extremities Back: No midline tenderness, no C-spine tenderness, full range of motion, + CVA tenderness bilaterally Neuro: Oriented X 3.? No motor deficit.? No sensory deficit. CN 2-12 intact . No saddle anesthesias. Course Reevaluation(s) Reevaluation #1: CBC with leukocytosis and left shift. Chemistry with no acute findings needing intervention. T bili 1.8 I do not suspect obstructive process. Urine infected Time: 16:32 Reevaluation #2: Lactic acid negative. Time: 16:50 Reevaluation #3: CT w/ pylonephritis. Plan hospital admission Time: 19:26 Medications Administered Discontinued Medications Generic Name Dose Route Start Last Admin Trade Name Patrickq PRN Reason Stop Dose Admin Hydromorphone HCl 1 mg 09/25/23 18:42 09/25/23 18:55 Hydromorphone Hcl 1 Mg/Ml Syringe IVPUSH 09/25/23 18:43 1 mg ONCE ONE Administration Protocol Levofloxacin 500 mg in 100 mls @ 100 mls/hr 09/25/23 16:32 09/25/23 18:16 Levaquin IV 09/25/23 17:31 Infused ONCE ONE Infusion Sodium Chloride 1,644 mls @ 1,644 mls/hr 09/25/23 16:32 09/25/23 18:57 Ns 30 ml/kg infuse over 1 hr (1644 ml) 09/25/23 17:31 Infused IV Infusion .Q1H STA Iohexol 100 ml 09/25/23 17:07 09/25/23 17:07 Iohexol 350 Mg/Ml 100 Ml Infus..Btl IV 09/25/23 17:08 85 ml ONCE ONE Administration Morphine Sulfate 4 mg 09/25/23 16:34 09/25/23 16:38 Morphine Sulfate 4 Mg/Ml Cartridge IVPUSH 09/25/23 16:35 4 mg ONCE ONE Administration Protocol Medical Decision Making Medical Decision Making [facility] Narrative: 1643 33 yo f presents w/ b/l flank pain, nausea, subjective fevers, chills, urinary frequency, urinary urgency X2 days PE- CVA tenderness b/l Hx and pe concerning for pylo vs uti vs cystitis. Unlikely obstructive uropathy, acute abdomen, obstruction, pancreatitis, ectopic, torsion. Plan- labs, urine, imaging, blood cultures, lactic Differential Diagnosis Differential Diagnoses: The differential diagnosis associated with the presentation includes Hx and pe concerning for pylo vs uti vs cystitis. Unlikely obstructive uropathy, acute abdomen, obstruction, pancreatitis, ectopic, torsion. Admission/Observation Consideration of admission/observation: Escalation of care including admission/observation considered Likely Consult Healthcare Provider Management of the patient was discussed with: Hospitalist Lab Data [facility] Lab Attestation statement: I reviewed the patient's lab results. 09/25/23 16:19 09/25/23 16:20 Labs: Lab Results 09/25/23 09/25/23 09/25/23 Range/Units 16:19 16:20 16:50 WBC 16.3 H (4.8-10.8) X10*3/uL RBC 4.10 L (4.20-5.50) X10*6/uL Hgb 12.4 (12.0-16.0) g/dl Hct 35.3 L (37.0-47.0) % MCV 86.1 (80.0-98.0) fL MCH 30.2 (27.0-33.0) pg MCHC 35.1 H (31.0-35.0) g/dl RDW 12.4 (11.0-16.0) % Plt Count 191 (160-400) X10*3/uL MPV 11.4 (9.4-12.3) fL Immature Gran % (Auto) 0.7 H (0.0-0.4) % Neut % (Auto) 82.1 H (45-73) % Lymph % (Auto) 9.8 L (20-40) % [place] % (Auto) 6.8 (2-11) % Eos % (Auto) 0.2 (0-4) % Baso % (Auto) 0.4 (0-2) % Lymph # (Auto) 1.6 (1.2-4.9) X10*3/uL [place] # (Auto) 1.1 (0.1-1.2) X10*3/uL Eos # (Auto) 0.0 (0.0-0.4) X10*3/uL Baso # (Auto) 0.1 (0.0-0.2) X10*3/uL Abs Immat Gran (auto) 0.11 H (0.00-0.03) X10*3/uL Absolute Neuts (auto) 13.4 H (2.0-8.3) x10*3/uL Absolute Nucleated RBC 0.000 (0.0-0.012) X10*3/uL Nucleated RBC % (auto) 0.0 (0.0-0.2) /100WBC Sodium 136 (135-145) mmol/L Potassium 3.8 D (3.3-5.1) mmol/L Chloride 103 (96-108) mmol/L Carbon Dioxide 24 (22-29) mmol/L Anion Gap 13 (12-20) BUN 10 (9-16) mg/dL Creatinine 0.64 (0.5-1.4) mg/dL Estim Creat Clear Calc 105.3 Estimated GFR > 60 Random Glucose 185 H (60-115) mg/dL Lactic Acid 1.0 (0.5-2.0) mmol/L Calcium 9.6 D (8.4-10.2) mg/dL Magnesium 1.5 L (1.6-2.6) mg/dL Total Bilirubin 1.8 H (0.0-1.0) mg/dL AST 18 (5-31) U/L ALT 12 (0-31) U/L Alkaline Phosphatase 79 (39-117) U/L Total Protein 7.6 (6.5-8.0) g/dL Albumin 3.9 (3.5-5.0) g/dL Lipase 10 (8-78) U/L Urine Color Yellow Urine Appearance Turbid Urine pH 6.0 (5.0-9.0) Ur Specific [place] 1.020 (1.005-1.025) Urine Protein 30 (1+) H (Neg-Trace) mg/dL Urine Glucose (UA) 250 H (Negative) mg/dL Urine Ketones 15 (Negative) mg/dL Urine Blood Moderate (2+) H (Negative) Urine Nitrite Negative (Negative) Ur Leukocyte Esterase Moderate (2+) H (Negative) Urine RBC 11-20 H (0-2) /HPF Urine WBC >50 H (0-5) /HPF Ur Squamous Epith Cells 3-5 (0-2) /HPF Urine Bacteria 4+ (None Seen) Hyaline Casts 0-2 (0-2) /LPF Urine Test NEGATIVE (NEGATIVE) Independent Interpretation I performed an independent interpretation of an: CT Scan (CT/CT abdomen pelvis w IV con IMPRESSION: 1. Peripheral wedge-shaped areas of heterogeneous enhancement in the upper right kidney anteriorly and posteriorly. Findings are most consistent with pyelonephritis. 2. Diffusely thick-walled bladder. Correlate with urinalysis for possible cystitis. Flei) Radiology Impression Discussion of test interpretation with radiology: I have reviewed the radiologist's reading. External Record Review External record reviewed: Inpatient record, Office record, Outpatient record, Prior outpatient labs, Prior outpatient radiology, Primary care record and Outside ED record Prescription Management I considered prescription management with: Antibiotic Critical Care Time Critical Care Time Critical Care Time: Yes Total Critical Care Time: 35 Attestation: I attest to this time spent taking care of the patient, obtaining history, physical, reviewing labs, imaging, speaking to my attending, specialist or hospitalist. Discharge Plan Discharge Clinical Impression: Pyelonephritis Patient Disposition: Admitted As Inpatient Prescriptions: No Action insulin glargine [Lantus Solostar U-100 Insulin] 100 unit/mL (3 mL) Insulin Pen 30 unit SUBCUT BEDTIME amoxicillin-pot clavulanate 875-125 mg tablet 1 tab PO BID Qty: 14 0RF Rx Instructions: END DATE: 05/24/23 oxycodone 5 mg tablet 5 mg PO Q4H PRN (Reason: pain (scale score 7-10)) Qty: 20 0RF Rx Instructions: Partial Fill upon patient request. sucralfate 1 gram tablet 1 g PO BID Qty: 60 0RF omeprazole 20 mg capsule,delayed release(DR/EC) 20 mg PO BID Qty: 60 0RF ondansetron 4 mg tablet,disintegrating 4 mg PO Q8H PRN (Reason: nausea and vomiting) Qty: 30 0RF potassium chloride 20 mEq tablet,ER particles/crystals 20 meq PO DAILY Qty: 30 0RF Print Language: Bulgarian
[2023-09-25 16:34] LABS: Bacteria Urine 4+ (None Seen); Hyaline Casts Urine 0-2 /LPF (0-2); UACC Culture Trigger YES; WBC Urine >50 /HPF (0-5)
[2023-09-25] MEDS: Morphine Sulfate 4 MG/ML CARTRIDGE IVPUSH (16:38)
[2023-09-25 16:45] LABS: Alanine Aminotransferase 12 U/L (0-31); Albumin Level 3.9 g/dL (3.5-5.0); Alkaline Phosphatase 79 U/L (39-117); Anion Gap 13 (12-20); Aspartate Amino Transferase 18 U/L (5-31); Bilirubin Total 1.8 mg/dL (0.0-1.0); Blood Urea Nitrogen 10 mg/dL (9-16); Calcium 9.6 mg/dL (8.4-10.2); Carbon Dioxide 24 mmol/L (22-29); Chloride 103 mmol/L (96-108); Creatinine Clr Calc Pharmacy 105.3; Estimated Glomerular Filt Rate > 60; Glucose Random 185 mg/dL (60-115); Lipase 10 U/L (8-78); Magnesium 1.5 mg/dL (1.6-2.6); Potassium 3.8 mmol/L (3.3-5.1); Sodium 136 mmol/L (135-145); Total Protein 7.6 g/dL (6.5-8.0)
[2023-09-25] MEDS: levoFLOXacin/D5W 500 MG/100 ML PIGGYBACK 100 MG IV (16:52)
--- NOTE | 2023-09-25 16:57 | PC.NURSE ---
second 20g PIV placed in Right forearm, IV fluids and abx hung per APR, patient medicated for pain
[2023-09-25] MEDS: iohexoL 350 MG/ML 100 ML INFUS..BTL IV (17:07)
[2023-09-25 18:15] VITALS: BP 132/92; PULSE 101; RESP 17; TEMP 37.1; O2SAT 98
[2023-09-25] MEDS: HYDROmorphone HCl 1 MG/ML SYRINGE IVPUSH (18:55)
--- NOTE | 2023-09-25 19:26 | PM.IMHP ---
History of Present Illness Date of Service: 09/25/23 Chief Complaint: Flank pain This is a 33-year-old female with pertinent history of type 1 diabetes mellitus, gastroesophageal reflux disease who presents to the emergency department for evaluation of flank pain. Patient states she had sudden onset of bilateral flank pain that started on the day of presentation. It is intermittent, nonradiating and without any relieving factors. No associated nausea or vomiting. Patient endorses change in color and odor of urine. Also has been having increasing urinary frequency. No fever, chills, chest discomfort, palpitations, shortness of breath, changes in bowel habits. In the emergency department, urine concerning for UTI and imaging with right-sided pyelonephritis. Review of Systems Constitutional: Constitutional: Reports no additional constitutional complaints Cardiovascular: Cardiovascular: Reports no additional cardiovascular complaints Respiratory: Respiratory: Reports no additional respiratory complaints Gastrointestinal: Gastrointestinal: Reports abdominal pain Genitourinary: Genitourinary: Reports flank pain and Reports urinary urgency [facility] Medical History Diabetes mellitus type 1 Family History Other Family history non-contributory Surgical History Hx of cholecystectomy Social History Household Members: Family Household Members Other:: 4 Housing: House Do you presently have visiting nurse or other home services: No Alcohol intake: former Patient Tobacco Use Status: Current someday Tobacco user Tobacco use type: Cigarette Cigarettes Per Day: 2 Smoked in Last 30 Days: No Second Hand Smoke Exposure: Yes Use of substances other than those prescribed or required for medical reasons: No Substance Use Type: Marijuana Advance Directives: Yes Advance Directives on File: Yes Advance Directives Date on File: 05/16/23 Do you have a plan to hurt others: No Plan Patient : No service: No Current occupational status: employed Meds Home Medications ?Medication ?Instructions ?Recorded ?Confirmed ?Last Taken ?Type insulin glargine 100 unit/mL (3 30 unit subcut BEDTIME 05/15/23 05/19/23 05/14/23 History mL) subcutaneous pen (Lantus 30 units Solostar U-100 Insulin) Physical Exam Vital Signs and Narrative: Vital Signs: Last Vital Signs Temp 98.7 F 09/25/23 18:15 Pulse 101 H 09/25/23 18:15 Resp 17 09/25/23 18:15 BP 132/92 H 09/25/23 18:15 Pulse Ox 98 09/25/23 18:15 O2 Del Method Room Air 09/25/23 18:15 BMI result Body Mass Index 21.4 Middle-aged female lying in bed in no distress Neck supple, no JVD Regular rate and rhythm, S1-S2 heard Regular breath sounds bilaterally, no wheezing or crackles appreciated Abdomen with right-sided CVA tenderness, no guarding, no rigidity Patient is awake, alert and oriented to self, place, time and person ; no focal motor deficit Psych: Normal mood No pedal edema Results Labs 09/25/23 16:19 09/25/23 16:20 Labs: Laboratory Results - last 24 hr 09/25/23 09/25/23 09/25/23 16:19 16:20 16:50 MCV 86.1 MCH 30.2 MCHC 35.1 H RDW 12.4 Plt Count 191 MPV 11.4 Immature Gran % (Auto) 0.7 H Neut % (Auto) 82.1 H Lymph % (Auto) 9.8 L [place] % (Auto) 6.8 Eos % (Auto) 0.2 Baso % (Auto) 0.4 Lymph # (Auto) 1.6 [place] # (Auto) 1.1 Eos # (Auto) 0.0 Baso # (Auto) 0.1 Abs Immat Gran (auto) 0.11 H Absolute Neuts (auto) 13.4 H Absolute Nucleated RBC 0.000 Nucleated RBC % (auto) 0.0 Anion Gap 13 Estim Creat Clear Calc 105.3 Estimated GFR > 60 Random Glucose 185 H Lactic Acid 1.0 Calcium 9.6 D Magnesium 1.5 L Total Bilirubin 1.8 H AST 18 ALT 12 Alkaline Phosphatase 79 Total Protein 7.6 Albumin 3.9 Lipase 10 Urine Color Yellow Urine Appearance Turbid Urine pH 6.0 Ur Specific [place] 1.020 Urine Protein 30 (1+) H Urine Glucose (UA) 250 H Urine Ketones 15 Urine Blood Moderate (2+) H Urine Nitrite Negative Ur Leukocyte Esterase Moderate (2+) H Urine RBC 11-20 H Urine WBC >50 H Ur Squamous Epith Cells 3-5 Urine Bacteria 4+ Hyaline Casts 0-2 Urine Test NEGATIVE Imaging Radiologist's Impressions: Impressions Abdomen/Pelvis CT 09/25/23 17:27 IMPRESSION: 1. Peripheral wedge-shaped areas of heterogeneous enhancement in the upper right kidney anteriorly and posteriorly. Findings are most consistent with pyelonephritis. 2. Diffusely thick-walled bladder. Correlate with urinalysis for possible cystitis. Fleischner guidelines were followed. Assessment and Plan (1) Pyelonephritis: Status: Acute Plan This is a 33-year-old female with pertinent history of type 1 diabetes mellitus, gastroesophageal reflux disease who presents to the emergency department for evaluation of flank pain. #. Sepsis due to right-sided pyelonephritis with acute UTI: Resuscitated with IV crystalloids in the ER. Initiating empiric IV ceftriaxone. Follow urine culture and blood culture. Lactic acid obtained #. Type 1 diabetes mellitus with hyperglycemia: Initiating basal plus insulin regimen #. Gastroesophageal reflux disease: On PPI Med rec pending DVT prophylaxis: Lovenox Full code Admit as inpatient and will require two night minimum hospital stay for IV antibiotics (as above), which is not possible in a lesser acute setting. Quality Stroke Does the patient have a stroke diagnosis?: No VTE Prior VTE?: No VTE Risk Level:: Medical - moderate - high VTE Device Contraindication: Treatment Not Indicated VTE Drug Contraindication: N/A - Med Ordered
--- NOTE | 2023-09-25 19:33 | PC.NURSE ---
Assumed care of pt. Pt awakened for assessment, no acute distress at this time.
[2023-09-25] MEDS: Enoxaparin Sodium 40 MG/0.4 ML SYRINGE SUBCUT (19:52)
--- NOTE | 2023-09-25 20:17 | MHC.EDTECH ---
This tech answered call box. Patient requesting refill of ice water. This tech provided patient with an additional cup with ice/water.
--- NOTE | 2023-09-25 20:52 | PHA.MEDREC ---
Addendum entered by Jennifer Albert [facility] 09/25/23 21:28: REVIEWED Original Note: Pharmacy Consult ? Medication Reconciliation Pharmacy has completed the medication reconciliation. Confirmed medications with patient. In patient claims it looks like she has not filled since april 2023, I asked if the patient was still taking anything and she states she is still taking the Lantus Solostar 30 units at bedtime, she also confirmed it was filled at the [facility] on [facility] in [place]. She also states she was taking Omeprazole 20mg BID, Ondansentran 4mg Q8H PRN and Sucralfate 1 g BID but has not taken them in about a month or 2 according to her. She also states she has Potassium Chloride 20meq tabs at home she should be doing daily but due to them being so big she has to cut them in half and has not been compliant with taking them and does not remember the last time she has taking that medication.
[2023-09-25 21:11] LABS: Glucose, Whole Blood 142 mg/dL (60-115)
[2023-09-25] MEDS: Insulin Glargine,Hum.rec.anlog 100 UNIT/ML 10 ML VIAL 24 UNIT SUBCUT (21:38)
[2023-09-25] MEDS: cefTRIAXone sodium 1 GM in 0.9 % Sodium Chloride 50 ML IV (21:39)
[2023-09-26 00:24] VITALS: BP 122/85; PULSE 99; RESP 18; TEMP 36.3; O2SAT 97
[2023-09-26] MEDS: Morphine Sulfate 4 MG/ML CARTRIDGE IVPUSH ×6 (00:54→21:26)
[2023-09-26] MEDS: 0.9 % Sodium Chloride Flush 3 ML SYRINGE IVFLUSH ×3 (00:56→16:18)
[2023-09-26 01:20] VITALS: BMI 21.5
[2023-09-26 03:35] VITALS: BP 103/58; PULSE 90; RESP 18; TEMP 36.8; O2SAT 98
[2023-09-26 06:35] LABS: MANUAL DIFF FLAG NO
[2023-09-26 06:43] LABS: Basophils Percent Auto 0.3 % (0-2); Eosinophils Percent Auto 0.2 % (0-4); Hemoglobin 10.2 g/dl (12.0-16.0); Imm Gran Abs Auto 0.07 X10*3/uL (0.00-0.03); Imm Gran Pct Auto 0.5 % (0.0-0.4); Lymphocytes Absolute Auto 1.3 X10*3/uL (1.2-4.9); Lymphocytes Percent Auto 9.6 % (20-40); Mean Corpuscular Hemoglobin 29.8 pg (27.0-33.0); Mean Corpuscular Volume 87.7 fL (80.0-98.0); Mean Platelet Volume 12.7 fL (9.4-12.3); Monocytes Absolute Auto 1.1 X10*3/uL (0.1-1.2); Monocytes Percent Auto 8.1 % (2-11); Neutrophils Percent Auto 81.3 % (45-73); Platelet Count 141 X10*3/uL (160-400); Red Blood Count 3.42 X10*6/uL (4.20-5.50); Red Cell Distribution Width 12.5 % (11.0-16.0); White Blood Count 13.5 X10*3/uL (4.8-10.8)
[2023-09-26 07:09] VITALS: BP 99/57; PULSE 85; RESP 16; TEMP 36.6; O2SAT 98
[2023-09-26 07:31] LABS: Anion Gap 10 (12-20); Blood Urea Nitrogen 8 mg/dL (9-16); Calcium 8.5 mg/dL (8.4-10.2); Carbon Dioxide 23 mmol/L (22-29); Chloride 106 mmol/L (96-108); Creatinine Clr Calc Pharmacy 132.2; Estimated Glomerular Filt Rate > 60; Glucose Random 76 mg/dL (60-115); Potassium 2.9 mmol/L (3.3-5.1); Sodium 136 mmol/L (135-145)
[2023-09-26] MEDS: oxyCODONE HCl Immed Release 5 MG TABLET PO ×3 (07:40→23:32)
[2023-09-26 07:55] LABS: Glucose, Whole Blood 74 mg/dL (60-115)
--- NOTE | 2023-09-26 08:02 | HO.PM.IMPN ---
Subjective Subjective Date of Service: 09/26/23 Interval History: f/u on acute pyelonephritis stil c/o flank pain, left [place] right, K is low Physical Exam Vital Signs: Vital Signs: Last Vital Signs Temp 97.8 F 09/26/23 07:09 Pulse 85 09/26/23 07:09 Resp 16 09/26/23 07:09 BP 99/57 L 09/26/23 07:09 Pulse Ox 98 09/26/23 07:09 O2 Del Method Room Air 09/26/23 07:09 BMI result Body Mass Index 21.5 Const: Other: General: AO X 3, no acute distress Resp: CTA bilateral CVS: S1,S2,RRR GI: +BS, NT, no distention : jennifer flank pain, Left greater than right Skin: No rash Neuro: motor grossly intact Psych: appropriate affect Objective Data Active Medications Acetaminophen (Acetaminophen 325 Mg Tablet) 650 mg PO Q6H PRN PRN Reason: Pain, Mild (Pain Scale 1-3), fever or headache Calcium Carbonate (Calcium Carbonate 750 Mg Tab.Chew) 750 mg PO Q4H PRN PRN Reason: Heartburn Enoxaparin Sodium (Enoxaparin Sodium 40 Mg/0.4 Ml Syringe) 40 mg SUBCUT Q24H [facility] Last Admin: 09/25/23 19:52 Dose: 40 mg Documented By: ARIEL Glucose (Glucose Gel 15 Gm Gel..Gram.) 15 gm PO Q15M PRN; Protocol PRN Reason: per Hypoglycemia Standing Ord. Ceftriaxone Sodium 1 gm/ (Sodium Chloride) 50 mls @ 100 mls/hr IV Q24H [facility] Last Infusion: 09/25/23 22:10 Dose: Infused Documented By: ARIEL Dextrose (D10) 250 mls @ 750 mls/hr IV Q15M PRN; Protocol PRN Reason: per Hypoglycemia Standing Ord. Insulin Glargine (Insulin Glargine,Hum.Rec.Anlog 100 Unit/Ml 10 Ml Vial) 24 unit SUBCUT BEDTIME [facility] Last Admin: 09/25/23 21:38 Dose: 24 unit Documented By: ARIEL Insulin Human Lispro (Insulin Lispro 100 Unit/Ml 3 Ml Vial) 0 unit SUBCUT QIDACHS [facility]; Protocol Last Admin: 09/25/23 21:36 Dose: Not Given Documented By: ARIEL Non-Admin Reason: Glucose out of range Comments: POC 142 Magnesium Hydroxide (Milk Of Magnesia 30 Ml Oral.Susp) 30 ml PO DAILY PRN PRN Reason: Constipation Melatonin (Melatonin 3 Mg Tablet) 6 mg PO BEDTIME PRN PRN Reason: Insomnia Morphine Sulfate (Morphine Sulfate 4 Mg/Ml Cartridge) 4 mg IVPUSH Q4H PRN; Protocol PRN Reason: Pain, Severe (Pain Scale 7-10) Last Admin: 09/26/23 04:53 Dose: 4 mg Documented By: DAVID Ondansetron HCl (Ondansetron Hcl 4 Mg/2 Ml Vial) 4 mg IVPUSH Q8H PRN PRN Reason: Nausea and Vomiting Oxycodone HCl (Oxycodone Hcl Immed Release 5 Mg Tablet) 5 mg PO Q6H PRN PRN Reason: Pain, Severe (Pain Scale 7-10) Last Admin: 09/26/23 07:40 Dose: 5 mg Documented By: JOSE JUAN Potassium Chloride (Potassium Chloride Er 20 Meq Tab.Er.Prt) 40 meq PO ONCE ONE Stop: 09/26/23 08:01 Sodium Chloride (0.9 % Sodium Chloride Flush 3 Ml Syringe) 3 ml IVFLUSH [facility] Last Admin: 09/26/23 00:56 Dose: 3 ml Documented By: DAVID Labs 09/26/23 05:34 09/26/23 05:34 Labs: Laboratory Results - last 24 hr 09/25/23 09/25/23 09/25/23 16:19 16:20 16:50 MCV 86.1 MCH 30.2 MCHC 35.1 H RDW 12.4 Plt Count 191 MPV 11.4 Immature Gran % (Auto) 0.7 H Neut % (Auto) 82.1 H Lymph % (Auto) 9.8 L [place] % (Auto) 6.8 Eos % (Auto) 0.2 Baso % (Auto) 0.4 Lymph # (Auto) 1.6 [place] # (Auto) 1.1 Eos # (Auto) 0.0 Baso # (Auto) 0.1 Abs Immat Gran (auto) 0.11 H Absolute Neuts (auto) 13.4 H Absolute Nucleated RBC 0.000 Nucleated RBC % (auto) 0.0 Anion Gap 13 Estim Creat Clear Calc 105.3 Estimated GFR > 60 POC Glucose Random Glucose 185 H Lactic Acid 1.0 Calcium 9.6 D Magnesium 1.5 L Total Bilirubin 1.8 H AST 18 ALT 12 Alkaline Phosphatase 79 Total Protein 7.6 Albumin 3.9 Lipase 10 Urine Color Yellow Urine Appearance Turbid Urine pH 6.0 Ur Specific [place] 1.020 Urine Protein 30 (1+) H Urine Glucose (UA) 250 H Urine Ketones 15 Urine Blood Moderate (2+) H Urine Nitrite Negative Ur Leukocyte Esterase Moderate (2+) H Urine RBC 11-20 H Urine WBC >50 H Ur Squamous Epith Cells 3-5 Urine Bacteria 4+ Hyaline Casts 0-2 Urine Test NEGATIVE 09/25/23 09/26/23 09/26/23 21:08 05:34 07:14 MCV 87.7 MCH 29.8 MCHC 34.0 RDW 12.5 Plt Count 141 L D MPV 12.7 H Immature Gran % (Auto) 0.5 H Neut % (Auto) 81.3 H Lymph % (Auto) 9.6 L [place] % (Auto) 8.1 Eos % (Auto) 0.2 Baso % (Auto) 0.3 Lymph # (Auto) 1.3 [place] # (Auto) 1.1 Eos # (Auto) 0.0 Baso # (Auto) 0.0 Abs Immat Gran (auto) 0.07 H Absolute Neuts (auto) 11.0 H Absolute Nucleated RBC 0.000 Nucleated RBC % (auto) 0.0 Anion Gap 10 L Estim Creat Clear Calc 132.2 Estimated GFR > 60 POC Glucose 142 H 74 Random Glucose 76 Lactic Acid Calcium 8.5 D Magnesium Total Bilirubin AST ALT Alkaline Phosphatase Total Protein Albumin Lipase Urine Color Urine Appearance Urine pH Ur Specific [place] Urine Protein Urine Glucose (UA) Urine Ketones Urine Blood Urine Nitrite Ur Leukocyte Esterase Urine RBC Urine WBC Ur Squamous Epith Cells Urine Bacteria Hyaline Casts Urine Test Assessment and Plan (1) Pyelonephritis: Status: Acute (2) Hypokalemia: Status: Acute Plan 33-year-old female with pertinent history of type 1 diabetes mellitus, gastroesophageal reflux disease who presents to the emergency department for evaluation of flank pain. Sepsis due to right-sided UTI and pyelonephritis -Continue IV Ceftriaxone -IVF -Morphine and Oxycodone for pain HypOkalemia--replace with oral K and recheck later HypOmagnesemia--replace with mag Sulfate Type 1 diabetes mellitus with hyperglycemia, blood sugar now better, no acidosis -Continue Lantus (30 at home, given 24 here) and Sliding Scale, diabetes diet Gastroesophageal reflux disease: On PPI DVT prophylaxis: Lovenox Full code Need for inpatient: IV Abx for sepsis d/t Pyelonephritis, low potassium needing replacement and recheck Quality Stroke Does the patient have a stroke diagnosis?: No VTE Prior VTE?: No VTE Risk Level:: Medical - moderate - high VTE Device Contraindication: Treatment Not Indicated VTE Drug Contraindication: N/A - Med Ordered
[2023-09-26] MEDS: Potassium Chloride Packet 20 MEQ PACKET 40 MEQ PO ×2 (08:47→21:24)
[2023-09-26] MEDS: Magnesium Sulfate/H2O 2 GM/50 ML PIGGYBACK IV (08:49)
[2023-09-26] MEDS: diphenhydrAMINE HCL 50 MG/ML VIAL 25 MG IVPUSH (10:45)
[2023-09-26] MEDS: Acetaminophen 325 MG TABLET 650 MG PO (10:48)
--- NOTE | 2023-09-26 10:51 | MHC.CM.PN ---
pt is independent has a ride home does not expect to need servies when dcd
[2023-09-26 11:19] LABS: Glucose, Whole Blood 91 mg/dL (60-115)
[2023-09-26 14:24] LABS: Anion Gap 10 (12-20); Carbon Dioxide 24 mmol/L (22-29); Chloride 106 mmol/L (96-108); Magnesium 2.5 mg/dL (1.6-2.6); Potassium 3.7 mmol/L (3.3-5.1); Sodium 136 mmol/L (135-145)
[2023-09-26 15:18] VITALS: BP 107/69; PULSE 79; RESP 18; TEMP 36.4; O2SAT 98
[2023-09-26 16:10] LABS: Glucose, Whole Blood 69 mg/dL (60-115)
[2023-09-26] MEDS: Morphine Sulfate 4 MG/ML CARTRIDGE 3 MG IVPUSH (16:16)
--- NOTE | 2023-09-26 16:41 | PM.CNGS ---
History of Present Illness Consult details Consult date: 09/26/23 Narrative: 33F with DM type I, admitted last night for flank pains secondary to acute pyelonephritis. She is currently on IV abx. She describeas having an area of pain, swelling and tenderness on the right buttock since last night . This had worsened this morning. She denies any drainage. SHe does have a history of abcesses in the past. She had an I and D of a left buttock abscess last April 2023. She denies any recent trauma or insect bite to the area. Review of Systems Constitutional: Constitutional: Denies chills and Denies fever(s) Cardiovascular: Cardiovascular: Denies chest pain Respiratory: Respiratory: Denies cough Gastrointestinal: Gastrointestinal: Denies abdominal pain Genitourinary: Genitourinary: Reports dysuria [facility] Past Medical History Medical History (Updated 09/26/23 @ 16:45 by Akhil Mcbride MD) Abscess of buttock, right Diabetes mellitus type 1 Family History Family History Other Family history non-contributory Surgical History Surgical History Hx of cholecystectomy Social History Social History Household Members: Family Household Members Other:: sister Housing: House Do you presently have visiting nurse or other home services: No Alcohol intake: former Patient Tobacco Use Status: Current someday Tobacco user Tobacco use type: Cigarette Cigarettes Per Day: 2 e-Cigarette/Vaping Use: Never Used Second Hand Smoke Exposure: Yes Substance Use Type: Marijuana Advance Directives Date on File: 05/16/23 service: No Current occupational status: employed Meds Allergies Allergy/AdvReac Type Severity Reaction Status Date / Time latex Allergy Severe Rash Verified 09/26/23 06:03 Active Medications: Current Medications Acetaminophen (Acetaminophen 325 Mg Tablet) 650 mg PO Q6H PRN PRN Reason: Pain, Mild (Pain Scale 1-3), fever or headache Last Admin: 09/26/23 10:48 Dose: 650 mg Calcium Carbonate (Calcium Carbonate 750 Mg Tab.Chew) 750 mg PO Q4H PRN PRN Reason: Heartburn Enoxaparin Sodium (Enoxaparin Sodium 40 Mg/0.4 Ml Syringe) 40 mg SUBCUT Q24H [facility] Last Admin: 09/25/23 19:52 Dose: 40 mg Glucose (Glucose Gel 15 Gm Gel..Gram.) 15 gm PO Q15M PRN; Protocol PRN Reason: per Hypoglycemia Standing Ord. Ceftriaxone Sodium 1 gm/ (Sodium Chloride) 50 mls @ 100 mls/hr IV Q24H [facility] Last Infusion: 09/25/23 22:10 Dose: Infused Dextrose (D10) 250 mls @ 750 mls/hr IV Q15M PRN; Protocol PRN Reason: per Hypoglycemia Standing Ord. Insulin Glargine (Insulin Glargine,Hum.Rec.Anlog 100 Unit/Ml 10 Ml Vial) 24 unit SUBCUT BEDTIME [facility] Last Admin: 09/25/23 21:38 Dose: 24 unit Insulin Human Lispro (Insulin Lispro 100 Unit/Ml 3 Ml Vial) 0 unit SUBCUT QIDACHS [facility]; Protocol Last Admin: 09/26/23 11:22 Dose: Not Given Magnesium Hydroxide (Milk Of Magnesia 30 Ml Oral.Susp) 30 ml PO DAILY PRN PRN Reason: Constipation Melatonin (Melatonin 3 Mg Tablet) 6 mg PO BEDTIME PRN PRN Reason: Insomnia Morphine Sulfate (Morphine Sulfate 4 Mg/Ml Cartridge) 4 mg IVPUSH Q4H PRN; Protocol PRN Reason: Pain, Severe (Pain Scale 7-10) Last Admin: 09/26/23 13:01 Dose: 4 mg Ondansetron HCl (Ondansetron Hcl 4 Mg/2 Ml Vial) 4 mg IVPUSH Q8H PRN PRN Reason: Nausea and Vomiting Oxycodone HCl (Oxycodone Hcl Immed Release 5 Mg Tablet) 5 mg PO Q6H PRN PRN Reason: Pain, Severe (Pain Scale 7-10) Last Admin: 09/26/23 14:52 Dose: 5 mg Potassium Chloride (Potassium Chloride Packet 20 Meq Packet) 40 meq PO Q12H [facility] Stop: 09/26/23 20:31 Last Admin: 09/26/23 08:47 Dose: 40 meq Sodium Chloride (0.9 % Sodium Chloride Flush 3 Ml Syringe) 3 ml IVFLUSH QSHIFT [facility] Last Admin: 09/26/23 16:18 Dose: 3 ml Home Medications ?Medication ?Instructions ?Recorded ?Confirmed ?Last Taken ?Type insulin glargine 100 unit/mL (3 30 unit subcut BEDTIME 05/15/23 09/25/23 09/24/23 History mL) subcutaneous pen (Lantus Solostar U-100 Insulin) Physical Exam Vital Signs: Vital Signs: Last Vital Signs Temp 97.5 F 09/26/23 15:18 Pulse 79 09/26/23 15:18 Resp 18 09/26/23 15:18 BP 107/69 09/26/23 15:18 Pulse Ox 98 09/26/23 15:18 O2 Del Method Room Air 09/26/23 15:18 BMI result Body Mass Index 21.5 Const: Other: c/o pain General: alert Resp: Effort & Inspection: normal respiratory effort Cardio: Rate: regular rate GI: Palpation (GI): Soft to palpation Back/Spine/Pelvis: Other: right buttock - induration about 3 cm in diameter with central fluctuance and severe tenderness c/w abscess Results Labs 09/26/23 05:34 09/26/23 13:53 Labs: Abnormal lab results 09/25/23 09/25/23 09/26/23 Range/Units 16:20 21:08 05:34 WBC 13.5 H (4.8-10.8) X10*3/uL RBC 3.42 L (4.20-5.50) X10*6/uL Hgb 10.2 L (12.0-16.0) g/dl Hct 30.0 L (37.0-47.0) % Plt Count 141 L D (160-400) X10*3/uL MPV 12.7 H (9.4-12.3) fL Immature Gran % (Auto) 0.5 H (0.0-0.4) % Neut % (Auto) 81.3 H (45-73) % Lymph % (Auto) 9.6 L (20-40) % Abs Immat Gran (auto) 0.07 H (0.00-0.03) X10*3/uL Absolute Neuts (auto) 11.0 H (2.0-8.3) x10*3/uL Potassium 2.9 L* D (3.3-5.1) mmol/L Anion Gap 10 L (12-20) BUN 8 L (9-16) mg/dL POC Glucose 142 H (60-115) mg/dL Random Glucose 185 H (60-115) mg/dL Magnesium 1.5 L (1.6-2.6) mg/dL Total Bilirubin 1.8 H (0.0-1.0) mg/dL 09/26/23 Range/Units 13:53 WBC (4.8-10.8) X10*3/uL RBC (4.20-5.50) X10*6/uL Hgb (12.0-16.0) g/dl Hct (37.0-47.0) % Plt Count (160-400) X10*3/uL MPV (9.4-12.3) fL Immature Gran % (Auto) (0.0-0.4) % Neut % (Auto) (45-73) % Lymph % (Auto) (20-40) % Abs Immat Gran (auto) (0.00-0.03) X10*3/uL Absolute Neuts (auto) (2.0-8.3) x10*3/uL Potassium (3.3-5.1) mmol/L Anion Gap 10 L (12-20) BUN (9-16) mg/dL POC Glucose (60-115) mg/dL Random Glucose (60-115) mg/dL Magnesium (1.6-2.6) mg/dL Total Bilirubin (0.0-1.0) mg/dL Short CBC 09/26/23 Range/Units 05:34 WBC 13.5 H (4.8-10.8) X10*3/uL Hgb 10.2 L (12.0-16.0) g/dl Hct 30.0 L (37.0-47.0) % Plt Count 141 L D (160-400) X10*3/uL BMP 09/25/23 09/26/23 09/26/23 16:20 05:34 13:53 Sodium 136 136 136 Potassium 3.8 D 2.9 L* D 3.7 D Chloride 103 106 106 Carbon Dioxide 23 24 BUN 10 8 L Creatinine 0.64 0.51 Calcium 9.6 D 8.5 D Liver Function 09/25/23 Range/Units 16:20 Total Bilirubin 1.8 H (0.0-1.0) mg/dL AST 18 (5-31) U/L ALT 12 (0-31) U/L Alkaline Phosphatase 79 (39-117) U/L Albumin 3.9 (3.5-5.0) g/dL Urine 09/25/23 Range/Units 16:20 Urine Color Yellow Urine Appearance Turbid Urine pH 6.0 (5.0-9.0) Ur Specific [place] 1.020 (1.005-1.025) Urine Protein 30 (1+) H (Neg-Trace) mg/dL Urine Glucose (UA) 250 H (Negative) mg/dL Urine Test NEGATIVE (NEGATIVE) All other labs normal. Assessment and Plan (1) Abscess of buttock, right: Status: Acute I explained to her it is best to proceed with I and D under local anesthesia. I reviewed the technique of this as well as the risks benefits and alternatives and she had given verbal consent. Her mother was involved wiht the discussion. I and D was done and cultures were taken. Dressings were applied. I would recommend daily dry dressing changes with gauze, Cultures should be followed. The rest of her care will be as per the hospitalist service. Procedures Date of Service Date of Service: 09/26/23 Abscess I/D Consent for Procedure: Elective - informed consent obtained Site: other (buttock) Side (if applicable): right Anesthetic used: lidocaine 1% Technique: incised with #11 blade Amount of fluid (mL): 5 Packing used?: none Additional comments: Cultures were taken
[2023-09-26] MEDS: Lidocaine HCl 1 % 20 ML VIAL SUBCUT (16:57)
[2023-09-26] MEDS: diphenhydrAMINE HCL 25 MG CAPSULE PO (18:37)
[2023-09-26 18:55] VITALS: BP 109/58; PULSE 89; RESP 18; TEMP 36.4; O2SAT 97
[2023-09-26] MEDS: Enoxaparin Sodium 40 MG/0.4 ML SYRINGE SUBCUT (19:38)
[2023-09-26 19:58] LABS: Glucose, Whole Blood 114 mg/dL (60-115)
[2023-09-26] MEDS: cefTRIAXone sodium 1 GM in 0.9 % Sodium Chloride 50 ML IV (21:27)
[2023-09-26] MEDS: Insulin Glargine,Hum.rec.anlog 100 UNIT/ML 10 ML VIAL 24 UNIT SUBCUT (21:28)
[2023-09-27] VITALS (7 sets, daily range): BP systolic 113–150; BP diastolic 67–95; PULSE 87–98; RESP 16–20; TEMP 36.4–36.8; O2SAT 98–100
[2023-09-27] MEDS: Morphine Sulfate 4 MG/ML CARTRIDGE IVPUSH ×5 (01:07→22:52)
[2023-09-27] MEDS: 0.9 % Sodium Chloride Flush 3 ML SYRINGE IVFLUSH ×3 (01:08→15:09)
--- NOTE | 2023-09-27 03:24 | PC.NURSE ---
at 3 am pt reportet itching notified order for Benadryl 25 mg po, which also she received yesterday at 1800 . when medicine presented to patient she stated she wants iv and she refused to take it. notified
[2023-09-27 07:15] LABS: Anion Gap 9 (12-20); Blood Urea Nitrogen 6 mg/dL (9-16); Calcium 8.9 mg/dL (8.4-10.2); Carbon Dioxide 29 mmol/L (22-29); Chloride 104 mmol/L (96-108); Creatinine Clr Calc Pharmacy 124.9; Estimated Glomerular Filt Rate > 60; Glucose Random 80 mg/dL (60-115); Magnesium 2.2 mg/dL (1.6-2.6); Potassium 3.1 mmol/L (3.3-5.1); Sodium 139 mmol/L (135-145)
[2023-09-27] MEDS: Acetaminophen 325 MG TABLET 650 MG PO (07:40)
[2023-09-27] MEDS: Doxycycline Hyclate 100 MG in 0.9 % Sodium Chloride 250 ML 166.67 MG IV ×2 (07:40→20:09)
[2023-09-27] MEDS: oxyCODONE HCl Immed Release 5 MG TABLET PO (07:41)
[2023-09-27 07:47] LABS: Glucose, Whole Blood 88 mg/dL (60-115)
--- NOTE | 2023-09-27 08:13 | P.PNIM_ITS ---
Subjective Subjective Date of Service: 09/27/23 Interval History: f/u on acute pyelonephritis, and Left buttock abscess She is feeling better today, no fever, Left buttock abscess was I and D yesterday Physical Exam 2 Vital Signs: Vital Signs: Last Vital Signs Temp 98.1 F 09/27/23 07:13 Pulse 94 09/27/23 07:13 Resp 16 09/27/23 07:13 BP 123/82 09/27/23 07:13 Pulse Ox 100 09/27/23 07:13 O2 Del Method Room Air 09/27/23 07:13 BMI result Body Mass Index 21.5 Const: Other: General: AO X 3, no acute distress Resp: CTA bilateral CVS: S1,S2,RRR GI: +BS, NT, no distention : jennifer flank pain, Left greater than right Skin: No rash, small area of open wound of left buttock with mild purulent drainage Neuro: motor grossly intact Psych: appropriate affect Objective Data Active Medications Acetaminophen (Acetaminophen 325 Mg Tablet) 650 mg PO Q6H PRN PRN Reason: Pain, Mild (Pain Scale 1-3), fever or headache Last Admin: 09/27/23 07:40 Dose: 650 mg Documented By: MELY Calcium Carbonate (Calcium Carbonate 750 Mg Tab.Chew) 750 mg PO Q4H PRN PRN Reason: Heartburn Enoxaparin Sodium (Enoxaparin Sodium 40 Mg/0.4 Ml Syringe) 40 mg SUBCUT Q24H [facility] Last Admin: 09/26/23 19:38 Dose: 40 mg Documented By: DAVID Glucose (Glucose Gel 15 Gm Gel..Gram.) 15 gm PO Q15M PRN; Protocol PRN Reason: per Hypoglycemia Standing Ord. Ceftriaxone Sodium 1 gm/ (Sodium Chloride) 50 mls @ 100 mls/hr IV Q24H [facility] Last Infusion: 09/26/23 22:29 Dose: Infused Documented By: DAVID Dextrose (D10) 250 mls @ 750 mls/hr IV Q15M PRN; Protocol PRN Reason: per Hypoglycemia Standing Ord. Doxycycline Hyclate 100 mg/ (Sodium Chloride) 250 mls @ 166.67 mls/hr IV Q12H [facility] Last Admin: 09/27/23 07:40 Dose: 166.67 mls/hr Documented By: MELY Insulin Glargine (Insulin Glargine,Hum.Rec.Anlog 100 Unit/Ml 10 Ml Vial) 24 unit SUBCUT BEDTIME [facility] Last Admin: 09/26/23 21:28 Dose: 24 unit Documented By: DAVID Insulin Human Lispro (Insulin Lispro 100 Unit/Ml 3 Ml Vial) 0 unit SUBCUT QIDACHS [facility]; Protocol Last Admin: 09/27/23 07:41 Dose: Not Given Documented By: MELY Non-Admin Reason: No Insulin Coverage Magnesium Hydroxide (Milk Of Magnesia 30 Ml Oral.Susp) 30 ml PO DAILY PRN PRN Reason: Constipation Melatonin (Melatonin 3 Mg Tablet) 6 mg PO BEDTIME PRN PRN Reason: Insomnia Morphine Sulfate (Morphine Sulfate 4 Mg/Ml Cartridge) 4 mg IVPUSH Q4H PRN; Protocol PRN Reason: Pain, Severe (Pain Scale 7-10) Last Admin: 09/27/23 05:28 Dose: 4 mg Documented By: DAVID Ondansetron HCl (Ondansetron Hcl 4 Mg/2 Ml Vial) 4 mg IVPUSH Q8H PRN PRN Reason: Nausea and Vomiting Oxycodone HCl (Oxycodone Hcl Immed Release 5 Mg Tablet) 5 mg PO Q6H PRN PRN Reason: Pain, Severe (Pain Scale 7-10) Last Admin: 09/27/23 07:41 Dose: 5 mg Documented By: MELY Sodium Chloride (0.9 % Sodium Chloride Flush 3 Ml Syringe) 3 ml IVFLUSH [facility] Last Admin: 09/27/23 07:42 Dose: 3 ml Documented By: MELY Labs 09/26/23 05:34 09/27/23 05:37 Labs: Laboratory Results - last 24 hr 09/26/23 09/26/23 09/26/23 11:10 13:53 16:06 Hold Purple Top Anion Gap 10 L Estim Creat Clear Calc Estimated GFR POC Glucose 91 69 Random Glucose Calcium Magnesium 2.5 09/26/23 09/27/23 09/27/23 19:41 05:37 07:35 Hold Purple Top SEE NOTE Anion Gap 9 L Estim Creat Clear Calc 124.9 Estimated GFR > 60 POC Glucose 114 88 Random Glucose 80 Calcium 8.9 Magnesium 2.2 Microbiology Microbiology Results: Microbiology 09/26/23 16:35 Gram Stain - Final Buttock 09/25/23 16:36 Urine Culture - Preliminary Urine clean catch - Clean Catch Midstream Escherichia coli 09/25/23 16:50 Blood Culture - Preliminary Blood - Venous No growth after 24 hours. 09/25/23 16:50 Blood Culture - Preliminary Blood - Venous No growth after 24 hours. Assessment and Plan (1) Pyelonephritis: Status: Acute (2) Hypokalemia: Status: Acute Plan 33-year-old female with pertinent history of type 1 diabetes mellitus, gastroesophageal reflux disease who presents to the emergency department for evaluation of flank pain. Sepsis due to right-sided UTI and pyelonephritis -Urine culture E. 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 s/p I&D yesterday -Add Doxycyline, follow gram stain and culture HypOkalemia--replace and repeat tommorrow HypOmagnesemia--replaced and now normal, 2.2 Type 1 diabetes mellitus with hyperglycemia now resolved,, blood sugar now better, no acidosis -Continue Lantus (34 at home, given 24 here) and Sliding Scale, diabetes diet, FBS 88 Gastroesophageal reflux disease: On PPI DVT prophylaxis: Lovenox, out of bed ambulate Full code Need for inpatient: IV Abx for sepsis d/t Pyelonephritis, low potassium needing replacement and recheck Quality Stroke Does the patient have a stroke diagnosis?: No VTE Prior VTE?: No VTE Risk Level:: Medical - moderate - high VTE Device Contraindication: Treatment Not Indicated VTE Drug Contraindication: N/A - Med Ordered
[2023-09-27] MEDS: levoFLOXacin/D5W 750 MG/150 ML PIGGYBACK 100 MG IV (09:38)
[2023-09-27] MEDS: ondansetron HCL 4 MG/2 ML VIAL IVPUSH ×2 (10:20→22:47)
[2023-09-27 10:51] LABS: Glucose, Whole Blood 112 mg/dL (60-115)
[2023-09-27] MEDS: Fluconazole 150 MG TABLET PO (15:09)
[2023-09-27] MEDS: Lactated Ringers 1,000 ML 150 ML IVCONT (15:28)
[2023-09-27 15:32] LABS: Bacterial Vaginosis PCR POSITIVE (Negative); Candida Group PCR NOT DETECTED (Not Detect); Candida glab krusei PCR NOT DETECTED (Not Detect); Trichomonas vaginalis PCR NOT DETECTED (Not Detect)
[2023-09-27 15:43] LABS: Glucose, Whole Blood 80 mg/dL (60-115)
[2023-09-27] MEDS: Lactated Ringers 1,000 ML 999 ML IV (15:54)
--- NOTE | 2023-09-27 15:54 | PC.NURSE ---
Addendum entered by Alciia Cook RN 09/27/23 16:54: Pt blood suagr recheck 71, Pt refusing PO intake at this time, PRN D10 given per MAR. Original Note: MD Costa Made aware pt has not voided on this shift, bladder scanned for 154ml. Pt blood sugar 80 due to poor PO intake, nausea, & vomiting . LR bolus ordered and IVF continuous ordered, infusing per APR. Electrolytes ordered STAT and drawn per lab. Vital signs stable Pt alert and oriented x4.
--- NOTE | 2023-09-27 15:56 | PM.EVENT ---
Event Note Date of Service: 09/28/23 Event Note: pt has vaginal discharge without pelvic vaginal swab + for BV, will add Flagyl Pt has been experiencing N/V, not tolerating much PO, and low urine output Repeat labs to ensure not becoming acidotic Start IvF, may need to add glucose if becoming acidotic which she was not this morning Time Spent With Patient Time: Total time managing care of this patient today ____ minutes.
[2023-09-27 16:38] LABS: Anion Gap 11 (12-20); Carbon Dioxide 27 mmol/L (22-29); Chloride 106 mmol/L (96-108); Potassium 4.4 mmol/L (3.3-5.1); Sodium 140 mmol/L (135-145)
[2023-09-27 16:43] LABS: Glucose, Whole Blood 71 mg/dL (60-115)
[2023-09-27] MEDS: Dextrose 10 % 250 ML 750 ML IV (16:48)
[2023-09-27] MEDS: metroNIDAZOLE/NS 500 MG/100 ML PIGGYBACK 100 MG IV (17:10)
[2023-09-27 17:20] LABS: Glucose, Whole Blood 236 mg/dL (60-115)
--- NOTE | 2023-09-27 17:23 | ECG_ITS ---
Test Reason : chest pain Blood Pressure : / mmHG Vent. Rate : 091 BPM Atrial Rate : 091 BPM P-R Int : 152 ms QRS Dur : 082 ms QT Int : 368 ms P-R-T Axes : 060 011 047 degrees QTc Int : 452 ms Normal sinus rhythm Normal ECG No previous ECGs available Referred By: Kumar Costa Electronically Signed By:Colt Mcgowan
[2023-09-27] MEDS: Metoclopramide HCl 10 MG/2 ML VIAL 5 MG IVPUSH (17:29)
--- NOTE | 2023-09-27 17:29 | PC.NURSE ---
Addendum entered by Alicia Cook RN 09/27/23 17:56: MD Odonnell at bedside recommending Maalox and lidocaine PO, medication administered as ordered. Addendum entered by Alicia Cook RN 09/27/23 17:31: Bp 150/90, HR 92, Spo2 100% on room air. Original Note: Pt c/o sudden onset of sharp chest pain, then immediately vomited 150ml undigested food. Mlapah made aware, EKG ordered, tele applied per . Reglan given pending effectivness.
--- NOTE | 2023-09-27 17:45 | PM.EVENT ---
Event Note Date of Service: 09/27/23 Event Note: Called to see patient for retrosternal chest pain. EKG totally unremarkable during pain. Patient has been receiving oral medicines with limited p.o. intake. Also complains of a brackish taste in her mouth. At this point in time it is likely reflux with esophageal spasm. Will order Maalox 30 cc with viscous lidocaine 10 cc. If no effect will consider further imaging and/or treatment. Patient is hemodynamically stable at this time. Time Spent With Patient Time: Total time managing care of this patient today ____ minutes.
[2023-09-27] MEDS: Lidocaine HCl Viscous 2 % 15 ML SOLUTION 10 ML MUCOUS MEM (17:53)
[2023-09-27] MEDS: Magnesium Hydrox/Alum Hydrox 30 ML ORAL.SUSP PO (17:54)
[2023-09-27 18:45] LABS: Glucose, Whole Blood 133 mg/dL (60-115)
[2023-09-27] MEDS: Dextrose 5 % and 0.45 % NaCl 1,000 ML 100 ML IVCONT (19:25)
[2023-09-27] MEDS: Enoxaparin Sodium 40 MG/0.4 ML SYRINGE SUBCUT (20:08)
[2023-09-27 20:41] LABS: Glucose, Whole Blood 123 mg/dL (60-115)
[2023-09-27] MEDS: Insulin Glargine,Hum.rec.anlog 100 UNIT/ML 10 ML VIAL 12 UNIT SUBCUT (20:42)
--- NOTE | 2023-09-27 22:25 | PM.EVENT ---
Event Note Date of Service: 09/27/23 Event Note: Patient complaining of generalized abdominal pain. No rigidity, no rebound tenderness. Hemodynamically stable. Repeated CT abdomen/pelvis, no significant new acute abnormality Time Spent With Patient Time: Total time managing care of this patient today ____ minutes.
[2023-09-27 22:44] LABS: Glucose, Whole Blood 139 mg/dL (60-115)
[2023-09-28 00:45] LABS: Glucose, Whole Blood 166 mg/dL (60-115)
[2023-09-28] MEDS: Insulin Lispro 100 UNIT/ML 3 ML VIAL SUBCUT ×2 (00:49→06:20)
[2023-09-28] MEDS: Metoclopramide HCl 10 MG/2 ML VIAL 5 MG IVPUSH (01:05)
[2023-09-28] MEDS: oxyCODONE HCl Immed Release 5 MG TABLET PO (02:29)
--- NOTE | 2023-09-28 02:39 | PC.NURSE ---
Patient is alert and oriented, complaining of ongoing nausea/vomiting and pain since day. 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 Patient kept insisting on taking a shower, patient on tele monitor, md made aware. Per md, ok for patient to shower. Patient complaining of ongoing nausea/vomiting and pain, medicated with prns per mar with little effect. Md made aware, awaiting new orders.
[2023-09-28 03:04] VITALS: BP 167/73; PULSE 98; RESP 18; TEMP 36.1; O2SAT 100
[2023-09-28 03:29] VITALS: RESP 18
[2023-09-28] MEDS: Haloperidol Lactate 5 MG/ML VIAL IM (03:29)
[2023-09-28] MEDS: Morphine Sulfate 4 MG/ML CARTRIDGE IVPUSH (03:29)
[2023-09-28] MEDS: metroNIDAZOLE/NS 500 MG/100 ML PIGGYBACK 100 MG IV (03:35)
--- NOTE | 2023-09-28 04:15 | PC.NURSE ---
Pt with n/v not relieved by Zofran and Reglan. Pt given IM Haldol per MD Diaz. Effectiveness pending. Pt also complaining of 10/10 abd pain. MD Diaz made aware by previous nurse. Pt given IV Morphine for pain.
[2023-09-28 05:00] VITALS: BP 158/69
[2023-09-28 05:40] LABS: Hematocrit 33.6 % (37.0-47.0); Hemoglobin 11.7 g/dl (12.0-16.0); Mean Corpuscular HGB Conc 34.8 g/dl (31.0-35.0); Mean Corpuscular Hemoglobin 30.2 pg (27.0-33.0); Mean Corpuscular Volume 86.6 fL (80.0-98.0); Mean Platelet Volume 11.3 fL (9.4-12.3); Platelet Count 216 X10*3/uL (160-400); Red Blood Count 3.88 X10*6/uL (4.20-5.50); Red Cell Distribution Width 12.1 % (11.0-16.0); White Blood Count 5.7 X10*3/uL (4.8-10.8)
[2023-09-28 05:57] LABS: Anion Gap 15 (12-20); Blood Urea Nitrogen 7 mg/dL (9-16); Calcium 9.1 mg/dL (8.4-10.2); Carbon Dioxide 22 mmol/L (22-29); Chloride 103 mmol/L (96-108); Creatinine Clr Calc Pharmacy 110.5; Estimated Glomerular Filt Rate > 60; Glucose Random 174 mg/dL (60-115); Potassium 3.6 mmol/L (3.3-5.1); Sodium 136 mmol/L (135-145)
[2023-09-28 06:15] LABS: Glucose, Whole Blood 188 mg/dL (60-115)
[2023-09-28 07:09] VITALS: BP 125/85; PULSE 102; RESP 16; TEMP 36.6; O2SAT 99
[2023-09-28] MEDS: Doxycycline Hyclate 100 MG in 0.9 % Sodium Chloride 250 ML 166.67 MG IV (07:27)
[2023-09-28] MEDS: 0.9 % Sodium Chloride Flush 3 ML SYRINGE IVFLUSH (07:29)
[2023-09-28 07:53] LABS: Glucose, Whole Blood 205 mg/dL (60-115)
[2023-09-28] MEDS: levoFLOXacin/D5W 750 MG/150 ML PIGGYBACK 100 MG IV (09:15)
[2023-09-28] MEDS: Insulin Glargine,Hum.rec.anlog 100 UNIT/ML 10 ML VIAL 12 UNIT SUBCUT (09:15)
--- NOTE | 2023-09-28 09:49 | HO.PM.IMPN ---
Subjective Subjective Date of Service: 09/28/23 Interval History: f/u on acute pyelonephritis, and Left buttock abscess Had episodes of nausea, vomitting and abdominal pain. repeat CT no acute finding, no DKA.. Overall seems better this morning, Physical Exam Vital Signs: Vital Signs: Last Vital Signs Temp 97.8 F 09/28/23 07:09 Pulse 102 H 09/28/23 07:09 Resp 16 09/28/23 07:09 BP 125/85 09/28/23 07:09 Pulse Ox 99 09/28/23 07:09 O2 Del Method Room Air 09/28/23 07:09 BMI result Body Mass Index 21.5 Const: Other: General: AO X 3, no acute distress Resp: CTA bilateral CVS: S1,S2,RRR GI: +BS, NT, no distention Skin: No rash Neuro: motor grossly intact Psych: appropriate affect Objective Data Active Medications Acetaminophen (Acetaminophen 325 Mg Tablet) 650 mg PO Q6H PRN PRN Reason: Pain, Mild (Pain Scale 1-3), fever or headache Last Admin: 09/27/23 07:40 Dose: 650 mg Documented By: MELY Al Hydroxide/Mg Hydroxide (Magnesium Hydrox/Alum Hydrox 30 Ml Oral.Susp) 30 ml PO Q4H PRN PRN Reason: Pain, Mild (Pain Scale 1-3) Calcium Carbonate (Calcium Carbonate 750 Mg Tab.Chew) 750 mg PO Q4H PRN PRN Reason: Heartburn Enoxaparin Sodium (Enoxaparin Sodium 40 Mg/0.4 Ml Syringe) 40 mg SUBCUT Q24H [facility] Last Admin: 09/27/23 20:08 Dose: 40 mg Documented By: IRVIN Glucose (Glucose Gel 15 Gm Gel..Gram.) 15 gm PO Q15M PRN; Protocol PRN Reason: per Hypoglycemia Standing Ord. Dextrose (D10) 250 mls @ 750 mls/hr IV Q15M PRN; Protocol PRN Reason: per Hypoglycemia Standing Ord. Last Infusion: 09/27/23 17:08 Dose: Infused Documented By: ALANA Doxycycline Hyclate 100 mg/ (Sodium Chloride) 250 mls @ 166.67 mls/hr IV Q12H [facility] Last Infusion: 09/28/23 08:57 Dose: Infused Documented By: ALANA Levofloxacin (Levaquin) 750 mg in 150 mls @ 100 mls/hr IV Q24H [facility] Last Admin: 09/28/23 09:15 Dose: 100 mls/hr Documented By: ALANA Metronidazole (Flagyl) 500 mg in 100 mls @ 100 mls/hr IV Q12H [facility] Last Infusion: 09/28/23 04:58 Dose: Infused Documented By: MELINDA Insulin Glargine (Insulin Glargine,Hum.Rec.Anlog 100 Unit/Ml 10 Ml Vial) 12 unit SUBCUT BEDTIME SHEILA Insulin Glargine (Insulin Glargine,Hum.Rec.Anlog 100 Unit/Ml 10 Ml Vial) 12 unit SUBCUT DAILY [facility] Last Admin: 09/28/23 09:15 Dose: 12 unit Documented By: ALANA Insulin Human Lispro (Insulin Lispro 100 Unit/Ml 3 Ml Vial) 0 unit SUBCUT Q6H [facility]; Protocol Last Admin: 09/28/23 06:20 Dose: 2 unit Documented By: MELINDA Lidocaine HCl (Lidocaine Hcl Viscous 2 % 15 Ml Solution) 10 ml MUCOUS MEM Q3H PRN PRN Reason: Pain, Mild (Pain Scale 1-3) Magnesium Hydroxide (Milk Of Magnesia 30 Ml Oral.Susp) 30 ml PO DAILY PRN PRN Reason: Constipation Melatonin (Melatonin 3 Mg Tablet) 6 mg PO BEDTIME PRN PRN Reason: Insomnia Metoclopramide HCl (Metoclopramide Hcl 10 Mg/2 Ml Vial) 5 mg IVPUSH Q6H PRN PRN Reason: Nausea and Vomiting Last Admin: 09/28/23 01:05 Dose: 5 mg Documented By: IRVIN Morphine Sulfate (Morphine Sulfate 4 Mg/Ml Cartridge) 4 mg IVPUSH Q4H PRN; Protocol PRN Reason: Pain, Severe (Pain Scale 7-10) Last Admin: 09/28/23 03:29 Dose: 4 mg Documented By: MELINDA Ondansetron HCl (Ondansetron Hcl 4 Mg/2 Ml Vial) 4 mg IVPUSH Q4H PRN PRN Reason: Nausea and Vomiting Last Admin: 09/27/23 22:47 Dose: 4 mg Documented By: IRVIN Oxycodone HCl (Oxycodone Hcl Immed Release 5 Mg Tablet) 5 mg PO Q6H PRN PRN Reason: Pain, Severe (Pain Scale 7-10) Last Admin: 09/28/23 02:29 Dose: 5 mg Documented By: TUMASY Sodium Chloride (0.9 % Sodium Chloride Flush 3 Ml Syringe) [facility] Admin: 09/28/23 07:29 Dose: 3 ml Documented By: ALANA Labs 09/28/23 04:57 09/28/23 04:57 Labs: Laboratory Results - last 24 hr 09/27/23 09/27/23 09/27/23 10:47 13:55 15:37 MCV MCH MCHC RDW Plt Count MPV Absolute Nucleated RBC Nucleated RBC % (auto) Anion Gap Estim Creat Clear Calc Estimated GFR POC Glucose 112 80 Random Glucose Calcium T. vaginalis (PCR) NOT DETECTED Bact Vaginosis (PCR) POSITIVE A C. krusei/glabrata (PCR) NOT DETECTED Mariya group (PCR) NOT DETECTED 09/27/23 09/27/23 09/27/23 15:55 16:39 17:15 MCV MCH MCHC RDW Plt Count MPV Absolute Nucleated RBC Nucleated RBC % (auto) Anion Gap 11 L Estim Creat Clear Calc Estimated GFR POC Glucose 71 236 H Random Glucose Calcium T. vaginalis (PCR) Bact Vaginosis (PCR) C. krusei/glabrata (PCR) Mariya group (PCR) 09/27/23 09/27/23 09/27/23 18:40 20:37 22:40 MCV MCH MCHC RDW Plt Count MPV Absolute Nucleated RBC Nucleated RBC % (auto) Anion Gap Estim Creat Clear Calc Estimated GFR POC Glucose 133 H 123 H 139 H Random Glucose Calcium T. vaginalis (PCR) Bact Vaginosis (PCR) C. krusei/glabrata (PCR) Mariya group (PCR) 09/28/23 09/28/23 09/28/23 00:41 04:57 06:09 MCV 86.6 MCH 30.2 MCHC 34.8 RDW 12.1 Plt Count 216 D MPV 11.3 Absolute Nucleated RBC 0.000 Nucleated RBC % (auto) 0.0 Anion Gap 15 Estim Creat Clear Calc 110.5 Estimated GFR > 60 POC Glucose 166 H 188 H Random Glucose 174 H Calcium 9.1 T. vaginalis (PCR) Bact Vaginosis (PCR) C. krusei/glabrata (PCR) Mariya group (PCR) 09/28/23 07:16 MCV MCH MCHC RDW Plt Count MPV Absolute Nucleated RBC Nucleated RBC % (auto) Anion Gap Estim Creat Clear Calc Estimated GFR POC Glucose 205 H Random Glucose Calcium T. vaginalis (PCR) Bact Vaginosis (PCR) C. krusei/glabrata (PCR) Mariya group (PCR) Microbiology Microbiology Results: Microbiology 09/26/23 16:35 Gram Stain - Final Buttock Routine Culture - Final No growth after 2 days 09/25/23 16:36 Urine Culture - Final Urine clean catch - Clean Catch Midstream Escherichia coli 09/25/23 16:50 Blood Culture - Preliminary Blood - Venous No growth after 48 hours. 09/25/23 16:50 Blood Culture - Preliminary Blood - Venous No growth after 48 hours. Assessment and Plan (1) Pyelonephritis: Status: Acute (2) Hypokalemia: Status: Acute Plan 33-year-old female with pertinent history of type 1 diabetes mellitus, gastroesophageal reflux disease who presents to the emergency department for evaluation of flank pain. Sepsis due to right-sided UTI and pyelonephritis -Urine culture E. coli, ESBL.. 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 Was given glucose yesterday due to NPO, no acidosis -Changing to Lantus 12 in AM and 12 at night, in addition to SSI, check sugars and stop IVF with sugar. BV--Flagyl, also given one dose Diflucan for possible yeast infection Gastroesophageal reflux disease: On PPI DVT prophylaxis: Lovenox, out of bed ambulate Full code Need for inpatient: IV Abx for sepsis d/t Pyelonephritis, low potassium needing replacement and recheck Out of bed, ambulate Quality Stroke Does the patient have a stroke diagnosis?: No VTE Prior VTE?: No VTE Risk Level:: Medical - moderate - high VTE Device Contraindication: Treatment Not Indicated VTE Drug Contraindication: N/A - Med Ordered
--- NOTE | 2023-09-28 10:12 | MHC.CM.PN ---
Addendum entered by Katiana Tran 09/28/23 16:18: DP: PT HAS BEEN MEDICALLY CLEARED FOR DC HOME, NO SERVICES. PT HAS OWN RIDE HOME. Original Note: EMR REVIEWED AND PER MD ROUNDS, PT CONTINUES TO C/O ABD. PAIN AND ONLY TAKING BITES OF FOOD. CM WILL CONTINUE TO FOLLOW FOR ANY CHANGE TO DC PLAN/NEEDS.
[2023-09-28 11:44] LABS: Glucose, Whole Blood 145 mg/dL (60-115)
--- NOTE | 2023-09-28 14:22 | P.DS_ITS ---
DS: Providers Provider Date of Service: 09/28/23 Date of admission: 09/25/23 19:24 Primary care physician: None Physician Consults: 09/26/23 15:49 Consult to General Surgery Routine Consulting Provider: [facility] General Surgeons Reason for consultation: Right Buttock absces DS: Diagnosis Discharge Diagnosis (1) Pyelonephritis: Status: Acute (2) Hypokalemia: Status: Acute DS: Summary Hospital Course Hospital Course: Chief Complaint: Flank pain This is a 33-year-old female with pertinent history of type 1 diabetes mellitus, gastroesophageal reflux disease who presents to the emergency department for evaluation of flank pain. Patient states she had sudden onset of bilateral flank pain that started on the day of presentation. It is intermittent, nonra diating and without any relieving factors. No associated nausea or vomiting. Patient endorses change in color and odor of urine. Also has been having increasing urinary frequency. No fever, chills, chest discomfort, palpitations, shortness of breath, changes in bowel habits. In the emergency department, urine concerning for UTI and imaging with right- sided pyelonephritis. Hospital course: Patient presented with flank pain,and was found to have positive UA and CT findings consistent with acute pyelonephritis. She was given IV Levaquin in the ED and started on ceftriaxone upon admission. Cultures later was positive for ESBL E. coli resistant to ceftriaxone but sensitive to Levaquin. She was switched back to Levaquin. Her hospital course was further complicated by hypokalemia related to nausea and vomiting, which has been corrected. Cyclical vomiting with abdominal pain was likely related to marijuana use and was treated with antiemetics, a buttock abscess that was incised and drained. The vomiting has resolved, and she is cautioned to avoid marijuana. Patient had a small buttock abscess on the left side, which was drained surgically. Culture was negative. She was given doxycycline for this, and there has been no further drainage. She will be treated with Levaquin and flagyl. Patient also complained of white vaginal discharge, initially treated with Diflucan for yeast infection. A vaginal swab later showed Bacterial Vagnisosis (VB) and was treated with Flagyl. Sepsis due to right-sided UTI and pyelonephritis has resolved. Urine culture showed E. coli, ESBL, sensitive to Levaquin; she will be treated with Levaquin for a total of 10 days. Buttock abscess, status post I&D by surgery: Gram stain showed gram-positive cocci, but culture negative so far. Patient has been on doxycycline and Levaquin and will be discharged with Levaquin and flagyl Hypokalemia and hypomagnesemia have been replaced and corrected; magnesium level is now normal at 2.2. Type 1 diabetes mellitus: Advise to resume insulin at home but use less until back to normal eating habits and to continue monitoring sugars. Gastroesophageal reflux disease: On PPI. BV--Flagyl for 7 days Time Attestation Discharge Coordination Time (in mins): 35 Quality: Safe Use of Opioids Does Pt have an Active Cancer Diagnosis on the Problem List?: No Quality: Stroke Does the patient have a stroke diagnosis?: No Physical Exam Vital Signs: Vital Signs: Last Vital Signs Temp 97.8 F 09/28/23 07:09 Pulse 102 H 09/28/23 07:09 Resp 16 09/28/23 07:09 BP 125/85 09/28/23 07:09 Pulse Ox 99 09/28/23 07:09 O2 Del Method Room Air 09/28/23 07:09 BMI result Body Mass Index 21.5 DS: Data Data Completed and Pending Completed studies during hospitalization [Text1]: Procedures Drainage of Buttock Skin, External Approach (05/15/23) Excision of Duodenum, Via Natural or Artificial Opening Endoscopic, Diagnostic (10/16/21) Excision of Esophagus, Via Natural or Artificial Opening Endoscopic, Diagnostic (10/16/21) Excision of Sigmoid Colon, Via Natural or Artificial Opening Endoscopic, Diagnostic (10/16/21) Excision of Stomach, Via Natural or Artificial Opening Endoscopic, Diagnostic (10/16/21) Labs on day of discharge: Laboratory Results - last 24 hr 09/27/23 09/27/23 09/27/23 13:55 15:37 15:55 WBC RBC Hgb Hct MCV MCH MCHC RDW Plt Count MPV Absolute Nucleated RBC Nucleated RBC % (auto) Sodium 140 Potassium 4.4 D Chloride 106 Carbon Dioxide 27 Anion Gap 11 L BUN Creatinine Estim Creat Clear Calc Estimated GFR POC Glucose 80 Random Glucose Calcium T. vaginalis (PCR) NOT DETECTED Bact Vaginosis (PCR) POSITIVE A C. krusei/glabrata (PCR) NOT DETECTED Mariya group (PCR) NOT DETECTED 09/27/23 09/27/23 09/27/23 16:39 17:15 18:40 WBC RBC Hgb Hct MCV MCH MCHC RDW Plt Count MPV Absolute Nucleated RBC Nucleated RBC % (auto) Sodium Potassium Chloride Carbon Dioxide Anion Gap BUN Creatinine Estim Creat Clear Calc Estimated GFR POC Glucose 71 236 H 133 H Random Glucose Calcium T. vaginalis (PCR) Bact Vaginosis (PCR) C. krusei/glabrata (PCR) Mariya group (PCR) 09/27/23 09/27/23 09/28/23 20:37 22:40 00:41 WBC RBC Hgb Hct MCV MCH MCHC RDW Plt Count MPV Absolute Nucleated RBC Nucleated RBC % (auto) Sodium Potassium Chloride Carbon Dioxide Anion Gap BUN Creatinine Estim Creat Clear Calc Estimated GFR POC Glucose 123 H 139 H 166 H Random Glucose Calcium T. vaginalis (PCR) Bact Vaginosis (PCR) C. krusei/glabrata (PCR) Mariya group (PCR) 09/28/23 09/28/23 09/28/23 04:57 06:09 07:16 WBC 5.7 RBC 3.88 L Hgb 11.7 L Hct 33.6 L MCV 86.6 MCH 30.2 MCHC 34.8 RDW 12.1 Plt Count 216 D MPV 11.3 Absolute Nucleated RBC 0.000 Nucleated RBC % (auto) 0.0 Sodium 136 Potassium 3.6 Chloride 103 Carbon Dioxide 22 Anion Gap 15 BUN 7 L Creatinine 0.61 Estim Creat Clear Calc 110.5 Estimated GFR > 60 POC Glucose 188 H 205 H Random Glucose 174 H Calcium 9.1 T. vaginalis (PCR) Bact Vaginosis (PCR) C. krusei/glabrata (PCR) Mariya group (PCR) 09/28/23 11:24 WBC RBC Hgb Hct MCV MCH MCHC RDW Plt Count MPV Absolute Nucleated RBC Nucleated RBC % (auto) Sodium Potassium Chloride Carbon Dioxide Anion Gap BUN Creatinine Estim Creat Clear Calc Estimated GFR POC Glucose 145 H Random Glucose Calcium T. vaginalis (PCR) Bact Vaginosis (PCR) C. krusei/glabrata (PCR) Mariya group (PCR) Preliminary micro results at discharge 09/25/23 16:50 Blood Culture - Preliminary Blood - Venous No growth after 48 hours. 09/25/23 16:50 Blood Culture - Preliminary Blood - Venous No growth after 48 hours. Discharge Plan Discharge Anticipated Discharge Date/Time: 09/28/23 14:23 Patient Disposition: Home, Self-Care Discharge Diagnosis: Acute Pyelonephritis, Cyclical vomiting, bacterial vaginosis, Hypokalemia Referrals: Physician,None [Primary Care Provider] - 1 Week Discharge Medications: New levofloxacin 500 mg tablet 500 mg PO DAILY 8 Days Qty: 8 0RF Rx Instructions: next dose 8/3 morning metronidazole 500 mg tablet 500 mg PO BID 6 Days Qty: 12 0RF Rx Instructions: next today 09/28, evening No Action insulin glargine [Lantus Solostar U-100 Insulin] 100 unit/mL (3 mL) Insulin Pen 30 unit SUBCUT BEDTIME Diet: Advance to usual diet Activity on Discharge: As tolerated Stand Alone Forms: Patient Portal Discharge page Print Language: Macanese Care Plan Goals: Full recovery from acute pyelonephritis, vaginosis Health Concerns: pyelonephritis Vaginosis Cyclical vomiting Plan of Treatment: take Levaquin as directed for pyelonephritis and UTI take Flagyl for bacterial vaginosis resume insulin, taking half of usual today Assessment: see above
--- NOTE | 2023-09-28 15:16 | PM.EVENT ---
Event Note Date of Service: 09/28/23 Event Note: ID site looks dry No residual induration or fluctuance No pus No further surgical intervention Time Spent With Patient Time: Total time managing care of this patient today ____ minutes.
[2023-09-28 15:27] VITALS: BP 125/87; PULSE 94; RESP 16; TEMP 36.3; O2SAT 100
[2023-09-28 15:31] LABS: Glucose, Whole Blood 98 mg/dL (60-115)
== END 2023-09-28 16:38 | disposition home or self-care (01) | DRG 720 ==
LOC: HO.ED 19:27 → HO.EDOVER 19:32 → HO.S3 23:26
PROVIDERS: Physician Assistant; Admitting Provider Student in an Organized Health Care Education/Training Program; Emergency Provider Emergency Medicine; Visit Provider Internal Medicine
DX: A41.9 Sepsis, unspecified organism (principal); E10.65 Type 1 diabetes mellitus with hyperglycemia; N10 Acute pyelonephritis; E87.6 Hypokalemia; E83.42 Hypomagnesemia; B96.20 Unspecified Escherichia coli [E. coli] as the cause of diseases classified elsewhere; N76.0 Acute vaginitis; L02.31 Cutaneous abscess of buttock; F17.210 Nicotine dependence, cigarettes, uncomplicated; K21.9 Gastro-esophageal reflux disease without esophagitis; Z71.6 Tobacco abuse counseling; Z16.12 Extended spectrum beta lactamase (ESBL) resistance
CPT/HCPCS: 0352U; 36415; 74176; 74177; 80048; 80051; 80053; 81001; 81025; 82947; 83605; 83690; 83735; 85025; 85027; 87040; 87070; 87086; 87088; 87186; 87205; 92950; 93005; 99285; J0696; J1170; J1200; J1630; J1650; J1836; J1956; J2270; J2405; J2765; J3475; J7120; Q9967

== ENCOUNTER 2023-09-25 19:24 | Outpatient (BNV) | payer MEDICAID, SELFPAY | END 2023-09-27 17:23 | PROVIDERS: Admitting Provider Student in an Organized Health Care Education/Training Program; Emergency Provider Emergency Medicine; Visit Provider Internal Medicine Cardiovascular Disease | DX: R07.9 Chest pain, unspecified (principal) | CPT/HCPCS: 93010 ==

== ENCOUNTER → 2023-09-25 19:24 | Outpatient (BNV) | payer MEDICAID, SELFPAY | PROVIDERS: Admitting Provider Student in an Organized Health Care Education/Training Program; Emergency Provider Emergency Medicine; Visit Provider Student in an Organized Health Care Education/Training Program | DX: A41.9 Sepsis, unspecified organism (principal); N10 Acute pyelonephritis; E10.65 Type 1 diabetes mellitus with hyperglycemia; E87.6 Hypokalemia | CPT/HCPCS: 99222; 99232; 99233; 99239; 99499 ==

== ENCOUNTER → 2023-09-25 19:24 | Outpatient (BNV) | payer MEDICAID, SELFPAY | PROVIDERS: Admitting Provider Student in an Organized Health Care Education/Training Program; Emergency Provider Emergency Medicine; Visit Provider Surgery | DX: L02.31 Cutaneous abscess of buttock (principal) | CPT/HCPCS: 10060; 99222; 99499 ==

== ENCOUNTER 2023-12-03 03:00 | Emergency (ER) | payer MEDICAID, SELFPAY ==
[2023-12-03 03:32] VITALS: BP 131/97; PULSE 133; RESP 18; TEMP 37.1; O2SAT 100; BMI 21.4
[2023-12-03 03:51] LABS: MANUAL DIFF FLAG NO
[2023-12-03 03:57] LABS: Basophils Absolute Auto 0.1 X10*3/uL (0.0-0.2); Basophils Percent Auto 0.4 % (0-2); Eosinophils Absolute Auto 0.1 X10*3/uL (0.0-0.4); Eosinophils Percent Auto 0.9 % (0-4); Hemoglobin 14.2 g/dl (12.0-16.0); Imm Gran Abs Auto 0.07 X10*3/uL (0.00-0.03); Imm Gran Pct Auto 0.5 % (0.0-0.4); Lymphocytes Absolute Auto 1.6 X10*3/uL (1.2-4.9); Lymphocytes Percent Auto 11.5 % (20-40); Mean Corpuscular HGB Conc 35.5 g/dl (31.0-35.0); Mean Corpuscular Hemoglobin 30.9 pg (27.0-33.0); Monocytes Absolute Auto 0.6 X10*3/uL (0.1-1.2); Monocytes Percent Auto 4.4 % (2-11); Neutrophils Absolute Auto 11.4 x10*3/uL (2.0-8.3); Neutrophils Percent Auto 82.3 % (45-73); Platelet Count 226 X10*3/uL (160-400); Red Cell Distribution Width 11.8 % (11.0-16.0); White Blood Count 13.9 X10*3/uL (4.8-10.8)
[2023-12-03 04:13] LABS: Alanine Aminotransferase 19 U/L (0-31); Albumin Level 4.6 g/dL (3.5-5.0); Alkaline Phosphatase 83 U/L (39-117); Anion Gap 17 (12-20); Aspartate Amino Transferase 20 U/L (5-31); Bilirubin Total 1.2 mg/dL (0.0-1.0); Blood Urea Nitrogen 12 mg/dL (9-16); Calcium 10.1 mg/dL (8.4-10.2); Carbon Dioxide 24 mmol/L (22-29); Chloride 102 mmol/L (96-108); Creatinine Clr Calc Pharmacy 79.3; Estimated Glomerular Filt Rate > 60; Glucose Random 298 mg/dL (60-115); Potassium 3.6 mmol/L (3.3-5.1); Sodium 139 mmol/L (135-145); Total Protein 8.6 g/dL (6.5-8.0)
[2023-12-03 09:16] VITALS: BP 140/83; PULSE 106; RESP 18; TEMP 36.7; O2SAT 100
--- NOTE | 2023-12-03 10:21 | ED_ITS ---
HPI - Skin/Abscess/Foreign Bdy General Chief complaint: Skin/Abscess/Foreign Body Stated complaint: painful abscess lower buttock Time Seen by Provider: 12/03/23 08:59 Source: patient and RN notes reviewed Mode of arrival: ambulatory Limitations: no limitations History of Present Illness ED Provider: Agueda Urbina PA-C HPI narrative: This is a [id number]-female, with a hx of DM1, who presents emergency department with complaints of right buttock abscess 2 days. Patient has had a history of recurrent abscesses in her left buttocks as well as her right buttocks. Per physician documentation, patient had a right gluteal abscess that was incised and drained in September by Dr. Mcbride at bedside. She endorses chills yesterday. No fevers. No history of IVDA. She is requesting STI testing as well. She has no symptoms. No other complaints or concerns at this time. MD complaint: abscess/boil Onset (ago): day(s) Tetanus up to date: unsure Severity: moderate Pain Consistency: constant Relieving factors: none Exacerbating factors: none Context: none Associated symptoms: denies other symptoms Treatments prior to arrival: none Related Data Previous Rx's ?Medication ?Instructions ?Recorded insulin glargine 100 unit/mL (3 15 unit (0.15 mL) subcut BID #15 mL 09/28/23 mL) subcutaneous pen (Lantus Solostar U-100 Insulin) insulin lispro 100 unit/mL 1 sliding scale dose subcut 09/28/23 subcutaneous pen (Humalog KwikPen USEASDIRECTD #15 mL (U-100) Insulin) levofloxacin 500 mg tablet 500 mg PO DAILY 8 days #8 tabs 09/28/23 metronidazole 500 mg tablet 500 mg PO BID 6 days #12 tabs 09/28/23 acetaminophen 500 mg tablet 1,000 mg (2 x 500 mg) PO Q8H PRN 12/03/23 (Tylenol Extra Strength) pain #30 tabs cephalexin 500 mg capsule 500 mg PO QID 7 days #28 caps 12/03/23 doxycycline hyclate 100 mg tablet 100 mg PO BID 7 days #14 tabs 12/03/23 ibuprofen 600 mg tablet 600 mg PO Q6H PRN pain #30 tabs 12/03/23 morphine 15 mg immediate release 15 mg PO Q6H PRN severe pain 12/03/23 tablet (scale score 7-10) #7 tabs Allergies Allergy/AdvReac Type Severity Reaction Status Date / Time latex Allergy Severe Rash Verified 12/03/23 03:36 Review of Systems 2 Review of Systems: Yes all other systems are reviewed and are negative Constitutional: Constitutional: Reports as per [facility] Past Medical History Attestation statement: The following information was validated with the patient. Medical History Abscess of buttock, right Diabetes mellitus type 1 Surgical History Hx of cholecystectomy Family History Family History Other Family history non-contributory Social History Social History Household Members: Family Household Members Other:: sister Housing: House Do you presently have visiting nurse or other home services: No Alcohol intake: former Patient Tobacco Use Status: Current someday Tobacco user Tobacco use type: Cigarette Cigarettes Per Day: 2 Smoked in Last 30 Days: Yes e-Cigarette/Vaping Use: Never Used Second Hand Smoke Exposure: Yes Use of substances other than those prescribed or required for medical reasons: Yes Substance Use Type: Marijuana Advance Directives: Yes Advance Directives on File: Yes Advance Directives Date on File: 05/16/23 service: No Current occupational status: employed Physical Exam 2 Vital Signs: Vital Signs: Last Vital Signs Temp 98.1 F 12/03/23 12:28 Pulse 106 H 12/03/23 12:28 Resp 18 12/03/23 12:28 BP 140/83 H 12/03/23 12:28 Pulse Ox 100 12/03/23 12:28 O2 Del Method Room Air 12/03/23 12:28 BMI result Body Mass Index 21.4 Const: General: cooperative, comfortable and no acute distress O rientation/consciousness: patient oriented x3 Limitations: no limitations HEENT: Head: Yes normal to inspection, Yes normocephalic and Yes atraumatic Ears: hearing grossly normal bilaterally General nose exam: Normal external nose present Face and sinus: Yes normal facial exam Mouth: Normal oral and palatal mucosa present, oropharynx normal and moist mucous membranes Throat: Yes posterior oropharynx normal Eyes: General: appearance normal, both eyes and all related structures E yelids: Yes eyelids normal Conjunctivae: conjunctivae normal Sclerae: s clerae normal Pupils: Equal, round and reactive pupils present EOM: EOMs intact bilaterally Neck: Neck: Yes normal visual inspection, Yes full ROM and Yes no lymphadenopathy Lymphatic: no lymphadenopathy noted Chest: Chest palpation & inspection: normal inspection of the chest Resp: Effort & Inspection: normal respiratory effort and able to speak in complete sentences Auscultation: clear to auscultation bilaterally, no crackles, no rales, no rhonchi and no wheezes Cardio: Rate: regular rate Rhythm: regular rhythm Heart sounds: S1 normal heart sound present and S2 normal heart sound present GI: Inspection: Yes normal to inspection Skin: Other: Large right gluteal abscess with induration and fluctuance and tenderness noted with surrounding erythema. Does not extend into the perineum region. Neuro: General: patient oriented x3 and moves all extremities Cranial nerves: Yes Equal, round and reactive pupils present Extrem: General: Yes normal to inspection Right upper extremity: normal to inspection Left upper extremity: normal to inspection Right lower extremity: normal to inspection Left lower extremity: normal to inspection Course Reevaluation(s) Reevaluation #1: Lactic acid normal. Pt medicated with morphine and ativan. Area was excised and drained, see procedure note for details. Wick was placed in abscess and patient was instructed to return in 48-72 hours for wound check, d.c on double coverage abx, She understands and agrees with plan, Stable for d.c. Medications Administered Discontinued Medications Generic Name Dose Route Start Last Admin Trade Name Patrickq PRN Reason Stop Dose Admin Diphtheria/Tetanus/Acell Pertussis 0.5 ml 12/03/23 11:48 12/03/23 12:02 Diphth,Pertus(Acell),Tet Adult 0.5 Ml Syringe IM 12/03/23 11:49 0.5 ml .ONCE ONE Administration Ceftriaxone Sodium 1 gm/ 50 mls @ 100 mls/hr 12/03/23 09:24 12/03/23 10:45 Sodium Chloride IV 12/03/23 09:53 100 mls/hr ONCE ONE Administration Sodium Chloride 1,000 mls @ 999 mls/hr 12/03/23 09:25 12/03/23 10:48 Ns IV 12/03/23 10:25 999 mls/hr .Q1H1M ONE Administration Lidocaine HCl 5 ml 12/03/23 09:29 12/03/23 10:58 Lidocaine Hcl 1 % Mpf 5 Ml Vial INFILTRATI 12/03/23 09:30 5 ml ONCE ONE Administration Lorazepam 1 mg 12/03/23 09:24 12/03/23 10:46 Lorazepam 2 Mg/Ml Vial IVPUSH 12/03/23 09:25 1 mg STAT STA Administration Morphine Sulfate 4 mg 12/03/23 09:24 12/03/23 10:46 Morphine Sulfate 4 Mg/Ml Cartridge IVPUSH 12/03/23 09:25 4 mg ONCE ONE Administration Protocol Medical Decision Making Medical Decision Making [facility] Narrative: This is a 33 y/o F who presents today for right gluteal abscess x 4 days. Pt has a history of recurrent abscesses on these regions. On arrival to the emergency room at 0332, she was found to be tachycardic at 133, however afebrile. I evaluated patient at 0915 and patient still found to be tachycardic at 106bpm, still afebrile. She is anxious appearing and reporting pain in the right buttocks secondary to the abscess. Labs were obtained prior to my assessment and she was found to have a WBC of 13.9k. Given tachycardia, source of infection and elevated WBC, she is meeting SIRs criteria, therefore, abx, fluids, lactic and blood cultures were ordered. Differential Diagnosis Differential Diagnoses: The differential diagnosis associated with the presentation includes abscess, cellulitis, cyst Admission/Observation Consideration of admission/observation: Escalation of care including admission/observation considered Lab Data [facility] Lab Attestation statement: I reviewed the patient's lab results. see course 12/03/23 03:45 12/03/23 03:45 Labs: Lab Results 12/03/23 12/03/23 12/03/23 Range/Units 03:45 09:55 12:02 WBC 13.9 H (4.8-10.8) X10*3/uL RBC 4.60 (4.20-5.50) X10*6/uL Hgb 14.2 D (12.0-16.0) g/dl Hct 40.0 (37.0-47.0) % MCV 87.0 (80.0-98.0) fL MCH 30.9 (27.0-33.0) pg MCHC 35.5 H (31.0-35.0) g/dl RDW 11.8 (11.0-16.0) % Plt Count 226 (160-400) X10*3/uL MPV 11.0 (9.4-12.3) fL Immature Gran % (Auto) 0.5 H (0.0-0.4) % Neut % (Auto) 82.3 H (45-73) % Lymph % (Auto) 11.5 L (20-40) % [place] % (Auto) 4.4 (2-11) % Eos % (Auto) 0.9 (0-4) % Baso % (Auto) 0.4 (0-2) % Lymph # (Auto) 1.6 (1.2-4.9) X10*3/uL [place] # (Auto) 0.6 (0.1-1.2) X10*3/uL Eos # (Auto) 0.1 (0.0-0.4) X10*3/uL Baso # (Auto) 0.1 (0.0-0.2) X10*3/uL Abs Immat Gran (auto) 0.07 H (0.00-0.03) X10*3/uL Absolute Neuts (auto) 11.4 H (2.0-8.3) x10*3/uL Absolute Nucleated RBC 0.000 (0.0-0.012) X10*3/uL Nucleated RBC % (auto) 0.0 (0.0-0.2) /100WBC Sodium 139 (135-145) mmol/L Potassium 3.6 (3.3-5.1) mmol/L Chloride 102 (96-108) mmol/L Carbon Dioxide 24 (22-29) mmol/L Anion Gap 17 (12-20) BUN 12 (9-16) mg/dL Creatinine 0.85 (0.5-1.4) mg/dL Estim Creat Clear Calc 79.3 Estimated GFR > 60 Random Glucose 298 H (60-115) mg/dL Lactic Acid 1.0 (0.5-2.0) mmol/L Calcium 10.1 D (8.4-10.2) mg/dL Total Bilirubin 1.2 H (0.0-1.0) mg/dL AST 20 (5-31) U/L ALT 19 (0-31) U/L Alkaline Phosphatase 83 (39-117) U/L Total Protein 8.6 H (6.5-8.0) g/dL Albumin 4.6 (3.5-5.0) g/dL Chlam trachomat DNA PCR NOT DETECTED (Not Detect.) N.gonorrhoeae DNA (PCR) NOT DETECTED (Not Detect.) Procedures Abscess I/D Site: other (buttocks) Side (if applicable): right Local Anesthetic: lidocaine 1% Amount of anesthesia used (mL): 3 Technique: incised with blade Amount of fluid expressed (mL): 15 Sent for culture/gram staining?: Yes Irrigation: Yes Packing used?: iodoform Discharge Plan Discharge Clinical Impression: Abscess of buttock, right Patient Disposition: Home, Self-Care Instructions: Abscess (ED), Incision and Drainage (ED) Additional Instructions: You were seen in the ER for an abscess. We had to perform an incision and drainage, and placed a wick in the area. Please return in 48-72 hours for a wound check. The wound will continue to drain, this is a normal result of an incision and drainage. Please alternate between ibuprofen and Tylenol for pain relief. You may take morphine orally only for severe pain. Please be advised that this can cause drowsiness, do not drink alcohol or drive while taking this medication. This also is in addictive medication therefore is very important that he only use this as needed, do not share this medication and dispose properly if you are no longer using this. If any new or worsening symptoms occur including but not limited to increased pain, swelling, redness, fevers, chills, please seek emergent care. Prescriptions: New cephalexin 500 mg capsule 500 mg PO QID 7 Days Qty: 28 0RF doxycycline hyclate 100 mg tablet 100 mg PO BID 7 Days Qty: 14 0RF ibuprofen 600 mg tablet 600 mg PO Q6H PRN (Reason: pain) Qty: 30 0RF acetaminophen [Tylenol Extra Strength] 500 mg tablet 1,000 mg PO Q8H PRN (Reason: pain) Qty: 30 0RF morphine 15 mg tablet 15 mg PO Q6H PRN (Reason: severe pain (scale score 7-10)) Qty: 7 0RF Rx Instructions: Partial Fill upon patient request. No Action levofloxacin 500 mg tablet 500 mg PO DAILY 8 Days Qty: 8 0RF Rx Instructions: next dose 8/3 morning metronidazole 500 mg tablet 500 mg PO BID 6 Days Qty: 12 0RF Rx Instructions: next today /3, evening insulin lispro [Humalog KwikPen Insulin] 100 unit/mL insulin pen 1 sliding scale dose subcut USEASDIRECTD Qty: 15 0RF Rx Instructions: BG <111 0 units, 111-150 - 0 units, 151-200 2 units, 201-250 4 units, 251-300 6 units, 301-350 8 units, >350 10 units insulin glargine [Lantus Solostar U-100 Insulin] 100 unit/mL (3 mL) Insulin Pen 15 unit SUBCUT BID Qty: 15 1RF Interventions: ED Discharge Assessment Last Done: 12/03/23 12:28 Discharge Date/Time: 12/03/23 12:39 Print Language: Mongolian
[2023-12-03] MEDS: cefTRIAXone sodium 1 GM in 0.9 % Sodium Chloride 50 ML IV (10:45)
[2023-12-03] MEDS: LORazepam 2 MG/ML VIAL 1 MG IVPUSH (10:46)
[2023-12-03] MEDS: Morphine Sulfate 4 MG/ML CARTRIDGE IVPUSH (10:46)
[2023-12-03] MEDS: 0.9 % Sodium Chloride 1,000 ML 999 ML IV (10:48)
[2023-12-03] MEDS: Lidocaine HCl 1 % MPF 5 ML VIAL INFILTRATI (10:58)
[2023-12-03] MEDS: Diphth,Pertus(ACell),Tet Adult 0.5 ML SYRINGE IM (12:02)
[2023-12-03 12:28] VITALS: BP 140/83; PULSE 106; RESP 18; TEMP 36.7; O2SAT 100
[2023-12-03 14:01] LABS: CT PCR NOT DETECTED (Not Detect.); NG PCR NOT DETECTED (Not Detect.)
== END 2023-12-03 12:39 | disposition home or self-care (01) ==
PROVIDERS: Physician Assistant Medical; Emergency Provider Emergency Medicine
DX: L02.31 Cutaneous abscess of buttock (principal); Z23 Encounter for immunization
CPT/HCPCS: 10060; 36415; 80053; 83605; 85025; 87040; 87070; 87147; 87205; 87491; 87591; 90471; 90715; 96374; 96375; 99284; J0696; J2003; J2060; J2270

== ENCOUNTER 2024-02-01 04:04 | Emergency (ER) | payer MEDICAID, SELFPAY ==
[2024-02-01] VITALS (7 sets, daily range): BP systolic 99–162; BP diastolic 60–96; PULSE 86–102; RESP 14–19; TEMP 36.4–37.3; O2SAT 97–100; BMI 46.4
[2024-02-01] MEDS: Pantoprazole Sodium 40 MG/10 ML VIAL 80 MG IVPUSH (04:44)
[2024-02-01] MEDS: ondansetron HCL 4 MG/2 ML VIAL IVPUSH ×2 (04:45→09:18)
[2024-02-01] MEDS: Insulin Regular, Human 100 UNIT/ML 10 ML VIAL 10 UNIT IVPUSH (04:45)
[2024-02-01] MEDS: 0.9 % Sodium Chloride 1,000 ML 999 ML IV ×2 (04:48→09:57)
[2024-02-01 04:49] LABS: Venous Blood Gas Refer to POC result
[2024-02-01 04:50] LABS: Basophils Absolute Auto 0.1 X10*3/uL (0.0-0.2); Basophils Percent Auto 0.7 % (0-2); Eosinophils Percent Auto 0.1 % (0-4); Hematocrit 37.3 % (37.0-47.0); Hemoglobin 13.2 g/dl (12.0-16.0); Imm Gran Abs Auto 0.07 X10*3/uL (0.00-0.03); Imm Gran Pct Auto 0.8 % (0.0-0.4); Lymphocytes Absolute Auto 0.7 X10*3/uL (1.2-4.9); Lymphocytes Percent Auto 8.1 % (20-40); MANUAL DIFF FLAG NO; Mean Corpuscular HGB Conc 35.4 g/dl (31.0-35.0); Mean Corpuscular Hemoglobin 30.6 pg (27.0-33.0); Mean Corpuscular Volume 86.3 fL (80.0-98.0); Mean Platelet Volume 10.9 fL (9.4-12.3); Monocytes Absolute Auto 0.2 X10*3/uL (0.1-1.2); Monocytes Percent Auto 1.9 % (2-11); Neutrophils Absolute Auto 7.6 x10*3/uL (2.0-8.3); Neutrophils Percent Auto 88.4 % (45-73); Platelet Count 217 X10*3/uL (160-400); Red Blood Count 4.32 X10*6/uL (4.20-5.50); Red Cell Distribution Width 11.9 % (11.0-16.0); White Blood Count 8.6 X10*3/uL (4.8-10.8)
[2024-02-01] MEDS: LORazepam 2 MG/ML VIAL IVPUSH (04:50)
[2024-02-01 04:54] LABS: VBG Base Excess -3.2 mmol/L; VBG HCO3 23 mmol/L (22-26); VBG pCO2 46 mmHg; VBG pO2 63 mmHg
[2024-02-01 05:00] LABS: Glucose, Whole Blood 362 mg/dL (60-115)
[2024-02-01 05:04] LABS: Beta-Hydroxybutyrate 0.15 mmol/L (0.02-0.27)
[2024-02-01 05:16] LABS: Amphetamine Screen Urine Not Detected (Not Detect); Barbiturates, Urine Not Detected (Not Detect); Benzodiazepines Screen Urine Not Detected (Not Detect); Buprenorphine Scr Not Detected (Not Detect); Cannabinoid Screen Urine POSITIVE (Not Detect); Cocaine Screen Urine Not Detected (Not Detect); Fentanyl, urine Not Detected (Not Detect); Methadone Screen, Urine Not Detected (Not Detect); Opiate Screen Urine Not Detected (Not Detect); Oxycodone Screen Urine Not Detected (Not Detect); Phencyclidine Screen Urine Not Detected (Not Detect)
[2024-02-01 05:19] LABS: Alanine Aminotransferase 16 U/L (0-31); Albumin Level 4.3 g/dL (3.5-5.0); Alkaline Phosphatase 84 U/L (39-117); Anion Gap 15 (12-20); Aspartate Amino Transferase 19 U/L (5-31); Bilirubin Total 0.2 mg/dL (0.0-1.0); Blood Urea Nitrogen 6 mg/dL (9-16); Calcium 8.6 mg/dL (8.4-10.2); Carbon Dioxide 22 mmol/L (22-29); Chloride 110 mmol/L (96-108); Estimated Glomerular Filt Rate > 60; Ethanol 84 mg/dL; Glucose Random 373 mg/dL (60-115); Potassium 3.6 mmol/L (3.3-5.1); Sodium 143 mmol/L (135-145); Total Protein 7.5 g/dL (6.5-8.0)
--- NOTE | 2024-02-01 05:30 | PC.NURSE ---
patient noted by tech to be up sitting in chair, patient urinated all over chair and floor. very lethargic and unable to follow direction. Curtain wide open for pt safety
[2024-02-01 05:50] LABS: Glucose, Whole Blood 173 mg/dL (60-115)
--- NOTE | 2024-02-01 05:58 | ED_ITS ---
HPI - General Adult General Chief complaint: GI Bleed Stated complaint: ETOH, v-coffee grds- upper GlBleed? BGL 465 Time Seen by Provider: 02/01/24 04:12 Source: EMS Mode of arrival: EMS Limitations: altered mental status History of Present Illness ED Provider: HPI narrative: Patient's history of diabetes, GERD in marijuana use brought by EMS for intoxicated patient has use alcohol and had marijuana prior to arrival patient's movement at several times prior to arrival which was coffee colored nothing in the ER. Patient on arrival seems to be intoxicated behaving irrationally no signs of trauma Related Data Previous Rx's ?Medication ?Instructions ?Recorded insulin glargine 100 unit/mL (3 15 unit (0.15 mL) subcut BID #15 mL 09/28/23 mL) subcutaneous pen (Lantus Solostar U-100 Insulin) insulin lispro 100 unit/mL 1 sliding scale dose subcut 09/28/23 subcutaneous pen (Humalog KwikPen USEASDIRECTD #15 mL (U-100) Insulin) levofloxacin 500 mg tablet 500 mg PO DAILY 8 days #8 tabs 09/28/23 metronidazole 500 mg tablet 500 mg PO BID 6 days #12 tabs 09/28/23 acetaminophen 500 mg tablet 1,000 mg (2 x 500 mg) PO Q8H PRN 12/03/23 (Tylenol Extra Strength) pain #30 tabs cephalexin 500 mg capsule 500 mg PO QID 7 days #28 caps 12/03/23 doxycycline hyclate 100 mg tablet 100 mg PO BID 7 days #14 tabs 12/03/23 ibuprofen 600 mg tablet 600 mg PO Q6H PRN pain #30 tabs 12/03/23 morphine 15 mg immediate release 15 mg PO Q6H PRN severe pain 12/03/23 tablet (scale score 7-10) #7 tabs Allergies Allergy/AdvReac Type Severity Reaction Status Date / Time latex Allergy Severe Rash Verified 02/01/24 04:18 Review of Systems 2 Review of Systems: Yes Unobtainable due to mental status PMFSH Past Medical History Medical History Abscess of buttock, right Diabetes mellitus type 1 Surgical History Hx of cholecystectomy Family History Family History Other Family history non-contributory Social History Social History Household Members: Family Household Members Other:: sister Housing: House Do you presently have visiting nurse or other home services: No Alcohol intake: current Alcohol intake frequency: holidays/special occasions only Patient Tobacco Use Status: Current someday Tobacco user Tobacco use type: Cigarette Cigarettes Per Day: 2 Smoked in Last 30 Days: Yes e-Cigarette/Vaping Use: Never Used Second Hand Smoke Exposure: Yes Use of substances other than those prescribed or required for medical reasons: No Substance Use Type: Marijuana Advance Directives Date on File: 05/16/23 Patient : No service: No Current occupational status: employed Physical Exam ED Vital Signs: Vital Signs - 24 hr 02/01/24 04:14 02/01/24 04:33 02/01/24 05:57 Temperature 97.6 F 97.6 F 98.7 F Pulse Rate 86 86 98 Respiratory Rate 16 16 19 Blood Pressure 162/96 H 162/96 H 150/96 H Pulse Oximetry 100 100 99 Oxygen Delivery Method Room Air Room Air Room Air BMI result Body Mass Index 46.4 Appearance: Alert. And awake intoxicated. No acute distress. Eyes: PERRLA, No Nystagmus ENT: Pharynx normal. Oral Mucosa moist atraumatic normocephalic Neck: Normal inspection. Neck supple. CVS: Normal heart rate and rhythm. Pulses normal. Respiratory: No respiratory distress. Equal air entry bilateral, no wheezing/rales/rhonchi Abdomen: Soft and nontender. Bowel sounds are present, no mass palpable, no CVA tenderness Skin: Skin warm and dry. Normal skin color. Normal skin turgor. Extremities: No lower extremity edema. No calf tenderness Neuro: Alert and awake. No motor deficit. No sensory deficit.No cerebellar signs , cranial nerves II-XII intact Medications Administered Discontinued Medications Generic Name Dose Route Start Last Admin Trade Name Freq PRN Reason Stop Dose Admin Sodium Chloride 1,000 mls @ 999 mls/hr 02/01/24 04:13 02/01/24 06:34 Ns IV 02/01/24 05:13 Infused .Q1H1M ONE Infusion Insulin Human Regular 10 unit 02/01/24 04:30 02/01/24 04:45 Insulin Regular, Human 100 Unit/Ml 10 Ml Vial IVPUSH 02/01/24 04:31 10 unit ONCE ONE Administration Lorazepam 2 mg 02/01/24 04:44 02/01/24 04:50 Lorazepam 2 Mg/Ml Vial IVPUSH 02/01/24 04:45 2 mg ONCE ONE Administration Ondansetron HCl 4 mg 02/01/24 04:13 02/01/24 04:45 Ondansetron Hcl 4 Mg/2 Ml Vial IVPUSH 02/01/24 04:14 4 mg ONCE ONE Administration Pantoprazole Sodium 80 mg 02/01/24 04:13 02/01/24 04:44 Pantoprazole Sodium 40 Mg/10 Ml Vial IVPUSH 02/01/24 04:14 80 mg ONCE ONE Administration Medical Decision Making Medical Decision Making [facility] Narrative: Patient intoxicated with marijuana diabetic no signs of ketoacidosis vomited several times prior to arrival no vomiting in the ER H&H stable urine drug screen shows marijuana positive EtOH level of 84 patient is still intoxicated will watch till she gets back to normal patient is signed out Dr. Peterson pending disposition Differential Diagnosis Differential Diagnoses: The differential diagnosis associated with the presentation includes Lab Data [facility] Lab Attestation statement: I reviewed the patient's lab results. 02/01/24 04:44 02/01/24 04:44 Labs: Lab Results 02/01/24 02/01/24 02/01/24 Range/Units 04:27 04:44 04:49 WBC 8.6 (4.8-10.8) X10*3/uL RBC 4.32 (4.20-5.50) X10*6/uL Hgb 13.2 (12.0-16.0) g/dl Hct 37.3 (37.0-47.0) % MCV 86.3 (80.0-98.0) fL MCH 30.6 (27.0-33.0) pg MCHC 35.4 H (31.0-35.0) g/dl RDW 11.9 (11.0-16.0) % Plt Count 217 (160-400) X10*3/uL MPV 10.9 (9.4-12.3) fL Immature Gran % (Auto) 0.8 H (0.0-0.4) % Neut % (Auto) 88.4 H (45-73) % Lymph % (Auto) 8.1 L (20-40) % [place] % (Auto) 1.9 L (2-11) % Eos % (Auto) 0.1 (0-4) % Baso % (Auto) 0.7 (0-2) % Lymph # (Auto) 0.7 L (1.2-4.9) X10*3/uL [place] # (Auto) 0.2 (0.1-1.2) X10*3/uL Eos # (Auto) 0.0 (0.0-0.4) X10*3/uL Baso # (Auto) 0.1 (0.0-0.2) X10*3/uL Abs Immat Gran (auto) 0.07 H (0.00-0.03) X10*3/uL Absolute Neuts (auto) 7.6 (2.0-8.3) x10*3/uL Absolute Nucleated RBC 0.000 (0.0-0.012) X10*3/uL Nucleated RBC % (auto) 0.0 (0.0-0.2) /100WBC VBG pH 7.30 L (7.32-7.43) VBG pCO2 46 mmHg VBG pO2 63 mmHg VBG HCO3 23 (22-26) mmol/L VBG O2 Saturation 88.0 % VBG Base Excess -3.2 mmol/L Sodium 143 (135-145) mmol/L Potassium 3.6 (3.3-5.1) mmol/L Chloride 110 H (96-108) mmol/L Carbon Dioxide 22 (22-29) mmol/L Anion Gap 15 (12-20) BUN 6 L (9-16) mg/dL Creatinine 0.73 (0.5-1.4) mg/dL Estim Creat Clear Calc 134.0 Estimated GFR > 60 POC Glucose 362 H* (60-115) mg/dL Random Glucose 373 H* (60-115) mg/dL Calcium 8.6 D (8.4-10.2) mg/dL Total Bilirubin 0.2 (0.0-1.0) mg/dL AST 19 (5-31) U/L ALT 16 (0-31) U/L Alkaline Phosphatase 84 (39-117) U/L Total Protein 7.5 (6.5-8.0) g/dL Albumin 4.3 (3.5-5.0) g/dL Beta-Hydroxybutyrate 0.15 (0.02-0.27) mmol/L Urine Opiates Screen (Not Detect) Ur Buprenorphine Scrn (Not Detect) ng/mL Ur Oxycodone Screen (Not Detect) ng/mL Urine Methadone Screen (Not Detect) ng/mL Urine Fentanyl Screen (Not Detect) Ur Barbiturates Screen (Not Detect) Ur Phencyclidine Scrn (Not Detect) Ur Amphetamines Screen (Not Detect) U Benzodiazepines Scrn (Not Detect) Urine Cocaine Screen (Not Detect) U Marijuana (THC) Screen (Not Detect) Ethyl Alcohol 84 mg/dL 02/01/24 02/01/24 Range/Units 04:58 05:46 WBC (4.8-10.8) X10*3/uL RBC (4.20-5.50) X10*6/uL Hgb (12.0-16.0) g/dl Hct (37.0-47.0) % MCV (80.0-98.0) fL MCH (27.0-33.0) pg MCHC (31.0-35.0) g/dl RDW (11.0-16.0) % Plt Count (160-400) X10*3/uL MPV (9.4-12.3) fL Immature Gran % (Auto) (0.0-0.4) % Neut % (Auto) (45-73) % Lymph % (Auto) (20-40) % [place] % (Auto) (2-11) % Eos % (Auto) (0-4) % Baso % (Auto) (0-2) % Lymph # (Auto) (1.2-4.9) X10*3/uL [place] # (Auto) (0.1-1.2) X10*3/uL Eos # (Auto) (0.0-0.4) X10*3/uL Baso # (Auto) (0.0-0.2) X10*3/uL Abs Immat Gran (auto) (0.00-0.03) X10*3/uL Absolute Neuts (auto) (2.0-8.3) x10*3/uL Absolute Nucleated RBC (0.0-0.012) X10*3/uL Nucleated RBC % (auto) (0.0-0.2) /100WBC VBG pH (7.32-7.43) VBG pCO2 mmHg VBG pO2 mmHg VBG HCO3 (22-26) mmol/L VBG O2 Saturation % VBG Base Excess mmol/L Sodium (135-145) mmol/L Potassium (3.3-5.1) mmol/L Chloride (96-108) mmol/L Carbon Dioxide (22-29) mmol/L Anion Gap (12-20) BUN (9-16) mg/dL Creatinine (0.5-1.4) mg/dL Estim Creat Clear Calc Estimated GFR POC Glucose 173 H (60-115) mg/dL Random Glucose (60-115) mg/dL Calcium (8.4-10.2) mg/dL Total Bilirubin (0.0-1.0) mg/dL AST (5-31) U/L ALT (0-31) U/L Alkaline Phosphatase (39-117) U/L Total Protein (6.5-8.0) g/dL Albumin (3.5-5.0) g/dL Beta-Hydroxybutyrate (0.02-0.27) mmol/L Urine Opiates Screen Not Detected (Not Detect) Ur Buprenorphine Scrn Not Detected (Not Detect) ng/mL Ur Oxycodone Screen Not Detected (Not Detect) ng/mL Urine Methadone Screen Not Detected (Not Detect) ng/mL Urine Fentanyl Screen Not Detected (Not Detect) Ur Barbiturates Screen Not Detected (Not Detect) Ur Phencyclidine Scrn Not Detected (Not Detect) Ur Amphetamines Screen Not Detected (Not Detect) U Benzodiazepines Scrn Not Detected (Not Detect) Urine Cocaine Screen Not Detected (Not Detect) U Marijuana (THC) Screen POSITIVE H (Not Detect) Ethyl Alcohol mg/dL Discharge Plan Discharge Clinical Impression: Diabetes mellitus type 1, Cannabis abuse, Alcohol abuse Patient Disposition: Still a Patient Prescriptions: No Action levofloxacin 500 mg tablet 500 mg PO DAILY 8 Days Qty: 8 0RF Rx Instructions: next dose 8/3 morning metronidazole 500 mg tablet 500 mg PO BID 6 Days Qty: 12 0RF Rx Instructions: next today 8/, evening insulin lispro [Humalog KwikPen Insulin] 100 unit/mL insulin pen 1 sliding scale dose subcut USEASDIRECTD Qty: 15 0RF Rx Instructions: BG <111 0 units, 111-150 - 0 units, 151-200 2 units, 201-250 4 units, 251-300 6 units, 301-350 8 units, >350 10 units insulin glargine [Lantus Solostar U-100 Insulin] 100 unit/mL (3 mL) Insulin Pen 15 unit SUBCUT BID Qty: 15 1RF cephalexin 500 mg capsule 500 mg PO QID 7 Days Qty: 28 0RF doxycycline hyclate 100 mg tablet 100 mg PO BID 7 Days Qty: 14 0RF ibuprofen 600 mg tablet 600 mg PO Q6H PRN (Reason: pain) Qty: 30 0RF acetaminophen [Tylenol Extra Strength] 500 mg tablet 1,000 mg PO Q8H PRN (Reason: pain) Qty: 30 0RF morphine 15 mg tablet 15 mg PO Q6H PRN (Reason: severe pain (scale score 7-10)) Qty: 7 0RF Rx Instructions: Partial Fill upon patient request. Print Language: [place]
--- NOTE | 2024-02-01 06:49 | PC.NURSE ---
Patient had an episode of bowel incontinence, bed linens changed, theo care provided.
--- NOTE | 2024-02-01 07:00 | PC.NURSE ---
Report taken from CHELLE Daigle and Nyasia RN
--- NOTE | 2024-02-01 07:28 | PC.NURSE ---
Incontinence care and fresh bed linens applied
--- NOTE | 2024-02-01 08:43 | PC.NURSE ---
Notified Ирина Jaimes MD that pt. remains very disoriented. AOx1 at this time, continues to be incontinent of stool.
[2024-02-01] MEDS: diphenhydrAMINE HCL 50 MG/ML VIAL 25 MG IVPUSH (09:50)
[2024-02-01] MEDS: Haloperidol Lactate 5 MG/ML VIAL 2.5 MG IVPUSH (09:50)
[2024-02-01 12:04] LABS: Glucose, Whole Blood 211 mg/dL (60-115)
== END 2024-02-01 16:28 | disposition home or self-care (01) ==
PROVIDERS: Emergency Medicine Emergency Medical Services; Internal Medicine; Emergency Provider Emergency Medicine
DX: E10.9 Type 1 diabetes mellitus without complications (principal); F12.10 Cannabis abuse, uncomplicated; F10.10 Alcohol abuse, uncomplicated; Y90.4 Blood alcohol level of 80-99 mg/100 ml; R11.2 Nausea with vomiting, unspecified; F17.210 Nicotine dependence, cigarettes, uncomplicated; Z79.4 Long term (current) use of insulin
CPT/HCPCS: 36415; 80053; 80307; 82010; 82803; 82947; 85025; 96361; 96374; 96375; 96376; 99284; 99285; J1200; J1630; J2060; J2405; J2470

== ENCOUNTER 2024-08-18 00:14 | Emergency (ER) | payer MEDICAID, SELFPAY ==
--- NOTE | ~2024-08-18 | XR_ITS ---
CLINICAL HISTORY: swelling pain Exam: AP, lateral, and mortise views of the right ankle. Comparison: Right foot radiographs from same time. Findings: Bony alignment is anatomic. No acute fracture. Ankle mortise is intact. There soft tissue swelling over both the medial and lateral aspect of the ankle. Impression: Soft tissue swelling without acute fracture. This document has been electronically signed by: John Wynne MD on 08/18/2024 01:14:42
--- NOTE | ~2024-08-18 | XR_ITS ---
CLINICAL HISTORY: swelling pain Exam: AP, lateral, and oblique views of the right foot. Comparison: Right ankle radiographs from same time. Findings: Bony alignment of the Lisfranc articulation is anatomic. No acute fracture. Joint spaces are well preserved. There soft tissue swelling of the dorsal aspect of the midfoot and forefoot. Impression: Dorsal soft tissue swelling without acute fracture. This document has been electronically signed by: John Wynne MD on 08/18/2024 01:15:39
--- NOTE | ~2024-08-18 | US_ITS ---
CLINICAL HISTORY: Swelling? DVT Venous duplex ultrasound right lower extremity Comparison: None provided Findings: The visualized deep veins are fully compressible with normal Doppler color flow and spectral tracings. No popliteal cyst. IMPRESSION: 1. Negative for right lower extremity deep vein thrombosis. This document has been electronically signed by: Miguel Barakat MD on 08/18/2024 04:34:34
[2024-08-18 00:15] VITALS: BP 139/68; PULSE 96; RESP 18; TEMP 36.4; O2SAT 99; BMI 21.8
--- NOTE | 2024-08-18 02:00 | ED_ITS ---
HPI - Extremity Injury (Lower) General Chief Complaint: Extremity Injury, Lower Stated Complaint: right leg knee down swollen Time Seen by Provider: 08/18/24 01:58 Source: patient Mode of arrival: ambulatory Limitations: no limitations History of Present Illness ED Provider: HPI Narrative: Patient apparently fell 2 months ago on her right knee had some pain in the right ankle 2 days got better , for last 2 days patient noticed swelling of the right foot and increased tenderness in the calf area no redness no fever no chills Related Data Previous Rx's ?Medication ?Instructions ?Recorded insulin glargine 100 unit/mL (3 15 unit (0.15 mL) subc ut BID #15 mL 09/28/23 mL) subcutaneous pen (Lantus Solostar U-100 Insulin) insulin lispro 100 unit/mL 1 sliding scale dose subcut 09/28/23 subcutaneous pen (Humalog KwikPen USEASDIRECTD #15 mL (U-100) Insulin) levofloxacin 500 mg tablet 500 mg PO DAILY 8 days #8 t abs 09/28/23 metronidazole 500 mg tablet 500 mg PO BID 6 days #12 t abs 09/28/23 acetaminophen 500 mg tablet 1,000 mg (2 x 500 mg) PO Q 8H PRN 12/03/23 (Tylenol Extra Strength) pain #30 tabs cephalexin 500 mg capsule 500 mg PO QID 7 days #28 cap s 12/03/23 doxycycline hyclate 100 mg tablet 100 mg PO BID 7 days #14 tabs 12/03/23 ibuprofen 600 mg tablet 600 mg PO Q6H PRN pain #30 t abs 12/03/23 morphine 15 mg immediate release 15 mg PO Q6H PRN anshu re pain 12/03/23 tablet (scale score 7-10) #7 tabs ibuprofen 600 mg tablet 600 mg PO Q6H PRN fever or p ain 08/18/24 #30 tabs Allergies Allergy/AdvReac Type Severity Reaction Status Date / Time latex Allergy Severe Rash Verified 08/18/24 00:18 Review of Systems Review of Systems: Yes all other systems are reviewed and are negative PMFSH Past Medical History Medical History Abscess of buttock, right Diabetes mellitus type 1 Surgical History Hx of cholecystectomy Family History Family History Other Family history non-contributory Social History Social History Household Members: Family Household Members Other:: sister Housing: House Do you presently have visiting nurse or other home services: No Alcohol intake: current Alcohol intake frequency: holidays/special occasions only Patient Tobacco Use Status: Current someday Tobacco user Tobacco use type: Cigarette Cigarettes Per Day: 2 e-Cigarette/Vaping Use: Never Used Second Hand Smoke Exposure: Yes Substance Use Type: Marijuana Advance Directives Date on File: 05/16/23 service: No Current occupational status: employed Physical Exam Vital Signs: Vital Signs: Last Vital Signs Temp 98.4 F 08/18/24 07:18 Pulse 68 08/18/24 07:18 Resp 18 08/18/24 07:18 BP 142/68 H 08/18/24 07:18 Pulse Ox 97 08/18/24 07:18 O2 Del Method Room Air 08/18/24 07:18 BMI result Body Mass Index 21.8 Appearance: Alert. Oriented X3. No acute distress. Eyes: no pallor or icterus ENT: Pharynx normal Oral Mucosa moist tympanic membrane intact no erythema, Neck: Normal inspection. Neck supple. CVS: Normal heart rate and rhythm. Pulses normal. Respiratory: No respiratory distress. Equal air entry bilateral, no wheez ing/rales/rhonchi Abd: soft, not tender Skin: Skin warm and dry. Normal skin color. Normal skin turgor. Extremities: Right leg edematous all the way to the right knee no skin discoloration right calf tenderness++, Neuro: Oriented X 3. Medical Decision Making Medical Decision Making MDM Narrative: Patient's right lower extremity swelling without any skin discoloration or signs of cellulitis patient has had similar symptoms happened 2 months ago when she fell likely the cause for the pain and swelling again will give ibuprofen and discharge patient home advised to keep the right leg elevated Differential Diagnosis Differential Diagnoses: The differential diagnosis associated with the presentation includes DVT /pedal edema/arthritis/cellulitis Independent Interpretation I performed an independent interpretation of an: Ultrasound Radiology Impression Discussion of test interpretation with radiology: I have reviewed the radiologist's reading. Radiologist Impression: Negative for DVT Discharge Plan Discharge Clinical Impression: Edema of right ankle Patient Disposition: Home, Self-Care Instructions: Swollen Ankle Joint (ED) Additional Instructions: Keep the right leg elevated Your ultrasound is negative for blood clots Tylenol/Motrin for pain Prescriptions: New ibuprofen 600 mg tablet 600 mg PO Q6H PRN (Reason: fever or pain) Qty: 30 0RF No Action levofloxacin 500 mg tablet 500 mg PO DAILY 8 Days Qty: 8 0RF Rx Instructions: next dose 8/3 morning metronidazole 500 mg tablet 500 mg PO BID 6 Days Qty: 12 0RF Rx Instructions: next today 8/3, evening insulin lispro [Humalog KwikPen Insulin] 100 unit/mL insulin pen 1 sliding scale dose subcut USEASDIRECTD Qty: 15 0RF Rx Instructions: BG <111 0 units, 111-150 - 0 units, 151-200 2 units, 201-250 4 units, 251-300 6 units, 301-350 8 units, >350 10 units insulin glargine [Lantus Solostar U-100 Insulin] 100 unit/mL (3 mL) Insulin Pen 15 unit SUBCUT BID Qty: 15 1RF cephalexin 500 mg capsule 500 mg PO QID 7 Days Qty: 28 0RF doxycycline hyclate 100 mg tablet 100 mg PO BID 7 Days Qty: 14 0RF ibuprofen 600 mg tablet 600 mg PO Q6H PRN (Reason: pain) Qty: 30 0RF acetaminophen [Tylenol Extra Strength] 500 mg tablet 1,000 mg PO Q8H PRN (Reason: pain) Qty: 30 0RF morphine 15 mg tablet 15 mg PO Q6H PRN (Reason: severe pain (scale score 7-10)) Qty: 7 0RF Rx Instructions: Partial Fill upon patient request. Interventions: ED Discharge Assessment Last Done: 08/18/24 07:18 Discharge Date/Time: 08/18/24 06:00 Print Language: [place]an
[2024-08-18 07:18] VITALS: BP 142/68; PULSE 68; RESP 18; TEMP 36.9; O2SAT 97
== END 2024-08-18 06:00 | disposition home or self-care (01) ==
PROVIDERS: Emergency Provider Internal Medicine
DX: R60.0 Localized edema (principal); M25.571 Pain in right ankle and joints of right foot
CPT/HCPCS: 73610; 73630; 93971; 99282; 99284

== ENCOUNTER → 2024-08-18 23:29 | Outpatient (BNV) | payer MEDICAID, SELFPAY | PROVIDERS: Emergency Provider Internal Medicine; Visit Provider Radiology Diagnostic Radiology | DX: R22.41 Localized swelling, mass and lump, right lower limb (principal) | CPT/HCPCS: 73610; 73630; 93971 ==

== ENCOUNTER 2025-02-21 15:49 | Inpatient (IN) | payer MEDICAID, SELFPAY ==
--- NOTE | ~2025-02-21 | CT_ITS ---
CLINICAL HISTORY: perirectal abscess, left buttock CT abdomen and pelvis with contrast Comparison: CT/SR - CT ABDOMEN PELVIS WITHOUT IV CONTRAST - 09/27/23 21:06 EDT Findings: The lung bases are clear. The liver, spleen, pancreas, kidneys and adrenal glands are normal in appearance. Gallbladder is surgically absent. No bowel obstruction, pneumoperitoneum, or pneumatosis. Normal appendix. In the left ovary there is a 2.8 cm dominant follicle or small cyst. Right ovary and uterus are normal. There is diffuse skin thickening and subcutaneous stranding of the medial left buttock, and there is a rim enhancing fluid collection just deep to the dermis measuring 1.7 x 2.9 x 1.4 cm. This collection is separate from the rectum and anus. No evidence of perirectal abscess. Thick-walled, partially decompressed urinary bladder. No acute fracture. IMPRESSION: Medial left buttock subcutaneous abscess measuring 1.9 x 2.9 x 1.8 cm. No visualized involvement of the anus or rectum. This document has been electronically signed by: Marvin Liao MD on 02/21/2025 23:58:39
--- NOTE | ~2025-02-21 | US_ITS ---
EXAMINATION: Limited ultrasound imaging right great toe. CLINICAL INDICATION: Question foreign body in the right big toe. COMPARISON: MRI foot 02/22/2025. TECHNIQUE: Limited ultrasound imaging of right great toe was performed. FINDINGS: Ultrasound imaging through the right great toe along the nailbed reveals no radiopaque metallic foreign body. There is dense echogenic appearance of the nail which likely is a sense of metallic foreign body on MRI. Imaging was performed along the medial, lateral aspects of the great toe with no radiopaque metallic foreign body seen. US/US Extremity Nonvas Limited RT IMPRESSION: Limited imaging through right great toe reveals no radiopaque metallic foreign body. What is echogenic is the dense appearing nail of the great toe. Electronically signed by: Shabbir Garcia MD 02/23/2025 11:29 AM ZEENAT
--- NOTE | ~2025-02-21 | MR_ITS ---
CLINICAL HISTORY: Right first toe edema, draining pus, osteo? absces MRI right foot without and with contrast Comparison: 02/21/2025 radiograph Findings: Normal alignment without acute fracture. No joint effusion. First phalanx: Just proximal to the distal tip of the 1st distal phalanx, there is an approximately 8 x 10 x 11 mm (transverse by AP by CC dimensions) T1 hypointense and nonhomogeneously T2 hyperintense region in the lateral aspect of the 1st distal phalanx (with involvement of the nail bed and neighboring dorsal soft tissues). Suggestion of small linear foreign body (series 9 images 31 and 32) within this lesion. T1 hypointense/T2 hyperintense edematous changes in the neighboring 1st distal phalanx. Impression: Suggestion of small linear foreign body in an 11 mm lesion (granuloma or phlegmon; no discrete abscess noted) eroding the lateral aspect (including the nailbed) of the 1st distal phalanx. Neighboring 1st distal phalangeal bone marrow edematous changes (accurate differentiation of edema from osteomyelitis not possible). Orthopedic consultation +/-further evaluation with ultrasound (for confirmation of the foreign body) or CT recommended. This document has been electronically signed by: Salina Russell MD on 02/22/2025 13:00:09
--- NOTE | ~2025-02-21 | XR_ITS ---
CLINICAL HISTORY: cough 2 view chest x-ray Comparison: CT/SR - CT ABDOMEN PELVIS WITHOUT IV CONTRAST - 09/27/23 21:06 EDT CR/SR - XR CHEST 2 VIEWS - 02/15/23 19:54 EST Findings: The lungs are clear. Normal size heart. No acute fracture. IMPRESSION: 1. No acute findings. This document has been electronically signed by: Marvin Liao MD on 02/21/2025 22:14:36
--- NOTE | ~2025-02-21 | XR_ITS ---
CLINICAL HISTORY: infection osteo right great toe? 3 view right foot Comparison: None provided Findings: Irregular mixed sclerotic and lucent appearance of the distal phalanx of the great toe, with well defined sclerotic margins. No significant arthritic change or erosions. No ankle effusion. No radiopaque foreign body. IMPRESSION: Irregular appearance of the distal phalanx of the great toe with well-defined sclerotic margins. Findings are suggestive of prior healed osteomyelitis, less likely thought to be acute osteomyelitis. If there is high clinical concern for acute osteomyelitis consider MRI with contrast for further evaluation. This document has been electronically signed by: Marvin Liao MD on 02/21/2025 23:58:49
[2025-02-21 16:18] VITALS: BP 122/66; PULSE 118; RESP 18; TEMP 37; O2SAT 98; BMI 22.7
--- NOTE | 2025-02-21 16:22 | ED_ITS ---
HPI - General Adult General Chief complaint: General Medical Stated complaint: Cyst on left buttock/draining and gets bigger Time Seen by Provider: 02/21/25 20:11 Source: patient Limitations: no limitations History of Present Illness ED Provider: Shelia Perry PA-C HPI narrative: 34-year-old female with a history of type 1 diabetes, cannabis hyperemesis syndrome, recurrent and bilateral buttock abscesses, presents with multiple complaints. Patient states she has begun to develop another abscess of the left buttock, unclear duration of symptoms. Patient is concerned that she has an infection of the right great toe, she has had discoloration and swelling for ?2 months?. And lastly, the patient states she has been having an ongoing cough for 4 months. Denies fever. Denies bleeding or purulent discharge from the rectum itself. Related Data Home Medications ?Medication ?Instructions ?Recorded ?Confirmed No Known Home Meds 02/22/25 02/22/25 Allergies Allergy/AdvReac Type Severity Reaction Status Date / Time latex Allergy Severe Rash Verified 02/21/25 16:20 Review of Systems 2 Review of Systems: Yes all other systems are reviewed and are negative Constitutional: Constitutional: Denies fatigue and Denies fever(s) Cardiovascular: Cardiovascular: Denies chest pain and Denies dyspnea Respiratory: Respiratory: Reports cough, Denies dyspnea and Denies wheezing Gastrointestinal: Gastrointestinal: Denies abdominal pain, Denies nausea and Denies vomiting Musculoskeletal: Musculoskeletal: Denies arthralgias and Denies joint swelling Integumentary/Breasts: Skin/Breast: Reports change in pigmentation Endocrine: Endocrine: Denies fatigue Allergic/Immunologic: Allergic/Immunologic: Denies wheezing PMFSH Past Medical History Attestation statement: The following information was validated with the patient. Medical History Abscess of buttock, right Diabetes mellitus type 1 Surgical History Hx of cholecystectomy Family History Family History Other Family history non-contributory Social History Social History Household Members: Family Household Members Other:: sister Housing: House Do you presently have visiting nurse or other home services: No Alcohol intake: current Alcohol intake frequency: does not drink Patient Tobacco Use Status: Current everyday Tobacco user Tobacco use type: Cigarette Cigarettes Per Day: 2 Smoked in Last 30 Days: No e-Cigarette/Vaping Use: Never Used Second Hand Smoke Exposure: Yes Substance Use Type: Marijuana Advance Directives: Yes Advance Directives on File: Yes Advance Directives Date on File: 05/16/23 Do you have a plan to hurt others: No Plan Nutrition Risks: No Nutritional Risk Patient : No service: No Current occupational status: employed Physical Exam ED Vital Signs: Vital Signs - 24 hr 02/21/25 16:18 02/21/25 20:45 02/21/25 22:00 Temperature 98.6 F 97.6 F 98.8 F Pulse Rate 118 H 110 H 98 Respiratory Rate 18 16 16 Blood Pressure 122/66 97/72 117/71 Pulse Oximetry 98 98 98 Oxygen Delivery Method Room Air Room Air Room Air 02/22/25 01:01 Temperature 98.1 F Pulse Rate 91 Respiratory Rate 14 Blood Pressure 106/67 Pulse Oximetry 98 Oxygen Delivery Method Room Air BMI result Body Mass Index 22.7 Const Other: Awake, tearful, anxious, appears older than stated age Orientation/consciousness: patient oriented x3 Resp Effort & Inspection: normal respiratory effort Cardio Other: Normal peripheral perfusion GI Other: Left buttock is indurated, erythematous, with central fluctuance, active purulence noted, extremely tender to palpation, no purulence or bleeding per rectum Skin Other: Warm dry no rash Neuro General: patient oriented x3, gait normal, no focal motor deficits and CN's II- XI intact bilaterally Extrem Other: Psych Other: Initially hostile and belligerent while in the waiting room, now cooperative in the emergency room Course Course Course Narrative: RME, this is a rapid medical exam performed by Mitul Garcia please refer to primary provider for complete H&P- 34-year-old female presents for evaluation of a cyst on her buttocks. She has a concern for abscess. Not visualized in triage. She also complains of a cough for 4 months. A chest x-ray was ordered. Her vital signs are stable Medications Administered Discontinued Medications Generic Name Dose Route Start Last Admin Trade Name Freq PRN Reason Stop Dose Admin Sodium Chloride 1,000 mls @ 999 mls/hr 02/21/25 21:45 02/21/25 23:28 Ns IV 02/21/25 22:45 Infused .Q1H1M SHEILA Infusion Vancomycin HCl 1,500 mg/ 500 mls @ 333.333 mls/hr 02/21/25 22:16 02/22/25 00:24 Sodium Chloride IV 02/21/25 23:45 Infused ONCE ONE Infusion Piperacillin Sod/Tazobactam 50 mls @ 100 mls/hr 02/22/25 01:45 02/22/25 02:04 Sod 3.375 gm/ Sodium Chloride IV 02/22/25 02:14 100 mls/hr ONCE ONE Administration Iohexol 85 ml 02/21/25 23:10 02/21/25 23:11 Iohexol 350 Mg/Ml 100 Ml Infus..Btl IV 02/21/25 23:11 85 ml ONCE ONE Administration Midazolam HCl 3 mg 02/21/25 21:43 02/21/25 21:58 Midazolam Hcl 2 Mg/2 Ml Vial IVPUSH 02/21/25 21:44 3 mg ONCE ONE Administration Midazolam HCl 3 mg 02/22/25 00:12 02/22/25 00:28 Midazolam Hcl 2 Mg/2 Ml Vial IVPUSH 02/22/25 00:13 3 mg ONCE ONE Administration Morphine Sulfate 4 mg 02/21/25 21:43 02/21/25 21:58 Morphine Sulfate 4 Mg/Ml Cartridge IVPUSH 02/21/25 21:44 4 mg ONCE ONE Administration Protocol Morphine Sulfate 4 mg 02/21/25 23:37 02/21/25 23:52 Morphine Sulfate 4 Mg/Ml Cartridge IVPUSH 02/21/25 23:38 4 mg ONCE ONE Administration Protocol Morphine Sulfate 4 mg 02/22/25 01:56 02/22/25 02:04 Morphine Sulfate 4 Mg/Ml Cartridge IVPUSH 02/22/25 01:57 4 mg ONCE ONE Administration Protocol Procedures Abscess I/D Site: other (buttock) Side (if applicable): left Sedation/analgesia: midazolam and other (Morphine) Local Anesthetic: lidocaine 1% Amount of anesthesia used (mL): 7 Technique: incised with blade Amount of fluid expressed (mL): 20 Sent for culture/gram staining?: No Irrigation: Yes Packing used?: iodoform Complications: bleeding Ultrasound ED POC Ultrasound: Ultrasound-guided IV: Nursing unable to obtain 20 gauge 1-3/4 inch IV placed in left upper extremity. Adequate blood return, flushes well secured with Tegaderm Performed by Shelia Perry PA-C 02/21/2025 Medical Decision Making Medical Decision Making MDM Narrative: 34-year-old female with a history of type 1 diabetes, cannabis hyperemesis syndrome, recurrent and bilateral buttock abscesses, presents with multiple complaints. Patient states she has begun to develop another abscess of the left buttock, unclear duration of symptoms. Patient is concerned that she has an infection of the right great toe, she has had discoloration and swelling for ?2 months?. And lastly, the patient states she has been having an ongoing cough for 4 months. Denies fever. Denies bleeding or purulent discharge from the rectum itself. Problem: Type 1 diabetes, recurrent abscesses History: Per patient I have considered the following differential diagnoses: Cellulitis, purulent cellulitis, abscess, perirectal abscess, infected pilonidal cyst, dry gangrene, osteomyelitis, Plan: Obtaining imaging to be sure there was no perirectal abscess, it does appear that it is isolated to the buttock. Screening labs obtained, adding on blood cultures and lactic. Starting vancomycin and zosyn, medicating with Versed and morphine. She will require premedication prior to performing an I & D, we will wait for the CT scan to result. In regard to the discoloration of her right great toe, it appears chronic in nature, the foot is not erythematous that has not warm, there is no active purulence, adding on an x-ray to be sure there was no osteomyelitis. I have independently reviewed the following tests: Labs: Leukocytosis of 14.7 with left shift, not anemic, not , no electrolyte abnormality, lactic 1.3, Chest x-ray:Findings: The lungs are clear. Normal size heart. No acute fracture. IMPRESSION: 1. No acute findings. X-ray right foot: Findings: Irregular mixed sclerotic and lucent appearance of the distal phalanx of the great toe, with well defined sclerotic margins. No significant arthritic change or erosions. No ankle effusion. No radiopaque foreign body. IMPRESSION: Irregular appearance of the distal phalanx of the great toe with well-defined sclerotic margins. Findings are suggestive of prior healed osteomyelitis, less likely thought to be acute osteomyelitis. If there is high clinical concern for acute osteomyelitis consider MRI with contrast for further evaluation. CT abdomen and pelvis: Findings: The lung bases are clear. The liver, spleen, pancreas, kidneys and adrenal glands are normal in appearance. Gallbladder is surgically absent. No bowel obstruction, pneumoperitoneum, or pneumatosis. Normal appendix. In the left ovary there is a 2.8 cm dominant follicle or small cyst. Right ovary and uterus are normal. There is diffuse skin thickening and subcutaneous stranding of the medial left buttock, and there is a rim enhancing fluid collection just deep to the dermis measuring 1.7 x 2.9 x 1.4 cm. This collection is separate from the rectum and anus. No evidence of perirectal abscess. Thick-walled, partially decompressed urinary bladder. No acute fracture. IMPRESSION: Medial left buttock subcutaneous abscess measuring 1.9 x 2.9 x 1.8 cm. No visualized involvement of the anus or rectum. Differential Diagnosis Differential Diagnoses: The differential diagnosis associated with the presentation includes See MDM Lab Data 02/21/25 22:11 02/21/25 22:11 Labs: Lab Results 02/21/25 02/21/25 02/21/25 Range/Units 21:18 22:11 22:56 WBC 14.7 H (4.8-10.8) X10*3/uL RBC 4.77 (4.20-5.50) X10*6/uL Hgb 14.5 (12.0-16.0) g/dl Hct 42.3 (37.0-47.0) % MCV 88.7 (80.0-98.0) fL MCH 30.4 (27.0-33.0) pg MCHC 34.3 (31.0-35.0) g/dl RDW 11.9 (11.0-16.0) % Plt Count 197 (160-400) X10*3/uL MPV 11.7 (9.4-12.3) fL Immature Gran % (Auto) 0.4 (0.0-0.4) % Neut % (Auto) 81.2 H (45-73) % Lymph % (Auto) 13.1 L (20-40) % [place] % (Auto) 4.2 (2-11) % Eos % (Auto) 0.7 (0-4) % Baso % (Auto) 0.4 (0-2) % Lymph # (Auto) 1.9 (1.2-4.9) X10*3/uL [place] # (Auto) 0.6 (0.1-1.2) X10*3/uL Eos # (Auto) 0.1 (0.0-0.4) X10*3/uL Baso # (Auto) 0.1 (0.0-0.2) X10*3/uL Abs Immat Gran (auto) 0.06 H (0.00-0.03) X10*3/uL Absolute Neuts (auto) 12.0 H (2.0-8.3) x10*3/uL Absolute Nucleated RBC 0.000 (0.0-0.012) X10*3/uL Nucleated RBC % (auto) 0.0 (0.0-0.2) /100WBC Sodium 139 (135-145) mmol/L Potassium 4.2 (3.3-5.1) mmol/L Chloride 106 (96-108) mmol/L Carbon Dioxide 22 (22-29) mmol/L Anion Gap 15 (12-20) BUN 14 (9-16) mg/dL Creatinine 0.72 (0.5-1.4) mg/dL Estim Creat Clear Calc 92.7 Estimated GFR > 60 Random Glucose 165 H (60-115) mg/dL Lactic Acid 1.3 (0.5-2.0) mmol/L Calcium 9.5 D (8.4-10.2) mg/dL Magnesium 2.0 (1.6-2.6) mg/dL Total Bilirubin 1.1 H (0.0-1.0) mg/dL AST 40 H (5-31) U/L ALT 17 (0-31) U/L Alkaline Phosphatase 96 (39-117) U/L Total Protein 8.8 H (6.5-8.0) g/dL Albumin 4.6 (3.5-5.0) g/dL Urine Test NEGATIVE (NEGATIVE) Influenza Type A (PCR) NEGATIVE (Negative) Influenza Type B (PCR) NEGATIVE (Negative) RSV RNA Qual (PCR) NEGATIVE (Negative) SARS-CoV-2 RNA (RT-PCR) NEGATIVE (Negative) Discharge Plan Discharge Clinical Impression: Abscess of buttock, left Patient Disposition: Admitted As Inpatient
--- OUTSIDE RECORDS SUMMARY | 2025-02-21 20:19 | XMS_ITS ---
Author Name [facility] Organization Unknown Care Team Organization Name Specialty Phone Email Start Date End Da te [facility] Razia Srivast[facility] 01/03/20222023
[2025-02-21 20:45] VITALS: BP 97/72; PULSE 110; RESP 16; TEMP 36.4; O2SAT 98
[2025-02-21 21:28] LABS: UPreg QC Valid YES
--- NOTE | 2025-02-21 21:36 | PC.NURSE ---
Pt ambulatory to ED 11, assumed care of pt at this time. Off floor for imaging.
[2025-02-21 22:00] VITALS: BP 117/71; PULSE 98; RESP 16; TEMP 37.1; O2SAT 98
[2025-02-21 22:29] LABS: MANUAL DIFF FLAG NO
[2025-02-21 22:30] LABS: Hematocrit 42.3 % (37.0-47.0); Hemoglobin 14.5 g/dl (12.0-16.0); Imm Gran Abs Auto 0.06 X10*3/uL (0.00-0.03); Imm Gran Pct Auto 0.4 % (0.0-0.4); Lymphocytes Absolute Auto 1.9 X10*3/uL (1.2-4.9); Mean Corpuscular HGB Conc 34.3 g/dl (31.0-35.0); Mean Corpuscular Hemoglobin 30.4 pg (27.0-33.0); Mean Corpuscular Volume 88.7 fL (80.0-98.0); NRBC Abs Auto 0.000 X10*3/uL (0.0-0.012); NRBC Pct Auto 0.0 /100WBC (0.0-0.2); Platelet Count 197 X10*3/uL (160-400); Red Blood Count 4.77 X10*6/uL (4.20-5.50); White Blood Count 14.7 X10*3/uL (4.8-10.8)
--- NOTE | 2025-02-21 22:45 | PC.NURSE ---
Difficult stick, US guided IV obtained by Molly DOSHI, pt medicated per MAR with some pain relief, IVF and IV abx hung and infusing without difficulty. Large abscess noted to left buttock, actively draining. Pt reports present x 3 days. Abscess also noted to right great toe no drainage noted at this time. VSS. Awaiting lab and CT results, aware of plan of care.
[2025-02-21 22:46] LABS: Alanine Aminotransferase 17 U/L (0-31); Albumin Level 4.6 g/dL (3.5-5.0); Alkaline Phosphatase 96 U/L (39-117); Anion Gap 15 (12-20); Aspartate Amino Transferase 40 U/L (5-31); Blood Urea Nitrogen 14 mg/dL (9-16); Calcium 9.5 mg/dL (8.4-10.2); Carbon Dioxide 22 mmol/L (22-29); Chloride 106 mmol/L (96-108); Creatinine Clr Calc Pharmacy 92.7; Estimated Glomerular Filt Rate > 60; Magnesium 2.0 mg/dL (1.6-2.6); Potassium 4.2 mmol/L (3.3-5.1); Sodium 139 mmol/L (135-145); Total Protein 8.8 g/dL (6.5-8.0)
[2025-02-21] MEDS: iohexoL 350 MG/ML 100 ML INFUS..BTL 85 ML IV (23:11)
[2025-02-21 23:39] LABS: Resp Syncy Virus RNA Qual PCR NEGATIVE (Negative); SARS COV2 PCR INHOUSE NEGATIVE (Negative)
--- NOTE | 2025-02-22 00:09 | PC.NURSE ---
Pt endorsing continued pain, medicated per MAR. Provider to bedside for reeval.
[2025-02-22 01:01] VITALS: BP 106/67; PULSE 91; RESP 14; TEMP 36.7; O2SAT 98
--- NOTE | 2025-02-22 02:12 | PC.NURSE ---
Buttock abscess lanced and drained by ED provider. Pt tolerated well, now reporting increased pain again to site- medicated per MAR. Plan for admission, hospitalist to bedside for consult. Med rec completed, pt not taking any meds- states type 1 DM, although had not taken insulin in over a year.
--- NOTE | 2025-02-22 02:35 | PM.IMHP ---
History of Present Illness Date of Service: 02/22/25 Attending physician on admission: Rolando Sin Chief Complaint: Left buttock abscess Serena Culver is a 34 years old woman with past medical history significant for multiple skin abscesses and type 1 diabetes mellitus currently not taking insulin presents to the ED with multiple complaints including left buttock abscess that has been getting worse over the last 3 days. She noted that pauses coming out from the affected area. She denied fever or chills. She also reported right 1st toe pain, swelling and pus coming around the nail. She denied any trauma. She also complained of a chronic cough that has been going on for 4 months associated with shortness on breath and wheezing. She complained of dizziness. She did not report any acute gastrointestinal symptoms. She is a tobacco smoker and smoked 1 pack of cigarettes every 2 days. She also smokes marijuana. She denied alcohol abuse. Denied illicit drug use. She is homeless. In the ED, she was found to have normal vital signs. Blood workup showed leukocytosis of 14.7. There is no lactic acidosis. Hemoglobin is 14.5 and platelets 197. There are no electrolyte imbalances. BUN is 14 and creatinine 0.72. Glucose 165. LFTs are remarkable for minimally elevated bilirubin and AST. ALT and alk-phos are normal. Total protein is 8.8 and albumin 4.6. Viral testing for COVID-19, influenza and RSV is negative. CXR is negative. Abdominal pelvis CT scan with IV contrast showed medial left buttock subcutaneous abscess measuring 1.9 by 3.9 by 8.8 cm and no visualized involvement of the anus and rectum. Right foot x-rays showed finding suggestive of prior heel osteomyelitis, less likely due to be acute osteomyelitis. ED tx: Morphine 4 mg IV x2, NS 1 L bolus, Versed 3 mg IV x2, Zosyn 3.375 g IV, vancomycin 1.5 g IV Review of Systems Review of Systems: All 12 systems were reviewed and normal except as noted in HPI. [facility] Medical History Abscess of buttock, right Diabetes mellitus type 1 Family History Other Family history non-contributory Surgical History Hx of cholecystectomy Social History Household Members: Family Household Members Other:: sister Housing: House Do you presently have visiting nurse or other home services: No Alcohol intake: current Alcohol intake frequency: does not drink Patient Tobacco Use Status: Current everyday Tobacco user Tobacco use type: Cigarette Cigarettes Per Day: 2 Smoked in Last 30 Days: No e-Cigarette/Vaping Use: Never Used Second Hand Smoke Exposure: Yes Substance Use Type: Marijuana Advance Directives: Yes Advance Directives on File: Yes Advance Directives Date on File: 05/16/23 Do you have a plan to hurt others: No Plan Nutrition Risks: No Nutritional Risk Patient : No service: No Current occupational status: employed Meds Allergies Allergy/AdvReac Type Severity Reaction Status Date / Time latex Allergy Severe Rash Verified 02/21/25 16:20 Active Medications: Current Medications Acetaminophen (Acetaminophen 325 Mg Tablet) 975 mg PO Q6H PRN PRN Reason: Pain, Mild 1-3,fever,headache Calcium Carbonate (Calcium Carbonate 750 Mg Tab.Chew) 750 mg PO Q4H PRN PRN Reason: Heartburn Dextrose (Dextrose 50 % 25 Gm/50 Ml Syringe) 25 gm IVPUSH Q15M PRN; Protocol PRN Reason: per Hypoglycemia Standing Ord. Enoxaparin Sodium (Enoxaparin Sodium 40 Mg/0.4 Ml Syringe) 40 mg SUBCUT Q24H [facility] Glucose (Glucose Gel 15 Gm Gel..Gram.) 15 gm PO Q15M PRN; Protocol PRN Reason: per Hypoglycemia Standing Ord. Lactated Ringer's (Lr) 1,000 mls @ 125 mls/hr IVCONT .Q8H [facility] Stop: 02/22/25 10:29 Piperacillin Sod/Tazobactam (Sod 3.375 gm/ Sodium Chloride) 50 mls @ 100 mls/hr IV Q6H [facility] Insulin Glargine (Insulin Glargine,Hum.Rec.Anlog 100 Unit/Ml 10 Ml Vial) 10 unit SUBCUT DAILY [facility] Insulin Human Lispro (Insulin Lispro 100 Unit/Ml 3 Ml Vial) 0 unit SUBCUT QIDACHS [facility]; Protocol Magnesium Hydroxide (Milk Of Magnesia 30 Ml Oral.Susp) 30 ml PO DAILY PRN PRN Reason: Constipation Melatonin (Melatonin 3 Mg Tablet) 6 mg PO BEDTIME PRN PRN Reason: Insomnia Oxycodone HCl (Oxycodone Hcl Immed Release 5 Mg Tablet) 5 mg PO Q6H PRN PRN Reason: Pain, Severe (Pain Scale 7-10) Pharmacy Consult (Consult Rx Vancomycin Dosing) 1 each MISCELLANE DAILY PRN PRN Reason: Consult order Sodium Chloride (0.9 % Sodium Chloride Flush 3 Ml Syringe) 3 ml IVFLUSH QSHIFT [facility] Home Medications ?Medication ?Instructions ?Recorded ?Confirmed ?Last Taken ?Type No Known Home Meds 02/22/25 02/22/25 Unknown History Physical Exam Vital Signs and Narrative: Vital Signs: Last Vital Signs Temp 98.1 F 02/22/25 01:01 Pulse 91 02/22/25 01:01 Resp 14 02/22/25 01:01 BP 106/67 02/22/25 01:01 Pulse Ox 98 02/22/25 01:01 O2 Del Method Room Air 02/22/25 01:01 BMI result Body Mass Index 22.7 General: Alert, oriented. Looks uncomfortable due to left buttock pain. Well nourished and cooperative. Afebrile. HEENT: Head normocephalic, atraumatic. PER, EOMI. Sclerae anicteric, conjunctiva clear. Mucous membranes moist. Neck: Supple, or JVD. Heart: RRR, no murmurs, rubs or gallops. Lungs: Clear to auscultation bilaterally. No wheezes, rales, or rhonchi. Normal respiratory effort. Abdomen: Soft, non tenderness, nondistended, normoactive bowel sounds. Left buttock: Large area of swelling, erythema and tenderness as well as spontaneous drainage of serosanguineous fluid; packing in place. Extremities: No calf tenderness bilaterally, no swelling Musculoskeletal: Full range of motion. No joint swelling, deformity, or tenderness. Normal muscle tone and strength. Skin: Warm/Dry. No pallor. No jaundice. Neurologic: Alert & oriented x4. Moving all extremities spontaneously. Normal speech. Psychological: Depressed mood and affect. Thought process coherent. Results Labs 02/21/25 22:11 02/21/25 22:11 Labs: Laboratory Results - last 24 hr 02/21/25 02/21/25 02/21/25 21:18 22:11 22:56 MCV 88.7 MCH 30.4 MCHC 34.3 RDW 11.9 Plt Count 197 MPV 11.7 Immature Gran % (Auto) 0.4 Neut % (Auto) 81.2 H Lymph % (Auto) 13.1 L [place] % (Auto) 4.2 Eos % (Auto) 0.7 Baso % (Auto) 0.4 Lymph # (Auto) 1.9 [place] # (Auto) 0.6 Eos # (Auto) 0.1 Baso # (Auto) 0.1 Abs Immat Gran (auto) 0.06 H Absolute Neuts (auto) 12.0 H Absolute Nucleated RBC 0.000 Nucleated RBC % (auto) 0.0 Anion Gap 15 Estim Creat Clear Calc 92.7 Estimated GFR > 60 Random Glucose 165 H Lactic Acid 1.3 Calcium 9.5 D Magnesium 2.0 Total Bilirubin 1.1 H AST 40 H ALT 17 Alkaline Phosphatase 96 Total Protein 8.8 H Albumin 4.6 Urine Test NEGATIVE Influenza Type A (PCR) NEGATIVE Influenza Type B (PCR) NEGATIVE RSV RNA Qual (PCR) NEGATIVE SARS-CoV-2 RNA (RT-PCR) NEGATIVE Assessment and Plan (1) Abscess of buttock, left: Status: Acute (2) Cough: Qualifiers: Cough type: chronic Qualified Code(s): R05.3 - Chronic cough Status: Acute Plan Serena Culver is a 34 y/o woman a PMHx significant for multiple skin abscesses who presents with: Left buttock abscess. s/p I&D by ED. Packing in place. Continue empiric IV antibiotic therapy with Zosyn and vancomycin. Blood and left buttock culture obtained -will follow results. Check nasal MRSA. Surgery consult. Right first toe edema, pain + pus drainage. CRP elevated. Right foot MRI to assess for osteomyelitis and/or abscess. Continue empiric IV antibiotic therapy. Chronic cough (4 months), ikely chronic bronchitis due to tobacco or marijuana smoking. CXR negative. Normal O2 sat. Bronchodilator and antitussive therapy as needed. Tobacco and marijuana cessation education given. Homeless. Social work consult. Hx Type 1 DM. According to pt, the last time she used insulin was a year ago. Glucose tonight is 165. Will check HgbA1c and type 1 DM antibodies and corroborate she has diabetes and/or what type. For now, we will order diabetic diet, Lantus and insulin sliding scale. BG checks before meals and bedtime. Patient will need hospitalization for at least 2 midnights for left buttock abscess and right 1st toe of c/o rule out and treatment with IV antibiotic therapy and evaluation by Surgical Service. Quality Stroke Does the patient have a stroke diagnosis?: No VTE Prior VTE?: No VTE Risk Level:: Medical - moderate - high VTE Device Contraindication: Treatment Not Indicated VTE Drug Contraindication: N/A - Med Ordered
[2025-02-22] MEDS: Lactated Ringers 1,000 ML 125 ML IVCONT (03:27)
[2025-02-22] MEDS: oxyCODONE HCl Immed Release 5 MG TABLET PO ×4 (03:29→23:06)
--- NOTE | 2025-02-22 04:00 | HO.NURTONUR ---
Addendum entered by Kelsey Colon RN 02/22/25 15:01: patient has had multiple episodes of vomiting, she was medicated with zofran, Dr. Britton just put in a PRN order of zofran as well. She had a MRI of her foot earlier today and was medicated with dilaudid to be able to lay flat as she has an abscess to her buttocks. her pain has been consistent 7-10/05 she gets po pain meds for the pain. Original Note: pt presents to ED c/o abscess to left buttock, rt big toe nail is black and puss coming out states her foot is swollen. pt also c/o cough x4 months. likely chronic bronchitis. buttock abscess lanced, drained, packed. surgery consult. MRI planned of R foot for toe infection. U/S 20g IV LAC. LR infusing 125mls/hr. ADMIT: Abscess. pt A/O x4, calm and cooperative with care, ambulates independently. pt reports T1DM, not on insulin x1yr, homeless.
[2025-02-22 04:36] LABS: MANUAL DIFF FLAG NO
[2025-02-22 04:36] LABS: Appearance Urine Clear; Glucose Urine UA Negative (Negative); PH 6.0 (5.0-9.0); Specific Gravity - Urine >= 1.030 (1.005-1.025); UMIC TRIGGER UACC YES
[2025-02-22 04:37] LABS: Hematocrit 37.9 % (37.0-47.0); Hemoglobin 12.7 g/dl (12.0-16.0); Imm Gran Abs Auto 0.02 X10*3/uL (0.00-0.03); Imm Gran Pct Auto 0.2 % (0.0-0.4); Lymphocytes Absolute Auto 2.0 X10*3/uL (1.2-4.9); Mean Corpuscular HGB Conc 33.5 g/dl (31.0-35.0); Mean Corpuscular Hemoglobin 30.0 pg (27.0-33.0); Mean Corpuscular Volume 89.6 fL (80.0-98.0); NRBC Abs Auto 0.000 X10*3/uL (0.0-0.012); NRBC Pct Auto 0.0 /100WBC (0.0-0.2); Platelet Count 186 X10*3/uL (160-400); Red Blood Count 4.23 X10*6/uL (4.20-5.50); White Blood Count 10.5 X10*3/uL (4.8-10.8)
[2025-02-22 04:52] LABS: Cholesterol 136 mg/dL (<200); HDL Cholesterol 49 mg/dL (>40); Triglycerides 144 mg/dL (<150)
[2025-02-22 04:53] LABS: Cannabinoid Screen Urine POSITIVE (Not Detect)
[2025-02-22 04:54] LABS: Anion Gap 9 (12-20); Blood Urea Nitrogen 10 mg/dL (9-16); Calcium 8.1 mg/dL (8.4-10.2); Carbon Dioxide 25 mmol/L (22-29); Chloride 109 mmol/L (96-108); Creatinine Clr Calc Pharmacy 121.5; Estimated Glomerular Filt Rate > 60; Magnesium 1.8 mg/dL (1.6-2.6); Potassium 3.4 mmol/L (3.3-5.1); Sodium 140 mmol/L (135-145)
--- NOTE | 2025-02-22 06:55 | PHA.PROG ---
Admission Date/Time: February 22, 2025 01:56 Indication: SSSI Weight in k.1 kg Serum Creatinine - Last 168 Hours 02/21/25 02/22/25 22:11 04:14 Creatinine 0.72 0.55 Estimated CrCl and GFR - Last 168 Hours 02/21/25 02/22/25 22:11 04:14 Estim Creat Clear Calc 92.7 121.5 Estimated GFR > 60 > 60 Vancomycin Loading Dose: 1500 MG Current Vancomycin Dosing Regimen: 750 MG Q8H Vancomycin Monitoring using AUC goal of 400 - 600 range with trough as surrogate marker: 457, 13.9 Date and Time for next Vancomycin Level to be drawn: 02/23 @ 0800 Pharmacist Comments on Vancomycin Plan: Vancomycin dosing will take advantage of [employer] as a clinical decision support tool that uses Bayesian modeling to calculate individual patient's pharmacokinetic parameters and forecast the patient's drug concentration time course with the target goal AUC 24 range of 400 - 600 mg/L/hr.
[2025-02-22 07:15] LABS: Glucose, Whole Blood 177 mg/dL (60-115)
[2025-02-22] MEDS: 0.9 % Sodium Chloride Flush 3 ML SYRINGE IVFLUSH (07:35)
--- NOTE | 2025-02-22 07:56 | PC.NURSE ---
obtained report, took over patient care at 7am, patient sleeping, woke to verbal stimulus, a&ox3, rr equal/non labored, patient requesting pain medication for buttocks pain- pt has prn for medication again at 930 which she is ok with. LR at 125 was paused to give abx, pt medicated per order, tech to obtain updated vitals, fall precautions intact, call box within reach, plan of care ongoing.
[2025-02-22 08:13] LABS: MRSA Nasal PCR NEGATIVE (Negative); SA Nasal PCR NEGATIVE (Negative)
[2025-02-22] MEDS: Nicotine 7 MG PATCH.TD24 TRANSDERMA (08:14)
[2025-02-22] MEDS: Insulin Glargine,Hum.rec.anlog 100 UNIT/ML 10 ML VIAL 10 UNIT SUBCUT (08:14)
--- NOTE | 2025-02-22 09:03 | PHA.MEDREC ---
Pharmacy Consult ? Medication Reconciliation Pharmacy has completed the medication reconciliation. Spoke to patient and she confirmed she does not take any medication at home.
--- NOTE | 2025-02-22 09:10 | PC.NURSE ---
[facility] tig texted this nurse around 845 asking if the patient could go for MRI. this nurse stated the patient would need some medication prior and had to contact dr. britton for an order. The window for the MRI at that time closed, dr. britton did order IVP dilaudid to give to the patient prior to the MRI. MRI was notified and will attempt to fit the patient in after the one they are currently doing. Dr. Britton is aware that this nurse will medicate the patient right before going down to MRI.
[2025-02-22 09:37] LABS: Reflex LDLD? No
--- NOTE | 2025-02-22 09:39 | PC.NURSE ---
pt medicated and headed to MRI
[2025-02-22 09:44] VITALS: BP 110/70; PULSE 94; RESP 14; TEMP 36.6; O2SAT 98
[2025-02-22 13:00] LABS: Glucose, Whole Blood 166 mg/dL (60-115)
--- NOTE | 2025-02-22 13:31 | PC.NURSE ---
tiger text from Dr. Britton ok'd order for zofran, pt vomitited x2
--- NOTE | 2025-02-22 14:56 | PM.EVENT ---
Event Note Date of Service: 02/22/25 Event Note: 34 y/o F presented with left buttock abscess, possible right to infection. Seen and examined by hospitalist service earlier this morning. Seen and examined again Physical exam-similar to H&P. Assessment and plan as per H and P. Continue IV ABX, surgical consult pending. Time Spent With Patient Time: Total time managing care of this patient today ____ minutes.
[2025-02-22 15:41] VITALS: BMI 23.5
[2025-02-22 15:54] VITALS: PULSE 92; RESP 18; TEMP 36.4; O2SAT 99
[2025-02-22 16:06] LABS: Glucose, Whole Blood 109 mg/dL (60-115)
[2025-02-22] MEDS: Lactated Ringers 1,000 ML 100 ML IVCONT (16:59)
--- NOTE | 2025-02-22 17:49 | PM.CNGS ---
History of Present Illness Consult details Consult date: 02/22/25 Narrative: Asked to consult on 34-year-old female with a history of multiple bilateral buttock abscesses. She presents with a buttock abscess on the left this time. CT scan documents approximate 2 cm x 3 cm fluid collection in the medial aspect of the left buttock. At the time of the visit patient reported that ?they already drained it?. PMF Past Medical History Medical History Abscess of buttock, right Diabetes mellitus type 1 Family History Family History Other Family history non-contributory Surgical History Surgical History Hx of cholecystectomy Social History Social History Household Members: Other Household Members Other:: homeless Housing: House Do you presently have visiting nurse or other home services: No Alcohol intake: current Alcohol intake frequency: does not drink Patient Tobacco Use Status: Current everyday Tobacco user Tobacco use type: Cigarette Cigarettes Per Day: 3 e-Cigarette/Vaping Use: Never Used Second Hand Smoke Exposure: No Substance Use Type: Marijuana Advance Directives Date on File: 05/16/23 service: No Current occupational status: employed Meds Allergies Allergy/AdvReac Type Severity Reaction Status Date / Time latex Allergy Severe Rash Verified 02/21/25 16:20 Active Medications: Current Medications Acetaminophen (Acetaminophen 325 Mg Tablet) 975 mg PO Q6H PRN PRN Reason: Pain, Mild 1-3,fever,headache Last Admin: 02/22/25 17:06 Dose: 975 mg Albuterol Sulfate (Albuterol Sulfate (0.083%) 2.5 Mg/3 Ml Vial.Neb) 2.5 mg INHALE Q3H PRN PRN Reason: Wheezing Calcium Carbonate (Calcium Carbonate 750 Mg Tab.Chew) 750 mg PO Q4H PRN PRN Reason: Heartburn Dextrose (Dextrose 50 % 25 Gm/50 Ml Syringe) 25 gm IVPUSH Q15M PRN; Protocol PRN Reason: per Hypoglycemia Standing Ord. Enoxaparin Sodium (Enoxaparin Sodium 40 Mg/0.4 Ml Syringe) 40 mg SUBCUT Q24H [facility] Glucose (Glucose Gel 15 Gm Gel..Gram.) 15 gm PO Q15M PRN; Protocol PRN Reason: per Hypoglycemia Standing Ord. Guaifenesin/Codeine Phosphate (Guaifen/Codeine Sf 200/20/10ml 10 Ml Liquid) 5 ml PO Q6H PRN PRN Reason: Cough Piperacillin Sod/Tazobactam (Sod 3.375 gm/ Sodium Chloride) 50 mls @ 100 mls/hr IV Q6H [facility] Last Infusion: 02/22/25 14:08 Dose: Infused Vancomycin HCl 750 mg/ Sodium (Chloride) 265 mls @ 265 mls/hr IV Q8H [facility] Last Admin: 02/22/25 16:59 Dose: 265 mls/hr Lactated Ringer's (Lr) 1,000 mls @ 100 mls/hr IVCONT .Q10H [facility] Last Admin: 02/22/25 16:59 Dose: 100 mls/hr Insulin Glargine (Insulin Glargine,Hum.Rec.Anlog 100 Unit/Ml 10 Ml Vial) 10 unit SUBCUT DAILY [facility] Last Admin: 02/22/25 08:14 Dose: 10 unit Insulin Human Lispro (Insulin Lispro 100 Unit/Ml 3 Ml Vial) 0 unit SUBCUT QIDACHS [facility]; Protocol Last Admin: 02/22/25 17:00 Dose: Not Given Lidocaine (Lidocaine 4 % Patch Adh..Patch) 1 patch TRANSDERMA DAILY [facility]; Protocol Last Admin: 02/22/25 17:02 Dose: Not Given Magnesium Hydroxide (Milk Of Magnesia 30 Ml Oral.Susp) 30 ml PO DAILY PRN PRN Reason: Constipation Melatonin (Melatonin 3 Mg Tablet) 6 mg PO BEDTIME PRN PRN Reason: Insomnia Nicotine (Nicotine 7 Mg Patch.Td24) 7 mg TRANSDERMA DAILY [facility] Last Admin: 02/22/25 08:14 Dose: 7 mg Ondansetron HCl (Ondansetron Hcl 4 Mg/2 Ml Vial) 4 mg IVPUSH Q4H PRN PRN Reason: Nausea and Vomiting Oxycodone HCl (Oxycodone Hcl Immed Release 5 Mg Tablet) 5 mg PO Q6H PRN PRN Reason: Pain, Severe (Pain Scale 7-10) Last Admin: 02/22/25 17:06 Dose: 5 mg Pharmacy Consult (Consult Rx Vancomycin Dosing) 1 each MISCELLANE DAILY PRN PRN Reason: Consult order Prochlorperazine Edisylate (Prochlorperazine Edisylate 10 Mg/2 Ml Vial) 5 mg IVPUSH Q6H PRN PRN Reason: Nausea and Vomiting Sodium Chloride (0.9 % Sodium Chloride Flush 3 Ml Syringe) 3 ml IVFLUSH QSHIFT [facility] Last Admin: 02/22/25 16:58 Dose: Not Given Home Medications ?Medication ?Instructions ?Recorded ?Confirmed ?Last Taken ?Type No Known Home Meds 02/22/25 02/22/25 Unknown History Physical Exam Vital Signs: Vital Signs: Last Vital Signs Temp 97.5 F 02/22/25 15:54 Pulse 92 02/22/25 15:54 Resp 18 02/22/25 15:54 BP 110/70 02/22/25 09:44 Pulse Ox 99 02/22/25 15:54 O2 Del Method Room Air 02/22/25 15:54 BMI result Body Mass Index 23.5 Const: General: cooperative HEENT: Head: Yes normal to inspection Ears: hearing grossly normal bilaterally Eyes: Pupils: Equal, round and reactive pupils present EOM: EOMs intact bilaterally Neck: Neck: Yes normal visual inspection Chest: Chest palpation & inspection: normal inspection of the chest Resp: Effort & Inspection: normal respiratory effort and able to speak in complete sentences Cardio: Rate: regular rate Rhythm: regular rhythm GI: Inspection: Yes normal to inspection Back/Spine/Pelvis: Other: Medial aspect of the left buttock exhibits a intact dressing over what appears to be a packing tape placed in an limited open wound. There is surrounding edema and tenderness. Patient reports ?it is better than it was?. Neuro: Cranial nerves: Yes Equal, round and reactive pupils present Results Labs 02/22/25 04:14 02/22/25 04:14 Labs: Abnormal lab results 02/21/25 02/22/25 02/22/25 Range/Units 22:11 04:14 04:30 WBC 14.7 H (4.8-10.8) X10*3/uL Neut % (Auto) 81.2 H (45-73) % Lymph % (Auto) 13.1 L 19.4 L (20-40) % Abs Immat Gran (auto) 0.06 H (0.00-0.03) X10*3/uL Absolute Neuts (auto) 12.0 H (2.0-8.3) x10*3/uL Chloride 109 H (96-108) mmol/L Anion Gap 9 L (12-20) POC Glucose (60-115) mg/dL Random Glucose 165 H 130 H (60-115) mg/dL Hemoglobin A1c % 8.5 H (<6.0) % Calcium 8.1 L D (8.4-10.2) mg/dL Total Bilirubin 1.1 H (0.0-1.0) mg/dL AST 40 H (5-31) U/L C-Reactive Protein 4.63 H (< or = 0.50) mg/dL Total Protein 8.8 H (6.5-8.0) g/dL Ur Specific [place] >= 1.030 H (1.005-1.025) Urine Blood Small (1+) H (Negative) Urine Opiates Screen POSITIVE H (Not Detect) U Benzodiazepines Scrn POSITIVE H (Not Detect) U Marijuana (THC) Screen POSITIVE H (Not Detect) 02/22/25 02/22/25 Range/Units 07:11 12:56 WBC (4.8-10.8) X10*3/uL Neut % (Auto) (45-73) % Lymph % (Auto) (20-40) % Abs Immat Gran (auto) (0.00-0.03) X10*3/uL Absolute Neuts (auto) (2.0-8.3) x10*3/uL Chloride (96-108) mmol/L Anion Gap (12-20) POC Glucose 177 H 166 H (60-115) mg/dL Random Glucose (60-115) mg/dL Hemoglobin A1c % (<6.0) % Calcium (8.4-10.2) mg/dL Total Bilirubin (0.0-1.0) mg/dL AST (5-31) U/L C-Reactive Protein (< or = 0.50) mg/dL Total Protein (6.5-8.0) g/dL Ur Specific [place] (1.005-1.025) Urine Blood (Negative) Urine Opiates Screen (Not Detect) U Benzodiazepines Scrn (Not Detect) U Marijuana (THC) Screen (Not Detect) Short CBC 02/21/25 02/22/25 Range/Units 22:11 04:14 WBC 14.7 H 10.5 (4.8-10.8) X10*3/uL Hgb 14.5 12.7 (12.0-16.0) g/dl Hct 42.3 37.9 (37.0-47.0) % Plt Count 197 186 (160-400) X10*3/uL BMP 02/21/25 02/22/25 22:11 04:14 Sodium 139 140 Potassium 4.2 3.4 Chloride 106 109 H Carbon Dioxide 22 25 BUN 14 10 Creatinine 0.72 0.55 Calcium 9.5 D 8.1 L D Liver Function 02/21/25 Range/Units 22:11 Total Bilirubin 1.1 H (0.0-1.0) mg/dL AST 40 H (5-31) U/L ALT 17 (0-31) U/L Alkaline Phosphatase 96 (39-117) U/L Albumin 4.6 (3.5-5.0) g/dL Urine 02/21/25 02/22/25 Range/Units 21:18 04:30 Urine Color Yellow Urine Appearance Clear Urine pH 6.0 (5.0-9.0) Ur Specific [place] >= 1.030 H (1.005-1.025) Urine Protein Negative (Neg-Trace) mg/dL Urine Glucose (UA) Negative (Negative) mg/dL Urine Test NEGATIVE (NEGATIVE) All other labs normal. Assessment and Plan (1) Abscess of buttock, left: Status: Acute Plan Continue antibiotic therapy and wound care follow up on culture results. Total time managing care of this patient today: 30 minutes. Procedures Date of Service Date of Service: 02/22/25
[2025-02-22 19:13] VITALS: BP 140/73; PULSE 98; RESP 18; TEMP 36.4; O2SAT 99
[2025-02-22 20:20] LABS: Glucose, Whole Blood 90 mg/dL (60-115)
[2025-02-22 23:27] VITALS: BP 129/78; PULSE 92; RESP 16; TEMP 36.4; O2SAT 99
[2025-02-23] MEDS: Lactated Ringers 1,000 ML 100 ML IVCONT (02:51)
[2025-02-23 03:11] VITALS: BP 104/66; PULSE 72; RESP 16; TEMP 36.3; O2SAT 97
[2025-02-23 06:46] LABS: Creatinine Clr Calc Pharmacy 126.1; Estimated Glomerular Filt Rate > 60
--- NOTE | 2025-02-23 07:13 | HE.PHANOTE ---
re: vanco Trough returned @ 10.3. Insight is predicting a subtherapeutic AUC. Renal function is stable. Will increase dose to 1000 mg q8h to ensure efficacy. Next trough due 02/24 @0600.
[2025-02-23 07:16] LABS: Glucose, Whole Blood 115 mg/dL (60-115)
[2025-02-23] MEDS: oxyCODONE HCl Immed Release 5 MG TABLET PO ×5 (07:25→22:00)
[2025-02-23] MEDS: Nicotine 7 MG PATCH.TD24 TRANSDERMA (07:29)
--- NOTE | 2025-02-23 07:33 | PM.GICN ---
History of Present Illness Data of Consult Service Date: 02/23/25 Requesting physician: Winter Allen Primary Care Provider: None Physician HPI Reason for consult: Rectal abscess 34 YF with hx of multiple skin abscesses and type 1 diabetes mellitus (currently not taking insulin) seen at [facility] on 02/22/25 with multiple complaints including left buttock abscess that has been getting worse over the last 3 days. She noted that pus has been coming out from the affected area. She denied fever or chills. She also reported right 1st toe pain, swelling and pus coming from around the nail. She denied any trauma. Pt reports she has recurrent skin lesions/abscess in the armpits, groin and bikini area, buttocks and toes since childhood. Pt gives a hx of pancreatitis 11 years ago and had a Lap Silvana 3 years ago. Pt repots 4-5 non-bloody loose BMs a day Pt complains of trigger finger involving both hands and denies joint pains. She also complained of a dizziness and chronic cough that has been going on for 4 months associated with shortness on breath and wheezing. Pt denied acute gastrointestinal symptoms. She is a tobacco smoker and smoked 1 pack of cigarettes every 2 days. She denied alcohol abuse or illicit drug use. 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 She has 1 daughter wh is being raised by her aunt. FAMILY HX: Patient denies known family history of colon polyps, colon cancer or IBD. She reports cancer runs in my family and is unsure of the type of cancer in her family members. In the ED, she was found to have normal vital signs. Blood workup showed leukocytosis of 14.7. There is no lactic acidosis. Hemoglobin is 14.5 and platelets 197. There are no electrolyte imbalances. BUN is 14 and creatinine 0.72. Glucose 165. LFTs are remarkable for minimally elevated bilirubin and AST. ALT and alk-phos are normal. Total protein is 8.8 and albumin 4.6. Viral testing for COVID-19, influenza and RSV is negative. CXR is negative. Abdominal pelvis CT scan with IV contrast showed medial left buttock subcutaneous abscess measuring 1.9 by 3.9 by 8.8 cm and no visualized involvement of the anus and rectum. Right foot x-rays showed finding suggestive of prior heel osteomyelitis, less likely due to be acute osteomyelitis. ED tx: Morphine 4 mg IV x2, NS 1 L bolus, Versed 3 mg IV x2, Zosyn 3.375 g IV, vancomycin 1.5 g IV 02/21/[address] SCAN SHOWED: There is diffuse skin thickening and subcutaneous stranding of the medial left buttock, and there is a rim enhancing fluid collection just deep to the dermis measuring 1.7 x 2.9 x 1.4 cm. This collection is separate from the rectum and anus. No evidence of perirectal abscess. Thick-walled, partially decompressed urinary bladder. No acute fracture. IMPRESSION: Medial left buttock subcutaneous abscess measuring 1.9 x 2.9 x 1.8 cm. No visualized involvement of the anus or rectum. PAST GI HISTORY BY REVIEW OF MEDICAL RECORDS: 09/2021 EGD AND COLONOSCOPY WAS PERFORMED BY DR. BRICENO: Endoscopy Findings: erosive esophagitis, LA grade D gastritis sigmoidoscopy Findings: colitis internal hemorrhoids Plan: Await Pathology results and stool results high dose PPI e.g pantoprazole 40 mg BID carafate 1 gm BID scheduled anti emetic for 1-2 weeks, e.g zofran 4 mg TID repeat EGD in 3-4 months if stool samples neg and having ongoing colitis symptoms then trial of mesalamine avoid nsaid BIOPSIES SHOWED: A. Duodenum, biopsy: Duodenal mucosa with mildly increased intraepithelial lymphocytes and preserved villous architecture. See comment. B. Stomach, biopsy: Oxyntic mucosa with mild chronic inactive inflammation; no Helicobacter organisms seen. C. Esophagus, lower, biopsy: Mildly active esophagitis (scattered neutrophils and eosinophils). D. Colon, left, biopsy: Colonic mucosa within normal limits Review of Systems Review of Systems: Yes all other systems are reviewed and are negative [facility] Past Medical History Medical History (Updated 02/23/25 @ 14:22 by Brooklyn Morejon MD) Sepsis Abscess of buttock, right Diabetes mellitus type 1 Family History Family History Other Family history non-contributory Surgical History Surgical History Hx of cholecystectomy Social History Social History Household Members: Other Household Members Other:: homeless Housing: House Do you presently have visiting nurse or other home services: No Alcohol intake: current Alcohol intake frequency: does not drink Patient Tobacco Use Status: Current everyday Tobacco user Tobacco use type: Cigarette Cigarettes Per Day: 3 e-Cigarette/Vaping Use: Never Used Second Hand Smoke Exposure: No Substance Use Type: Marijuana Advance Directives Date on File: 05/16/23 service: No Current occupational status: employed Meds Allergies Allergy/AdvReac Type Severity Reaction Status Date / Time latex Allergy Severe Rash Verified 02/21/25 16:20 Active Medications: Current Medications Acetaminophen (Acetaminophen 325 Mg Tablet) 975 mg PO Q6H PRN PRN Reason: Pain, Mild 1-3,fever,headache Last Admin: 02/22/25 23:06 Dose: 975 mg Albuterol Sulfate (Albuterol Sulfate (0.083%) 2.5 Mg/3 Ml Vial.Neb) 2.5 mg INHALE Q3H PRN PRN Reason: Wheezing Calcium Carbonate (Calcium Carbonate 750 Mg Tab.Chew) 750 mg PO Q4H PRN PRN Reason: Heartburn Dextrose (Dextrose 50 % 25 Gm/50 Ml Syringe) 25 gm IVPUSH Q15M PRN; Protocol PRN Reason: per Hypoglycemia Standing Ord. Enoxaparin Sodium (Enoxaparin Sodium 40 Mg/0.4 Ml Syringe) 40 mg SUBCUT Q24H [facility] Last Admin: 02/23/25 07:26 Dose: 40 mg Glucose (Glucose Gel 15 Gm Gel..Gram.) 15 gm PO Q15M PRN; Protocol PRN Reason: per Hypoglycemia Standing Ord. Guaifenesin/Codeine Phosphate (Guaifen/Codeine Sf 200/20/10ml 10 Ml Liquid) 5 ml PO Q6H PRN PRN Reason: Cough Piperacillin Sod/Tazobactam (Sod 3.375 gm/ Sodium Chloride) 50 mls @ 100 mls/hr IV Q6H [facility] Last Admin: 02/23/25 07:26 Dose: 100 mls/hr Lactated Ringer's (Lr) 1,000 mls @ 100 mls/hr IVCONT .Q10H [facility] Last Admin: 02/23/25 02:51 Dose: 100 mls/hr Vancomycin HCl 1,000 mg/ (Sodium Chloride) 270 mls @ 270 mls/hr IV Q8H [facility] Last Admin: 02/23/25 07:26 Dose: 270 mls/hr Insulin Glargine (Insulin Glargine,Hum.Rec.Anlog 100 Unit/Ml 10 Ml Vial) 10 unit SUBCUT DAILY [facility] On Hold: 02/22/25 23:08 Last Admin: 02/22/25 08:14 Dose: 10 unit Insulin Human Lispro (Insulin Lispro 100 Unit/Ml 3 Ml Vial) 0 unit SUBCUT QIDACHS [facility]; Protocol Last Admin: 02/22/25 20:21 Dose: Not Given Lidocaine (Lidocaine 4 % Patch Adh..Patch) 1 patch TRANSDERMA DAILY [facility]; Protocol Last Admin: 02/22/25 17:02 Dose: Not Given Magnesium Hydroxide (Milk Of Magnesia 30 Ml Oral.Susp) 30 ml PO DAILY PRN PRN Reason: Constipation Melatonin (Melatonin 3 Mg Tablet) 6 mg PO BEDTIME PRN PRN Reason: Insomnia Morphine Sulfate (Morphine Sulfate 4 Mg/Ml Cartridge) 2 mg IVPUSH Q4H PRN; Protocol PRN Reason: Pain, Severe (Pain Scale 7-10) Last Admin: 02/23/25 04:37 Dose: 2 mg Nicotine (Nicotine 7 Mg Patch.Td24) 7 mg TRANSDERMA DAILY [facility] Last Admin: 02/23/25 07:29 Dose: 7 mg Ondansetron HCl (Ondansetron Hcl 4 Mg/2 Ml Vial) 4 mg IVPUSH Q4H PRN PRN Reason: Nausea and Vomiting Oxycodone HCl (Oxycodone Hcl Immed Release 5 Mg Tablet) 5 mg PO Q6H PRN PRN Reason: Pain, Severe (Pain Scale 7-10) Last Admin: 02/23/25 07:25 Dose: 5 mg Pharmacy Consult (Consult Rx Vancomycin Dosing) 1 each MISCELLANE DAILY PRN PRN Reason: Consult order Prochlorperazine Edisylate (Prochlorperazine Edisylate 10 Mg/2 Ml Vial) 5 mg IVPUSH Q6H PRN PRN Reason: Nausea and Vomiting Sodium Chloride (0.9 % Sodium Chloride Flush 3 Ml Syringe) 3 ml IVFLUSH QSHIFT [facility] Last Admin: 02/23/25 07:26 Dose: Not Given Home Medications ?Medication ?Instructions ?Recorded ?Confirmed ?Last Taken ?Type No Known Home Meds 02/22/25 02/22/25 Unknown History Physical Exam Vital Signs: Vital Signs: Last Vital Signs Temp 97.4 F 02/23/25 03:11 Pulse 72 02/23/25 03:11 Resp 16 02/23/25 03:11 BP 104/66 02/23/25 03:11 Pulse Ox 97 02/23/25 03:11 O2 Del Method Room Air 02/23/25 03:11 BMI result Body Mass Index 23.5 Const: General: cooperative HEENT: Head: Yes normal to inspection Face and sinus: Yes normal facial exam Mouth: Normal oral and palatal mucosa present Teeth and gingiva: dentition normal Eyes: General: appearance normal, both eyes and all related structures Pupils: Equal, round and reactive pupils present Resp: Effort & Inspection: normal respiratory effort Cardio: Rate: regular rate Rhythm: regular rhythm GI: Palpation (GI): Soft to palpation and nontender : Other: buttock abscess left with no ongoing drainage General: Yes no CVA tenderness Back/Spine/Pelvis: Back: no CVA tenderness Skin: General skin exam: no rashes or lesions noted Neuro: General: moves all extremities Cranial nerves: Yes Equal, round and reactive pupils present Extrem: General: Yes normal to inspection Psych: Appearance: grossly normal Results Labs 02/22/25 04:14 02/23/25 05:43 Labs: BMP 02/23/25 05:43 Creatinine 0.53 Microbiology Microbiology Results: Microbiology 02/21/25 22:55 Blood - Venous Blood Culture - Preliminary No growth after 24 hours. 02/21/25 22:56 Blood - Venous Blood Culture - Preliminary No growth after 24 hours. Assessment and Plan (1) Abscess of buttock, left: Status: Acute (2) Abscess of buttock, right: Status: Acute Plan 34 YF with hx of multiple skin abscesses and type 1 diabetes mellitus (currently not taking insulin) admitted to [facility] [place]22[place] with multiple complaints including left buttock abscess that has been getting worse over the last 3 days. She also reported right 1st toe pain, swelling and pus coming from around the nail. Pt reports she has recurrent skin lesions/abscess in the armpits, groin and bikini area, buttocks and toes since childhood. Pt gives a hx of pancreatitis 11 years ago and had a Lap Silvana 3 years ago. Pt repots 4-5 non-bloody loose BMs a day Pt had a colonoscopy 3 yrs ago and no IBD detected on colon biopsies Multiple skin lesions/abscess may be related to Hideradenitis suppurativa and skin biopsy would be helpful RECOMMENDATIONS: 1. Management of rectal abscess as per General Surgery 2. Check CRP, IBD serology and fecal calprotectin - added to am labs 3. If lab evaluation is suggestive of IBD, patient can be scheduled for an EGD and colonoscopy as an outpatient. Procedures Date of Service Date of Service: 02/23/25
[2025-02-23 07:46] VITALS: BP 114/71; PULSE 77; RESP 18; TEMP 36.6; O2SAT 97
--- NOTE | 2025-02-23 08:21 | PM.PNGS ---
Subjective Subjective Date of Service: 02/23/25 Interval history: Complaining about staff spilling her water at bedside and rudely waking her up. Continues to c/o significant pain at I&D site. Asking to see social and human services assistant for completion of her paperwork for housing. Physical Exam Vital Signs: Vital Signs: Last Vital Signs Temp 97.9 F 02/23/25 07:46 Pulse 77 02/23/25 07:46 Resp 18 02/23/25 07:46 BP 114/71 02/23/25 07:46 Pulse Ox 97 02/23/25 07:46 O2 Del Method Room Air 02/23/25 07:46 BMI result Body Mass Index 23.5 Const: General: comfortable, no acute distress and alert Orientation/consciousness: patient oriented x3 Resp: Effort & Inspection: normal respiratory effort Skin: Other: left buttock I&D site- packing removed, no significant drainage noted, does have moderate induration anteriorly, no significant erythema, tender to even light sensation has extensive scarring and tracking of b/l axillas, groin and buttock Neuro: General: patient oriented x3 and moves all extremities Objective Data Active Medications Acetaminophen (Acetaminophen 325 Mg Tablet) 975 mg PO Q6H PRN PRN Reason: Pain, Mild 1-3,fever,headache Last Admin: 02/22/25 23:06 Dose: 975 mg Documented By: MEME Albuterol Sulfate (Albuterol Sulfate (0.083%) 2.5 Mg/3 Ml Vial.Neb) 2.5 mg INHALE Q3H PRN PRN Reason: Wheezing Calcium Carbonate (Calcium Carbonate 750 Mg Tab.Chew) 750 mg PO Q4H PRN PRN Reason: Heartburn Dextrose (Dextrose 50 % 25 Gm/50 Ml Syringe) 25 gm IVPUSH Q15M PRN; Protocol PRN Reason: per Hypoglycemia Standing Ord. Enoxaparin Sodium (Enoxaparin Sodium 40 Mg/0.4 Ml Syringe) 40 mg SUBCUT Q24H [facility] Last Admin: 02/23/25 07:26 Dose: 40 mg Documented By: BENJAMIN Glucose (Glucose Gel 15 Gm Gel..Gram.) 15 gm PO Q15M PRN; Protocol PRN Reason: per Hypoglycemia Standing Ord. Guaifenesin/Codeine Phosphate (Guaifen/Codeine Sf 200/20/10ml 10 Ml Liquid) 5 ml PO Q6H PRN PRN Reason: Cough Piperacillin Sod/Tazobactam (Sod 3.375 gm/ Sodium Chloride) 50 mls @ 100 mls/hr IV Q6H [facility] Last Infusion: 02/23/25 08:00 Dose: Infused Documented By: BENJAMIN Lactated Ringer's (Lr) 1,000 mls @ 100 mls/hr IVCONT .Q10H [facility] Last Admin: 02/23/25 02:51 Dose: 100 mls/hr Documented By: MEME Vancomycin HCl 1,000 mg/ (Sodium Chloride) 270 mls @ 270 mls/hr IV Q8H [facility] Last Admin: 02/23/25 07:26 Dose: 270 mls/hr Documented By: BENJAMIN Insulin Glargine (Insulin Glargine,Hum.Rec.Anlog 100 Unit/Ml 10 Ml Vial) 10 unit SUBCUT DAILY [facility] On Hold: 02/22/25 23:08 Last Admin: 02/22/25 08:14 Dose: 10 unit Documented By: PARTH Insulin Human Lispro (Insulin Lispro 100 Unit/Ml 3 Ml Vial) 0 unit SUBCUT QIDACHS [facility]; Protocol Last Admin: 02/23/25 07:38 Dose: Not Given Documented By: BENJAMIN Non-Admin Reason: No Insulin Coverage Lidocaine (Lidocaine 4 % Patch Adh..Patch) 1 patch TRANSDERMA DAILY [facility]; Protocol Last Admin: 02/22/25 17:02 Dose: Not Given Documented By: ANDRESSA Non-Admin Reason: Patient Refused Magnesium Hydroxide (Milk Of Magnesia 30 Ml Oral.Susp) 30 ml PO DAILY PRN PRN Reason: Constipation Melatonin (Melatonin 3 Mg Tablet) 6 mg PO BEDTIME PRN PRN Reason: Insomnia Morphine Sulfate (Morphine Sulfate 4 Mg/Ml Cartridge) 2 mg IVPUSH Q4H PRN; Protocol PRN Reason: Pain, Severe (Pain Scale 7-10) Last Admin: 02/23/25 04:37 Dose: 2 mg Documented By: MEME Nicotine (Nicotine 7 Mg Patch.Td24) 7 mg TRANSDERMA DAILY [facility] Last Admin: 02/23/25 07:29 Dose: 7 mg Documented By: BENJAMIN Ondansetron HCl (Ondansetron Hcl 4 Mg/2 Ml Vial) 4 mg IVPUSH Q4H PRN PRN Reason: Nausea and Vomiting Oxycodone HCl (Oxycodone Hcl Immed Release 5 Mg Tablet) 5 mg PO Q6H PRN PRN Reason: Pain, Severe (Pain Scale 7-10) Last Admin: 02/23/25 07:25 Dose: 5 mg Documented By: BENJAMIN Pharmacy Consult (Consult Rx Vancomycin Dosing) 1 each MISCELLANE DAILY PRN PRN Reason: Consult order Prochlorperazine Edisylate (Prochlorperazine Edisylate 10 Mg/2 Ml Vial) 5 mg IVPUSH Q6H PRN PRN Reason: Nausea and Vomiting Sodium Chloride (0.9 % Sodium Chloride Flush 3 Ml Syringe) 3 ml IVFLUSH QSHIFT [facility] Last Admin: 02/23/25 07:26 Dose: Not Given Documented By: BENJAMIN Non-Admin Reason: IV Running Labs 02/22/25 04:14 02/23/25 05:43 Labs: Laboratory Results - last 24 hr 02/22/25 02/22/25 02/22/25 12:56 16:01 20:15 Estim Creat Clear Calc Estimated GFR POC Glucose 166 H 109 90 Vancomycin Trough 02/23/25 02/23/25 05:43 07:05 Estim Creat Clear Calc 126.1 Estimated GFR > 60 POC Glucose 115 Vancomycin Trough 10.3 Microbiology Microbiology Results: Microbiology 02/21/25 22:55 Blood Culture - Preliminary Blood - Venous No growth after 24 hours. 02/21/25 22:56 Blood Culture - Preliminary Blood - Venous No growth after 24 hours. Procedures Date of Service Date of Service: 02/23/25 Progress Note: A&P Assessment and plan (1) Abscess of buttock, left: Status: Acute Plan Left buttock abscess s/p I&D in ED. Unfortunately no abscess culture was obtained. Packing removed today, no significant drainage, surrounding cellulitic changes improving. Remains tender. Recommend sitz baths TID and after bowel movements to help cleanse area, reduce induration. Cont antibiotics. Overall her clinical picture is consistent with hidradenitis suppurativa and recommend discharge with hibiclens and recommended cleansing affected areas every other day with the scrub to try and reduce recurrences. Time Spent With Patient Time: Total time managing care of this patient today ____ minutes. Quality Stroke Does the patient have a stroke diagnosis?: No VTE Prior VTE?: No VTE Risk Level:: Medical - moderate - high VTE Device Contraindication: Treatment Not Indicated VTE Drug Contraindication: N/A - Med Ordered
--- NOTE | 2025-02-23 09:50 | MHC.CM.PN ---
PT IS HOMLESS PENITENTIARY LIST AND PCP GIVEN TO PT DC PLAN DC TO PENITENTIARY
--- NOTE | 2025-02-23 10:09 | PM.EVENT ---
Event Note Date of Service: 02/23/25 Event Note: Patient reportedly complaining of right first toe pain on eval. Right foot xray obtained which showed irregular appearance of the distal phalanx of the great toe with well-defined sclerotic margins suggestive of prior healed osteomyelitis. MRI R foot therefore obtained which was reviewed with Dr. Mcbride. Question of foreign body near nail bed however not visualized on xray and therefore unlikely to be true foreign body. No abscess, changes suggestive of healed osteo. No changed suggestive of cellulitis on exam. Wound recommend outpatient follow up with podiatry. Time Spent With Patient Time: Total time managing care of this patient today ____ minutes.
[2025-02-23 11:15] VITALS: BP 147/95; PULSE 88; RESP 18; TEMP 36.5; O2SAT 99
[2025-02-23 11:17] LABS: Glucose, Whole Blood 110 mg/dL (60-115)
--- NOTE | 2025-02-23 12:56 | P.PNIM_ITS ---
Subjective Subjective Date of Service: 02/23/25 Interval History: buttock abcess Review of Systems Nausea vomiting improving Still has significant buttock pain No fevers Physical Exam 2 Exam: Exam: Appearance: Alert.? Oriented X3.? cvs: rrr, [id number]. res: clear to auscultation ,no rhonchii or wheezing abd: no rebound or guarding ,nt, bs present. left buttock area -erythema /swelling improving ext pulses present , no cyanosis. neuro: axo3 , nonfocal. Vital Signs: Vital Signs: Last Vital Signs Temp 97.7 F 02/23/25 11:15 Pulse 88 02/23/25 11:15 Resp 18 02/23/25 11:15 BP 147/95 H 02/23/25 11:15 Pulse Ox 99 02/23/25 11:15 O2 Del Method Room Air 02/23/25 11:15 BMI result Body Mass Index 23.5 Objective Data Active Medications Acetaminophen (Acetaminophen 325 Mg Tablet) 975 mg PO Q6H PRN PRN Reason: Pain, Mild 1-3,fever,headache Last Admin: 02/22/25 23:06 Dose: 975 mg Documented By: MEME Albuterol Sulfate (Albuterol Sulfate (0.083%) 2.5 Mg/3 Ml Vial.Neb) 2.5 mg INHALE Q3H PRN PRN Reason: Wheezing Calcium Carbonate (Calcium Carbonate 750 Mg Tab.Chew) 750 mg PO Q4H PRN PRN Reason: Heartburn Dextrose (Dextrose 50 % 25 Gm/50 Ml Syringe) 25 gm IVPUSH Q15M PRN; Protocol PRN Reason: per Hypoglycemia Standing Ord. Enoxaparin Sodium (Enoxaparin Sodium 40 Mg/0.4 Ml Syringe) 40 mg SUBCUT Q24H [facility] Last Admin: 02/23/25 07:26 Dose: 40 mg Documented By: BENJAMIN Glucose (Glucose Gel 15 Gm Gel..Gram.) 15 gm PO Q15M PRN; Protocol PRN Reason: per Hypoglycemia Standing Ord. Guaifenesin/Codeine Phosphate (Guaifen/Codeine Sf 200/20/10ml 10 Ml Liquid) 5 ml PO Q6H PRN PRN Reason: Cough Piperacillin Sod/Tazobactam (Sod 3.375 gm/ Sodium Chloride) 50 mls @ 100 mls/hr IV Q6H [facility] Last Infusion: 02/23/25 08:00 Dose: Infused Documented By: BENJAMIN Vancomycin HCl 1,000 mg/ (Sodium Chloride) 270 mls @ 270 mls/hr IV Q8H [facility] Last Infusion: 02/23/25 08:28 Dose: Infused Documented By: BENJAMIN Insulin Glargine (Insulin Glargine,Hum.Rec.Anlog 100 Unit/Ml 10 Ml Vial) 10 unit SUBCUT DAILY [facility] On Hold: 02/22/25 23:08 Last Admin: 02/22/25 08:14 Dose: 10 unit Documented By: PARTH Insulin Human Lispro (Insulin Lispro 100 Unit/Ml 3 Ml Vial) 0 unit SUBCUT QIDACHS [facility]; Protocol Last Admin: 02/23/25 11:53 Dose: Not Given Documented By: BENJAMIN Non-Admin Reason: No Insulin Coverage Lidocaine (Lidocaine 4 % Patch Adh..Patch) 1 patch TRANSDERMA DAILY [facility]; Protocol Last Admin: 02/23/25 08:49 Dose: Not Given Documented By: BENJAMIN Non-Admin Reason: Patient Refused Magnesium Hydroxide (Milk Of Magnesia 30 Ml Oral.Susp) 30 ml PO DAILY PRN PRN Reason: Constipation Melatonin (Melatonin 3 Mg Tablet) 6 mg PO BEDTIME PRN PRN Reason: Insomnia Nicotine (Nicotine 7 Mg Patch.Td24) 7 mg TRANSDERMA DAILY [facility] Last Admin: 02/23/25 07:29 Dose: 7 mg Documented By: BENJAMIN Ondansetron HCl (Ondansetron Hcl 4 Mg/2 Ml Vial) 4 mg IVPUSH Q4H PRN PRN Reason: Nausea and Vomiting Oxycodone HCl (Oxycodone Hcl Immed Release 5 Mg Tablet) 5 mg PO Q4H PRN PRN Reason: Pain, Severe (Pain Scale 7-10) Last Admin: 02/23/25 09:26 Dose: 5 mg Documented By: BENJAMIN Pharmacy Consult (Consult Rx Vancomycin Dosing) 1 each MISCELLANE DAILY PRN PRN Reason: Consult order Prochlorperazine Edisylate (Prochlorperazine Edisylate 10 Mg/2 Ml Vial) 5 mg IVPUSH Q6H PRN PRN Reason: Nausea and Vomiting Sodium Chloride (0.9 % Sodium Chloride Flush 3 Ml Syringe) 3 ml IVFLUSH QSHIFT [facility] Last Admin: 02/23/25 07:26 Dose: Not Given Documented By: BENJAMIN Non-Admin Reason: IV Running Labs 02/22/25 04:14 02/23/25 05:43 Labs: Laboratory Results - last 24 hr 02/22/25 02/22/25 02/22/25 04:14 12:56 16:01 ESR 19 Estim Creat Clear Calc Estimated GFR POC Glucose 166 H 109 C-Reactive Protein Vancomycin Trough 02/22/25 02/23/25 02/23/25 20:15 05:43 07:05 ESR Estim Creat Clear Calc 126.1 Estimated GFR > 60 POC Glucose 90 115 C-Reactive Protein 2.70 H Vancomycin Trough 10.3 02/23/25 11:10 ESR Estim Creat Clear Calc Estimated GFR POC Glucose 110 C-Reactive Protein Vancomycin Trough Microbiology Microbiology Results: Microbiology 02/21/25 22:55 Blood Culture - Preliminary Blood - Venous No growth after 24 hours. 02/21/25 22:56 Blood Culture - Preliminary Blood - Venous No growth after 24 hours. Assessment and Plan (1) Cellulitis: Status: Inactive Plan 34 y/o woman a PMHx significant for multiple skin abscesses who presents with: Left buttock abscess. s/p I&D by ED. crp 2.7 esr:19 plan: Continue empiric IV antibiotic therapy with Zosyn and vancomycin. Blood and left buttock culture obtained -will follow results. Check nasal MRSA- negative . Surgery consult-noted- cellulitis vs ?hidradenitis suppurativa plan:sitz baths,iv antibiotics, blood culture negative at 24 hours, unfortunately wound culture were no sent in ED Added ID consult. Right first toe edema, pain + pus drainage. CRP elevated. Right foot MRI report noted Continue empiric IV antibiotic therapy. Chronic cough (4 months), likely chronic bronchitis due to tobacco or marijuana smoking. CXR negative. Normal O2 sat. Bronchodilator and antitussive therapy as needed. Tobacco and marijuana cessation education given. Homeless. Social work consult. dm -?unclear type 1or 2 : Hemoglobin A1c is 8.5 type 1 DM antibodies plan: Continue fingerstick with sliding scale, Lantus. ongoing need for stay: for left buttock abscess and right 1st toe of c/o rule out and treatment with IV antibiotic therapy and evaluation by Surgical Service. Quality Stroke Does the patient have a stroke diagnosis?: No VTE Prior VTE?: No VTE Risk Level:: Medical - moderate - high VTE Device Contraindication: Treatment Not Indicated VTE Drug Contraindication: N/A - Med Ordered
--- NOTE | 2025-02-23 14:15 | P.CNID_ITS ---
History of Present Illness Data of Consult Service Date: 02/23/25 Requesting physician: Ivet Britton Primary Care Provider: None Physician HPI Reason for consult: abcess buttock,right great toe prior drainage She presents with two days buttock discomfort and drainage yellowish material. She has no fever but leukocytosis to 14.7 and tachycardia 92. She had prior right toe erythema two to three months ago and now not draining except occasional serous fluid. She has no acute OM seen. There is no bacteremia or positive cultures from abscess drainage (saw Surgery). Review of Systems 2 Review of Systems: Yes all other systems are reviewed and are negative [facility] Past Medical History Medical History (Updated 02/23/25 @ 14:22 by Brooklyn Morejon MD) Sepsis Abscess of buttock, right Diabetes mellitus type 1 Family History Family History Other Family history non-contributory Family history: reviewed and not pertinent Surgical History Surgical History Hx of cholecystectomy Social History Social History Household Members: Other Household Members Other:: homeless Housing: House Do you presently have visiting nurse or other home services: No Alcohol intake: current Alcohol intake frequency: does not drink Patient Tobacco Use Status: Current everyday Tobacco user Tobacco use type: Cigarette Cigarettes Per Day: 3 e-Cigarette/Vaping Use: Never Used Second Hand Smoke Exposure: No Substance Use Type: Marijuana Advance Directives Date on File: 05/16/23 service: No Current occupational status: employed Meds Allergies Allergy/AdvReac Type Severity Reaction Status Date / Time latex Allergy Severe Rash Verified 02/21/25 16:20 Active Medications: Current Medications Acetaminophen (Acetaminophen 325 Mg Tablet) 975 mg PO Q6H PRN PRN Reason: Pain, Mild 1-3,fever,headache Last Admin: 02/22/25 23:06 Dose: 975 mg Albuterol Sulfate (Albuterol Sulfate (0.083%) 2.5 Mg/3 Ml Vial.Neb) 2.5 mg INHALE Q3H PRN PRN Reason: Wheezing Calcium Carbonate (Calcium Carbonate 750 Mg Tab.Chew) 750 mg PO Q4H PRN PRN Reason: Heartburn Dextrose (Dextrose 50 % 25 Gm/50 Ml Syringe) 25 gm IVPUSH Q15M PRN; Protocol PRN Reason: per Hypoglycemia Standing Ord. Enoxaparin Sodium (Enoxaparin Sodium 40 Mg/0.4 Ml Syringe) 40 mg SUBCUT Q24H [facility] Last Admin: 02/23/25 07:26 Dose: 40 mg Glucose (Glucose Gel 15 Gm Gel..Gram.) 15 gm PO Q15M PRN; Protocol PRN Reason: per Hypoglycemia Standing Ord. Guaifenesin/Codeine Phosphate (Guaifen/Codeine Sf 200/20/10ml 10 Ml Liquid) 5 ml PO Q6H PRN PRN Reason: Cough Piperacillin Sod/Tazobactam (Sod 3.375 gm/ Sodium Chloride) 50 mls @ 100 mls/hr IV Q6H [facility] Last Admin: 02/23/25 13:55 Dose: 100 mls/hr Vancomycin HCl 1,000 mg/ (Sodium Chloride) 270 mls @ 270 mls/hr IV Q8H [facility] Last Infusion: 02/23/25 08:28 Dose: Infused Insulin Glargine (Insulin Glargine,Hum.Rec.Anlog 100 Unit/Ml 10 Ml Vial) 10 unit SUBCUT DAILY [facility] On Hold: 02/22/25 23:08 Last Admin: 02/22/25 08:14 Dose: 10 unit Insulin Human Lispro (Insulin Lispro 100 Unit/Ml 3 Ml Vial) 0 unit SUBCUT QIDACHS [facility]; Protocol Last Admin: 02/23/25 11:53 Dose: Not Given Lidocaine (Lidocaine 4 % Patch Adh..Patch) 1 patch TRANSDERMA DAILY [facility]; Protocol Last Admin: 02/23/25 08:49 Dose: Not Given Magnesium Hydroxide (Milk Of Magnesia 30 Ml Oral.Susp) 30 ml PO DAILY PRN PRN Reason: Constipation Melatonin (Melatonin 3 Mg Tablet) 6 mg PO BEDTIME PRN PRN Reason: Insomnia Nicotine (Nicotine 7 Mg Patch.Td24) 7 mg TRANSDERMA DAILY [facility] Last Admin: 02/23/25 07:29 Dose: 7 mg Ondansetron HCl (Ondansetron Hcl 4 Mg/2 Ml Vial) 4 mg IVPUSH Q4H PRN PRN Reason: Nausea and Vomiting Oxycodone HCl (Oxycodone Hcl Immed Release 5 Mg Tablet) 5 mg PO Q4H PRN PRN Reason: Pain, Severe (Pain Scale 7-10) Last Admin: 02/23/25 13:56 Dose: 5 mg Pharmacy Consult (Consult Rx Vancomycin Dosing) 1 each MISCELLANE DAILY PRN PRN Reason: Consult order Prochlorperazine Edisylate (Prochlorperazine Edisylate 10 Mg/2 Ml Vial) 5 mg IVPUSH Q6H PRN PRN Reason: Nausea and Vomiting Sodium Chloride (0.9 % Sodium Chloride Flush 3 Ml Syringe) 3 ml IVFLUSH [facility] Last Admin: 02/23/25 07:26 Dose: Not Given Home Medications ?Medication ?Instructions ?Recorded ?Confirmed ?Last Taken ?Type No Known Home Meds 02/22/25 02/22/25 Un known History Physical Exam 2 Vital Signs: Vital Signs: Last Vital Signs Temp 97.7 F 02/23/25 11:15 Pulse 88 02/23/25 11:15 Resp 18 02/23/25 11:15 BP 147/95 H 02/23/25 11:15 Pulse Ox 99 02/23/25 11:15 O2 Del Method Room Air 02/23/25 11:15 BMI result Body Mass Index 23.5 Const: General: cooperative HEENT: Head: Yes normal to inspection Face and sinus: Yes normal facial exam Mouth: Normal oral and palatal mucosa present Teeth and gingiva: d entition normal Eyes: General: appearance normal, both eyes and all related structures P upils: Equal, round and reactive pupils present Resp: Effort & Inspection: normal respiratory effort Cardio: Rate: regular rate Rhythm: regular rhythm GI: Palpation (GI): Soft to palpation and nontender : Other: buttock abscess left with no ongoing drainage General: Yes no CVA tenderness Back/Spine/Pelvis: Back: no CVA tenderness Skin: General skin exam: no rashes or lesions noted Neuro: General: moves all extremities Cranial nerves: Yes Equal, round and reactive pupils present Extrem: General: Yes normal to inspection Psych: Appearance: grossly normal Results Labs 02/22/25 04:14 02/23/25 05:43 Labs: BMP 02/23/25 05:43 Creatinine 0.53 Microbiology Microbiology Results: Microbiology 02/21/25 22:55 Blood - Venous Blood Culture - Preliminary No growth after 24 hours. 02/21/25 22:56 Blood - Venous Blood Culture - Preliminary No growth after 24 hours. Assessment and Plan (1) Diabetes mellitus type 1: Status: Acute (2) Abscess of buttock, left: Status: Acute (3) Sepsis: Status: Acute Plan Probable gram negative ,anerobes and less likely gram positive organisms. She has most likely hidradenitis suppurativa. Do not see any acute treatable OM foot. Agree piperacillin/tazobactam and Vancomycin for now. Would probably send on Doxycycline and Augmentin if cultures negative when stable. Check HIV and Hepatitis C.
[2025-02-23 15:37] VITALS: BP 133/89; PULSE 83; RESP 19; TEMP 36.9; O2SAT 97
[2025-02-23 16:00] LABS: Glucose, Whole Blood 101 mg/dL (60-115)
[2025-02-23 19:10] VITALS: BP 133/83; PULSE 97; RESP 18; TEMP 36.6; O2SAT 99
[2025-02-23 20:17] LABS: Glucose, Whole Blood 132 mg/dL (60-115)
[2025-02-23] MEDS: guaiFEN/Codeine SF 200/20/10ML 10 ML LIQUID 5 ML PO (20:38)
[2025-02-23 23:27] VITALS: BP 105/66; PULSE 61; RESP 16; TEMP 36; O2SAT 97
[2025-02-24] MEDS: traZODone HCL 25 MG HALFTAB PO (00:08)
[2025-02-24] MEDS: 0.9 % Sodium Chloride Flush 3 ML SYRINGE IVFLUSH ×3 (00:09→13:54)
[2025-02-24] MEDS: oxyCODONE HCl Immed Release 5 MG TABLET PO ×2 (05:05→09:32)
[2025-02-24 07:16] VITALS: BP 128/79; PULSE 91; RESP 16; TEMP 36.7; O2SAT 96
--- NOTE | 2025-02-24 07:19 | PC.NURSE ---
Patient extremely rude and agitated this AM yelling upon waking up. I'm leaving! No one lets me sleep in this place! AMA Paperwork offered, patient stating she will stay and not leave the hospital. Attempt to educate patient however unwilling to listen this AM.
--- NOTE | 2025-02-24 07:35 | HE.PHANOTE ---
Re [place] Trough back at 17.2, higher than projected and a little high for SSTI. Will do 1500mg q12h for same total daily dose with a longer interval to clear. Will check again 02/25/25 @0600
[2025-02-24 07:55] LABS: HIV Num 1 0.13 S/CO (0.00-0.99); ~HepC Num1 0.11 S/CO (0.00-0.79); ~Hepatitis C Antibody Nonreactive (Nonreactive)
[2025-02-24 08:13] LABS: Creatinine Clr Calc Pharmacy 76.8; Estimated Glomerular Filt Rate > 60
[2025-02-24 08:42] LABS: Glucose, Whole Blood 152 mg/dL (60-115)
[2025-02-24 11:18] VITALS: BP 106/72; PULSE 74; RESP 16; TEMP 36.2; O2SAT 97
[2025-02-24 11:23] LABS: Glucose, Whole Blood 203 mg/dL (60-115)
--- NOTE | 2025-02-24 12:22 | PC.NURSE ---
Pt apologized for her behavior this AM.
--- NOTE | 2025-02-24 14:09 | PM.DS ---
DS: Providers Provider Date of admission: 02/22/25 01:56 Date of discharge: 02/24/25 Primary care physician: None Physician Consults: 02/22/25 02:27 Consult to General Surgery [place]ine [place]ing [place] [facility] [place] [facility] Reason for consultation: Left buttock abscess, no improvement after I&D in ED Has provider been notified: No 02/22/25 16:16 Consult to Gastroenterology Routine Consulting Provider[place] [facility] [place] [facility] Reason for consultation: rectal abscess 02/23/25 10:59 Consult to Infectious Diseases Routine Consulting Provider[place] [facility] [place] [facility] Reason for consultation: cellulitis /buttock abcess Has provider been notified: No Attending physician on discharge: Ivet Britton Discharging clinician: Ivet Britton DS: Diagnosis Discharge Diagnosis (1) Abscess of buttock, left: Status: Acute (2) Abscess of buttock, right: Status: Acute DS: Summary Hospital Course Hospital Course: HPI:34 years old woman with past medical history significant for multiple skin abscesses and type 1 diabetes mellitus currently not taking insulin presents to the ED with multiple complaints including left buttock abscess that has been getting worse over the last 3 days. She noted that pauses coming out from the affected area. She denied fever or chills. She also reported right 1st toe pain, swelling and pus coming around the nail. She denied any trauma. She also complained of a chronic cough that has been going on for 4 months associated with shortness on breath and wheezing. She complained of dizziness. She did not report any acute gastrointestinal symptoms. She is a tobacco smoker and smoked 1 pack of cigarettes every 2 days. She also smokes marijuana. She denied alcohol abuse. Denied illicit drug use. She is homeless. In the ED, she was found to have normal vital signs. Blood workup showed leukocytosis of 14.7. There is no lactic acidosis. Hemoglobin is 14.5 and platelets 197. There are no electrolyte imbalances. BUN is 14 and creatinine 0.72. Glucose 165. LFTs are remarkable for minimally elevated bilirubin and AST. ALT and alk-phos are normal. Total protein is 8.8 and albumin 4.6. Viral testing for COVID-19, influenza and RSV is negative. CXR is negative. Abdominal pelvis CT scan with IV contrast showed medial left buttock subcutaneous abscess measuring 1.9 by 3.9 by 8.8 cm and no visualized involvement of the anus and rectum. Right foot x-rays showed finding suggestive of prior heel osteomyelitis, less likely due to be acute osteomyelitis. ED tx: Morphine 4 mg IV x2, NS 1 L bolus, Versed 3 mg IV x2, Zosyn 3.375 g IV, vancomycin 1.5 g IV Hospital course: 34 y/o woman a PMHx significant for multiple skin abscesses who presents with:Left buttock abscess-s/p I&D by ED.crp 2.7,esr:19: Patient was started on empiric antibiotics broad-spectrum vanco/Zosyn, blood cultures sent, surgical and ID evaluation added: Nasal MRSA negative, with the above supportive care patient seems to be improved, blood culture negative at 48 hours. Hepatitis C and HIV testing screening nonreactive. Seen by surgery unfortunately wound culture was not sent. In addition right toe-has chronic changes, no discharge: MRI (please see detailed report in imaging section) of the done and reviewed by surgery and Infectious Disease: Question of foreign body near nail bed however not visualized on xray and therefore unlikely to be true foreign body. No abscess, changes suggestive of healed osteo. No changed suggestive of cellulitis on exam. Wound recommend outpatient follow up with podiatry. Infectious disease also reviewed:Do not see any acute treatable OM foot. The case discussed with ID and surgery: Patient will go home with p.o. antibiotics, follow up outpatient with surgery. In addition patient had diabetes with hyperglycemia(? Fluctuating fingersticks): Unclear if taking any medications: Started on Lantus during this admission and adjusted to 5 units, and sliding scale coverage. Diabetic education given. Monitor fingersticks and further management outpatient, strongly advised to get PCP appointment. Chronic cough (4 months), thought to be likely chronic bronchitis due to tobacco or marijuana smoking, also cough medication added. plan: Her packing is removed, pain seems to be significantly improved, no significant drainage: Complete p.o. antibiotics doxycycline and Augmentin for 10 days. If any new worsening of infection or drainage or significant pain go to nearest emergency room for further evaluation. Follow-up with podiatry /surgery outpatient-Wound recommend outpatient follow up with podiatry. Please see surgical instructions also above. Tobacco and marijuana cessation education given. Diabetes-? Unclear if diabetes type 1 or 2,Hemoglobin A1c is 8.5,type 1 DM antibodies: Currently Lantus adjusted to 5 units and sliding scale coverage, diabetic education given. Monitor fingersticks closely. Patient was strongly advised to get a PCP appointment. Above management discussed with the patient in detail length she understand and in agreement with the above plan, time spent 50 minute. Time Attestation Total time managing care of this patient today: 50 mintues. Discharge Coordination Time (in mins): 50 min Quality: Safe Use of Opioids Does Pt have an Active Cancer Diagnosis on the Problem List?: No Quality: Stroke Does the patient have a stroke diagnosis?: No Physical Exam Exam: Exam: Appearance: Alert.? Oriented X3. cvs: rrr, [id number] , no murmur res: clear to auscultation ,no rhonchii or wheezing abd: no rebound or guarding ,nt, bs present. skin :(per surgery note/as well as physical exam ):left buttock I&D site- packing removed, no significant drainage noted, does have moderate induration anteriorly, no significant erythema,mild tender to even light sensation imrpoving has extensive scarring and tracking of b/l axillas, groin and buttock ext pulses present , no cyanosis . neuro: axo3 , nonfocal. Vital Signs: Vital Signs: Last Vital Signs Temp 97.2 F 02/24/25 11:18 Pulse 74 02/24/25 11:18 Resp 16 02/24/25 11:18 BP 106/72 02/24/25 11:18 Pulse Ox 97 02/24/25 11:18 O2 Del Method Room Air 02/24/25 11:18 BMI result Body Mass Index 23.5 DS: Data Data Completed and Pending Completed studies during hospitalization [Text1]: Procedures Drainage of Buttock Skin, External Approach (05/15/23) Drainage of Right Buttock, Open Approach (09/25/23) Excision of Duodenum, Via Natural or Artificial Opening Endoscopic, Diagnostic (10/16/21) Excision of Esophagus, Via Natural or Artificial Opening Endoscopic, Diagnostic (10/16/21) Excision of Sigmoid Colon, Via Natural or Artificial Opening Endoscopic, Diagnostic (10/16/21) Excision of Stomach, Via Natural or Artificial Opening Endoscopic, Diagnostic (10/16/21) Labs on day of discharge: Laboratory Results - last 24 hr 02/23/25 02/23/25 02/23/25 14:59 15:55 20:13 Creatinine Estim Creat Clear Calc Estimated GFR POC Glucose 101 132 H C-Reactive Protein Vancomycin Trough Hepatitis C Ab (EIA) Nonreactive HIV 1&2 Ab/P24 Ag 4thGn Nonreactive 02/24/25 02/24/25 02/24/25 06:17 07:16 11:16 Creatinine 0.87 Estim Creat Clear Calc 76.8 Estimated GFR > 60 POC Glucose 152 H 203 H C-Reactive Protein 1.04 H Vancomycin Trough 17.2 Hepatitis C Ab (EIA) HIV 1&2 Ab/P24 Ag 4thGn Preliminary micro results at discharge 02/21/25 22:56 Blood Culture - Preliminary Blood - Venous No growth after 48 hours. 02/21/25 22:55 Blood Culture - Preliminary Blood - Venous No growth after 48 hours. Imaging Chest x-ray: Radiologist's impression: ITS Impressions Extremity Ultrasound 02/23/25 10:49 IMPRESSION: Limited imaging through right great toe reveals no radiopaque metallic foreign body. What is echogenic is the dense appearing nail of the great toe. mri: Suggestion of small linear foreign body in an 11 mm lesion (granuloma or phlegmon; no discrete abscess noted) eroding the lateral aspect (including the nailbed) of the 1st distal phalanx. Neighboring 1st distal phalangeal bone marrow edematous changes (accurate differentiation of edema from osteomyelitis not possible). foot xray: Irregular appearance of the distal phalanx of the great toe with well-defined sclerotic margins. Findings are suggestive of prior healed osteomyelitis, less likely thought to be acute osteomyelitis. If there is high clinical concern for acute osteomyelitis consider MRI with contrast for further evaluation. Discharge Plan Discharge Anticipated Discharge Date/Time: 02/24/25 13:39 Patient Disposition: Home, Self-Care Discharge Diagnosis: buttock abcess vs ?hidradenitis suppurativa Referrals: Nancy Meier PA-C [Physician Ticket Sales Supervisor, General Surgery] - 1 Week Physician,None [Primary Care Provider, Medical] - 1 Week Discharge Medications: New chlorhexidine gluconate [Hibiclens] 4 % liquid 1 appl topical Q OTHER DAY 60 Days Qty: 3800 0RF Rx Instructions: Normal Wash First: Shower with your regular shampoo and soap, thoroughly washing your hair and face, then rinse everything off. Apply Hibiclens: Turn the water off or step out of the stream, apply Hibiclens to a clean washcloth or your hands (not too much), and gently lather your body from the neck down. Focus Areas: Pay extra attention to skin folds, armpits, and groin, but never use it on your face, eyes, ears, or genital area. Wait: Let it sit on the skin for about 2-3 minutes. Rinse Well: Rinse your entire body thoroughly with warm water. Dry Gently: Pat your skin dry with a clean towel; don't rub acetaminophen 325 mg Tablet 975 mg PO Q6H PRN (Reason: Pain, Mild 1-3,Fever,Headache) Qty: 15 0RF doxycycline monohydrate 100 mg Capsule 100 mg PO Q12H Qty: 20 0RF amoxicillin-pot clavulanate 875-125 mg Tablet 1 tab PO Q12H Qty: 20 0RF nicotine 7 mg/24 hr Patch 24 Hour 7 mg transdermal DAILY Qty: 7 0RF oxycodone 5 mg Tablet 5 mg PO Q4H PRN (Reason: Pain, Severe (Pain Scale 7-10)) Qty: 10 0RF Rx Instructions: Partial Fill upon patient request. (DME) FreeStyle Lite Strips Strip Qty: 100 0RF Rx Instructions: Test four times a day or as directed. (DME) blood-glucose meter [FreeStyle Lite Meter] Kit Qty: 1 0RF Rx Instructions: As Directed alcohol swabs Pads, Medicated 1 pad TOPICAL QIDACHS Qty: 100 0RF Rx Instructions: Use four times a day or as directed. insulin lispro [Humalog KwikPen Insulin] 100 unit/mL insulin pen 0 sliding scale dose SUBCUT QIDACHS Qty: 15 0RF Rx Instructions: Blood Sugar: <150 - 0 units 151-200 - 2 units 201-250 - 4 units 251-300 - 6 units 301-350 - 8 units >350 - 10 units insulin glargine [Lantus Solostar U-100 Insulin] 100 unit/mL (3 mL) insulin pen 5 unit SUBCUT DAILY Qty: 15 0RF (DME) pen needle, diabetic 32 gauge x 1/4 needle Qty: 100 0RF Rx Instructions: Use four times a day or as directed. (DME) lancets [FreeStyle Lancets] 28 gauge misc Qty: 100 0RF Rx Instructions: Test four times a day or as directed. docusate sodium [Colace] 100 mg capsule 100 mg PO BID PRN (Reason: constipation) Qty: 30 0RF polyethylene glycol 3350 [Miralax] 17 gram/dose powder 17 g PO DAILY PRN (Reason: constipation) Qty: 119 0RF Robitussin Cough-Sore Throat 325-10 mg/10 mL liquid 20 ml PO Q4H PRN (Reason: cough) Qty: 118 0RF Discharge Orders: Discharge Order (Routine); Ordered 02/24/25 Ordered By: Ivet Britton Diet: Advance to usual diet Activity on Discharge: As tolerated Stand Alone Forms: Patient Portal Discharge page Print Language: Czech Activity Restrictions/Additional Instructions: Recommend sitz baths TID and after bowel movements to help cleanse area, reduce induration. Cont antibiotics. Overall her clinical picture is consistent with hidradenitis suppurativa and recommend discharge with hibiclens and recommended cleansing affected areas every other day with the scrub to try and reduce recurrences. Dry dressing to I&D site while it remains open and draining. Care Plan Goals: Her packing is removed, pain seems to be significantly improved, no significant drainage: Complete p.o. antibiotics doxycycline and Augmentin for 10 days. If any new worsening of infection or drainage or significant pain go to nearest emergency room for further evaluation. Follow-up with podiatry /surgery outpatient-Wound recommend outpatient follow up with podiatry. Please see surgical instructions also above. Tobacco and marijuana cessation education given. Diabetes-? Unclear if diabetes type 1 or 2,Hemoglobin A1c is 8.5,type 1 DM antibodies: Currently Lantus adjusted to 5 units and sliding scale coverage, diabetic education given. Monitor fingersticks closely. Patient was strongly advised to get a PCP appointment. Health Concerns: As above. Plan of Treatment: As above. Assessment: As above.
[2025-02-24 15:00] VITALS: BP 137/80; PULSE 106; RESP 16; TEMP 36.3; O2SAT 97
--- NOTE | 2025-02-24 15:00 | MHC.CM.PN ---
pt dcd home self care will be staying at her moms she will be getting there by bus
--- NOTE | 2025-02-24 15:22 | PC.NURSE ---
d/c complete with patient, c/o nausea, medicated per emar. pt very emotional crying, educated that she is ready for d/c. Pt is homeless but is going to stay with her mother. educated importance of completing abt. Pt states she will and follow up with .
[2025-02-28 05:43] LABS: Insulin Auto Antibody <0.4 U/mL (<0.4)
[2025-03-01 03:44] LABS: Insulinoma associated 2 aatb <5.4 U/mL (<5.4)
[2025-03-01 20:48] LABS: Calprotectin, Fecal 7 mcg/g
== END 2025-02-24 15:26 | disposition home or self-care (01) | DRG 383 ==
LOC: HO.ED 20:57 → HO.EDOVER 02-22 02:00 → HO.S3 02-22 14:45
PROVIDERS: Internal Medicine; Internal Medicine Gastroenterology; Physician Assistant; Physician Assistant Medical; Admitting Provider Internal Medicine; Emergency Provider Student in an Organized Health Care Education/Training Program; Visit Provider Internal Medicine
DX: L02.31 Cutaneous abscess of buttock (principal); E10.65 Type 1 diabetes mellitus with hyperglycemia; E10.9 Type 1 diabetes mellitus without complications; F17.210 Nicotine dependence, cigarettes, uncomplicated; J42 Unspecified chronic bronchitis; F12.90 Cannabis use, unspecified, uncomplicated; R11.16 Cannabis hyperemesis syndrome; Z71.6 Tobacco abuse counseling; L73.2 Hidradenitis suppurativa; T38.3X6A Underdosing of insulin and oral hypoglycemic [antidiabetic] drugs, initial encounter; Z59.02 Unsheltered homelessness; Z79.899 Other long term (current) drug therapy
CPT/HCPCS: 36415; 71046; 73630; 73720; 74177; 76882; 80048; 80053; 80061; 80202; 80307; 81001; 81025; 81479; 82397; 82565; 82947; 83036; 83520; 83605; 83735; 83993; 85025; 85652; 86140; 86337; 86341; 86803; 87040; 87389; 87637; 87640; 87641; 88346; 88350; 99285; A9585; J1171; J1650; J2250; J2270; J2405; J2543; J3374; J7120; Q9967

== ENCOUNTER → 2025-02-21 16:22 | Outpatient (BNV) | payer MEDICAID, SELFPAY | PROVIDERS: Emergency Provider Student in an Organized Health Care Education/Training Program; Visit Provider Radiology Diagnostic Radiology | DX: L02.31 Cutaneous abscess of buttock (principal); R05.9 Cough, unspecified; Z03.89 Encounter for observation for other suspected diseases and conditions ruled out | CPT/HCPCS: 71046; 73630; 74177 ==

== ENCOUNTER 2025-02-22 01:56 | Outpatient (BNV) | payer MEDICAID, SELFPAY | END 2025-02-22 10:06 | PROVIDERS: Admitting Provider Internal Medicine; Emergency Provider Student in an Organized Health Care Education/Training Program; Visit Provider Radiology Diagnostic Radiology | DX: R60.0 Localized edema (principal) | CPT/HCPCS: 73720 ==

== ENCOUNTER 2025-02-22 01:56 | Outpatient (BNV) | payer MEDICAID, SELFPAY | END 2025-02-23 10:49 | PROVIDERS: Admitting Provider Internal Medicine; Emergency Provider Student in an Organized Health Care Education/Training Program; Visit Provider Radiology Diagnostic Radiology | DX: Z03.89 Encounter for observation for other suspected diseases and conditions ruled out (principal) | CPT/HCPCS: 76882 ==

== ENCOUNTER → 2025-02-22 01:56 | Outpatient (BNV) | payer MEDICAID, SELFPAY | PROVIDERS: Admitting Provider Internal Medicine; Emergency Provider Student in an Organized Health Care Education/Training Program; Visit Provider Surgery | DX: L02.31 Cutaneous abscess of buttock (principal) | CPT/HCPCS: 99232; 99499 ==

== ENCOUNTER → 2025-02-22 01:56 | Outpatient (BNV) | payer MEDICAID, SELFPAY | PROVIDERS: Admitting Provider Internal Medicine; Emergency Provider Student in an Organized Health Care Education/Training Program; Visit Provider Internal Medicine | DX: E10.9 Type 1 diabetes mellitus without complications (principal); L02.31 Cutaneous abscess of buttock; A41.9 Sepsis, unspecified organism | CPT/HCPCS: 99222 ==

== ENCOUNTER → 2025-02-22 01:56 | Outpatient (BNV) | payer MEDICAID, SELFPAY | PROVIDERS: Admitting Provider Internal Medicine; Emergency Provider Student in an Organized Health Care Education/Training Program; Visit Provider Internal Medicine | DX: L02.31 Cutaneous abscess of buttock (principal) | CPT/HCPCS: 99223; 99232; 99239; 99499 ==

== ENCOUNTER → 2025-02-25 02:23 | Outpatient (BNV) | payer OTHER, SELFPAY | PROVIDERS: Admitting Provider Physician Assistant; Emergency Provider Emergency Medicine; Visit Provider Nurse Practitioner Psychiatric/Mental Health | DX: F12.90 Cannabis use, unspecified, uncomplicated (principal) | CPT/HCPCS: 99499 ==

== ENCOUNTER → 2025-02-25 02:23 | Outpatient (BNV) | payer MEDICAID, SELFPAY | PROVIDERS: Admitting Provider Physician Assistant; Emergency Provider Emergency Medicine; Visit Provider Physician Assistant | DX: R65.10 Systemic inflammatory response syndrome (SIRS) of non-infectious origin without acute organ dysfunction (principal); R11.2 Nausea with vomiting, unspecified; R10.84 Generalized abdominal pain; N17.9 Acute kidney failure, unspecified | CPT/HCPCS: 99222; 99499 ==

== ENCOUNTER → 2025-02-25 02:23 | Outpatient (BNV) | payer MEDICAID, SELFPAY | PROVIDERS: Admitting Provider Physician Assistant; Emergency Provider Emergency Medicine; Visit Provider Internal Medicine Nephrology | DX: N17.9 Acute kidney failure, unspecified (principal) | CPT/HCPCS: 99223 ==

== ENCOUNTER → 2025-02-25 | Outpatient (BNV) | payer MEDICAID, SELFPAY | PROVIDERS: Emergency Provider Emergency Medicine; Visit Provider Radiology Diagnostic Radiology | DX: N17.9 Acute kidney failure, unspecified (principal); R10.9 Unspecified abdominal pain; L02.31 Cutaneous abscess of buttock; R05.9 Cough, unspecified; R50.9 Fever, unspecified | CPT/HCPCS: 71045; 74176 ==